=== PATIENT | male | born 1960 | race Two or more races ===

== ENCOUNTER 2024-08-18 21:19 | Inpatient (IN) | payer OTHER, MEDICAID ==
[~2024-08-18] VITALS: Ht 175.3 cm; Wt 82.5 kg
--- NOTE | 2024-08-18 21:57 | ED.PDOC ---
History of Present Illness HPI Comments 63 year old male was BIBA for the c/c of a [facility] Transfer for a Levo Drip. Per EMS pt was at [facility] for N/V and generalized weakness. Pt was later Dx with Sepsis for infected kidney stones and was given 3L NS and 2L NR per [facility] Sepsis protocol. Pt is now her at [facility] for a Urology&Nephrology consult. Pt is noted to be A&Ox4 at this time. No other associated symptoms, modifiers, recent injuries or sick contacts present at this time. Chief Complaint: General Weakness Time Seen by MD: 21:54 Reviewed Notes: Nurses Notes, Measurement Specialist Notes, Medications, Allergies Allergies: Coded Allergies: NO KNOWN ALLERGIES (Unverified , 08/18/24) Information Source: Patient, Emergency Med Personnel Mode of Arrival: EMS Severity: Moderate Timing: Hours Duration: Since onset, Hours Prehospital treatment: Other (3L NS and 2L NR) Vital Signs Vital Signs Date Time Temp Pulse Resp B/P (MAP) Pulse Ox O2 Delivery O2 Flow Rate FiO2 08/19/24 02:00 78 17 104/57 (73) 99 08/18/24 22:38 Room Air* 0 21 08/18/24 21:50 98.0 98.0 Physical Exam General: Awake, alert and oriented. No acute distress. Skin: Skin in warm, dry and intact without rashes or lesions. HEENT: The head is normocephalic and atraumatic. Conjunctivae are clear without exudates or hemorrhage. Sclera is non-icteric. Neck: Normal range of motion. No JVD. Cardiac: Regular rate Respiratory: No signs of respiratory distress. No Stridor. Extremities: Upper and lower extremities are atraumatic in appearance without deformity. Neurological: The patient is awake, alert and oriented to person, place, and time with normal speech. Speech is clear. There is no facial asymmetry. Psychiatric: Appropriate mood and affect. Good judgement and insight. Review of Systems: REVIEW OF SYSTEMS: No fever, no chills, or fatigue HEENT: No sore throat, no earache, no congestion, no neck pain. Cardiac: No chest pain. No palpitations. Lungs: No shortness of breath, no cough. GI: + nausea, + vomiting, no diarrhea, no constipation, no abdominal pain : No dysuria, frequency, or urgency. No hematuria. Musculoskeletal: No joint pain , no joint swelling, no extremity edema. Skin: No rash, no itching. Neuro: No headache, no dizziness, + weakness Past Medical History PAST MEDICAL HISTORY: Denies Surgical History: Denies all surgeries Family History Family History: Reviewed,noncontributory to illness, No family hx of Cancer, No family hx of DM, No family hx of Heart chaka, No family hx of HTN, No family hx ofKidney chaka, No family hx of Liver chaka, No family hx of Lung chaka, No family hx of Stroke Social History Smoker: Non-Smoker Alcohol: Denies ETOH Use Drugs: Denies Drug Use Lives In: Home Was a procedure done? Was a procedure done?: No Differential Dx Considerations may include: Sepsis, UTI, other X-Ray, Labs, Meds, VS Vital Signs Date Time Temp Pulse Resp B/P (MAP) Pulse Ox O2 Delivery O2 Flow Rate FiO2 08/19/24 02:00 78 17 104/57 (73) 99 08/19/24 01:00 81 18 114/59 (77) 95 08/19/24 00:00 87 08/19/24 00:00 87 19 113/65 (81) 97 08/18/24 23:00 88 19 104/56 (72) 96 08/18/24 22:38 108 14 94 Room Air* 0 21 08/18/24 22:35 96 19 102/58 (73) 98 08/18/24 21:50 98.0 108 14 101/56 (71) 94 98.0 08/18/24 21:34 97.5 95 20 112/71 (85) 96 97.5 Lab Test 08/18/24 22:06 Range/Units White Blood Count 20.4 H 4.4-10.8 10^3/uL Red Blood Count 4.69 4.5-5.90 10^6/uL Hemoglobin 12.6 L 13.5-17.5 g/dL Hematocrit 38.4 L 41.0-53.0 % Mean Corpuscular Volume 81.9 80.0-100.0 fL Mean Corpuscular Hemoglobin 26.9 L 28.0-32.0 pg Mean Corpuscular Hemoglobin Concent 32.9 32.0-36.0 g/dL Red Cell Distribution Width 16.1 H 11.8-14.3 % Platelet Count 425 140-450 10^3/uL Mean Platelet Volume 6.7 L 6.9-10.8 fL Neutrophils (%) (Auto) 88.1 H 37.0-80.0 % Lymphocytes (%) (Auto) 7.6 L 10.0-50.0 % Monocytes (%) (Auto) 4.1 0.0-12.0 % Eosinophils (%) (Auto) 0.0 0.0-7.0 % Basophils (%) (Auto) 0.2 0.0-2.0 % Neutrophils # (Auto) 17.9 H 1.6-8.6 10 ^3/uL Lymphocytes # (Auto) 1.6 0.4-5.4 10 ^3/uL Monocytes # (Auto) 0.8 0-1.3 10 ^3/uL Eosinophils # (Auto) 0 0-0.8 10 ^3/uL Basophils # (Auto) 0 0-0.2 10 ^3/uL Nucleated Red Blood Cells 0.1 % Sodium Level 133 L 136-145 mmol/L Potassium Level 4.5 3.5-5.1 mmol/L Chloride Level 102 98-107 mmol/L Carbon Dioxide Level 13 L 20-31 mmol/L Anion Gap 18 H 5-15 Blood Urea Nitrogen 91 *H 9-23 mg/dL Creatinine 7.37 H 0.700-1.30 mg/dL Glomerular Filtration Rate Calc 8 >90 mL/min BUN/Creatinine Ratio 12.3 10.0-20.0 Serum Glucose 156 H 74-106 mg/dL Calcium Level 11.0 H 8.7-10.4 mg/dL Current Medications Medications (Trade) Dose Ordered Sig/Etienne Route Start Time Stop Time Status Last Admin Sodium Chloride 1,000 ml @ 130 mls/hr [id number] ONCE IV 08/18/24 22:00 08/19/24 05:41 08/18/24 22:12 Time of 1ST Reevaluation: 22:26 Reevaluation 1ST: Unchanged Patient Education/Counseling: Need For Follow Up Family Education/Counseling: No Family Present Departure 1 Departure Time of Disposition: 04:13 Impression: Primary Impression: Sepsis Additional Impression: Nephrolithiasis Disposition: ADMITTED INPATIENT Condition: Stable Comments 63-year-old male transfer from [facility] for sepsis secondary to obstructing nephrolithiasis. Zosyn and vancomycin, proximally 3 L normal saline and lactated Ringer's administered prior to arrival. Patient admitted to hospitalist service for further treatment, evaluation and monitoring. Critical Care Note Critical Care Time?: No Stability Stability form required: No Heart Score Heart Score: Heart Score Response (Comments) Value History N/A 0 EKG N/A 0 Age N/A 0 Risk Factors N/A 0 Troponin N/A 0 Total 0 I personally scribed for RITCHIE HENSON MD ([email or web address]) on 08/18/24 at 21:57. Electronically submitted by Andrew Peres ([email or web address]). RITCHIE HENSON MD Aug 18, 2024 21:57
[2024-08-18] MEDS: SODIUM CHLORIDE 0.9% 1,000 ML IV ONE (22:12)
[2024-08-18 22:27] LABS: Basophils # (auto) 0 10 ^3/uL (0-0.2); Basophils % (auto) 0.2 % (0.0-2.0); Eosinophils # (auto) 0 10 ^3/uL (0-0.8); Hematocrit 38.4 % (41.0-53.0); Hemoglobin 12.6 g/dL (13.5-17.5); Lymphocytes # (auto) 1.6 10 ^3/uL (0.4-5.4); Lymphocytes % (auto) 7.6 % (10.0-50.0); Mean Corpuscular Hemoglobin 26.9 pg (28.0-32.0); Mean Corpuscular Hgb Conc. 32.9 g/dL (32.0-36.0); Mean Corpuscular Volume 81.9 fL (80.0-100.0); Monocytes # (auto) 0.8 10 ^3/uL (0-1.3); Monocytes % (auto) 4.1 % (0.0-12.0); Neutrophils # (auto) 17.9 10 ^3/uL (1.6-8.6); Neutrophils % (auto) 88.1 % (37.0-80.0); Nucleated Red Blood Cells % 0.1 %; Platelet Count (auto) 425 10^3/uL (140-450); Red Blood Cells 4.69 10^6/uL (4.5-5.90); Red Cell Distribution Width 16.1 % (11.8-14.3); White Blood Cell 20.4 10^3/uL (4.4-10.8)
[2024-08-18 22:33] LABS: Chloride 102 mmol/L (98-107); Potassium 4.5 mmol/L (3.5-5.1)
[2024-08-18 22:34] LABS: Anion Gap 18 (5-15)
[2024-08-18 22:38] VITALS: PULSE 108; RESP 14; O2SAT 94
[2024-08-18 22:39] LABS: BUN/Creatinine Ratio 12.3 (10.0-20.0)
[2024-08-18 22:41] LABS: Carbon Dioxide 13 mmol/L (20-31); Glucose 156 mg/dL (74-106); Sodium 133 mmol/L (136-145)
[2024-08-18 22:42] LABS: Blood Urea Nitrogen 91 mg/dL (9-23)
[2024-08-19] VITALS (8 sets, daily range): BP systolic 86–99; BP diastolic 52–58; PULSE 82–92; RESP 16–17; TEMP 97.3–97.5; O2SAT 96–99
--- NOTE | 2024-08-19 03:15 | DVHHPRES ---
History of Present Illness Resident Creating Document: DIMAS CHAUHAN RESIDENT History of Present Illness This is a 63-year-old male with past medical history of CVA, CKD, BPH, DVT, diabetes mellitus, who presented to the ED of [facility] due to generalized weakness associated with nausea and persistent vomiting. Patient states that symptoms started three days before coming to the ED consistent with persistent vomiting not being able to tolerate any food both solids and liquids associated with generalized malaise. The patient was transferred from [facility] to our facility for higher level of care and neurology evaluation due to large staghorn calculi in the left kidney with moderate to severe right hydronephrosis. The patient at that time was requiring vasopressors and was transfered to our facility. After checking [place] documentation, they performed a CT scan of the abdomen and pelvis with contrast which showed large s taghorn calculus of the left kidney with moderate to severe right hydronephrosis and bilateral hydroureter, possible bladder outlet obstruction. They also performed a CT angio of the chest which showed no pulmonary embolism. Upon admission, patient is alert and oriented, not requiring vasopressors at this time. Cannon catheter was placed with good urine output so far. Patient states that he is DNR/DNI status (chemical code). We will admit the patient for further assessment and management. Past medical history: CVA, CKD, BPH, DVT, DM Home medications: Eliquis 5 mg b.i.d., Lantus 20 units at bedtime, Mounjaro 2.5 mg weekly Surgical history: Cholecystectomy, amputation of the right 3rd and 5th toe and distal half of the 5th metatarsal. There is also amputation of the 1st metatarsal toe of the left foot. Social history: Denies smoking, alcohol or drugs Renal/: Chronic renal insuff Endocrine: Diabetes Past Surgical History: Cholecystectomy, Other (Cholecystectomy, amputation of the 3rd and 5th toe of the right foot and 1st toe of the left foot) Family History: None Smoke: No ALCOHOL: none Drugs: None Lives: with Family Domestic Violence: Neg Review of Systems Constitutional: Yes: Weakness, Malaise; No: Fever, Chills, Sweats, Other Eyes: No: Pain, Vision change, Conjunctivae inflammation, Eyelid inflammation, Other, Redness ENT: No: Ear pain, Ear discharge, Nose pain, Nose discharge, Nose congestion, Mouth pain, Mouth swelling, Throat pain, Throat swelling, Other Respiratory: No: Cough, Dry, Shortness of breath, SOB with excertion, Wheezing, Hemoptysis, Pleuritic Pain, Sputum, Wheezing, Other Cardiovascular: No: Chest Pain, Palpitations, Orthopnea, Paroxysmal Noc. Dyspnea, Edema, Lt Headedness, Other Gastrointestinal: Nausea, Vomiting; No: Abdominal Pain, Diarrhea, Constipation, Melena, Hematochezia, Other Genitourinary: No Dysuria, No Frequency, No Incontinence, No Hematuria, No Retention, No Other Musculoskeletal: No: other, neck pain, shoulder pain, arm pain, back pain, hand pain, leg pain, foot pain Skin: No: Rash, Lesions, Jaundice, Bruising, Other Neurological: Weakness; No: Numbness, Incoordination, Change in speech, Confusion, Seizures, Other Allergies: Coded Allergies: NO KNOWN ALLERGIES (Unverified , 08/18/24) Medications Current Medications Medications Dose Ordered Sig/Etienne Route Start Time Stop Time Status Last Admin Dose Admin Acetaminophen 650 mg Q6HP PRN PO 08/19/24 02:45 Meropenem 50 ml @ 17 mls/hr DAILY IV 08/19/24 02:45 UNV Exam Vital Signs Vital Signs Date Time Temp Pulse Resp B/P (MAP) Pulse Ox O2 Delivery O2 Flow Rate FiO2 08/18/24 22:38 108 14 94 Room Air* 0 21 08/18/24 22:35 102/58 (73) 08/18/24 21:50 98.0 98.0 General Appearance: Alert, Oriented X3, Cooperative, mild distress, moderate distress HEENT: Atraumatic, PERRLA, EOMI, Mucous membr. moist/pink Respiratory: Clear to auscultation, Normal air movement Cardiovascular: Regular rate, Normal S1, Normal S2, No murmurs Abdominal: Normal bowel sounds, Soft, No tenderness, No hepatospenomegaly, No masses Extremities: No clubbing, No cyanosis, No edema, Normal pulses, No tenderness/swelling, Other (There is amputation of the 3rd and 5th toe of the right foot and 1st toe of the left foot) Skin: No rashes, No breakdown, No significant lesion Neuro: Normal speech, Strength at 5/5 X4 ext, Normal tone, Sensation intact, C ranial nerves 3-12 NL, Reflexes 2+ Psych/Mental Status: Mental status NL, Mood NL Labs/Xrays Labs Test 08/18/24 22:06 Range/Units White Blood Count 20.4 H 4.4-10.8 10^3/uL Red Blood Count 4.69 4.5-5.90 10^6/uL Hemoglobin 12.6 L 13.5-17.5 g/dL Hematocrit 38.4 L 41.0-53.0 % Mean Corpuscular Volume 81.9 80.0-100.0 fL Mean Corpuscular Hemoglobin 26.9 L 28.0-32.0 pg Mean Corpuscular Hemoglobin Concent 32.9 32.0-36.0 g/dL Red Cell Distribution Width 16.1 H 11.8-14.3 % Platelet Count 425 140-450 10^3/uL Mean Platelet Volume 6.7 L 6.9-10.8 fL Neutrophils (%) (Auto) 88.1 H 37.0-80.0 % Lymphocytes (%) (Auto) 7.6 L 10.0-50.0 % Monocytes (%) (Auto) 4.1 0.0-12.0 % Eosinophils (%) (Auto) 0.0 0.0-7.0 % Basophils (%) (Auto) 0.2 0.0-2.0 % Neutrophils # (Auto) 17.9 H 1.6-8.6 10 ^3/uL Lymphocytes # (Auto) 1.6 0.4-5.4 10 ^3/uL Monocytes # (Auto) 0.8 0-1.3 10 ^3/uL Eosinophils # (Auto) 0 0-0.8 10 ^3/uL Basophils # (Auto) 0 0-0.2 10 ^3/uL Nucleated Red Blood Cells 0.1 % Sodium Level 133 L 136-145 mmol/L Potassium Level 4.5 3.5-5.1 mmol/L Chloride Level 102 98-107 mmol/L Carbon Dioxide Level 13 L 20-31 mmol/L Anion Gap 18 H 5-15 Blood Urea Nitrogen 91 *H 9-23 mg/dL Creatinine 7.37 H 0.700-1.30 mg/dL Glomerular Filtration Rate Calc 8 >90 mL/min BUN/Creatinine Ratio 12.3 10.0-20.0 Serum Glucose 156 H 74-106 mg/dL Calcium Level 11.0 H 8.7-10.4 mg/dL Assessment/Plan Assessment/Plan Assessment/plan Sepsis likely due to acute pyelonephritis Bilateral hydronephrosis with left staghorn calculi Possible bladder outlet obstruction OLGA on CKD (not on hemodialysis) Type 2 diabetes mellitus Benign prostatic hyperplasia History of DVT History of CVA Plan -Start Levophed if needed (Not requiring pressors at this time) -Ordered U/A, Urine NA, Cr, Prot/Cr ratio, Lactic acid -Continue IV fluids NS 0.9% 130cc/hr -Place Folley catheter -Strict Ins and Outs -Start IV meropenem renal dose -Start tamsulosin 0.4mg daily -Resume eliquis 5mg BID -Ordered CT abdomen w/o contrast -Ordered kidney ultrasound -Consulted both Urology and Nephrology Plan discussed with: Patient My Orders Orders - DIMAS CHAUHAN Procedure Category Date Status Time Admit ADMIT 08/19/24 Transmitted 02:33 Code Status CODE 08/19/24 Transmitted 02:33 Vital Signs CARLOS A 08/19/24 In Process 02:33 Review Orders With CARLOS A 08/19/24 In Process Adm. 02:33 Encourage Activity As CARLOS A 08/19/24 In Process Tolerate 02:33 Consistent DIET 08/19/24 Transmitted Carb(Ccho)Diabetes Breakfast Acetaminophen Tablet PHA 08/19/24 In Process (Tylenol Tablet) 02:45 Notify Of Changes CARLOS A 08/19/24 In Process From Base 02:33 Advance Directive CARLOS A 08/19/24 In Process 02:33 Urinalysis LAB 08/19/24 Logged 02:33 Complete Blood Count LAB 08/19/24 Logged 04:00 Lipid Panel LAB 08/19/24 Logged 02:33 Blood Culture SHAWNA 08/19/24 Logged 02:33 Urine Bacterial SHAWNA 08/19/24 Logged Culture 02:33 Patient Condition ORDERS 08/19/24 Transmitted 02:33 Allergies CARLOS A 08/19/24 In Process 02:33 Drug Screen LAB 08/19/24 Logged 02:33 Hemoglobin A1c LAB 08/19/24 Logged 02:33 Lactic Acid W/ Reflex LAB 08/19/24 Logged Order 02:40 Urine Sodium LAB 08/19/24 Logged 02:40 Urine Creatinine LAB 08/19/24 Logged 02:40 Urine LAB 08/19/24 Logged Protein/Creatinine Kidney US 08/19/24 Logged 02:[address] 08/19/24 Logged Contrast 02:40 Comprehensive LAB 08/19/24 Logged Metabolic Panel 04:00 Meropenem 500mg Ivpb PHA 08/19/24 Logged (Merrem 500mg/Ns) 02:45 Lipase LAB 08/19/24 Transmitted 02:46 Date of Service: Aug 19, 2024 Billing Provider: MAN CARLSON MD Common Visit Codes: 70039-[id number] INP/OBS CARE (HIGH) Secondary Visit Codes: 87359-[id number] CARE PLAN 30 MINUTES DIMAS CHAUHAN RESIDENT Aug 19, 2024 03:15
[2024-08-19 03:29] LABS: Eosinophils # (auto) 0 10 ^3/uL (0-0.8); Hemoglobin 11.3 g/dL (13.5-17.5); Neutrophils # (auto) 13.9 10 ^3/uL (1.6-8.6); Red Blood Cells 4.28 10^6/uL (4.5-5.90); Red Cell Distribution Width 16.2 % (11.8-14.3); White Blood Cell 16.6 10^3/uL (4.4-10.8)
[2024-08-19 03:30] LABS: Basophils # (auto) 0 10 ^3/uL (0-0.2); Basophils % (auto) 0.2 % (0.0-2.0); Eosinophils % (auto) 0.1 % (0.0-7.0); Hematocrit 34.3 % (41.0-53.0); Lymphocytes # (auto) 1.8 10 ^3/uL (0.4-5.4); Lymphocytes % (auto) 10.6 % (10.0-50.0); Mean Corpuscular Hemoglobin 26.4 pg (28.0-32.0); Mean Corpuscular Hgb Conc. 32.9 g/dL (32.0-36.0); Mean Corpuscular Volume 80.1 fL (80.0-100.0); Monocytes # (auto) 0.9 10 ^3/uL (0-1.3); Monocytes % (auto) 5.4 % (0.0-12.0); Neutrophils % (auto) 83.7 % (37.0-80.0); Platelet Count (auto) 405 10^3/uL (140-450)
[2024-08-19] MEDS: MEROPENEM 500MG IVPB 50 ML IV SCH (03:30)
--- NOTE | 2024-08-19 03:42 | DVH ---
Exam: CT CT AB PEL WO CON-NO ORAL OR IV History: R/O PYELONEPHRITIS AND KIDNEY STONES Comparison Study: None Technique: Multidetector spiral CT of the abdomen was performed from lung bases to pubic symphysis. I maging was performed without IV contrast. Axial, coronal and sagittal multiplanar reformats were obta ined from the axial data set by the technologist. Radiation Dose : 1. Abdomen/Pelvis: CTDIvol 19.66 mGy, DLP 1082.69 mGy*cm. Findings: Evaluation of solid organs is limited due to lack of intravenous contrast use. Lung Bases: No acute or significant lung base finding. Normal heart size. No pleural or pericardial effusion. Liver: The liver is normal in size. No focal lesions. Gallbladder and Biliary Tree: Status post cholecystectomy. Spleen: Unremarkable Pancreas: The pancreas is grossly normal in appearance. Adrenal Glands: Unremarkable Kidneys: Moderate right renal atrophy and [id number] right hydronephrosis and ureteral dilatati on without identifiable obstructive etiology. Staghorn calculus within the left renal pelvis measures 4.6 x 4.4 cm and there is moderate left hydronephrosis and ureteral dilatation without distal obstru ctive etiology identified. Bladder: Grossly unremarkable for degree of distention. Cannon catheter. Bowel: The stomach is grossly normal in appearance. Retained rectal stool. Small bowel and colon are otherwise normal in caliber and distribution. The appendix is normal. Ascites: Absent Lymphadenopathy: No mesenteric, retroperitoneal or periportal lymphadenopathy. Abdominal Wall and Mesentery: Unremarkable. Vasculature: The visualized abdominal aorta is normal in size and caliber. Atherosclerotic vascular c alcifications. Evaluation of abdominal and pelvic vessels is limited due to lack of intravenous contr ast. Pelvic Organs: Unremarkable Musculoskeletal: No aggressive focal bony lesions, acute fractures or dislocation. IMPRESSION: 1. Bilateral hydroureteronephrosis without identifiable distal obstructive etiology. Large staghorn calculus noted within the left renal pelvis. 2. Rectal fecal retention. Radiation optimization: All CT scans at this facility use at least one of these dose optimization viki hniques: automated exposure control mA and/or kV adjustment per patient size (includes targeted exam s where dose is matched to clinical indication) or iterative reconstruction.
[2024-08-19 03:59] LABS: Alanine Aminotransferase 12 U/L (7-40); Albumin 3.3 g/dL (3.2-4.8); Alkaline Phosphatase 74 U/L (46-116); Anion Gap 13 (5-15); BUN/Creatinine Ratio 14.3 (10.0-20.0); Chloride 105 mmol/L (98-107); Cholesterol 110 mg/dL (< 200); LDL Cholesterol 50 mg/dL (< 100); Potassium 4.2 mmol/L (3.5-5.1); Sodium 137 mmol/L (136-145); Total Protein 6.8 g/dL (5.7-8.2); Triglycerides 93 mg/dL (< 150)
[2024-08-19 04:00] LABS: Aspartate Aminotransferase 10 U/L (13-40); Bilirubin, Total 0.2 mg/dL (0.2-1.0); Calcium 10.4 mg/dL (8.7-10.4); Carbon Dioxide 19 mmol/L (20-31); Glucose 126 mg/dL (74-106); HDL Cholesterol 28 mg/dL (40-59)
[2024-08-19 04:02] LABS: Blood Urea Nitrogen 103 mg/dL (9-23)
[2024-08-19 04:20] LABS: Lipase 54 U/L (12-53)
[2024-08-19 06:23] LABS: Urine Bacteria None Seen /hpf (None Seen)
[2024-08-19 06:30] LABS: Urine Blood 3+ /uL (Negative); Urine Clarity Ex.Turbid (Clear); Urine Color Colorless (Yellow); Urine Mucus FEW (None Seen); Urine Protein, UAD 1+ (Negative); Urine Specific Gravity 1.011 (1.001-1.035); Urine Squamous Epithelial Cell None Seen /hpf (<5); Urine Urobilinogen Normal (Negative); Urine WBC 2479 /HPF (0-3); Urine WBC Clumps PRESENT /hpf (None Seen)
[2024-08-19 06:37] LABS: Protein, Urine 123.2 mg/dL (1-14)
[2024-08-19 06:40] LABS: Creatinine, Urine 24.66 mg/dL (30.0-125.0)
[2024-08-19 06:41] LABS: Amphetamine Screen, Urine Neg (NEGATIVE); Barbiturate Scree,Urine Neg (NEGATIVE); Benzodiazephine Screen, Urine Neg (NEGATIVE); Cannabinoid Screen, Urine Pos (NEGATIVE); Cocaine Screen, Urine Neg (NEGATIVE); Opiate Scree,Urine Neg (NEGATIVE); Phencyclidine Screen, Urine Neg (NEGATIVE)
--- NOTE | 2024-08-19 07:12 | DVH ---
INDICATION: POSS. BILAT HYDRONEPHROSIS TECHNIQUE: Multiple real-time sonographic images of the kidneys and bladder were obtained. COMPARISON: CT scan of the abdomen pelvis performed earlier same date. FINDINGS: The right kidney measures 9.1 cm in length, which is normal in size. There is normal echoge nicity of the right kidney. Moderate hydronephrosis. The left kidney measures 12.2 cm in length, which is normal in size. There is normal echogenicity of the left kidney. Nonobstructive calculus measuring 1.8 cm. No hydronephrosis. No large intraluminal masses are seen in the bladder. Prior to voiding the bladder volume measures vo lume 428 cc. IMPRESSION: 1. Moderate right hydronephrosis. No right intrarenal calculi. Left intrarenal calculus measuring 1 .8 cm. 2. Distended urinary bladder despite the presence of a Cannon catheter.
[2024-08-19] MEDS: TAMSULOSIN HYDROCHLORIDE 0.4 MG CAP PO SCH (09:55)
[2024-08-19] MEDS: FLEET ENEMA(ADULT) 135 ML PR ONE (09:55)
[2024-08-19] MEDS: LACTULOSE 20Gm/30ML SOLN PO SCH (09:55)
[2024-08-19] MEDS: SODIUM CHLORIDE 0.9% 1,000 ML IV SCH ×2 (09:55→21:00)
[2024-08-19] MEDS ORDERED: APIXABAN 5 MG TAB PO SCH (10:00)
[2024-08-19] MEDS: HEPARIN SODIUM (PORCINE) 5000 UNITS/ML 1ML VIAL SC SCH (10:07)
[2024-08-19] MEDS: LIDOCAINE 2% TOPICAL JELLY 5 ML URJT TOP ONE (10:56)
[2024-08-19] MEDS ORDERED: DOXYCYCLINE 100MG/100ML 100 ML IV SCH (14:15)
[2024-08-19] MEDS ORDERED: DOXYCYCLINE 100MG/100ML 100 ML IV ONE (14:15)
[2024-08-19] MEDS ORDERED: ATORVASTATIN 20 MG TAB PO ONE (14:45)
[2024-08-19 15:40] LABS: INR 1.18 (0.9-1.15); Partial Thromboplastin Time 30.8 SEC (24.5-34.5); Prothrombin Time 12.3 sec (9.3-11.8)
--- NOTE | 2024-08-19 16:05 | DVH ---
Bilateral Lower Extremity Arterial Duplex Clinical History: PAD Comparison: None Technique: Duplex Doppler evaluation including color Doppler and spectral/pulsed waveform analysis of the lower extremity arteries was performed. Findings: RIGHT: Peak systolic velocities are as follows: [employer] FI[employer] AD[employer]ER 110 cm/s Deep femoral 93 cm/s SFA proximal 156 cm/s SFA mid-portion 73 cm/s SFA distal 47 cm/s Popliteal 33 cm/s Posterior tibial 12 cm/s Anterior tibial 15 cm/s Peroneal not visualized cm/s Dorsalis pedis 44 cm/s The waveforms are monophasic with diastolic flow. 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 IMPRESSION: 20-49% stenosis of bilateral proximal superficial femoral artery based on peak systolic velocity woodrow garcía. Nonvisualization of flow in the left posterior tibial artery and left dorsalis pedis. Monophasic arterial waveforms and Bilateral lower extremity suggestive of underlying peripheral arter ial disease. <150 cm/s - <20 % stenosis 150-200 cm/s - 20-49% stenosis 200-300 cm/s - 50-75% stenosis >300 cm/s -> 75% stenosis REFERENCE VALUES, [facility] ([facility]) vascular Imaging Lab Criteria: Peak systolic velocity rang es (in cm/sec) are as follows:
--- NOTE | 2024-08-19 16:58 | DVH ---
EXAM: MRI MRI L FOOT WO CONTRAST INDICATION: diabetic foot TECHNIQUE: Multiplanar and multisequence MR imaging of the left foot was performed in the absence of gadolinium contrast. COMPARISON: None FINDINGS: There is a metatarsus varus deformity of the midfoot. There is no evidence of fracture or destructive lesion of bone. There is soft tissue swelling in the flexor tendons along the plantar aspect of the midfoot. No foca l abscess is seen. IMPRESSION: 1. Soft tissue swelling in the plantar surfaces of the midfoot without identifiable abscess or signs of osteomyelitis.
--- NOTE | 2024-08-19 18:21 | DVHPNRES ---
Progress Note Date Seen: Aug 19, 2024 Resident Creating Document: NANCY OLIVA THANG Has the PT tested + for MRSA If YES, has PT been informed?: No Medical Necessity Reason Pt with a Central, PICC or Fol: No Subjective Review of Systems This is a 63-year-old male with past medical history of CVA, CKD, BPH, DVT, diabetes mellitus, who presented to the ED of [facility] due to generalized weakness associated with nausea and persistent vomiting. Patient states that symptoms started three days before coming to the ED consistent with persistent vomiting not being able to tolerate any food both solids and liquids associated with generalized malaise. The patient was transferred from [facility] to our facility for higher level of care and neurology evaluation due to large staghorn calculi in the left kidney with moderate to severe right hydronephrosis. The patient at that time was requiring vasopressors and was transfered to our facility. After checking [place] documentation, they performed a CT scan of the abdomen and pelvis with contrast which showed large staghorn calculus of the left kidney with moderate to severe right hydronephrosis and bilateral hydroureter, possible bladder outlet obstruction. They also performed a CT angio of the chest which showed no pulmonary embolism. Upon admission, patient is alert and oriented, not requiring vasopressors at this time. Cannon catheter was placed with good urine output so far. Patient states that he is DNR/DNI status (chemical code). We will admit the patient for further assessment and management. Past medical history: CVA, CKD, BPH, DVT, DM Home medications: Eliquis 5 mg b.i.d., Lantus 20 units at bedtime, Mounjaro 2.5 mg weekly Surgical history: Cholecystectomy, amputation of the right 3rd and 5th toe and distal half of the 5th metatarsal. There is also amputation of the 1st metatarsal toe of the left foot. Social history: Denies smoking, alcohol or drugs Patient seen and examined at the bedside. Patient is confused and can not provide proper history. Patient reports he has has history of diabetes, and kidney. But could not provide which medicine he is taking at home. Per patient is living with a friend/caregiver, does not remind phone number. Patient reports: No new complaints Changes from previous H/P or p: No Changes Objective vital signs Vital Sign Date Time Temp Pulse Resp B/P (MAP) Pulse Ox O2 Delivery O2 Flow Rate FiO2 08/19/24 17:00 97.5 84 17 86/53 (64) 97 97.5 08/19/24 08:00 Room Air* 0 21 Total Intake and Output 08/18/24 08/18/24 08/19/24 15:00 23:00 07:00 Intake Total 977 ml Balance 977 ml medications Current Medications Medications Dose Ordered Sig/Etienne Route Start Time Stop Time Status Last Admin Dose Admin Acetaminophen 650 mg Q6HP PRN PO 08/19/24 02:45 Meropenem 50 ml @ 17 mls/hr DAILY IV 08/19/24 02:45 08/19/24 10:56 17 MLS/HR Tamsulosin HCl 0.4 mg DAILY PO 08/19/24 10:00 08/19/24 09:55 0.4 MG Lactulose 30 ml DAILY PO 08/19/24 06:15 08/19/24 09:55 30 ML Heparin Sodium (Porcine) 5,000 units Q12HR SC 08/19/24 10:00 08/19/24 10:07 5,000 UNITS Sodium Chloride 1,000 ml @ 125 mls/hr Q8H IV 08/19/24 07:45 08/19/24 17:43 125 MLS/HR Linezolid 300 ml @ 150 mls/hr Q12HR IV 08/19/24 22:00 Atorvastatin Calcium 40 mg HS PO 08/19/24 22:00 Examination General Appearance: Alert, Oriented to person, but disoriented to time and place HEENT: Atraumatic, PERRLA, EOMI, Mucous membrane moist/pink Respiratory: Clear to auscultation, Normal air movement Cardiovascular: Regular rate, Normal S1, Normal S2, No murmurs, no chest wall tenderness Abdominal: Normal bowel sounds, Soft, No tenderness, No hepatospenomegaly, No masses Extremities: Bilateral multiple to his amputated, left big to a has black scar added. Skin: No rashes, No breakdown, No significant lesion Neuro: Normal gait, Normal speech, Strength at 5/5 X4 ext, Normal tone, Sensation intact, Cranial nerves 3-12 NL, Reflexes 2+ Psych/Mental Status: Mental status NL, Mood NL laboratory and microbiology Laboratory Tests 08/19/24 03:14 Test 08/19/24 03:14 Range/Units Serum Glucose 126 H 74-106 mg/dL Labs and/or images reviewed: Labs reviewed by me, Image(s) reviewed by me Problem List/Assessment/Plan Problem List/Assessment/Plan Acute metabolic encephalopathy, likely due to sepsis Sepsis, likely due to UTI/cellulitis Obstructive nephropathy right-sided moderate hydronephrosis Complicated UTI /pyelonephritis Left lower limb cellulitis Diabetes type 2 Possible OLGA on CKD, likely VMN History of BPH History of DVT History of CVA * Abdominal CT scan shows bilateral hydro ureteronephrosis identified intestinal obstructive etiology, large staghorn calculus noted within the left renal pelvis ultrasound shows, * Ultrasound shows, Moderate right hydronephrosis. No right intrarenal calculi. Left intrarenal calculus measuring 1.8 cm * Doppler ultrasound of lower limb shows bilateral 20-49% stenosis of proximal lower limb arteries * Foot MRI shows, Soft tissue swelling in the plantar surfaces of the midfoot without identifiable abscess or signs of osteomyelitis Plan/recommendation * Empiric antibiotic meropenem and doxycycline * Blood culture and urine culture * IV fluid * Consulted nephrology * Consulted Urology * Consulted Podiatry DIET: Diabetic diet DVT PROPHYLAXIS: Dose of heparin GI PROPHYLAXIS:: Protonix DISPOSITION: Telemetry Patient's status and plan discussed with the patient. Due to and few status of patient, patient could not provide phone number of family/caregiver. Case discussed with Dr. Pierce. Plan discussed with: Patient, Other (RN) My Orders My Orders Orders - NANCY OLIVA RESDICARL Procedure Category Date Status Time Heparin Sodium PHA 08/19/24 In Process (Porcine) 10:00 Bilat Low Ext Art US 08/19/24 Resulted Duplex 14:28 Magnesium LAB 08/19/24 Logged 14:28 Blood Alcohol LAB 08/19/24 Logged 14:28 Linezolid 600mg/300ml PHA 08/19/24 In Process (Zyvox) 22:00 Atorvastatin (Lipitor) PHA 08/19/24 In Process 22:00 Mri L Foot Wo Contrast MRI 08/19/24 Resulted 14:34 Complete Blood Count LAB 08/20/24 Verified 04:00 Basic Metabolic Panel LAB 08/20/24 Verified 04:00 Date of Service: Aug 19, 2024 Billing Provider: SIS PIERCE MD Common Visit Codes: [id number] INP/OBS CARE(HIGH) NANCY OLIVA Aug 19, 2024 18:21 SIS PIERCE MD Aug 20, 2024 12:01
[2024-08-19] MEDS: SODIUM CHLORIDE 0.9% 1,000 ML IV ONE (18:30)
[2024-08-19 18:42] LABS: Sodium 141 mmol/L (136-145)
[2024-08-19 18:43] LABS: Anion Gap 14 (5-15)
[2024-08-19 18:48] LABS: BUN/Creatinine Ratio 13.9 (10.0-20.0); Glucose 81 mg/dL (74-106)
[2024-08-19 18:49] LABS: Calcium 10.5 mg/dL (8.7-10.4); Carbon Dioxide 18 mmol/L (20-31); Chloride 109 mmol/L (98-107)
[2024-08-19 18:51] LABS: Blood Urea Nitrogen 98 mg/dL (9-23)
[2024-08-19 19:27] LABS: Blood Alcohol < 3.0 mg/dL (<10); Magnesium 2.9 mg/dL (1.6-2.6)
[2024-08-19] MEDS: SODIUM CHLORIDE 0.9% 500 ML IV ONE (20:39)
[2024-08-19] MEDS: FUROSEMIDE 100 MG/10ML VIAL IV ONE (21:00)
[2024-08-19] MEDS: LINEZOLID 600MG/300ML 300 ML IV SCH (23:08)
[2024-08-19] MEDS: ATORVASTATIN 20 MG TAB PO SCH (23:09)
[2024-08-20] VITALS (13 sets, daily range): BP systolic 78–106; BP diastolic 43–66; PULSE 63–94; RESP 14–22; TEMP 97.1–98.1; O2SAT 95–99
[2024-08-20] MEDS: LIDOCAINE 2% TOPICAL JELLY 5 ML URJT TOP ONE (07:15)
--- NOTE | 2024-08-20 09:35 | DVHINCON2 ---
Date of service: Aug 20, 2024 Referring Physician Hospitalist Reason for Consultation Acute kidney injury History of Present Illness Patient is a poor historian information obtained from medical records. 63-year-old male with past medical history of chronic kidney disease stage IV and bladder mass [place] [facility] [place] [facility] due to bilateral hydronephrosis. Patient admitted to the hospital CT scan shows bilateral hydronephrosis with left-sided staghorn calculus. Patient noted to have a creatinine greater than six. Nephrology consulted for acute kidney injury. Patient had Cannon catheter placed with minimal urinary output. Patient is now status post right nephrostomy tube Past Medical History Diabetes, hypertension, hyperlipidemia, stroke in 2020, peripheral vascular disease, chronic kidney disease stage IIIb/IV in 2021, and obstructive uropathy evaluated for bladder mass in 2021 status post cystoscopy and bladder evacuation complicated by bladder rupture 2021 Allergies: Coded Allergies: NO KNOWN ALLERGIES (Unverified , 08/18/24) Home Meds Unable to Obtain Active Prescriptions or Reported Meds Current Medications Current Medications Medications (Trade) Dose Ordered Sig/Etienne Route PRN Reason Start Time Stop Time Status Last Admin Linezolid 300 ml @ 150 mls/hr Q12HR IV 08/19/24 22:00 08/20/24 09:47 Atorvastatin Calcium (Lipitor) 40 mg HS PO 08/19/24 22:00 08/19/24 23:09 Sodium Chloride 1,000 ml @ 75 mls/hr [id number] IV 08/19/24 21:00 08/19/24 21:00 Family History: Angina G8 FATHER Diabetes mellitus G8 MOTHER H&P Exam Vital Signs/I&O Vital Sign Date Time Temp Pulse Resp B/P (MAP) Pulse Ox O2 Delivery O2 Flow Rate FiO2 08/20/24 09:00 97.4 79 16 106/59 (75) 97 97.4 08/19/24 20:00 Room Air* 0 21 Intake and Output 08/19/24 08/20/24 18:59 06:59 Intake Total 350 ml 3100 ml Output Total 475 ml 550 ml Balance -125 ml 2550 ml Intake Oral 300 ml 600 ml IV Total 50 ml 2500 ml Output Urine Total 475 ml 550 ml Physical Exam Ill-appearing malnourished male Not in overt distress Abdomen is soft Appears malnourished No pitting edema Has toe amputations on the right foot Labs/Diagnostic Data Labs/Diagnostic Data Laboratory Tests Test 08/20/24 13:35 08/20/24 10:06 08/19/24 18:15 08/19/24 15:10 Range/Units White Blood Count 11.3 #H 4.4-10.8 10^3/uL Red Blood Count 4.36 L 4.5-5.90 10^6/uL Hemoglobin 11.6 L 13.5-17.5 g/dL Hematocrit 35.5 L 41.0-53.0 % Mean Corpuscular Volume 81.4 80.0-100.0 fL Mean Corpuscular Hemoglobin 26.7 L 28.0-32.0 pg Mean Corpuscular Hemoglobin Concent 32.8 32.0-36.0 g/dL Red Cell Distribution Width 16.4 H 11.8-14.3 % Platelet Count 349 140-450 10^3/uL Mean Platelet Volume 6.1 L 6.9-10.8 fL Neutrophils (%) (Auto) 76.3 37.0-80.0 % Lymphocytes (%) (Auto) 15.7 10.0-50.0 % Monocytes (%) (Auto) 7.2 0.0-12.0 % Eosinophils (%) (Auto) 0.4 0.0-7.0 % Basophils (%) (Auto) 0.4 0.0-2.0 % Neutrophils # (Auto) 8.6 1.6-8.6 10 ^3/uL Lymphocytes # (Auto) 1.8 0.4-5.4 10 ^3/uL Monocytes # (Auto) 0.8 0-1.3 10 ^3/uL Eosinophils # (Auto) 0 0-0.8 10 ^3/uL Basophils # (Auto) 0 0-0.2 10 ^3/uL Nucleated Red Blood Cells 0.0 % Sodium Level 141 141 136-145 mmol/L Potassium Level 3.5 4.0 3.5-5.1 mmol/L Chloride Level 111 H 109 H 98-107 mmol/L Carbon Dioxide Level 17 L 18 L 20-31 mmol/L Anion Gap 13 14 5-15 Blood Urea Nitrogen 79 H 98 *H 9-23 mg/dL Creatinine 6.54 H 7.05 H 0.700-1.30 mg/dL Glomerular Filtration Rate Calc 9 8 >90 mL/min BUN/Creatinine Ratio 12.1 13.9 10.0-20.0 Serum Glucose 89 81 74-106 mg/dL Calcium Level 9.3 10.5 H 8.7-10.4 mg/dL Magnesium Level 2.9 H 1.6-2.6 mg/dL Plasma/Serum Blood Alcohol < 3.0 <10 mg/dL Prothrombin Time 12.3 H 9.3-11.8 sec Prothrombin Time INR 1.18 H 0.9-1.15 Activated Partial Thromboplast Time 30.8 24.5-34.5 SEC Test 08/19/24 06:10 08/19/24 03:14 08/18/24 22:06 Range/Units Urine Color Colorless Yellow Urine Clarity Ex.turbid Clear Urine pH 8.0 5.0-9.0 Urine Specific [place] 1.011 1.001-1.035 Urine Protein 1+ H Negative Urine Ketones Trace Negative Urine Blood 3+ H Negative /uL Urine Nitrite Negative Negative Urine Bilirubin Negative Negative Urine Urobilinogen Normal Negative mg/dL Urine Leukocyte Esterase 3+ Negative /uL Urine RBC 463 0 - 3 /hpf Urine WBC Clumps Present None Seen /hpf Urine Microscopic WBC 2479 H 0-3 /HPF Urine Squamous Epithelial Cells None seen <5 /hpf Urine Bacteria None seen None Seen /hpf Urine Mucus Few None Seen Urine Creatinine 24.66 L 30.0-125.0 mg/dL Urine Protein/Creatinine Ratio 5.00 Urine Sodium 70 40-220 mmol/L Urine Glucose Normal Normal mg/dL Urine Total Protein 123.2 H 1-14 mg/dL Urine Opiates Screen Neg NEGATIVE Urine Fentanyl Screen Neg NEGATIVE Urine Barbiturates Screen Neg NEGATIVE Urine Phencyclidine Screen Neg NEGATIVE Urine Amphetamines Screen Neg NEGATIVE Urine Benzodiazepines Screen Neg NEGATIVE Urine Cocaine Screen Neg NEGATIVE Urine Cannabinoids Screen Pos NEGATIVE White Blood Count 16.6 H 20.4 H 4.4-10.8 10^3/uL Red Blood Count 4.28 L 4.69 4.5-5.90 10^6/uL Hemoglobin 11.3 L 12.6 L 13.5-17.5 g/dL Hematocrit 34.3 #L 38.4 L 41.0-53.0 % Mean Corpuscular Volume 80.1 81.9 80.0-100.0 fL Mean Corpuscular Hemoglobin 26.4 L 26.9 L 28.0-32.0 pg Mean Corpuscular Hemoglobin Concent 32.9 32.9 32.0-36.0 g/dL Red Cell Distribution Width 16.2 H 16.1 H 11.8-14.3 % Platelet Count 405 425 140-450 10^3/uL Mean Platelet Volume 6.2 L 6.7 L 6.9-10.8 fL Neutrophils (%) (Auto) 83.7 H 88.1 H 37.0-80.0 % Lymphocytes (%) (Auto) 10.6 7.6 L 10.0-50.0 % Monocytes (%) (Auto) 5.4 4.1 0.0-12.0 % Eosinophils (%) (Auto) 0.1 0.0 0.0-7.0 % Basophils (%) (Auto) 0.2 0.2 0.0-2.0 % Neutrophils # (Auto) 13.9 H 17.9 H 1.6-8.6 10 ^3/uL Lymphocytes # (Auto) 1.8 1.6 0.4-5.4 10 ^3/uL Monocytes # (Auto) 0.9 0.8 0-1.3 10 ^3/uL Eosinophils # (Auto) 0 0 0-0.8 10 ^3/uL Basophils # (Auto) 0 0 0-0.2 10 ^3/uL Nucleated Red Blood Cells 0.0 0.1 % Sodium Level 137 133 L 136-145 mmol/L Potassium Level 4.2 4.5 3.5-5.1 mmol/L Chloride Level 105 102 98-107 mmol/L Carbon Dioxide Level 19 L 13 L 20-31 mmol/L Anion Gap 13 18 H 5-15 Blood Urea Nitrogen 103 #*H 91 *H 9-23 mg/dL Creatinine 7.21 H 7.37 H 0.700-1.30 mg/dL Glomerular Filtration Rate Calc 8 8 >90 mL/min BUN/Creatinine Ratio 14.3 12.3 10.0-20.0 Serum Glucose 126 H 156 H 74-106 mg/dL Hemoglobin A1c 5.8 H <5.7 % A1C Lactic Acid Level 1.0 0.4-2.0 mmol/L Calcium Level 10.4 11.0 H 8.7-10.4 mg/dL Total Bilirubin 0.2 0.2-1.0 mg/dL Aspartate Amino Transferase (AST) 10 L 13-40 U/L Alanine Aminotransferase (ALT) 12 7-40 U/L Alkaline Phosphatase 74 46-116 U/L Troponin I High Sensitivity 16 </=54 ng/L B-Type Natriuretic Peptide 121.26 0-100 pg/mL Total Protein 6.8 5.7-8.2 g/dL Albumin 3.3 3.2-4.8 g/dL Triglycerides Level 93 < 150 mg/dL Cholesterol Level 110 < 200 mg/dL LDL Cholesterol 50 < 100 mg/dL HDL Cholesterol 28 L 40-59 mg/dL Lipase 54 H 12-53 U/L Assessment 63-year-old male poor historian if previous history of urinary retention and bladder dysfunction presents to the hospital with a weakness in the setting of sepsis was found to have urinary obstruction bilateral hydronephrosis and left- sided kidney stone Acute kidney injury on chronic kidney disease stage 4 multifactorial in the setting of obstruction and volume depletion Pyelonephritis Hyperkalemia Metabolic acidosis Bilateral hydronephrosis Staghorn calculus IV fluid Diuretic challenge IV antibiotics, blood culture urine culture sent Status post percutaneous nephrostomy tube Monitoring urinary output from Cannon and nephrostomy tube. Urology consultation No emergent indication for hemodialysis at this time however if patient does not show improvement with medical therapy patient may require in the near future Plan discussed with: Patient RADHA NOEL MD Aug 20, 2024 09:35
[2024-08-20 10:54] LABS: Basophils # (auto) 0 10 ^3/uL (0-0.2); Basophils % (auto) 0.4 % (0.0-2.0); Eosinophils # (auto) 0 10 ^3/uL (0-0.8); Eosinophils % (auto) 0.4 % (0.0-7.0); Lymphocytes # (auto) 1.8 10 ^3/uL (0.4-5.4); Neutrophils # (auto) 8.6 10 ^3/uL (1.6-8.6); Red Cell Distribution Width 16.4 % (11.8-14.3)
[2024-08-20 10:55] LABS: Hematocrit 35.5 % (41.0-53.0); Hemoglobin 11.6 g/dL (13.5-17.5); Lymphocytes % (auto) 15.7 % (10.0-50.0); Mean Corpuscular Hemoglobin 26.7 pg (28.0-32.0); Mean Corpuscular Hgb Conc. 32.8 g/dL (32.0-36.0); Mean Corpuscular Volume 81.4 fL (80.0-100.0); Monocytes # (auto) 0.8 10 ^3/uL (0-1.3); Monocytes % (auto) 7.2 % (0.0-12.0); Neutrophils % (auto) 76.3 % (37.0-80.0); Platelet Count (auto) 349 10^3/uL (140-450); Red Blood Cells 4.36 10^6/uL (4.5-5.90); White Blood Cell 11.3 10^3/uL (4.4-10.8)
[2024-08-20 11:01] LABS: Anion Gap 13 (5-15); Potassium 3.5 mmol/L (3.5-5.1); Sodium 141 mmol/L (136-145)
[2024-08-20 11:02] LABS: Calcium 9.3 mg/dL (8.7-10.4)
[2024-08-20 11:07] LABS: BUN/Creatinine Ratio 12.1 (10.0-20.0); Blood Urea Nitrogen 79 mg/dL (9-23); Carbon Dioxide 17 mmol/L (20-31); Chloride 111 mmol/L (98-107); Glucose 89 mg/dL (74-106)
[2024-08-20] MEDS: IODIXANOL 320MG/ML 100ML BTL IV ONE (12:18)
[2024-08-20] MEDS: MIDAZOLAM HCL 2MG/2ML 2ml VIAL (1mg/ml) ONE (12:51)
[2024-08-20] MEDS: fentaNYL CITRATE 100 MCG/2 ML VL ONE (12:51)
--- NOTE | 2024-08-20 14:11 | DVH ---
PROCEDURE: Genitourinary catheter placement Procedural Personnel Attending physician(s): Johann Hobbs Fellow physician(s): None Resident physician(s): None Advanced practice provider(s): None Pre-procedure diagnosis: Right hydroureteronephrosis Post-procedure diagnosis: Same Indication: Urinary obstruction No Additional clinical history: None Complications: No immediate complications. IMPRESSION: Right nephrostomy tube placement. Plan: Flush with 10 mL normal saline once daily to maintain patency. Routine exchange of catheter in 2-3 mo nths if urinary diversion still necessary. PROCEDURE SUMMARY - Target organ: Unilateral kaw kidney - Image-guided placement of genitourinary catheter(s) - Additional procedure(s): None PROCEDURE DETAILS: Pre-procedure Consent: Informed consent for the procedure including risks, benefits and alternatives was obtained a nd time-out was performed prior to the procedure. Preparation: The site was prepared and draped using maximal sterile barrier technique including cutan eous antisepsis. Anesthesia/sedation Level of anesthesia/sedation: Moderate sedation (conscious sedation) Anesthesia/sedation administered by: Independent trained observer under attending supervision with co ntinuous monitoring of the patient s level of consciousness and physiologic status Total intra-service sedation time (minutes): 45 Genitourinary catheter placement Side:Right kaw Local anesthesia was administered. A needle was advanced into a lower pole calyx under ultrasound and fluoroscopy guidance. A wire was advanced, the tract was serially dilated and a nephrostomy tube was placed . Contrast injection was performed. Genitourinary catheter placed: 8.5 israeli multipurpose drain Findings: Retention loop within the renal pelvis, mild hydronephrosis External catheter securement: Non-absorbable suture Additional genitourinary system intervention Side: NA Genitourinary intervention: None Location of intervention: Not applicable Device used: Not applicable Description of intervention: Not applicable Post-intervention findings: Not applicable Contrast Contrast agent: Omnipaque 350 Contrast volume (mL): 15 Radiation Dose Fluoroscopy time (minutes): 3.2 Reference air kerma (mGy): 11 Kerma area product (Not provided by imaging equipment) Additional Details Additional description of procedure: None Registry event: V/3/f Device used: Not applicable Equipment details: None Specimens removed: 20 cc of purulent fluid. A sample was sent for analysis. Estimated blood loss (mL): Less than 10 Standardized report: [email or web address] Attestation Signer name: Johann Hobbs I attest that I was present for the entire procedure. I reviewed the stored images and agree with the report as written.
--- NOTE | 2024-08-20 14:11 | DVH ---
PROCEDURE: Genitourinary catheter placement Procedural Personnel Attending physician(s): Johann Hobbs Fellow physician(s): None Resident physician(s): None Advanced practice provider(s): None Pre-procedure diagnosis: Right hydroureteronephrosis Post-procedure diagnosis: Same Indication: Urinary obstruction No Additional clinical history: None Complications: No immediate complications. IMPRESSION: Right nephrostomy tube placement. Plan: Flush with 10 mL normal saline once daily to maintain patency. Routine exchange of catheter in 2-3 mo nths if urinary diversion still necessary. PROCEDURE SUMMARY - Target organ: Unilateral [place] kidney - Image-guided placement of genitourinary catheter(s) - Additional procedure(s): None PROCEDURE DETAILS: Pre-procedure Consent: Informed consent for the procedure including risks, benefits and alternatives was obtained a nd time-out was performed prior to the procedure. Preparation: The site was prepared and draped using maximal sterile barrier technique including cutan eous antisepsis. Anesthesia/sedation Level of anesthesia/sedation: Moderate sedation (conscious sedation) Anesthesia/sedation administered by: Independent trained observer under attending supervision with co ntinuous monitoring of the patient s level of consciousness and physiologic status Total intra-service sedation time (minutes): 45 Genitourinary catheter placement Side:Right [place] Local anesthesia was administered. A needle was advanced into a lower pole calyx under ultrasound and fluoroscopy guidance. A wire was advanced, the tract was serially dilated and a nephrostomy tube was placed . Contrast injection was performed. Genitourinary catheter placed: 8.5 colombian multipurpose drain Findings: Retention loop within the renal pelvis, mild hydronephrosis External catheter securement: Non-absorbable suture Additional genitourinary system intervention Side: NA Genitourinary intervention: None Location of intervention: Not applicable Device used: Not applicable Description of intervention: Not applicable Post-intervention findings: Not applicable Contrast Contrast agent: Omnipaque 350 Contrast volume (mL): 15 Radiation Dose Fluoroscopy time (minutes): 3.2 Reference air kerma (mGy): 11 Kerma area product (Not provided by imaging equipment) Additional Details Additional description of procedure: None Registry event: V/3/f Device used: Not applicable Equipment details: None Specimens removed: 20 cc of purulent fluid. A sample was sent for analysis. Estimated blood loss (mL): Less than 10 Standardized report: [email or web address] Attestation Signer name: Johann Hobbs I attest that I was present for the entire procedure. I reviewed the stored images and agree with the report as written.
[2024-08-20] MEDS ORDERED: FUROSEMIDE 100 MG/10ML VIAL IV ONE (16:30)
--- NOTE | 2024-08-20 16:44 | DVHINCON2 ---
Date of service: Aug 20, 2024 Referring Physician Hospitalist History of Present Illness HPI 63 year ol male here for left staghorn and right hydronephrosis. Patient is off unit at this time having right PCN placed. Urology consulted for evaluation and management of hydronephrosis and renal staghorn calculus. Home Meds Unable to Obtain Active Prescriptions or Reported Meds Past Medical History Patient Family History: Angina G8 FATHER Diabetes mellitus G8 MOTHER H&P Exam Vital Signs Vital Signs Date Time Temp Pulse Resp B/P (MAP) Pulse Ox O2 Delivery O2 Flow Rate FiO2 08/20/24 15:52 70 22 102/59 (73) 98 08/20/24 09:00 97.4 97.4 08/19/24 20:00 Room Air* 0 21 Labs/Xrays [place] [address] Ph: [phone] DIAGNOSTIC IMAGING Diagnostic Imaging Report : [id number] Signed PATIENT: MIRIAM ALLEN ACCT: [id number] UNIT: [id number] : 1960 LOC: TELE-CENTR ROOM / BED: [facility] / A AGE / SEX: 63 / M ADM STATUS: ADM IN SERVICE 0240 ORDERING PHYSICIAN: DIMAS CHAUHAN RESIDENT PROCEDURE(s): KIDUS - KIDNEY REASON: POSS. BILAT HYDRONEPHROSIS ORDER NUMBER(s): [id number], ACCESSION NUMBER(s): [id number] INDICATION: POSS. BILAT HYDRONEPHROSIS TECHNIQUE: Multiple real-time sonographic images of the kidneys and bladder were obtained. COMPARISON: CT scan of the abdomen pelvis performed earlier same date. FINDINGS: The right kidney measures 9.1 cm in length, which is normal in size. There is normal echogenicity of the right kidney. Moderate hydronephrosis. The left kidney measures 12.2 cm in length, which is normal in size. There is normal echogenicity of the left kidney. Nonobstructive calculus measuring 1.8 cm. No hydronephrosis. No large intraluminal masses are seen in the bladder. Prior to voiding the bladder volume measures volume 428 cc. IMPRESSION: 1. Moderate right hydronephrosis. No right intrarenal calculi. Left intrarenal calculus measuring 1.8 cm. 2. Distended urinary bladder despite the presence of a Renner catheter. ATED BY: JARET YAÑEZ MD DICTATED DATE/TIME: 08/19/24708 SIGNED BY: JARET YAÑEZ MD SIGNED DATE/TIME: 08/19/24708 CC: [place] [address] Ph: [phone] DIAGNOSTIC IMAGING Diagnostic Imaging Report : [id number] Signed with Addenda PATIENT: MIRIAM ALLEN ACCT: [id number] UNIT: [id number] : 1960 LOC: TELE-[facility] ROOM / BED: [facility] / A AGE / SEX: 63 / M ADM STATUS: ADM IN SERVICE 9 ORDERING PHYSICIAN: DIMAS CHAUHAN PROCEDURE(s): ABPL - CT AB PEL WO CON-NO ORAL OR IV REASON: R/O PYELONEPHRITIS AND KIDNEY STONES ORDER NUMBER(s): [id number], ACCESSION NUMBER(s): [id number] ADDENDUM ADDENDUM # 1 Review of the images reveals an irregular near water attenuation collection within the asymmetrically enlarged right psoas muscle measuring 4.8 x 2.4 cm transverse by 7.7 cm craniocaudal. No evidence of gas within this collection and there is no evidence of infiltration of adjacent fat planes. Considerations include intramuscular hematoma versus abscess. ORIGINAL REPORT Exam: CT CT AB PEL WO CON-NO ORAL OR IV History: R/O PYELONEPHRITIS AND KIDNEY STONES Comparison Study: None Technique: Multidetector spiral CT of the abdomen was performed from lung bases to pubic symphysis. Imaging was performed without IV contrast. Axial, coronal and sagittal multiplanar reformats were obtained from the axial data set by the technologist. Radiation Dose : 1. Abdomen/Pelvis: CTDIvol 19.66 mGy, DLP 1082.69 mGy*cm. Findings: Evaluation of solid organs is limited due to lack of intravenous contrast use. Lung Bases: No acute or significant lung base finding. Normal heart size. No pleural or pericardial effusion. Liver: The liver is normal in size. No focal lesions. Gallbladder and Biliary Tree: Status post cholecystectomy. Spleen: Unremarkable Pancreas: The pancreas is grossly normal in appearance. Adrenal Glands: Unremarkable Kidneys: Moderate right renal atrophy and onyj-by-vcoeniwb right hydronephrosis and ureteral dilatation without identifiable obstructive etiology. Staghorn calculus within the left renal pelvis measures 4.6 x 4.4 cm and there is moderate left hydronephrosis and ureteral dilatation without distal obstructive etiology identified. Bladder: Grossly unremarkable for degree of distention. Renner catheter. Bowel: The stomach is grossly normal in appearance. Retained rectal stool. Small bowel and colon are otherwise normal in caliber and distribution. The appendix is normal. Ascites: Absent Lymphadenopathy: No mesenteric, retroperitoneal or periportal lymphadenopathy. Abdominal Wall and Mesentery: Unremarkable. Vasculature: The visualized abdominal aorta is normal in size and caliber. Atherosclerotic vascular calcifications. Evaluation of abdominal and pelvic vessels is limited due to lack of intravenous contrast. Pelvic Organs: Unremarkable Musculoskeletal: No aggressive focal bony lesions, acute fractures or dislocation. IMPRESSION: 1. Bilateral hydroureteronephrosis without identifiable distal obstructive etiology. Large staghorn calculus noted within the left renal pelvis. 2. Rectal fecal retention. Radiation optimization: All CT scans at this facility use at least one of these dose optimization techniques: automated exposure control mA and/or kV adjustment per patient size (includes targeted exams where dose is matched to clinical indication) or iterative reconstruction. ATED BY: SILVANO BRAGG MD DICTATED DATE/TIME: 08/19/242244 SIGNED BY: SILVANO BRAGG MD SIGNED DATE/TIME: 08/19/242244 CC: Exam: CT CT AB PEL WO CON-NO ORAL OR IV History: R/O PYELONEPHRITIS AND KIDNEY STONES Comparison Study: None Technique: Multidetector spiral CT of the abdomen was performed from lung bases to pubic symphysis. Imaging was performed without IV contrast. Axial, coronal and sagittal multiplanar reformats were obtained from the axial data set by the technologist. Radiation Dose : 1. Abdomen/Pelvis: CTDIvol 19.66 mGy, DLP 1082.69 mGy*cm. Findings: Evaluation of solid organs is limited due to lack of intravenous contrast use. Lung Bases: No acute or significant lung base finding. Normal heart size. No pleural or pericardial effusion. Liver: The liver is normal in size. No focal lesions. Gallbladder and Biliary Tree: Status post cholecystectomy. Spleen: Unremarkable Pancreas: The pancreas is grossly normal in appearance. Adrenal Glands: Unremarkable Kidneys: Moderate right renal atrophy and ojly-gu-wpbvyufz right hydronephrosis and ureteral dilatation without identifiable obstructive etiology. Staghorn calculus within the left renal pelvis measures 4.6 x 4.4 cm and there is moderate left hydronephrosis and ureteral dilatation without distal obstructive etiology identified. Bladder: Grossly unremarkable for degree of distention. Renner catheter. Bowel: The stomach is grossly normal in appearance. Retained rectal stool. Small bowel and colon are otherwise normal in caliber and distribution. The appendix is normal. Ascites: Absent Lymphadenopathy: No mesenteric, retroperitoneal or periportal lymphadenopathy. Abdominal Wall and Mesentery: Unremarkable. Vasculature: The visualized abdominal aorta is normal in size and caliber. Atherosclerotic vascular calcifications. Evaluation of abdominal and pelvic vessels is limited due to lack of intravenous contrast. Pelvic Organs: Unremarkable Musculoskeletal: No aggressive focal bony lesions, acute fractures or dislocation. IMPRESSION: 1. Bilateral hydroureteronephrosis without identifiable distal obstructive etiology. Large staghorn calculus noted within the left renal pelvis. 2. Rectal fecal retention. Radiation optimization: All CT scans at this facility use at least one of these dose optimization techniques: automated exposure control mA and/or kV adjustment per patient size (includes targeted exams where dose is matched to clinical indication) or iterative reconstruction. ATED BY: SILVANO BRAGG MD DICTATED DATE/TIME: 08/19/24338 SIGNED BY: SILVANO BRAGG MD SIGNED DATE/TIME: 08/19/24338 CC: [place] [address] Ph: [phone] DIAGNOSTIC IMAGING Diagnostic Imaging Report : [id number] Signed PATIENT: MIRIAM ALLEN ACCT: [id number] UNIT: [id number] : 1960 LOC: TELE-[facility] ROOM / [facility] / A AGE / SEX: 63 / M ADM STATUS: ADM IN SERVICE 1214 ORDERING PHYSICIAN: MIESHA CHANDRA MD PROCEDURE(s): PERNEPH - PERCUTANEOUS NEPHROSTOMY REASON: NEPHRO TUBE ORDER NUMBER(s): [id number], ACCESSION NUMBER(s): [id number] PROCEDURE: Genitourinary catheter placement Procedural Personnel Attending physician(s): Miesha Chandra Fellow physician(s): None Resident physician(s): None Advanced practice provider(s): None Pre-procedure diagnosis: Right hydroureteronephrosis Post-procedure diagnosis: Same Indication: Urinary obstruction No Additional clinical history: None Complications: No immediate complications. IMPRESSION: Right nephrostomy tube placement. Plan: Flush with 10 mL normal saline once daily to maintain patency. Routine exchange of catheter in 2-3 months if urinary diversion still necessary. PROCEDURE SUMMARY - Target organ: Unilateral diomede kidney - Image-guided placement of genitourinary catheter(s) - Additional procedure(s): None PROCEDURE DETAILS: Pre-procedure Consent: Informed consent for the procedure including risks, benefits and alternatives was obtained and time-out was performed prior to the procedure. Preparation: The site was prepared and draped using maximal sterile barrier technique including cutaneous antisepsis. Anesthesia/sedation Level of anesthesia/sedation: Moderate sedation (conscious sedation) Anesthesia/sedation administered by: Independent trained observer under attending supervision with continuous monitoring of the patient s level of consciousness and physiologic status Total intra-service sedation time (minutes): 45 Genitourinary catheter placement Side:Right diomede Local anesthesia was administered. A needle was advanced into a lower pole calyx under ultrasound and fluoroscopy guidance. A wire was advanced, the tract was serially dilated and a nephrostomy tube was placed . Contrast injection was performed. Genitourinary catheter placed: 8.5 mauritanian multipurpose drain Findings: Retention loop within the renal pelvis, mild hydronephrosis External catheter securement: Non-absorbable suture Additional genitourinary system intervention Side: NA Genitourinary intervention: None Location of intervention: Not applicable Device used: Not applicable Description of intervention: Not applicable Post-intervention findings: Not applicable Contrast Contrast agent: Omnipaque 350 Contrast volume (mL): 15 Radiation Dose Fluoroscopy time (minutes): 3.2 Reference air kerma (mGy): 11 Kerma area product (Not provided by imaging equipment) Additional Details Additional description of procedure: None Registry event: V/3/f Device used: Not applicable Equipment details: None Specimens removed: 20 cc of purulent fluid. A sample was sent for analysis. Estimated blood loss (mL): Less than 10 Standardized report: [email or web address] Attestation Signer name: Miesha Chandra I attest that I was present for the entire procedure. I reviewed the stored images and agree with the report as written. ATED BY: MIESHA CHANDRA MD DICTATED DATE/TIME: 08/20/24 1409 SIGNED BY: MIESHA CHANDRA MD SIGNED DATE/TIME: 08/20/24 1409 CC: Labs Test 08/20/24 13:35 08/20/24 10:06 08/19/24 18:15 08/19/24 15:10 Range/Units White Blood Count 11.3 #H 4.4-10.8 10^3/uL Red Blood Count 4.36 L 4.5-5.90 10^6/uL Hemoglobin 11.6 L 13.5-17.5 g/dL Hematocrit 35.5 L 41.0-53.0 % Mean Corpuscular Volume 81.4 80.0-100.0 fL Mean Corpuscular Hemoglobin 26.7 L 28.0-32.0 pg Mean Corpuscular Hemoglobin Concent 32.8 32.0-36.0 g/dL Red Cell Distribution Width 16.4 H 11.8-14.3 % Platelet Count 349 140-450 10^3/uL Mean Platelet Volume 6.1 L 6.9-10.8 fL Neutrophils (%) (Auto) 76.3 37.0-80.0 % Lymphocytes (%) (Auto) 15.7 10.0-50.0 % Monocytes (%) (Auto) 7.2 0.0-12.0 % Eosinophils (%) (Auto) 0.4 0.0-7.0 % Basophils (%) (Auto) 0.4 0.0-2.0 % Neutrophils # (Auto) 8.6 1.6-8.6 10 ^3/uL Lymphocytes # (Auto) 1.8 0.4-5.4 10 ^3/uL Monocytes # (Auto) 0.8 0-1.3 10 ^3/uL Eosinophils # (Auto) 0 0-0.8 10 ^3/uL Basophils # (Auto) 0 0-0.2 10 ^3/uL Nucleated Red Blood Cells 0.0 % Sodium Level 141 136-145 mmol/L Potassium Level 3.5 3.5-5.1 mmol/L Chloride Level 111 H 98-107 mmol/L Carbon Dioxide Level 17 L 20-31 mmol/L Anion Gap 13 5-15 Blood Urea Nitrogen 79 H 9-23 mg/dL Creatinine 6.54 H 0.700-1.30 mg/dL Glomerular Filtration Rate Calc 9 >90 mL/min BUN/Creatinine Ratio 12.1 10.0-20.0 Serum Glucose 89 74-106 mg/dL Calcium Level 9.3 8.7-10.4 mg/dL Magnesium Level 2.9 H 1.6-2.6 mg/dL Plasma/Serum Blood Alcohol < 3.0 <10 mg/dL Prothrombin Time 12.3 H 9.3-11.8 sec Prothrombin Time INR 1.18 H 0.9-1.15 Activated Partial Thromboplast Time 30.8 24.5-34.5 SEC Test 08/19/24 06:10 08/19/24 03:14 Range/Units Urine WBC Clumps Present None Seen /hpf Urine Mucus Few None Seen Urine Creatinine 24.66 L 30.0-125.0 mg/dL Urine Protein/Creatinine Ratio 5.00 Urine Sodium 70 40-220 mmol/L Urine Total Protein 123.2 H 1-14 mg/dL Urine Opiates Screen Neg NEGATIVE Urine Fentanyl Screen Neg NEGATIVE Urine Barbiturates Screen Neg NEGATIVE Urine Phencyclidine Screen Neg NEGATIVE Urine Amphetamines Screen Neg NEGATIVE Urine Benzodiazepines Screen Neg NEGATIVE Urine Cocaine Screen Neg NEGATIVE Urine Cannabinoids Screen Pos NEGATIVE Hemoglobin A1c 5.8 H <5.7 % A1C Lactic Acid Level 1.0 0.4-2.0 mmol/L Total Bilirubin 0.2 0.2-1.0 mg/dL Aspartate Amino Transferase (AST) 10 L 13-40 U/L Alanine Aminotransferase (ALT) 12 7-40 U/L Alkaline Phosphatase 74 46-116 U/L Troponin I High Sensitivity 16 </=54 ng/L B-Type Natriuretic Peptide 121.26 0-100 pg/mL Total Protein 6.8 5.7-8.2 g/dL Albumin 3.3 3.2-4.8 g/dL Triglycerides Level 93 < 150 mg/dL Cholesterol Level 110 < 200 mg/dL LDL Cholesterol 50 < 100 mg/dL HDL Cholesterol 28 L 40-59 mg/dL Lipase 54 H 12-53 U/L Microbiology Date/Time Source Procedure Growth Status 08/19/24 06:10 Voided Urine Urine Culture - Preliminary Resulted 08/19/24 03:14 Blood Blood Culture - Preliminary Resulted Assessment/Plan Problem List: (1) Calculus of kidney (2) Unspecified hydronephrosis (3) OLGA (acute kidney injury) (4) Nephrolithiasis (5) Sepsis Plan Outpt left PCNL to be arranged. Outpt cysto with right RPG possible stent. Treat UTI Keep renner to gravity until Creat is at baseline Plan discussed with: ANTWON Gates NP Aug 20, 2024 16:44
[2024-08-20 17:25] LABS: Urine Blood 3+ /uL (Negative); Urine Clarity Ex.Turbid (Clear); Urine Color Brown (Yellow); Urine Protein, UAD 2+ (Negative); Urine Specific Gravity 1.021 (1.001-1.035); Urine Squamous Epithelial Cell None Seen /hpf (<5); Urine Urobilinogen Normal (Negative); Urine WBC 384 /HPF (0-3); Urine WBC Clumps PRESENT /hpf (None Seen)
--- NOTE | 2024-08-20 20:47 | DVHPNRES ---
Progress Note Date Seen: Aug 20, 2024 Resident Creating Document: NANCY OLIVA RESDIENT Has the PT tested + for MRSA If YES, has PT been informed?: No Medical Necessity Reason Pt with a Central, PICC or Fol: No Subjective Review of Systems Patient seen and examined at the bedside. Patient is feeling better since admission. But still can not provide proper history. Patient reports: No new complaints, Feels better Changes from previous H/P or p: Changes Objective vital signs Vital Sign Date Time Temp Pulse Resp B/P (MAP) Pulse Ox O2 Delivery O2 Flow Rate FiO2 08/20/24 15:52 70 22 102/59 (73) 98 08/20/24 09:00 97.4 97.4 08/20/24 08:00 Room Air* 0 21 Total Intake and Output 08/19/24 08/19/24 08/20/24 15:00 23:00 07:00 Intake Total 2250 ml 1200 ml Output Total 475 ml 550 ml Balance 1775 ml 650 ml medications Current Medications Medications Dose Ordered Sig/Etienne Route Start Time Stop Time Status Last Admin Dose Admin Acetaminophen 650 mg Q6HP PRN PO 08/19/24 02:45 Meropenem 50 ml @ 17 mls/hr DAILY IV 08/19/24 02:45 08/19/24 10:56 17 MLS/HR Tamsulosin HCl 0.4 mg DAILY PO 08/19/24 10:00 08/20/24 09:47 0.4 MG Lactulose 30 ml DAILY PO 08/19/24 06:15 08/19/24 09:55 30 ML Heparin Sodium (Porcine) 5,000 units Q12HR SC 08/19/24 10:00 08/19/24 23:13 5,000 UNITS Linezolid 300 ml @ 150 mls/hr Q12HR IV 08/19/24 22:00 08/20/24 09:47 150 MLS/HR Atorvastatin Calcium 40 mg HS PO 08/19/24 22:00 08/19/24 23:09 40 MG Sodium Chloride 1,000 ml @ 75 mls/hr [id number] IV 08/19/24 21:00 08/19/24 21:00 75 MLS/HR Examination General Appearance: Alert, Oriented to person, but disoriented to time and place HEENT: Atraumatic, PERRLA, EOMI, Mucous membrane moist/pink Respiratory: Clear to auscultation, Normal air movement Cardiovascular: Regular rate, Normal S1, Normal S2, No murmurs, no chest wall tenderness Abdominal: Normal bowel sounds, Soft, No tenderness, No hepatospenomegaly, No masses Extremities: Bilateral multiple to his amputated, left big to a has black scar added. Skin: No rashes, No breakdown, No significant lesion Neuro: Normal gait, Normal speech, Strength at 5/5 X4 ext, Normal tone, Sensation intact, Cranial nerves 3-12 NL, Reflexes 2+ Psych/Mental Status: Mental status NL, Mood NL laboratory and microbiology Laboratory Tests 08/20/24 10:06 Test 08/20/24 10:06 Range/Units Serum Glucose 89 74-106 mg/dL Microbiology Date/Time Source Procedure Growth Status 08/19/24 06:10 Voided Urine Urine Culture - Preliminary Resulted 08/19/24 03:14 Blood Blood Culture - Preliminary Resulted Labs and/or images reviewed: Labs reviewed by me, Image(s) reviewed by me Problem List/Assessment/Plan Problem List/Assessment/Plan Acute metabolic encephalopathy, likely due to sepsis Sepsis, likely due to UTI/cellulitis Obstructive nephropathy right-sided moderate hydronephrosis Complicated UTI /pyelonephritis Left lower limb cellulitis Diabetes type 2 Possible OLGA on CKD, likely VMN History of BPH History of DVT History of CVA * Abdominal CT scan shows bilateral hydro ureteronephrosis identified intestinal obstructive etiology, large staghorn calculus noted within the left renal pelvis ultrasound shows, * Ultrasound shows, Moderate right hydronephrosis. No right intrarenal calculi. Left intrarenal calculus measuring 1.8 cm * Doppler ultrasound of lower limb shows bilateral 20-49% stenosis of proximal lower limb arteries * Foot MRI shows, Soft tissue swelling in the plantar surfaces of the midfoot without identifiable abscess or signs of osteomyelitis Plan/recommendation * Empiric antibiotic meropenem and doxycycline * Radiology consulted, placed nephrostomy on the right side * Nephrology consulted, recommended conservative management at the moment * Urology consulted, recommended outpatient follow up for lithotripsy, cystoscopy and was grade urogram. * Blood culture and urine culture * IV fluid DIET: Diabetic diet DVT PROPHYLAXIS: Therapeutic Dose of heparin GI PROPHYLAXIS:: Protonix DISPOSITION: Telemetry Patient's status and plan discussed with the patient. Due to and few status of patient, patient could not provide phone number of family/caregiver. Case discussed with Dr. Pierce. Plan discussed with: Patient, Other (RN) My Orders My Orders Orders - NANCY OLIVA RESDICARL Procedure Category Date Status Time Lidocaine 2% (Local PHA 08/20/24 In Process Anesth.) (Xylocaine) 12:51 Dietary Evaluation Review Comments: 1. Renal Specific 50G, CCHO-60g diet 2. Advance to Renal Standard CCHO-60 diet if Pt is on Dialysis. Expected Outcomes/Goals: avoid uremic syndrome,controlled DM, healed wounds, maintain BW. Date of Service: Aug 20, 2024 Billing Provider: SIS PIERCE MD Common Visit Codes: 51364-[id number] INP/OBS CARE(HIGH) NANCY OLIVA RESDIENT Aug 20, 2024 20:47 SIS PIERCE MD Aug 25, 2024 20:44
[2024-08-21] VITALS (8 sets, daily range): BP systolic 89–113; BP diastolic 53–68; PULSE 81–94; RESP 17–18; TEMP 96.5–98.2; O2SAT 95–98
[2024-08-21 05:09] LABS: Basophils # (auto) 0 10 ^3/uL (0-0.2); Basophils % (auto) 0.3 % (0.0-2.0); Eosinophils # (auto) 0 10 ^3/uL (0-0.8); Eosinophils % (auto) 0.5 % (0.0-7.0); Hematocrit 36.9 % (41.0-53.0); Lymphocytes # (auto) 1.4 10 ^3/uL (0.4-5.4); Lymphocytes % (auto) 13.5 % (10.0-50.0); Mean Corpuscular Hemoglobin 26.5 pg (28.0-32.0); Mean Corpuscular Hgb Conc. 32.7 g/dL (32.0-36.0); Mean Corpuscular Volume 81.1 fL (80.0-100.0); Monocytes # (auto) 0.7 10 ^3/uL (0-1.3); Monocytes % (auto) 6.7 % (0.0-12.0); Neutrophils # (auto) 8.3 10 ^3/uL (1.6-8.6); Nucleated Red Blood Cells % 0.1 %; Platelet Count (auto) 315 10^3/uL (140-450); Red Blood Cells 4.54 10^6/uL (4.5-5.90); Red Cell Distribution Width 16.6 % (11.8-14.3); White Blood Cell 10.5 10^3/uL (4.4-10.8)
[2024-08-21 05:30] LABS: Alanine Aminotransferase 10 U/L (7-40); Albumin 3.1 g/dL (3.2-4.8); Alkaline Phosphatase 68 U/L (46-116); Anion Gap 12 (5-15); Aspartate Aminotransferase 14 U/L (0-34); Blood Urea Nitrogen 75 mg/dL (9-23); Calcium 8.8 mg/dL (8.7-10.4); Carbon Dioxide 18 mmol/L (20-31); Chloride 110 mmol/L (98-107); Glucose 126 mg/dL (74-106); Potassium 3.5 mmol/L (3.5-5.1); Sodium 140 mmol/L (136-145); Total Protein 6.4 g/dL (5.7-8.2)
[2024-08-21 05:32] LABS: Bilirubin, Total < 0.2 mg/dL (0.2-1.0)
--- NOTE | 2024-08-21 09:26 | DVHPN2 ---
Progress Note Date Seen: Aug 21, 2024 Has the PT tested + for MRSA If YES, has PT been informed?: No Medical Necessity Reason Pt with a Central, PICC or Fol: Yes The following are medically ne: Renner Catheter Reason for renner catheter: Bladder Retention/Obstruc Subjective Patient reports: Feels better Objective vital signs Vital Sign Date Time Temp Pulse Resp B/P (MAP) Pulse Ox O2 Delivery O2 Flow Rate FiO2 08/21/24 08:30 98.2 94 18 109/66 (80) 98 98.2 08/20/24 20:00 Room Air* 0 21 Total Intake and Output 08/20/24 08/20/24 08/21/24 15:00 23:00 07:00 Intake Total 900 ml 1625 ml Output Total 1000 ml 1100 ml Balance 900 ml -1000 ml 525 ml medications Current Medications Medications Dose Ordered Sig/Etienne Route Start Time Stop Time Status Last Admin Dose Admin Acetaminophen 650 mg Q6HP PRN PO 08/19/24 02:45 Meropenem 50 ml @ 17 mls/hr DAILY IV 08/19/24 02:45 08/19/24 10:56 17 MLS/HR Tamsulosin HCl 0.4 mg DAILY PO 08/19/24 10:00 08/21/24 08:51 0.4 MG Lactulose 30 ml DAILY PO 08/19/24 06:15 08/21/24 08:51 30 ML Heparin Sodium (Porcine) 5,000 units Q12HR SC 08/19/24 10:00 08/21/24 08:52 5,000 UNITS Linezolid 300 ml @ 150 mls/hr Q12HR IV 08/19/24 22:00 08/21/24 08:52 150 MLS/HR Sodium Chloride 1,000 ml @ 75 mls/hr [id number] IV 08/19/24 21:00 08/20/24 21:40 75 MLS/HR Examination: GENERAL:Abnormal, CVS:Normal, ABDOMEN:Normal, SKIN:Abnormal, :Abnormal laboratory and microbiology Laboratory Tests 08/21/24 04:20 Test 08/21/24 04:20 Range/Units Serum Glucose 126 H 74-106 mg/dL Microbiology Date/Time Source Procedure Growth Status 08/19/24 06:10 Voided Urine Urine Culture - Preliminary Resulted 08/19/24 03:14 Blood Blood Culture - Preliminary Resulted Problem List/Assessment/Plan Problem List/Assessment/Plan 63-year-old male poor historian if previous history of urinary retention and bladder dysfunction presents to the hospital with a weakness in the setting of sepsis was found to have urinary obstruction bilateral hydronephrosis and left- sided kidney stone Acute kidney injury on chronic kidney disease stage 4 multifactorial in the setting of obstruction and volume depletion Pyelonephritis Hyperkalemia Metabolic acidosis Bilateral hydronephrosis s/p Right PCNT Staghorn calculus left IV fluid Diuretic challenge IV antibiotics, blood culture urine culture sent Monitoring urinary output from Renner and nephrostomy tube. Urology No emergent indication for hemodialysis at this time however if patient does not show improvement with medical therapy patient may require in the near future Plan discussed with: Patient Dietary Evaluation Review Comments: 1. Renal Specific 50G, CCHO-60g diet 2. Advance to Renal Standard CCHO-60 diet if Pt is on Dialysis. Expected Outcomes/Goals: avoid uremic syndrome,controlled DM, healed wounds, maintain BW. RADHA NOEL MD Aug 21, 2024 09:26
--- NOTE | 2024-08-21 12:55 | DVHINCON2 ---
Date Seen: Aug 21, 2024 Reason for Consultation The left 2nd toe wound History of Present Illness This is a 63-year-old male with past medical history of CVA, CKD, BPH, DVT, diabetes mellitus, who presented to the ED of [facility] due to generalized weakness associated with nausea and persistent vomiting. Patient states that symptoms started three days before coming to the ED consistent with persistent vomiting not being able to tolerate any food both solids and liquids associated with generalized malaise. The patient was transferred from [facility] to our facility for higher level of care and neurology evaluation due to large staghorn calculi in the left kidney with moderate to severe right hydronephrosis. The patient at that time was requiring vasopressors and was transfered to our facility. After checking [place] documentation, they performed a CT scan of the abdomen and pelvis with contrast which showed large staghorn calculus of the left kidney with moderate to severe right hydronephrosis and bilateral hydroureter, possible bladder outlet obstruction. They also performed a CT angio of the chest which showed no pulmonary embolism. Upon admission, patient is alert and oriented, not requiring vasopressors at this time. Cannon catheter was placed with good urine output so far. Patient states that he is DNR/DNI status (chemical code). We will admit the patient for further assessment and management. Past Medical History See H&P Past Surgical History See H&P Family History: Angina G8 FATHER Diabetes mellitus G8 MOTHER Allergies: Coded Allergies: NO KNOWN ALLERGIES (Unverified , 08/18/24) Home Meds Unable to Obtain Active Prescriptions or Reported Meds Vital Signs Vital Signs Date Time Temp Pulse Resp B/P (MAP) Pulse Ox O2 Delivery O2 Flow Rate FiO2 08/21/24 12:45 96.5 81 18 112/65 (81) 97 96.5 08/20/24 20:00 Room Air* 0 21 Physical Exam Dermatological: Skin is dry with mild erythema and some maceration around the wound site No gross deformities noted Mild non-pitting edema present bilaterally Left 2nd toe eschar Vascular: Dorsalis pedis and posterior tibial pulses are 1+ bilaterally Capillary refill is under 2 seconds Skin temperature is warm bilaterally Neurologic: Protective sensation is absent on the plantar forefoot bilaterally Monofilament testing reveals decreased sensation in multiple plantar sites Musculoskeletal: Range of motion at the ankle and MTP joints is within normal limits. Strength is 5/5 in all tested muscle groups. Gait is antalgic due to offloading of the affected limb. Labs/Diagnostic Data Labs Test 08/21/24 04:20 08/20/24 16:42 08/19/24 18:15 08/19/24 15:10 Range/Units White Blood Count 10.5 4.4-10.8 10^3/uL Red Blood Count 4.54 4.5-5.90 10^6/uL Hemoglobin 12.0 L 13.5-17.5 g/dL Hematocrit 36.9 L 41.0-53.0 % Mean Corpuscular Volume 81.1 80.0-100.0 fL Mean Corpuscular Hemoglobin 26.5 L 28.0-32.0 pg Mean Corpuscular Hemoglobin Concent 32.7 32.0-36.0 g/dL Red Cell Distribution Width 16.6 H 11.8-14.3 % Platelet Count 315 140-450 10^3/uL Mean Platelet Volume 6.2 L 6.9-10.8 fL Neutrophils (%) (Auto) 79.0 37.0-80.0 % Lymphocytes (%) (Auto) 13.5 10.0-50.0 % Monocytes (%) (Auto) 6.7 0.0-12.0 % Eosinophils (%) (Auto) 0.5 0.0-7.0 % Basophils (%) (Auto) 0.3 0.0-2.0 % Neutrophils # (Auto) 8.3 1.6-8.6 10 ^3/uL Lymphocytes # (Auto) 1.4 0.4-5.4 10 ^3/uL Monocytes # (Auto) 0.7 0-1.3 10 ^3/uL Eosinophils # (Auto) 0 0-0.8 10 ^3/uL Basophils # (Auto) 0 0-0.2 10 ^3/uL Nucleated Red Blood Cells 0.1 % Sodium Level 140 136-145 mmol/L Potassium Level 3.5 3.5-5.1 mmol/L Chloride Level 110 H 98-107 mmol/L Carbon Dioxide Level 18 L 20-31 mmol/L Anion Gap 12 5-15 Blood Urea Nitrogen 75 H 9-23 mg/dL Creatinine 6.24 H 0.700-1.30 mg/dL Glomerular Filtration Rate Calc 9 >90 mL/min BUN/Creatinine Ratio 12.0 10.0-20.0 Serum Glucose 126 H 74-106 mg/dL Calcium Level 8.8 8.7-10.4 mg/dL Total Bilirubin < 0.2 L 0.2-1.0 mg/dL Aspartate Amino Transferase (AST) 14 0-34 U/L Alanine Aminotransferase (ALT) 10 7-40 U/L Alkaline Phosphatase 68 46-116 U/L Total Protein 6.4 5.7-8.2 g/dL Albumin 3.1 L 3.2-4.8 g/dL Urine Color Brown H Yellow Urine Clarity Ex.turbid Clear Urine pH 7.0 5.0-9.0 Urine Specific [place] 1.021 1.001-1.035 Urine Protein 2+ H Negative Urine Ketones Negative Negative Urine Blood 3+ H Negative /uL Urine Nitrite 1+ H Negative Urine Bilirubin Negative Negative Urine Urobilinogen Normal Negative mg/dL Urine Leukocyte Esterase 3+ Negative /uL Urine RBC 1720 0 - 3 /hpf Urine WBC Clumps Present None Seen /hpf Urine Microscopic WBC 384 H 0-3 /HPF Urine Squamous Epithelial Cells None seen <5 /hpf Urine Bacteria None Seen /hpf Urine Glucose Normal Normal mg/dL Magnesium Level 2.9 H 1.6-2.6 mg/dL Plasma/Serum Blood Alcohol < 3.0 <10 mg/dL Prothrombin Time 12.3 H 9.3-11.8 sec Prothrombin Time INR 1.18 H 0.9-1.15 Activated Partial Thromboplast Time 30.8 24.5-34.5 SEC Test 08/19/24 06:10 08/19/24 03:14 Range/Units Urine Mucus Few None Seen Urine Creatinine 24.66 L 30.0-125.0 mg/dL Urine Protein/Creatinine Ratio 5.00 Urine Sodium 70 40-220 mmol/L Urine Total Protein 123.2 H 1-14 mg/dL Urine Opiates Screen Neg NEGATIVE Urine Fentanyl Screen Neg NEGATIVE Urine Barbiturates Screen Neg NEGATIVE Urine Phencyclidine Screen Neg NEGATIVE Urine Amphetamines Screen Neg NEGATIVE Urine Benzodiazepines Screen Neg NEGATIVE Urine Cocaine Screen Neg NEGATIVE Urine Cannabinoids Screen Pos NEGATIVE Hemoglobin A1c 5.8 H <5.7 % A1C Lactic Acid Level 1.0 0.4-2.0 mmol/L Troponin I High Sensitivity 16 </=54 ng/L B-Type Natriuretic Peptide 121.26 0-100 pg/mL Triglycerides Level 93 < 150 mg/dL Cholesterol Level 110 < 200 mg/dL LDL Cholesterol 50 < 100 mg/dL HDL Cholesterol 28 L 40-59 mg/dL Lipase 54 H 12-53 U/L Microbiology Date/Time Source Procedure Growth Status 08/19/24 06:10 Voided Urine Urine Culture - Preliminary Resulted 08/19/24 03:14 Blood Blood Culture - Preliminary Resulted Problems(with codes): (1) Nephrolithiasis (2) Sepsis (3) Calculus of kidney (4) OLGA (acute kidney injury) (5) Unspecified hydronephrosis Plan/Recommendation ASSESSMENT: Patient is a 63 year old seen on the floor for a worsening ulcer PLAN: - The patients chart was reviewed, clinical findings were discussed with the patient, the etiologies of the conditions were discussed in detail, and a treatment plan was agreed to at this time, with both oral and written instructions provided. - reviewed advanced imaging - does not appear to be any bone infection or abscess of the 2nd toe - recommend vascular studies to see if patient would heal from an amputation - keep dry with Betadine - would consider amputation if optimized but can be performed as an outpatient All questions were answered and concerns addressed to the patient's satisfa ction. The patient was given the phone number to the clinic and was told how to make contact with the clinic should any concerns or questions arise. Patient understands that if any questions or concerns arise prior to the next appointment, we should be contacted immediately. FOLLOW-UP: Continue to follow while inpatient Plan discussed with: Patient Date of Service: Aug 21, 2024 Billing Provider: STIVEN CHURCH DPM Common Visit Codes: CONSULT ONLY Consultation Codes: [id number] CONSULT <80MIN STIVEN CHURCH DPM Aug 21, 2024 12:54
[2024-08-21] MEDS: FUROSEMIDE 100 MG/10ML VIAL IV ONE (13:45)
[2024-08-21] MEDS: LIDOCAINE 2%HCL (LOCAL ANESTH.) INJ 20ML MDV ONE (18:29)
--- NOTE | 2024-08-21 21:43 | DVHPNRES ---
Progress Note Date Seen: Aug 21, 2024 Resident Creating Document: NANCY OLIVA RESDIENT Has the PT tested + for MRSA If YES, has PT been informed?: No Medical Necessity Reason Pt with a Central, PICC or Fol: Yes The following are medically ne: Renner Catheter Reason for renner catheter: Bladder Retention/Obstruc Subjective Review of Systems Patient seen and examined at the bedside. Patient is feeling better since admission. Objective vital signs Vital Sign Date Time Temp Pulse Resp B/P (MAP) Pulse Ox O2 Delivery O2 Flow Rate FiO2 08/21/24 21:00 98.2 89 18 113/67 (82) 98 98.2 08/21/24 08:00 Room Air* 0 21 Total Intake and Output 08/20/24 08/20/24 08/21/24 15:00 23:00 07:00 Intake Total 900 ml 1625 ml Output Total 1000 ml 1100 ml Balance 900 ml -1000 ml 525 ml medications Current Medications Medications Dose Ordered Sig/Etienne Route Start Time Stop Time Status Last Admin Dose Admin Acetaminophen 650 mg Q6HP PRN PO 08/19/24 02:45 Meropenem 50 ml @ 17 mls/hr DAILY IV 08/19/24 02:45 08/21/24 11:42 17 MLS/HR Tamsulosin HCl 0.4 mg DAILY PO 08/19/24 10:00 08/21/24 08:51 0.4 MG Lactulose 30 ml DAILY PO 08/19/24 06:15 08/21/24 08:51 30 ML Heparin Sodium (Porcine) 5,000 units Q12HR SC 08/19/24 10:00 08/21/24 21:31 5,000 UNITS Linezolid 300 ml @ 150 mls/hr Q12HR IV 08/19/24 22:00 08/21/24 21:25 150 MLS/HR Sodium Chloride 1,000 ml @ 75 mls/hr [id number] IV 08/19/24 21:00 08/21/24 21:25 75 MLS/HR Examination General Appearance: Alert, Oriented to person, but disoriented to time and place HEENT: Atraumatic, PERRLA, EOMI, Mucous membrane moist/pink Respiratory: Clear to auscultation, Normal air movement Cardiovascular: Regular rate, Normal S1, Normal S2, No murmurs, no chest wall tenderness Abdominal: Normal bowel sounds, Soft, No tenderness, No hepatospenomegaly, No masses Extremities: Bilateral multiple to his amputated, left big to a has black scar added. Skin: No rashes, No breakdown, No significant lesion Neuro: Normal gait, Normal speech, Strength at 5/5 X4 ext, Normal tone, Sensation intact, Cranial nerves 3-12 NL, Reflexes 2+ Psych/Mental Status: Mental status NL, Mood NL laboratory and microbiology Laboratory Tests 08/21/24 04:20 Test 08/21/24 04:20 Range/Units Serum Glucose 126 H 74-106 mg/dL Microbiology Date/Time Source Procedure Growth Status 08/19/24 06:10 Voided Urine Urine Culture - Preliminary Resulted 08/19/24 03:14 Blood Blood Culture - Preliminary Resulted Labs and/or images reviewed: Labs reviewed by me, Image(s) reviewed by me Problem List/Assessment/Plan Problem List/Assessment/Plan Acute metabolic encephalopathy, likely due to sepsis/uremic Sepsis, likely due to UTI/cellulitis Obstructive nephropathy right-sided moderate hydronephrosis Complicated UTI /pyelonephritis Left lower limb cellulitis Diabetes type 2 Possible OLGA on CKD, likely VMN History of BPH History of DVT History of CVA * Abdominal CT scan shows bilateral hydro ureteronephrosis identified intestinal obstructive etiology, large staghorn calculus noted within the left renal pelvis ultrasound shows, * Ultrasound shows, Moderate right hydronephrosis. No right intrarenal calculi. Left intrarenal calculus measuring 1.8 cm * Doppler ultrasound of lower limb shows bilateral 20-49% stenosis of proximal lower limb arteries * Foot MRI shows, Soft tissue swelling in the plantar surfaces of the midfoot without identifiable abscess or signs of osteomyelitis * Serum creatinine is raised, downtrending Plan/recommendation * Empiric antibiotic meropenem and doxycycline * Radiology consulted, placed nephrostomy on the right side * Nephrology consulted, recommended conservative management at the moment * Urology consulted, recommended outpatient follow up for lithotripsy, cystoscopy and was grade urogram. * Blood culture and urine culture * IV fluid DIET: Diabetic diet DVT PROPHYLAXIS: Therapeutic Dose of heparin GI PROPHYLAXIS:: Protonix DISPOSITION: Telemetry Patient's status and plan discussed with the patient. Due to and few status of patient, patient could not provide phone number of family/caregiver. Case discussed with Dr. Awan. Plan discussed with: Patient, Other My Orders My Orders Orders - NANCY OLIVA RESDICARL Procedure Category Date Status Time Pt Request For Service PT 08/21/24 Logged 08:38 DNR CARLOS A 08/21/24 In Process 08:38 Modified Resuscitive CODE 08/21/24 Transmitted Measures Dietary Evaluation Review Comments: 1. Renal Specific 50G, CCHO-60g diet 2. Advance to Renal Standard CCHO-60 diet if Pt is on Dialysis. Expected Outcomes/Goals: avoid uremic syndrome,controlled DM, healed wounds, maintain BW. Date of Service: Aug 21, 2024 Billing Provider: SIS AWAN MD Common Visit Codes: [id number] INP/OBS CARE(HIGH) NANCY OLIVA RESDIENT Aug 21, 2024 21:43 SIS AWAN MD Aug 25, 2024 20:59
[2024-08-22] VITALS (8 sets, daily range): BP systolic 93–124; BP diastolic 53–74; PULSE 85–102; RESP 16–19; TEMP 95.8–97.4; O2SAT 98–99
[2024-08-22 05:50] LABS: Basophils # (auto) 0 10 ^3/uL (0-0.2); Basophils % (auto) 0.3 % (0.0-2.0); Eosinophils # (auto) 0.1 10 ^3/uL (0-0.8); Eosinophils % (auto) 0.5 % (0.0-7.0); Hemoglobin 11.7 g/dL (13.5-17.5); Lymphocytes % (auto) 19.2 % (10.0-50.0); Mean Corpuscular Hemoglobin 26.8 pg (28.0-32.0); Mean Corpuscular Hgb Conc. 33.3 g/dL (32.0-36.0); Mean Corpuscular Volume 80.4 fL (80.0-100.0); Monocytes # (auto) 0.8 10 ^3/uL (0-1.3); Monocytes % (auto) 7.2 % (0.0-12.0); Neutrophils # (auto) 7.7 10 ^3/uL (1.6-8.6); Neutrophils % (auto) 72.8 % (37.0-80.0); Nucleated Red Blood Cells % 0.1 %; Platelet Count (auto) 317 10^3/uL (140-450); Red Blood Cells 4.36 10^6/uL (4.5-5.90); Red Cell Distribution Width 16.5 % (11.8-14.3); White Blood Cell 10.6 10^3/uL (4.4-10.8)
[2024-08-22 05:57] LABS: Sodium 140 mmol/L (136-145)
[2024-08-22 05:58] LABS: Anion Gap 12 (5-15); Calcium 9.2 mg/dL (8.7-10.4); Carbon Dioxide 19 mmol/L (20-31); Chloride 109 mmol/L (98-107); Potassium 3.4 mmol/L (3.5-5.1)
[2024-08-22 06:03] LABS: BUN/Creatinine Ratio 10.6 (10.0-20.0)
[2024-08-22 06:04] LABS: Blood Urea Nitrogen 61 mg/dL (9-23); Glucose 116 mg/dL (74-106)
--- NOTE | 2024-08-22 14:02 | DVHPN2 ---
Assessment/Plan Assessment/Plan progress note seen today during rounds, improving. s/p nephrostomy Physical exam aox2 PERRLA MMM s1 s2 rrr CTAB no le edema, soft tissue inf, black eschar in toe Labs ekg imaging reviewed Assessment and plan Acute metabolic encephalopathy, likely due to sepsis/uremic Sepsis, likely due to UTI/cellulitis Obstructive nephropathy right-sided moderate hydronephrosis Complicated UTI /pyelonephritis Left lower limb cellulitis Diabetes type 2 Possible OLGA on CKD, likely VMN History of BPH History of DVT History of CVA c/w abx outpatient uro f/u diet renal dvt ppx heparin Plan discussed with: Patient My Orders Orders - SIS PIERCE MD Procedure Category Date Status Time Basic Metabolic Panel LAB 08/23/24 Verified 04:00 Complete Blood Count LAB 08/23/24 Verified 04:00 Magnesium LAB 08/23/24 Verified 04:00 Phosphorus LAB 08/23/24 Verified 04:00 Date of Service: Aug 22, 2024 Billing Provider: SIS PIERCE MD Common Visit Codes: [id number] INP/OBS CARE(HIGH) SIS PIERCE MD Aug 22, 2024 14:02
--- NOTE | 2024-08-22 14:37 | DVHPN2 ---
Progress Note Date Seen: Aug 22, 2024 Has the PT tested + for MRSA If YES, has PT been informed?: No Medical Necessity Reason Pt with a Central, PICC or Fol: Yes The following are medically ne: Renner Catheter Reason for renner catheter: Bladder Retention/Obstruc Objective vital signs Vital Sign Date Time Temp Pulse Resp B/P (MAP) Pulse Ox O2 Delivery O2 Flow Rate FiO2 08/22/24 13:00 96.5 88 16 115/70 (85) 99 96.5 08/22/24 08:00 Room Air* 0 21 Total Intake and Output 08/21/24 08/21/24 08/22/24 15:00 23:00 07:00 Intake Total 350 ml 800 ml 800 ml Output Total 1950 ml 1650 ml Balance 350 ml -1150 ml -850 ml medications Current Medications Medications Dose Ordered Sig/Etienne Route Start Time Stop Time Status Last Admin Dose Admin Acetaminophen 650 mg Q6HP PRN PO 08/19/24 02:45 Meropenem 50 ml @ 17 mls/hr DAILY IV 08/19/24 02:45 08/22/24 11:46 17 MLS/HR Tamsulosin HCl 0.4 mg DAILY PO 08/19/24 10:00 08/22/24 09:07 0.4 MG Lactulose 30 ml DAILY PO 08/19/24 06:15 08/21/24 08:51 30 ML Heparin Sodium (Porcine) 5,000 units Q12HR SC 08/19/24 10:00 08/22/24 09:14 5,000 UNITS Linezolid 300 ml @ 150 mls/hr Q12HR IV 08/19/24 22:00 08/22/24 09:07 150 MLS/HR Sodium Chloride 1,000 ml @ 75 mls/hr [id number] IV 08/19/24 21:00 08/21/24 21:25 75 MLS/HR Examination: GENERAL:Abnormal, CVS:Normal, ABDOMEN:Abnormal, SKIN:Abnormal laboratory and microbiology Laboratory Tests 08/22/24 04:38 Test 08/22/24 04:38 Range/Units Serum Glucose 116 H 74-106 mg/dL Microbiology Date/Time Source Procedure Growth Status 08/19/24 06:10 Voided Urine Urine Culture - Final Proteus mirabilis Complete 08/19/24 03:14 Blood Blood Culture - Preliminary Resulted Problem List/Assessment/Plan Problem List/Assessment/Plan 63-year-old male poor historian if previous history of urinary retention and bladder dysfunction presents to the hospital with a weakness in the setting of sepsis was found to have urinary obstruction bilateral hydronephrosis and left- sided kidney stone Acute kidney injury on chronic kidney disease stage 4 multifactorial in the setting of obstruction and volume depletion Pyelonephritis Hyperkalemia Metabolic acidosis Bilateral hydronephrosis s/p Right PCNT Staghorn calculus left IV fluid IV antibiotics, blood culture urine culture sent Monitoring urinary output from Renner and nephrostomy tube. Urology No emergent indication for hemodialysis at this time however if patient does not show improvement with medical therapy patient may require in the near future Plan discussed with: Patient Dietary Evaluation Review Comments: 1. Renal Specific 50G, CCHO-60g diet 2. Advance to Renal Standard CCHO-60 diet if Pt is on Dialysis. Expected Outcomes/Goals: avoid uremic syndrome,controlled DM, healed wounds, maintain BW. RADHA NOEL MD Aug 22, 2024 14:37
[2024-08-23] VITALS (8 sets, daily range): BP systolic 94–134; BP diastolic 64–81; PULSE 85–100; RESP 16–18; TEMP 96.6–97.9; O2SAT 97–100
[2024-08-23] MEDS: ACETAMINOPHEN 325 MG TAB PO PRN (04:20)
[2024-08-23 07:37] LABS: Basophils # (auto) 0.1 10 ^3/uL (0-0.2); Basophils % (auto) 0.7 % (0.0-2.0); Eosinophils # (auto) 0.1 10 ^3/uL (0-0.8); Eosinophils % (auto) 0.8 % (0.0-7.0); Hematocrit 33.7 % (41.0-53.0); Hemoglobin 11.2 g/dL (13.5-17.5); Lymphocytes # (auto) 2.2 10 ^3/uL (0.4-5.4); Lymphocytes % (auto) 20.9 % (10.0-50.0); Mean Corpuscular Hemoglobin 26.5 pg (28.0-32.0); Mean Corpuscular Hgb Conc. 33.1 g/dL (32.0-36.0); Monocytes # (auto) 0.7 10 ^3/uL (0-1.3); Monocytes % (auto) 6.8 % (0.0-12.0); Neutrophils # (auto) 7.5 10 ^3/uL (1.6-8.6); Neutrophils % (auto) 70.8 % (37.0-80.0); Platelet Count (auto) 310 10^3/uL (140-450); Red Blood Cells 4.21 10^6/uL (4.5-5.90); Red Cell Distribution Width 16.6 % (11.8-14.3); White Blood Cell 10.6 10^3/uL (4.4-10.8)
[2024-08-23 08:03] LABS: Potassium 3.5 mmol/L (3.5-5.1); Sodium 142 mmol/L (136-145)
[2024-08-23 08:04] LABS: Anion Gap 12 (5-15); Calcium 8.7 mg/dL (8.7-10.4); Carbon Dioxide 20 mmol/L (20-31)
[2024-08-23 08:08] LABS: Chloride 110 mmol/L (98-107)
[2024-08-23 08:09] LABS: Glucose 92 mg/dL (74-106)
[2024-08-23 08:10] LABS: BUN/Creatinine Ratio 11.2 (10.0-20.0); Magnesium 2.4 mg/dL (1.6-2.6)
[2024-08-23 08:11] LABS: Phosphorus 2.9 mg/dL (2.4-5.1)
[2024-08-23 08:14] LABS: Blood Urea Nitrogen 56 mg/dL (9-23)
[2024-08-23] MEDS: POTASSIUM EFFERVESENT TAB 25 MEQ PO ONE (09:19)
--- NOTE | 2024-08-23 10:33 | DVHPNRES ---
Progress Note Date Seen: Aug 23, 2024 Resident Creating Document: NANCY OLIVA THANG Has the PT tested + for MRSA If YES, has PT been informed?: No Medical Necessity Reason Pt with a Central, PICC or Fol: Yes The following are medically ne: Renner Catheter Reason for renner catheter: Bladder Retention/Obstruc Subjective Review of Systems Patient seen and examined at bedside. Patient is feeling better since admission but still complained of abdominal pain and generalized weakness. Patient reports: No new complaints, Feels better Changes from previous H/P or p: Changes Objective vital signs Vital Sign Date Time Temp Pulse Resp B/P (MAP) Pulse Ox O2 Delivery O2 Flow Rate FiO2 08/23/24 09:00 97.9 87 17 134/81 (98) 100 97.9 08/22/24 20:00 Room Air* 0 21 Total Intake and Output 08/22/24 08/22/24 08/23/24 15:00 23:00 07:00 Intake Total 350 ml 1630 ml 1120 ml Output Total 1550 ml 1300 ml Balance 350 ml 80 ml -180 ml medications Current Medications Medications Dose Ordered Sig/Etienne Route Start Time Stop Time Status Last Admin Dose Admin Acetaminophen 650 mg Q6HP PRN PO 08/19/24 02:45 08/23/24 04:20 650 MG Meropenem 50 ml @ 17 mls/hr DAILY IV 08/19/24 02:45 08/22/24 11:46 17 MLS/HR Tamsulosin HCl 0.4 mg DAILY PO 08/19/24 10:00 08/23/24 09:21 0.4 MG Lactulose 30 ml DAILY PO 08/19/24 06:15 08/23/24 09:21 30 ML Heparin Sodium (Porcine) 5,000 units Q12HR SC 08/19/24 10:00 08/23/24 09:35 5,000 UNITS Linezolid 300 ml @ 150 mls/hr Q12HR IV 08/19/24 22:00 08/23/24 09:24 150 MLS/HR Sodium Chloride 1,000 ml @ 75 mls/hr [id number] IV 08/19/24 21:00 08/22/24 16:39 75 MLS/HR Examination General Appearance: Alert, Oriented to person, but disoriented to time and place HEENT: Atraumatic, PERRLA, EOMI, Mucous membrane moist/pink Respiratory: Clear to auscultation, Normal air movement Cardiovascular: Regular rate, Normal S1, Normal S2, No murmurs, no chest wall tenderness Abdominal: Normal bowel sounds, Soft, No tenderness, No hepatospenomegaly, No masses Extremities: Bilateral multiple to his amputated, left big to a has black scar added. Skin: No rashes, No breakdown, No significant lesion Neuro: Normal gait, Normal speech, Strength at 5/5 X4 ext, Normal tone, Sensation intact, Cranial nerves 3-12 NL, Reflexes 2+ Psych/Mental Status: Mental status NL, Mood NL laboratory and microbiology Laboratory Tests 08/23/24 05:43 Test 08/23/24 05:43 Range/Units Serum Glucose 92 74-106 mg/dL Microbiology Date/Time Source Procedure Growth Status 08/19/24 06:10 Voided Urine Urine Culture - Final Proteus mirabilis Complete 08/19/24 03:14 Blood Blood Culture - Final Staph hominis subsp homins Complete Labs and/or images reviewed: Labs reviewed by me, Image(s) reviewed by me Problem List/Assessment/Plan Problem List/Assessment/Plan Acute metabolic encephalopathy, likely due to sepsis/uremic Sepsis, likely due to UTI/cellulitis Obstructive nephropathy right-sided moderate hydronephrosis Complicated UTI /pyelonephritis Left lower limb cellulitis Diabetes type 2 Possible OLGA on CKD, likely VMN History of BPH History of DVT History of CVA * Abdominal CT scan shows bilateral hydro ureteronephrosis identified intestinal obstructive etiology, large staghorn calculus noted within the left renal pelvis ultrasound shows, * Ultrasound shows, Moderate right hydronephrosis. No right intrarenal calculi. Left intrarenal calculus measuring 1.8 cm * Doppler ultrasound of lower limb shows bilateral 20-49% stenosis of proximal lower limb arteries * Foot MRI shows, Soft tissue swelling in the plantar surfaces of the midfoot without identifiable abscess or signs of osteomyelitis * Serum creatinine is raised, downtrending Plan/recommendation * Empiric antibiotic meropenem and doxycycline * Radiology consulted, placed nephrostomy on the right side * Nephrology consulted, recommended conservative management at the moment * Urology consulted, recommended outpatient follow up for lithotripsy, cystoscopy and retrograde urogram. * Blood culture and urine culture * IV fluid DIET: Diabetic diet DVT PROPHYLAXIS: Therapeutic Dose of heparin GI PROPHYLAXIS:: Protonix DISPOSITION: Telemetry Patient's status and plan discussed with the patient. Due to and few status of patient, patient could not provide phone number of family/caregiver. Case discussed with Dr. Awan. Plan discussed with: Patient, Other (RN) Dietary Evaluation Review Comments: 1. Renal Specific 50G, CCHO-60g diet 2. Advance to Renal Standard CCHO-60 diet if Pt is on Dialysis. Expected Outcomes/Goals: avoid uremic syndrome,controlled DM, healed wounds, maintain BW. Date of Service: Aug 23, 2024 Billing Provider: SIS AWAN MD Common Visit Codes: [id number] INP/OBS CARE(HIGH) NANCY OLIVA RESDIENT Aug 23, 2024 10:33 SIS AWAN MD Aug 25, 2024 21:11
--- NOTE | 2024-08-23 11:36 | DVHDSRES ---
Discharge Summary Date of Admission Resident Creating Document: NANCY OLIVA RESDIENT Aug 19, 2024 at 02:33 Date of Discharge: Aug 23, 2024 Admitting Diagnosis Metabolic encephalopathy Labs/Diagnostic Data: Laboratory Results Test 08/23/24 05:43 08/21/24 04:20 08/20/24 16:42 08/19/24 18:15 White Blood Count 10.6 10^3/uL (4.4-10.8) Red Blood Count 4.21 10^6/uL (4.5-5.90) Hemoglobin 11.2 g/dL (13.5-17.5) Hematocrit 33.7 % (41.0-53.0) Mean Corpuscular Volume 80.0 fL (80.0-100.0) Mean Corpuscular Hemoglobin 26.5 pg (28.0-32.0) Mean Corpuscular Hemoglobin Concent 33.1 g/dL (32.0-36.0) Red Cell Distribution Width 16.6 % (11.8-14.3) Platelet Count 310 10^3/uL (140-450) Mean Platelet Volume 6.6 fL (6.9-10.8) Neutrophils (%) (Auto) 70.8 % (37.0-80.0) Lymphocytes (%) (Auto) 20.9 % (10.0-50.0) Monocytes (%) (Auto) 6.8 % (0.0-12.0) Eosinophils (%) (Auto) 0.8 % (0.0-7.0) Basophils (%) (Auto) 0.7 % (0.0-2.0) Neutrophils # (Auto) 7.5 10 ^3/uL (1.6-8.6) Lymphocytes # (Auto) 2.2 10 ^3/uL (0.4-5.4) Monocytes # (Auto) 0.7 10 ^3/uL (0-1.3) Eosinophils # (Auto) 0.1 10 ^3/uL (0-0.8) Basophils # (Auto) 0.1 10 ^3/uL (0-0.2) Nucleated Red Blood Cells 0.0 % Sodium Level 142 mmol/L (136-145) Potassium Level 3.5 mmol/L (3.5-5.1) Chloride Level 110 mmol/L (98-107) Carbon Dioxide Level 20 mmol/L (20-31) Anion Gap 12 (5-15) Blood Urea Nitrogen 56 mg/dL (9-23) Creatinine 5.01 mg/dL (0.700-1.30) Glomerular Filtration Rate Calc 12 mL/min (>90) BUN/Creatinine Ratio 11.2 (10.0-20.0) Serum Glucose 92 mg/dL (74-106) Calcium Level 8.7 mg/dL (8.7-10.4) Phosphorus Level 2.9 mg/dL (2.4-5.1) Magnesium Level 2.4 mg/dL (1.6-2.6) Total Bilirubin < 0.2 mg/dL (0.2-1.0) Aspartate Amino Transferase (AST) 14 U/L (0-34) Alanine Aminotransferase (ALT) 10 U/L (7-40) Alkaline Phosphatase 68 U/L (46-116) Total Protein 6.4 g/dL (5.7-8.2) Albumin 3.1 g/dL (3.2-4.8) Urine Color Brown (Yellow) Urine Clarity Ex.turbid (Clear) Urine pH 7.0 (5.0-9.0) Urine Specific [place] 1.021 (1.001-1.035) Urine Protein 2+ (Negative) Urine Ketones Negative (Negative) Urine Blood 3+ /uL (Negative) Urine Nitrite 1+ (Negative) Urine Bilirubin Negative (Negative) Urine Urobilinogen Normal mg/dL (Negative) Urine Leukocyte Esterase 3+ /uL (Negative) Urine RBC 1720 /hpf (0 - 3) Urine WBC Clumps Present /hpf (None Seen) Urine Microscopic WBC 384 /HPF (0-3) Urine Squamous Epithelial Cells None seen /hpf (<5) Urine Bacteria /hpf (None Seen) Urine Glucose Normal mg/dL (Normal) Plasma/Serum Blood Alcohol < 3.0 mg/dL (<10) Test 08/19/24 15:10 08/19/24 06:10 08/19/24 03:14 Prothrombin Time 12.3 sec (9.3-11.8) Prothrombin Time INR 1.18 (0.9-1.15) Activated Partial Thromboplast Time 30.8 SEC (24.5-34.5) Urine Mucus Few (None Seen) Urine Creatinine 24.66 mg/dL (30.0-125.0) Urine Protein/Creatinine Ratio 5.00 Urine Sodium 70 mmol/L (40-220) Urine Total Protein 123.2 mg/dL (1-14) Urine Opiates Screen Neg (NEGATIVE) Urine Fentanyl Screen Neg (NEGATIVE) Urine Barbiturates Screen Neg (NEGATIVE) Urine Phencyclidine Screen Neg (NEGATIVE) Urine Amphetamines Screen Neg (NEGATIVE) Urine Benzodiazepines Screen Neg (NEGATIVE) Urine Cocaine Screen Neg (NEGATIVE) Urine Cannabinoids Screen Pos (NEGATIVE) Hemoglobin A1c 5.8 % A1C (<5.7) Lactic Acid Level 1.0 mmol/L (0.4-2.0) Troponin I High Sensitivity 16 ng/L (</=54) B-Type Natriuretic Peptide 121.26 pg/mL (0-100) Triglycerides Level 93 mg/dL (< 150) Cholesterol Level 110 mg/dL (< 200) LDL Cholesterol 50 mg/dL (< 100) HDL Cholesterol 28 mg/dL (40-59) Lipase 54 U/L (12-53) Other Laboratory Tests 08/23/24 05:43 Brief Hx & Hospital Course: This is a 63-year-old male with past medical history of CVA, CKD, BPH, DVT, diabetes mellitus, who presented to the ED of [facility] due to generalized weakness associated with nausea and persistent vomiting. Patient states that symptoms started three days before coming to the ED consistent with persistent vomiting not being able to tolerate any food both solids and liquids associated with generalized malaise. The patient was transferred from [facility] to our facility for higher level of care and neurology evaluation due to large staghorn calculi in the left kidney with moderate to severe right hydronephrosis. The patient at that time was requiring vasopressors and was transfered to our facility. After checking [place] documentation, they performed a CT scan of the abdomen and pelvis with contrast which showed large staghorn calculus of the left kidney with moderate to severe right hydronephrosis and bilateral hydroureter, possible bladder outlet obstruction. They also performed a CT angio of the chest which showed no pulmonary embolism. Upon admission, patient is alert and oriented, not requiring vasopressors at this time. Cannon catheter was placed with good urine output so far. Patient states that he is DNR/DNI status (chemical code). We will admit the patient for further assessment and management. Past medical history: CVA, CKD, BPH, DVT, DM Home medications: Eliquis 5 mg b.i.d., Lantus 20 units at bedtime, Mounjaro 2.5 mg weekly Surgical history: Cholecystectomy, amputation of the right 3rd and 5th toe and distal half of the 5th metatarsal. There is also amputation of the 1st metatarsal toe of the left foot. Social history: Denies smoking, alcohol or drugs Hospital course: The patient was admitted at the line of acute metabolic encephalopathy, likely due to sepsis/uremia. Patient was started on empiric antibiotic of cefepime and linezolid Discharge Statement: "Patient was advised to return to the ER or call 911 if any headaches, dizziness, shortness of breath, chest pain, abdominal pain, bleeding, fevers, or worsening of medical condition. Patient was counseled about treatment plan, medications, possible side effects, patientverbalized understanding. All questions were answered to the best of my ability. This discharge took greater then 30 minutes in planning, reviewing documentation, counseling the patient, and discussing with other team members." ASSESSMENT ASSESSMENT Assessment [facility] Aug 23, 2024 11:36
--- NOTE | 2024-08-23 12:07 | DVHPN2 ---
Progress Note Date Seen: Aug 23, 2024 Has the PT tested + for MRSA If YES, has PT been informed?: No Medical Necessity Reason Pt with a Central, PICC or Fol: Yes The following are medically ne: Renner Catheter Reason for renner catheter: Bladder Retention/Obstruc Subjective Review of Systems: Deferred Objective vital signs Vital Sign Date Time Temp Pulse Resp B/P (MAP) Pulse Ox O2 Delivery O2 Flow Rate FiO2 08/23/24 09:00 97.9 87 17 134/81 (98) 100 97.9 08/23/24 08:00 Room Air* 0 21 Total Intake and Output 08/22/24 08/22/24 08/23/24 15:00 23:00 07:00 Intake Total 350 ml 1630 ml 1120 ml Output Total 1550 ml 1300 ml Balance 350 ml 80 ml -180 ml medications Current Medications Medications Dose Ordered Sig/Etienne Route Start Time Stop Time Status Last Admin Dose Admin Acetaminophen 650 mg Q6HP PRN PO 08/19/24 02:45 08/23/24 04:20 650 MG Meropenem 50 ml @ 17 mls/hr DAILY IV 08/19/24 02:45 08/23/24 11:50 17 MLS/HR Tamsulosin HCl 0.4 mg DAILY PO 08/19/24 10:00 08/23/24 09:21 0.4 MG Lactulose 30 ml DAILY PO 08/19/24 06:15 08/23/24 09:21 30 ML Heparin Sodium (Porcine) 5,000 units Q12HR SC 08/19/24 10:00 08/23/24 09:35 5,000 UNITS Linezolid 300 ml @ 150 mls/hr Q12HR IV 08/19/24 22:00 08/23/24 09:24 150 MLS/HR Sodium Chloride 1,000 ml @ 75 mls/hr [id number] IV 08/19/24 21:00 08/22/24 16:39 75 MLS/HR Examination: GENERAL:Abnormal, CVS:Normal, SKIN:Abnormal, :Abnormal laboratory and microbiology Laboratory Tests 08/23/24 05:43 Test 08/23/24 05:43 Range/Units Serum Glucose 92 74-106 mg/dL Microbiology Date/Time Source Procedure Growth Status 08/19/24 06:10 Voided Urine Urine Culture - Final Proteus mirabilis Complete 08/19/24 03:14 Blood Blood Culture - Final Staph hominis subsp homins Complete Problem List/Assessment/Plan Problem List/Assessment/Plan 63-year-old male poor historian if previous history of urinary retention and bladder dysfunction presents to the hospital with a weakness in the setting of sepsis was found to have urinary obstruction bilateral hydronephrosis and left- sided kidney stone Acute kidney injury on chronic kidney disease stage 4 multifactorial in the setting of obstruction and volume depletion Pyelonephritis Hyperkalemia Metabolic acidosis Bilateral hydronephrosis s/p Right PCNT Staghorn calculus left IV fluid IV antibiotics, blood culture urine culture sent Monitoring urinary output from Renner and nephrostomy tube. Urology plans for procedures in future No emergent indication for hemodialysis at this time however if patient does not show improvement with medical therapy patient may require in the near future Plan discussed with: Patient Dietary Evaluation Review Comments: 1. Renal Specific 50G, CCHO-60g diet 2. Advance to Renal Standard CCHO-60 diet if Pt is on Dialysis. Expected Outcomes/Goals: avoid uremic syndrome,controlled DM, healed wounds, maintain BW. RADHA NOEL MD Aug 23, 2024 12:07
[2024-08-23] MEDS: ERTAPENEM SOD INJ 0.5 GM in SODIUM CHL 0.9% 50 ML IV ONE (16:54)
[2024-08-24] VITALS (8 sets, daily range): BP systolic 95–138; BP diastolic 65–84; PULSE 79–98; RESP 16–18; TEMP 97.6–98.2; O2SAT 98–100
[2024-08-24 06:06] LABS: Basophils # (auto) 0.1 10 ^3/uL (0-0.2); Basophils % (auto) 0.4 % (0.0-2.0); Eosinophils # (auto) 0.1 10 ^3/uL (0-0.8); Eosinophils % (auto) 0.7 % (0.0-7.0); Hematocrit 37.1 % (41.0-53.0); Hemoglobin 12.1 g/dL (13.5-17.5); Lymphocytes # (auto) 2.2 10 ^3/uL (0.4-5.4); Lymphocytes % (auto) 16.5 % (10.0-50.0); Mean Corpuscular Hemoglobin 26.4 pg (28.0-32.0); Mean Corpuscular Hgb Conc. 32.6 g/dL (32.0-36.0); Mean Corpuscular Volume 81.1 fL (80.0-100.0); Monocytes # (auto) 0.8 10 ^3/uL (0-1.3); Monocytes % (auto) 5.7 % (0.0-12.0); Neutrophils # (auto) 10.2 10 ^3/uL (1.6-8.6); Neutrophils % (auto) 76.7 % (37.0-80.0); Platelet Count (auto) 267 10^3/uL (140-450); Red Blood Cells 4.58 10^6/uL (4.5-5.90); Red Cell Distribution Width 16.8 % (11.8-14.3); White Blood Cell 13.3 10^3/uL (4.4-10.8)
[2024-08-24 06:15] LABS: Anion Gap 10 (5-15); Carbon Dioxide 23 mmol/L (20-31); Sodium 141 mmol/L (136-145)
[2024-08-24 06:16] LABS: Calcium 9.1 mg/dL (8.7-10.4)
[2024-08-24 06:21] LABS: BUN/Creatinine Ratio 10.4 (10.0-20.0); Glucose 103 mg/dL (74-106)
[2024-08-24 06:30] LABS: Blood Urea Nitrogen 45 mg/dL (9-23); Chloride 108 mmol/L (98-107)
--- NOTE | 2024-08-24 07:14 | DVHDSRES ---
Discharge Summary Date of Admission Resident Creating Document: NANCY OLIVA RESDIENT Aug 19, 2024 at 02:33 Date of Discharge: Aug 23, 2024 Admitting Diagnosis Encephalopathy Labs/Diagnostic Data: Laboratory Results Test 08/24/24 05:26 08/23/24 05:43 08/21/24 04:20 08/20/24 16:42 White Blood Count 13.3 10^3/uL (4.4-10.8) Red Blood Count 4.58 10^6/uL (4.5-5.90) Hemoglobin 12.1 g/dL (13.5-17.5) Hematocrit 37.1 % (41.0-53.0) Mean Corpuscular Volume 81.1 fL (80.0-100.0) Mean Corpuscular Hemoglobin 26.4 pg (28.0-32.0) Mean Corpuscular Hemoglobin Concent 32.6 g/dL (32.0-36.0) Red Cell Distribution Width 16.8 % (11.8-14.3) Platelet Count 267 10^3/uL (140-450) Mean Platelet Volume 6.3 fL (6.9-10.8) Neutrophils (%) (Auto) 76.7 % (37.0-80.0) Lymphocytes (%) (Auto) 16.5 % (10.0-50.0) Monocytes (%) (Auto) 5.7 % (0.0-12.0) Eosinophils (%) (Auto) 0.7 % (0.0-7.0) Basophils (%) (Auto) 0.4 % (0.0-2.0) Neutrophils # (Auto) 10.2 10 ^3/uL (1.6-8.6) Lymphocytes # (Auto) 2.2 10 ^3/uL (0.4-5.4) Monocytes # (Auto) 0.8 10 ^3/uL (0-1.3) Eosinophils # (Auto) 0.1 10 ^3/uL (0-0.8) Basophils # (Auto) 0.1 10 ^3/uL (0-0.2) Nucleated Red Blood Cells 0.0 % Sodium Level 141 mmol/L (136-145) Potassium Level 4.0 mmol/L (3.5-5.1) Chloride Level 108 mmol/L (98-107) Carbon Dioxide Level 23 mmol/L (20-31) Anion Gap 10 (5-15) Blood Urea Nitrogen 45 mg/dL (9-23) Creatinine 4.31 mg/dL (0.700-1.30) Glomerular Filtration Rate Calc 15 mL/min (>90) BUN/Creatinine Ratio 10.4 (10.0-20.0) Serum Glucose 103 mg/dL (74-106) Calcium Level 9.1 mg/dL (8.7-10.4) Phosphorus Level 2.9 mg/dL (2.4-5.1) Magnesium Level 2.4 mg/dL (1.6-2.6) Total Bilirubin < 0.2 mg/dL (0.2-1.0) Aspartate Amino Transferase (AST) 14 U/L (0-34) Alanine Aminotransferase (ALT) 10 U/L (7-40) Alkaline Phosphatase 68 U/L (46-116) Total Protein 6.4 g/dL (5.7-8.2) Albumin 3.1 g/dL (3.2-4.8) Urine Color Brown (Yellow) Urine Clarity Ex.turbid (Clear) Urine pH 7.0 (5.0-9.0) Urine Specific [place] 1.021 (1.001-1.035) Urine Protein 2+ (Negative) Urine Ketones Negative (Negative) Urine Blood 3+ /uL (Negative) Urine Nitrite 1+ (Negative) Urine Bilirubin Negative (Negative) Urine Urobilinogen Normal mg/dL (Negative) Urine Leukocyte Esterase 3+ /uL (Negative) Urine RBC 1720 /hpf (0 - 3) Urine WBC Clumps Present /hpf (None Seen) Urine Microscopic WBC 384 /HPF (0-3) Urine Squamous Epithelial Cells None seen /hpf (<5) Urine Bacteria /hpf (None Seen) Urine Glucose Normal mg/dL (Normal) Test 08/19/24 18:15 08/19/24 15:10 08/19/24 06:10 08/19/24 03:14 Plasma/Serum Blood Alcohol < 3.0 mg/dL (<10) Prothrombin Time 12.3 sec (9.3-11.8) Prothrombin Time INR 1.18 (0.9-1.15) Activated Partial Thromboplast Time 30.8 SEC (24.5-34.5) Urine Mucus Few (None Seen) Urine Creatinine 24.66 mg/dL (30.0-125.0) Urine Protein/Creatinine Ratio 5.00 Urine Sodium 70 mmol/L (40-220) Urine Total Protein 123.2 mg/dL (1-14) Urine Opiates Screen Neg (NEGATIVE) Urine Fentanyl Screen Neg (NEGATIVE) Urine Barbiturates Screen Neg (NEGATIVE) Urine Phencyclidine Screen Neg (NEGATIVE) Urine Amphetamines Screen Neg (NEGATIVE) Urine Benzodiazepines Screen Neg (NEGATIVE) Urine Cocaine Screen Neg (NEGATIVE) Urine Cannabinoids Screen Pos (NEGATIVE) Hemoglobin A1c 5.8 % A1C (<5.7) Lactic Acid Level 1.0 mmol/L (0.4-2.0) Troponin I High Sensitivity 16 ng/L (</=54) B-Type Natriuretic Peptide 121.26 pg/mL (0-100) Triglycerides Level 93 mg/dL (< 150) Cholesterol Level 110 mg/dL (< 200) LDL Cholesterol 50 mg/dL (< 100) HDL Cholesterol 28 mg/dL (40-59) Lipase 54 U/L (12-53) Other Laboratory Tests 08/24/24 05:26 Brief Hx & Hospital Course: This is a 63-year-old male with past medical history of CVA, CKD, BPH, DVT, diabetes mellitus, who presented to the ED of [facility] due to generalized weakness associated with nausea and persistent vomiting. Patient states that symptoms started three days before coming to the ED consistent with persistent vomiting not being able to tolerate any food both solids and liquids associated with generalized malaise. The patient was transferred from [facility] to our facility for higher level of care and neurology evaluation due to large staghorn calculi in the left kidney with moderate to severe right hydronephrosis. The patient at that time was requiring vasopressors and was transfered to our facility. After checking [place] documentation, they performed a CT scan of the abdomen and pelvis with contrast which showed large staghorn calculus of the left kidney with moderate to severe right hydronephrosis and bilateral hydroureter, possible bladder outlet obstruction. They also performed a CT angio of the chest which showed no pulmonary embolism. Upon admission, patient is alert and oriented, not requiring vasopressors at this time. Cannon catheter was placed with good urine output so far. Patient states that he is DNR/DNI status (chemical code). We will admit the patient for further assessment and management. Past medical history: CVA, CKD, BPH, DVT, DM Home medications: Eliquis 5 mg b.i.d., Lantus 20 units at bedtime, Mounjaro 2.5 mg weekly Surgical history: Cholecystectomy, amputation of the right 3rd and 5th toe and distal half of the 5th metatarsal. There is also amputation of the 1st metatarsal toe of the left foot. Social history: Denies smoking, alcohol or drugs Hospital course: Patient was admitted at the line of acute metabolic encephalopathy likely due to sepsis/uremia. Patient started on empiric antibiotic of meropenem, linezolid and IV fluid. Abdominal CT scan shows bilateral hydro ureteronephrosis identified intestinal obstructive etiology, large staghorn calculus noted within the left renal pelvis. Ultrasound showed, Moderate right hydronephrosis. No right intrarenal calculi. Left intrarenal calculus measuring 1.8 cm. Urology consulted recommended nephrostomy an outpatient follow up for lithotripsy, cystoscopy and retrograde urogram. Radiology consulted and put nephrostomy on the right side. Due to raised creatinine, Nephrology consulted recommended medical management. Urine culture showed Proteus mirabilis sensitive to meropenem and blood culture showed Staphylococcus hominis sensitive to linezolid. Home medicine including Discharge Statement: "Patient was advised to return to the ER or call 911 if any headaches, dizziness, shortness of breath, chest pain, abdominal pain, bleeding, fevers, or worsening of medical condition. Patient was counseled about treatment plan, medications, possible side effects, patientverbalized understanding. All questions were answered to the best of my ability. This discharge took greater then 30 minutes in planning, reviewing documentation, counseling the patient, and discussing with other team members." ASSESSMENT ASSESSMENT Assessment NANCY OLIVA [facility] Aug 24, 2024 07:14
[2024-08-24] MEDS: ERTAPENEM SOD INJ 0.5 GM in SODIUM CHL 0.9% 50 ML IV SCH (08:55)
--- NOTE | 2024-08-24 15:30 | DVHPNRES ---
Progress Note Date Seen: Aug 24, 2024 Resident Creating Document: NANCY OLIVA THANG Has the PT tested + for MRSA If YES, has PT been informed?: No Medical Necessity Reason Pt with a Central, PICC or Fol: Yes The following are medically ne: Renner Catheter Reason for renner catheter: Bladder Retention/Obstruc Subjective Review of Systems Patient seen and examined at bedside. Patient is feeling better since admission. Due to blood culture positive/bacteremia, we are repeating blood culture today. Patient reports: No new complaints, Feels better Changes from previous H/P or p: Changes Objective vital signs Vital Sign Date Time Temp Pulse Resp B/P (MAP) Pulse Ox O2 Delivery O2 Flow Rate FiO2 08/24/24 13:00 97.6 98 18 95/65 (75) 98 97.6 08/24/24 08:05 Room Air* 0 21 Total Intake and Output 08/23/24 08/23/24 08/24/24 15:00 23:00 07:00 Intake Total 1280 ml 725 ml 1000 ml Output Total 1250 ml 1175 ml Balance 1280 ml -525 ml -175 ml medications Current Medications Medications Dose Ordered Sig/Etienne Route Start Time Stop Time Status Last Admin Dose Admin Acetaminophen 650 mg Q6HP PRN PO 08/19/24 02:45 08/23/24 16:54 650 MG Tamsulosin HCl 0.4 mg DAILY PO 08/19/24 10:00 08/24/24 09:55 0.4 MG Lactulose 30 ml DAILY PO 08/19/24 06:15 08/23/24 09:21 30 ML Heparin Sodium (Porcine) 5,000 units Q12HR SC 08/19/24 10:00 08/24/24 10:05 5,000 UNITS Linezolid 300 ml @ 150 mls/hr Q12HR IV 08/19/24 22:00 08/24/24 09:55 150 MLS/HR Sodium Chloride 1,000 ml @ 75 mls/hr [id number] IV 08/19/24 21:00 08/24/24 08:56 75 MLS/HR Ertapenem 0.5 gm/ Sodium Chloride 50 ml @ 100 mls/hr DAILY IV 08/24/24 10:00 08/24/24 08:55 100 MLS/HR Examination General Appearance: Alert, Oriented to person, but disoriented to time and place HEENT: Atraumatic, PERRLA, EOMI, Mucous membrane moist/pink Respiratory: Clear to auscultation, Normal air movement Cardiovascular: Regular rate, Normal S1, Normal S2, No murmurs, no chest wall tenderness Abdominal: Normal bowel sounds, Soft, No tenderness, No hepatospenomegaly, No masses Extremities: Bilateral multiple to his amputated, left big to a has black scar added. Skin: No rashes, No breakdown, No significant lesion Neuro: Normal gait, Normal speech, Strength at 5/5 X4 ext, Normal tone, Sensation intact, Cranial nerves 3-12 NL, Reflexes 2+ Psych/Mental Status: Mental status NL, Mood NL laboratory and microbiology Laboratory Tests 08/24/24 05:26 Test 08/24/24 05:26 Range/Units Serum Glucose 103 74-106 mg/dL Microbiology Date/Time Source Procedure Growth Status 08/19/24 06:10 Voided Urine Urine Culture - Final Proteus mirabilis Complete 08/19/24 03:14 Blood Blood Culture - Final Staph hominis subsp homins Complete Labs and/or images reviewed: Labs reviewed by me, Image(s) reviewed by me Problem List/Assessment/Plan Problem List/Assessment/Plan Acute metabolic encephalopathy, likely due to sepsis/uremic Sepsis, likely due to UTI/cellulitis Obstructive nephropathy right-sided moderate hydronephrosis Complicated UTI /pyelonephritis Left lower limb cellulitis Diabetes type 2 Possible OLGA on CKD, likely VMN History of BPH History of DVT History of CVA * Abdominal CT scan shows bilateral hydro ureteronephrosis identified intestinal obstructive etiology, large staghorn calculus noted within the left renal pelvis ultrasound shows, * Ultrasound shows, Moderate right hydronephrosis. No right intrarenal calculi. Left intrarenal calculus measuring 1.8 cm * Doppler ultrasound of lower limb shows bilateral 20-49% stenosis of proximal lower limb arteries * Foot MRI shows, Soft tissue swelling in the plantar surfaces of the midfoot without identifiable abscess or signs of osteomyelitis * Serum creatinine is raised, downtrending Plan/recommendation * Empiric antibiotic meropenem and doxycycline * Radiology consulted, placed nephrostomy on the right side * Nephrology consulted, recommended conservative management at the moment * Urology consulted, recommended outpatient follow up for lithotripsy, cystoscopy and retrograde urogram. * Blood culture and urine culture * IV fluid DIET: Diabetic diet DVT PROPHYLAXIS: Therapeutic Dose of heparin GI PROPHYLAXIS:: Protonix DISPOSITION: Telemetry Due to positive urine culture/blood culture, the patient needs IV antibiotic for 10 days, director of social media marketing is on the board providing home health care. Due to positive blood culture/bacteremia, today we are repeating blood culture. Patient's status and plan discussed with the patient. Due to and few status of patient, patient could not provide phone number of family/caregiver. Case discussed with Dr. Awan. Plan discussed with: Patient, Other (RN) My Orders My Orders Orders - NANCY OLIVA RESDIENT Procedure Category Date Status Time Blood Culture SHAWNA 08/24/24 In Process 10:59 * Object Oriented Developer CONS 08/24/24 Transmitted Consult 12:16 Dietary Evaluation Review Comments: 1. Renal Specific 50G, CCHO-60g diet 2. Advance to Renal Standard CCHO-60 diet if Pt is on Dialysis. Expected Outcomes/Goals: avoid uremic syndrome,controlled DM, healed wounds, maintain BW. Date of Service: Aug 24, 2024 Billing Provider: SIS AWAN MD Common Visit Codes: [id number] INP/OBS CARE(HIGH) NANCY OLIVA RES[facility]ENT Aug 24, 2024 15:30 SIS AWAN MD Aug 25, 2024 21:25
--- NOTE | 2024-08-24 15:46 | DVHPN2 ---
Progress Note Date Seen: Aug 24, 2024 Has the PT tested + for MRSA If YES, has PT been informed?: No Medical Necessity Reason Pt with a Central, PICC or Fol: Yes The following are medically ne: Renner Catheter Reason for renner catheter: Bladder Retention/Obstruc Subjective Patient reports: Other Objective vital signs Vital Sign Date Time Temp Pulse Resp B/P (MAP) Pulse Ox O2 Delivery O2 Flow Rate FiO2 08/24/24 13:00 97.6 98 18 95/65 (75) 98 97.6 08/24/24 08:05 Room Air* 0 21 Total Intake and Output 08/23/24 08/23/24 08/24/24 15:00 23:00 07:00 Intake Total 1280 ml 725 ml 1000 ml Output Total 1250 ml 1175 ml Balance 1280 ml -525 ml -175 ml medications Current Medications Medications Dose Ordered Sig/Etienne Route Start Time Stop Time Status Last Admin Dose Admin Acetaminophen 650 mg Q6HP PRN PO 08/19/24 02:45 08/23/24 16:54 650 MG Tamsulosin HCl 0.4 mg DAILY PO 08/19/24 10:00 08/24/24 09:55 0.4 MG Lactulose 30 ml DAILY PO 08/19/24 06:15 08/23/24 09:21 30 ML Heparin Sodium (Porcine) 5,000 units Q12HR SC 08/19/24 10:00 08/24/24 10:05 5,000 UNITS Linezolid 300 ml @ 150 mls/hr Q12HR IV 08/19/24 22:00 08/24/24 09:55 150 MLS/HR Sodium Chloride 1,000 ml @ 75 mls/hr [id number] IV 08/19/24 21:00 08/24/24 08:56 75 MLS/HR Ertapenem 0.5 gm/ Sodium Chloride 50 ml @ 100 mls/hr DAILY IV 08/24/24 10:00 08/24/24 08:55 100 MLS/HR Examination: GENERAL:Normal, LUNGS:Normal, CVS:Normal, MSK:Abnormal (foot in bandage ), SKIN:Normal laboratory and microbiology Laboratory Tests 08/24/24 05:26 Test 08/24/24 05:26 Range/Units Serum Glucose 103 74-106 mg/dL Microbiology Date/Time Source Procedure Growth Status 08/19/24 06:10 Voided Urine Urine Culture - Final Proteus mirabilis Complete 08/19/24 03:14 Blood Blood Culture - Final Staph hominis subsp homins Complete Problem List/Assessment/Plan Problem List/Assessment/Plan Acute kidney injury on chronic kidney disease stage 4 multifactorial in the setting of obstruction and volume depletion Pyelonephritis Hyperkalemia Metabolic acidosis Bilateral hydronephrosis s/p Right PCNT Staghorn calculus left recs IV fluid IV antibiotics, blood culture urine culture sent Monitoring urinary output from Renner and nephrostomy tube. Urology plans for procedures in future No emergent indication for hemodialysis at this time Plan discussed with: Patient Dietary Evaluation Review Comments: 1. Renal Specific 50G, CCHO-60g diet 2. Advance to Renal Standard CCHO-60 diet if Pt is on Dialysis. Expected Outcomes/Goals: avoid uremic syndrome,controlled DM, healed wounds, maintain BW. OLGA HUA MD Aug 24, 2024 15:46
[2024-08-25] VITALS (8 sets, daily range): BP systolic 96–131; BP diastolic 63–87; PULSE 91–100; RESP 16–20; TEMP 97–98.3; O2SAT 98–100
[2024-08-25 07:28] LABS: Basophils # (auto) 0.1 10 ^3/uL (0-0.2); Basophils % (auto) 0.5 % (0.0-2.0); Eosinophils # (auto) 0.1 10 ^3/uL (0-0.8); Eosinophils % (auto) 0.8 % (0.0-7.0); Hematocrit 33.5 % (41.0-53.0); Hemoglobin 11.1 g/dL (13.5-17.5); Lymphocytes # (auto) 2.2 10 ^3/uL (0.4-5.4); Lymphocytes % (auto) 18.3 % (10.0-50.0); Mean Corpuscular Hemoglobin 26.9 pg (28.0-32.0); Mean Corpuscular Hgb Conc. 33.2 g/dL (32.0-36.0); Monocytes # (auto) 0.7 10 ^3/uL (0-1.3); Monocytes % (auto) 5.5 % (0.0-12.0); Neutrophils # (auto) 9.1 10 ^3/uL (1.6-8.6); Neutrophils % (auto) 74.9 % (37.0-80.0); Nucleated Red Blood Cells % 0.1 %; Platelet Count (auto) 250 10^3/uL (140-450); Red Blood Cells 4.14 10^6/uL (4.5-5.90); Red Cell Distribution Width 16.7 % (11.8-14.3); White Blood Cell 12.2 10^3/uL (4.4-10.8)
[2024-08-25 07:37] LABS: Anion Gap 10 (5-15); Carbon Dioxide 24 mmol/L (20-31); Potassium 4.1 mmol/L (3.5-5.1); Sodium 143 mmol/L (136-145)
[2024-08-25 07:38] LABS: Calcium 8.8 mg/dL (8.7-10.4); Chloride 109 mmol/L (98-107)
[2024-08-25 07:43] LABS: BUN/Creatinine Ratio 10.7 (10.0-20.0); Glucose 85 mg/dL (74-106)
[2024-08-25 07:44] LABS: Blood Urea Nitrogen 40 mg/dL (9-23)
--- NOTE | 2024-08-25 14:30 | DVHPNRES ---
Progress Note Date Seen: Aug 25, 2024 Resident Creating Document: NANCY OLIVA THANG Has the PT tested + for MRSA If YES, has PT been informed?: No Medical Necessity Reason Pt with a Central, PICC or Fol: Yes The following are medically ne: Renner Catheter Reason for renner catheter: Bladder Retention/Obstruc Subjective Review of Systems Patient is seen and examined at the bedside. Patient is feeling better since admission. Blood culture results still pending Patient reports: No new complaints, Feels better Changes from previous H/P or p: Changes Objective vital signs Vital Sign Date Time Temp Pulse Resp B/P (MAP) Pulse Ox O2 Delivery O2 Flow Rate FiO2 08/25/24 09:00 97.8 97 19 131/75 (93) 99 97.8 08/25/24 08:00 Room Air* 0 21 Total Intake and Output 08/24/24 08/24/24 08/25/24 15:00 23:00 07:00 Intake Total 800 ml 600 ml Output Total 1050 ml 1450 ml Balance -250 ml -850 ml medications Current Medications Medications Dose Ordered Sig/Etienne Route Start Time Stop Time Status Last Admin Dose Admin Acetaminophen 650 mg Q6HP PRN PO 08/19/24 02:45 08/23/24 16:54 650 MG Tamsulosin HCl 0.4 mg DAILY PO 08/19/24 10:00 08/25/24 09:42 0.4 MG Lactulose 30 ml DAILY PO 08/19/24 06:15 08/23/24 09:21 30 ML Heparin Sodium (Porcine) 5,000 units Q12HR SC 08/19/24 10:00 08/25/24 09:49 5,000 UNITS Linezolid 300 ml @ 150 mls/hr Q12HR IV 08/19/24 22:00 08/25/24 09:43 150 MLS/HR Sodium Chloride 1,000 ml @ 75 mls/hr [id number] IV 08/19/24 21:00 08/25/24 10:33 75 MLS/HR Ertapenem 0.5 gm/ Sodium Chloride 50 ml @ 100 mls/hr DAILY IV 08/24/24 10:00 08/25/24 09:43 100 MLS/HR Examination General Appearance: Alert, Oriented to person, but disoriented to time and place HEENT: Atraumatic, PERRLA, EOMI, Mucous membrane moist/pink Respiratory: Clear to auscultation, Normal air movement Cardiovascular: Regular rate, Normal S1, Normal S2, No murmurs, no chest wall tenderness Abdominal: Normal bowel sounds, Soft, No tenderness, No hepatospenomegaly, No masses Extremities: Bilateral multiple to his amputated, left big to a has black scar added. Skin: No rashes, No breakdown, No significant lesion Neuro: Normal gait, Normal speech, Strength at 5/5 X4 ext, Normal tone, Sensation intact, Cranial nerves 3-12 NL, Reflexes 2+ Psych/Mental Status: Mental status NL, Mood NL laboratory and microbiology Laboratory Tests 08/25/24 05:49 Test 08/25/24 05:49 Range/Units Serum Glucose 85 74-106 mg/dL Microbiology Date/Time Source Procedure Growth Status 08/24/24 13:27 Blood Blood Culture - Preliminary NO GROWTH AFTER 24 HOURS OF INCUBATION. Resulted 08/19/24 06:10 Voided Urine Urine Culture - Final Proteus mirabilis Complete Labs and/or images reviewed: Labs reviewed by me, Image(s) reviewed by me Problem List/Assessment/Plan Problem List/Assessment/Plan Acute metabolic encephalopathy, likely due to sepsis/uremic Sepsis, likely due to UTI/cellulitis Obstructive nephropathy right-sided moderate hydronephrosis Complicated UTI /pyelonephritis Left lower limb cellulitis Diabetes type 2 Possible OLGA on CKD, likely VMN History of BPH History of DVT History of CVA * Abdominal CT scan shows bilateral hydro ureteronephrosis identified intestinal obstructive etiology, large staghorn calculus noted within the left renal pelvis ultrasound shows, * Ultrasound shows, Moderate right hydronephrosis. No right intrarenal calculi. Left intrarenal calculus measuring 1.8 cm * Doppler ultrasound of lower limb shows bilateral 20-49% stenosis of proximal lower limb arteries * Foot MRI shows, Soft tissue swelling in the plantar surfaces of the midfoot without identifiable abscess or signs of osteomyelitis * Serum creatinine is raised, downtrending Plan/recommendation * Empiric antibiotic meropenem and doxycycline * Radiology consulted, placed nephrostomy on the right side * Nephrology consulted, recommended conservative management at the moment * Urology consulted, recommended outpatient follow up for lithotripsy, cystoscopy and retrograde urogram. * Blood culture and urine culture * IV fluid DIET: Diabetic diet DVT PROPHYLAXIS: Therapeutic Dose of heparin GI PROPHYLAXIS:: Protonix DISPOSITION: Telemetry Due to positive urine culture/blood culture, the patient needs IV antibiotic for 10 days, forensic social worker is on the board providing home health care. Due to positive blood culture/bacteremia, we are repeating blood culture, results pending Patient's status and plan discussed with the patient. Due to and few status of patient, patient could not provide phone number of family/caregiver. Case discussed with Dr. Awan. Plan discussed with: Patient, Other (RN) Dietary Evaluation Review Comments: 1. Renal Specific 50G, CCHO-60g diet 2. Advance to Renal Standard CCHO-60 diet if Pt is on Dialysis. Expected Outcomes/Goals: avoid uremic syndrome,controlled DM, healed wounds, maintain BW. Date of Service: Aug 25, 2024 Billing Provider: SIS AWAN MD Common Visit Codes: [id number] INP/OBS CARE(HIGH) NANCY OLIVA RESDIENT Aug 25, 2024 14:30 SIS AWAN MD Aug 28, 2024 15:06
--- NOTE | 2024-08-25 18:35 | DVHPN2 ---
Progress Note Date Seen: Aug 25, 2024 Has the PT tested + for MRSA If YES, has PT been informed?: No Medical Necessity Reason Pt with a Central, PICC or Fol: Yes The following are medically ne: Renner Catheter Reason for renner catheter: Bladder Retention/Obstruc Subjective Patient reports: No new complaints Review of Systems: Deferred Objective vital signs Vital Sign Date Time Temp Pulse Resp B/P (MAP) Pulse Ox O2 Delivery O2 Flow Rate FiO2 08/25/24 17:00 97.8 94 17 124/68 (86) 98 97.8 08/25/24 08:00 Room Air* 0 21 Total Intake and Output 08/24/24 08/24/24 08/25/24 14:59 22:59 06:59 Intake Total 800 ml 600 ml Output Total 1050 ml 1450 ml Balance -250 ml -850 ml medications Current Medications Medications Dose Ordered Sig/Etienne Route Start Time Stop Time Status Last Admin Dose Admin Acetaminophen 650 mg Q6HP PRN PO 08/19/24 02:45 08/23/24 16:54 650 MG Tamsulosin HCl 0.4 mg DAILY PO 08/19/24 10:00 08/25/24 09:42 0.4 MG Lactulose 30 ml DAILY PO 08/19/24 06:15 08/23/24 09:21 30 ML Heparin Sodium (Porcine) 5,000 units Q12HR SC 08/19/24 10:00 08/25/24 09:49 5,000 UNITS Linezolid 300 ml @ 150 mls/hr Q12HR IV 08/19/24 22:00 08/25/24 09:43 150 MLS/HR Sodium Chloride 1,000 ml @ 75 mls/hr [id number] IV 08/19/24 21:00 08/25/24 10:33 75 MLS/HR Ertapenem 0.5 gm/ Sodium Chloride 50 ml @ 100 mls/hr DAILY IV 08/24/24 10:00 08/25/24 09:43 100 MLS/HR laboratory and microbiology Laboratory Tests 08/25/24 05:49 Test 08/25/24 05:49 Range/Units Serum Glucose 85 74-106 mg/dL Microbiology Date/Time Source Procedure Growth Status 08/24/24 13:27 Blood Blood Culture - Preliminary NO GROWTH AFTER 24 HOURS OF INCUBATION. Resulted 08/19/24 06:10 Voided Urine Urine Culture - Final Proteus mirabilis Complete Problem List/Assessment/Plan Problem List/Assessment/Plan Acute kidney injury on chronic kidney disease stage 4 multifactorial in the setting of obstruction and volume depletion Pyelonephritis Hyperkalemia Metabolic acidosis Bilateral hydronephrosis s/p Right PCNT Staghorn calculus left recs improving renal parameters Monitoring urinary output from Renner and nephrostomy tube. Urology plans for procedures in future No emergent indication for hemodialysis at this time Plan discussed with: Patient Dietary Evaluation Review Comments: 1. Renal Specific 50G, CCHO-60g diet 2. Advance to Renal Standard CCHO-60 diet if Pt is on Dialysis. Expected Outcomes/Goals: avoid uremic syndrome,controlled DM, healed wounds, maintain BW. OLGA HUA MD Aug 25, 2024 18:35
[2024-08-26 01:00] VITALS: BP 134/74; PULSE 96; RESP 20; TEMP 98; O2SAT 98
[2024-08-26 05:00] VITALS: BP 107/65; PULSE 94; RESP 17; TEMP 97.6; O2SAT 98
[2024-08-26 07:15] LABS: Basophils # (auto) 0.1 10 ^3/uL (0-0.2); Basophils % (auto) 0.5 % (0.0-2.0); Eosinophils # (auto) 0.1 10 ^3/uL (0-0.8); Eosinophils % (auto) 1.3 % (0.0-7.0); Hematocrit 33.3 % (41.0-53.0); Hemoglobin 11.1 g/dL (13.5-17.5); Lymphocytes # (auto) 2.4 10 ^3/uL (0.4-5.4); Lymphocytes % (auto) 20.9 % (10.0-50.0); Mean Corpuscular Hgb Conc. 33.3 g/dL (32.0-36.0); Mean Corpuscular Volume 81.2 fL (80.0-100.0); Monocytes # (auto) 0.7 10 ^3/uL (0-1.3); Monocytes % (auto) 6.3 % (0.0-12.0); Neutrophils # (auto) 8.1 10 ^3/uL (1.6-8.6); Platelet Count (auto) 214 10^3/uL (140-450); Red Cell Distribution Width 16.8 % (11.8-14.3); White Blood Cell 11.5 10^3/uL (4.4-10.8)
[2024-08-26 07:27] LABS: Potassium 4.4 mmol/L (3.5-5.1); Sodium 140 mmol/L (136-145)
[2024-08-26 07:28] LABS: Anion Gap 9 (5-15); Calcium 8.9 mg/dL (8.7-10.4); Carbon Dioxide 23 mmol/L (20-31)
[2024-08-26 07:29] LABS: Chloride 108 mmol/L (98-107)
[2024-08-26 07:33] LABS: BUN/Creatinine Ratio 9.2 (10.0-20.0); Glucose 84 mg/dL (74-106)
[2024-08-26 07:34] LABS: Blood Urea Nitrogen 33 mg/dL (9-23)
[2024-08-26 09:00] VITALS: BP 118/70; PULSE 98; RESP 17; TEMP 98.3; O2SAT 99
[2024-08-26 13:00] VITALS: BP 144/73; PULSE 100; RESP 17; TEMP 98.7; O2SAT 98
--- NOTE | 2024-08-26 16:30 | DVHPN2 ---
Progress Note Date Seen: Aug 26, 2024 Has the PT tested + for MRSA If YES, has PT been informed?: No Medical Necessity Reason Pt with a Central, PICC or Fol: Yes The following are medically ne: Renner Catheter Reason for renner catheter: Bladder Retention/Obstruc Subjective Patient reports: No new complaints Review of Systems: Deferred Objective vital signs Vital Sign Date Time Temp Pulse Resp B/P (MAP) Pulse Ox O2 Delivery O2 Flow Rate FiO2 08/26/24 13:00 98.7 100 17 144/73 (96) 98 98.7 08/26/24 08:05 Room Air* 0 21 Total Intake and Output 08/25/24 08/25/24 08/26/24 15:00 23:00 07:00 Intake Total 1100 ml 950 ml Output Total 950 ml 1000 ml Balance 150 ml -50 ml medications Current Medications Medications Dose Ordered Sig/Etienne Route Start Time Stop Time Status Last Admin Dose Admin Acetaminophen 650 mg Q6HP PRN PO 08/19/24 02:45 08/25/24 22:26 650 MG Tamsulosin HCl 0.4 mg DAILY PO 08/19/24 10:00 08/26/24 10:05 0.4 MG Lactulose 30 ml DAILY PO 08/19/24 06:15 08/26/24 10:05 30 ML Heparin Sodium (Porcine) 5,000 units Q12HR SC 08/19/24 10:00 08/26/24 10:19 5,000 UNITS Linezolid 300 ml @ 150 mls/hr Q12HR IV 08/19/24 22:00 08/26/24 11:54 150 MLS/HR Ertapenem 0.5 gm/ Sodium Chloride 50 ml @ 100 mls/hr DAILY IV 08/24/24 10:00 08/26/24 10:06 100 MLS/HR laboratory and microbiology Laboratory Tests 08/26/24 06:28 Test 08/26/24 06:28 Range/Units Serum Glucose 84 74-106 mg/dL Microbiology Date/Time Source Procedure Growth Status 08/24/24 13:27 Blood Blood Culture - Preliminary NO GROWTH AFTER 48 HOURS OF INCUBATION. Resulted 08/19/24 06:10 Voided Urine Urine Culture - Final Proteus mirabilis Complete Problem List/Assessment/Plan Problem List/Assessment/Plan Acute kidney injury on chronic kidney disease stage 4 multifactorial in the setting of obstruction and volume depletion Pyelonephritis Hyperkalemia Metabolic acidosis Bilateral hydronephrosis s/p Right PCNT Staghorn calculus left recs improving renal parameters Monitoring urinary output from Renner and nephrostomy tube. Urology plans for procedures in future No emergent indication for hemodialysis at this time Plan discussed with: Other Dietary Evaluation Review Comments: 1. Renal Specific 50G, CCHO-60g diet 2. Advance to Renal Standard CCHO-60 diet if Pt is on Dialysis. Expected Outcomes/Goals: avoid uremic syndrome,controlled DM, healed wounds, maintain BW. OLGA HUA MD Aug 26, 2024 16:30
--- NOTE | 2024-08-26 16:50 | DVHDSRES ---
Discharge Summary Date of Admission Resident Creating Document: NANCY OLIVA RESDIENT Aug 19, 2024 at 02:33 Date of Discharge: Aug 23, 2024 Admitting Diagnosis Altered mental status Wounds: Labs/Diagnostic Data: Laboratory Results Test 08/26/24 06:28 08/23/24 05:43 08/21/24 04:20 08/20/24 16:42 White Blood Count 11.5 10^3/uL (4.4-10.8) Red Blood Count 4.10 10^6/uL (4.5-5.90) Hemoglobin 11.1 g/dL (13.5-17.5) Hematocrit 33.3 % (41.0-53.0) Mean Corpuscular Volume 81.2 fL (80.0-100.0) Mean Corpuscular Hemoglobin 27.0 pg (28.0-32.0) Mean Corpuscular Hemoglobin Concent 33.3 g/dL (32.0-36.0) Red Cell Distribution Width 16.8 % (11.8-14.3) Platelet Count 214 10^3/uL (140-450) Mean Platelet Volume 6.0 fL (6.9-10.8) Neutrophils (%) (Auto) 71.0 % (37.0-80.0) Lymphocytes (%) (Auto) 20.9 % (10.0-50.0) Monocytes (%) (Auto) 6.3 % (0.0-12.0) Eosinophils (%) (Auto) 1.3 % (0.0-7.0) Basophils (%) (Auto) 0.5 % (0.0-2.0) Neutrophils # (Auto) 8.1 10 ^3/uL (1.6-8.6) Lymphocytes # (Auto) 2.4 10 ^3/uL (0.4-5.4) Monocytes # (Auto) 0.7 10 ^3/uL (0-1.3) Eosinophils # (Auto) 0.1 10 ^3/uL (0-0.8) Basophils # (Auto) 0.1 10 ^3/uL (0-0.2) Nucleated Red Blood Cells 0.0 % Sodium Level 140 mmol/L (136-145) Potassium Level 4.4 mmol/L (3.5-5.1) Chloride Level 108 mmol/L (98-107) Carbon Dioxide Level 23 mmol/L (20-31) Anion Gap 9 (5-15) Blood Urea Nitrogen 33 mg/dL (9-23) Creatinine 3.59 mg/dL (0.700-1.30) Glomerular Filtration Rate Calc 18 mL/min (>90) BUN/Creatinine Ratio 9.2 (10.0-20.0) Serum Glucose 84 mg/dL (74-106) Calcium Level 8.9 mg/dL (8.7-10.4) Phosphorus Level 2.9 mg/dL (2.4-5.1) Magnesium Level 2.4 mg/dL (1.6-2.6) Total Bilirubin < 0.2 mg/dL (0.2-1.0) Aspartate Amino Transferase (AST) 14 U/L (0-34) Alanine Aminotransferase (ALT) 10 U/L (7-40) Alkaline Phosphatase 68 U/L (46-116) Total Protein 6.4 g/dL (5.7-8.2) Albumin 3.1 g/dL (3.2-4.8) Urine Color Brown (Yellow) Urine Clarity Ex.turbid (Clear) Urine pH 7.0 (5.0-9.0) Urine Specific [place] 1.021 (1.001-1.035) Urine Protein 2+ (Negative) Urine Ketones Negative (Negative) Urine Blood 3+ /uL (Negative) Urine Nitrite 1+ (Negative) Urine Bilirubin Negative (Negative) Urine Urobilinogen Normal mg/dL (Negative) Urine Leukocyte Esterase 3+ /uL (Negative) Urine RBC 1720 /hpf (0 - 3) Urine WBC Clumps Present /hpf (None Seen) Urine Microscopic WBC 384 /HPF (0-3) Urine Squamous Epithelial Cells None seen /hpf (<5) Urine Bacteria /hpf (None Seen) Urine Glucose Normal mg/dL (Normal) Test 08/19/24 18:15 08/19/24 15:10 08/19/24 06:10 08/19/24 03:14 Plasma/Serum Blood Alcohol < 3.0 mg/dL (<10) Prothrombin Time 12.3 sec (9.3-11.8) Prothrombin Time INR 1.18 (0.9-1.15) Activated Partial Thromboplast Time 30.8 SEC (24.5-34.5) Urine Mucus Few (None Seen) Urine Creatinine 24.66 mg/dL (30.0-125.0) Urine Protein/Creatinine Ratio 5.00 Urine Sodium 70 mmol/L (40-220) Urine Total Protein 123.2 mg/dL (1-14) Urine Opiates Screen Neg (NEGATIVE) Urine Fentanyl Screen Neg (NEGATIVE) Urine Barbiturates Screen Neg (NEGATIVE) Urine Phencyclidine Screen Neg (NEGATIVE) Urine Amphetamines Screen Neg (NEGATIVE) Urine Benzodiazepines Screen Neg (NEGATIVE) Urine Cocaine Screen Neg (NEGATIVE) Urine Cannabinoids Screen Pos (NEGATIVE) Hemoglobin A1c 5.8 % A1C (<5.7) Lactic Acid Level 1.0 mmol/L (0.4-2.0) Troponin I High Sensitivity 16 ng/L (</=54) B-Type Natriuretic Peptide 121.26 pg/mL (0-100) Triglycerides Level 93 mg/dL (< 150) Cholesterol Level 110 mg/dL (< 200) LDL Cholesterol 50 mg/dL (< 100) HDL Cholesterol 28 mg/dL (40-59) Lipase 54 U/L (12-53) Other Laboratory Tests 08/26/24 06:28 Brief Hx & Hospital Course: This is a 63-year-old male with past medical history of CVA, CKD, BPH, DVT, diabetes mellitus, who presented to the ED of [facility] due to generalized weakness associated with nausea and persistent vomiting. Patient states that symptoms started three days before coming to the ED consistent with persistent vomiting not being able to tolerate any food both solids and liquids associated with generalized malaise. The patient was transferred from [facility] to our facility for higher level of care and neurology evaluation due to large staghorn calculi in the left kidney with moderate to severe right hydronephrosis. The patient at that time was requiring vasopressors and was transfered to our facility. After checking Meherrin documentation, they performed a CT scan of the abdomen and pelvis with contrast which showed large staghorn calculus of the left kidney with moderate to severe right hydronephrosis and bilateral hydroureter, possible bladder outlet obstruction. They also performed a CT angio of the chest which showed no pulmonary embolism. Upon admission, patient is alert and oriented, not requiring vasopressors at this time. Cannon catheter was placed with good urine output so far. Patient states that he is DNR/DNI status (chemical code). We will admit the patient for further assessment and management. Past medical history: CVA, CKD, BPH, DVT, DM Home medications: Eliquis 5 mg b.i.d., Lantus 20 units at bedtime, Mounjaro 2.5 mg weekly Surgical history: Cholecystectomy, amputation of the right 3rd and 5th toe and distal half of the 5th metatarsal. There is also amputation of the 1st metatarsal toe of the left foot. Social history: Denies smoking, alcohol or drugs Hospital course: Patient was admitted at the line of acute metabolic encephalopathy likely due to sepsis/uremia. Patient started on empiric antibiotic of meropenem, linezolid and IV fluid. Abdominal CT scan shows bilateral hydro ureteronephrosis identified intestinal obstructive etiology, large staghorn calculus noted within the left renal pelvis. Ultrasound showed, Moderate right hydronephrosis. No right intrarenal calculi. Left intrarenal calculus measuring 1.8 cm. Urology consulted recommended nephrostomy placement and outpatient follow up for lithotripsy, cystoscopy and retrograde urogram. Radiology consulted and put nephrostomy on the right side. Due to raised creatinine, Nephrology consulted, recommended medical management. Urine culture showed Proteus mirabilis sensitive to meropenem and blood culture showed Staphylococcus hominis sensitive to linezolid. Due to positive blood culture, the patient was kept in hospital until blood culture became negative. On 08/26/2024, the patient was feeling better since admission. Patient was alert, oriented and discharge plan discussed with the patient the patient discharged home. Discharge plan: Linezolid 600 mg b.i.d. for 10 days Ertapenem 0.5 g daily for 7 days Follow up with the PCP within 1 week of the discharge. Follow up with the Urology on outpatient basis for the possible procedure for kidney stone Continue [facility] Home health care has been arranged for giving the medicine at home. Condition at Discharge: Good Final Diagnosis/Problems List Acute metabolic encephalopathy, likely due to sepsis/uremic Sepsis, likely due to UTI/cellulitis Complicated UTI/pyelonephritis, due to Proteus mirabilis Bacteremia, due to Staphylococcus aureus Obstructive nephropathy right-sided moderate hydronephrosis Complicated UTI /pyelonephritis Left lower limb cellulitis Diabetes type 2 Possible OLGA on CKD, likely VMN History of BPH History of DVT History of CVA Mild anemia, likely due to CKD Cannabinoids use disorder Staghorn calculi of right kidney Metabolic acidosis Discharge Disposition: Home with Health Services Discharge Instruct/Medications Diet: Renal Activity: No Restrictions, As Tolerated Follow Up/Referral: Follow up with the PCP within 1 week of the discharge. Follow up with the Urology for renal stone. Medications: Ertapenem 0.5 g daily for 7 days Linezolid 600 mg twice daily for 10 days Continue home med Discharge Statement: "Patient was advised to return to the ER or call 911 if any headaches, dizziness, shortness of breath, chest pain, abdominal pain, bleeding, fevers, or worsening of medical condition. Patient was counseled about treatment plan, medications, possible side effects, patientverbalized understanding. All questions were answered to the best of my ability. This discharge took greater then 30 minutes in planning, reviewing documentation, counseling the patient, and discussing with other team members." ASSESSMENT ASSESSMENT Assessment Date of Service: Aug 23, 2024 Billing Provider: SIS PIERCE MD Common Visit Codes: [id number]-[id number] DISCH DAY >30min NANCY OLIVA RESDIENT Aug 26, 2024 16:50 SIS PIERCE MD Aug 28, 2024 15:16
[2024-08-26 17:00] VITALS: BP 115/67; PULSE 112; RESP 16; TEMP 98.2; O2SAT 96
== END 2024-08-26 19:51 | disposition home health service (06) | DRG 871 ==
LOC: EDBD 21:19 → ER 21:19 → OVERFLOW 08-19 02:33 → TELE-CENTR 08-19 02:39 → CENTRAL 08-26 06:48
PROVIDERS: ADMIT Student in an Organized Health Care Education/Training Program; ATTEND Emergency Medicine
PROC: 0T9030Z Drainage of Right Kidney with Drainage Device, Percutaneous Approach (ICD-10-PCS; 2024-08-20)
PROC: 05H933Z Insertion of Infusion Device into Right Brachial Vein, Percutaneous Approach (ICD-10-PCS; principal; 2024-08-24)
PROC: B54MZZA Ultrasonography of Right Upper Extremity Veins, Guidance (ICD-10-PCS; 2024-08-24)
DX: A41.01 Sepsis due to Methicillin susceptible Staphylococcus aureus (principal); G93.41 Metabolic encephalopathy; N17.0 Acute kidney failure with tubular necrosis; L03.116 Cellulitis of left lower limb; E87.20 Acidosis, unspecified; N18.4 Chronic kidney disease, stage 4 (severe); N13.8 Other obstructive and reflux uropathy; N13.6 Pyonephrosis; E87.5 Hyperkalemia; Z66 Do not resuscitate; E11.22 Type 2 diabetes mellitus with diabetic chronic kidney disease; E11.8 Type 2 diabetes mellitus with unspecified complications; E11.51 Type 2 diabetes mellitus with diabetic peripheral angiopathy without gangrene; I12.9 Hypertensive chronic kidney disease with stage 1 through stage 4 chronic kidney disease, or unspecified chronic kidney disease; R65.20 Severe sepsis without septic shock; N32.0 Bladder-neck obstruction; N40.1 Benign prostatic hyperplasia with lower urinary tract symptoms; N20.0 Calculus of kidney; E86.9 Volume depletion, unspecified; B96.4 Proteus (mirabilis) (morganii) as the cause of diseases classified elsewhere; E78.5 Hyperlipidemia, unspecified; Z93.6 Other artificial openings of urinary tract status; Z86.73 Personal history of transient ischemic attack (TIA), and cerebral infarction without residual deficits; Z86.718 Personal history of other venous thrombosis and embolism; Z83.3 Family history of diabetes mellitus; Z90.49 Acquired absence of other specified parts of digestive tract; Z89.432 Acquired absence of left foot; Z89.431 Acquired absence of right foot
CPT/HCPCS: 36415; 73718; 74176; 74425; 76775; 76942; 80048; 80053; 80061; 80307; 80320; 81001; 82570; 83036; 83605; 83690; 83735; 83880; 84100; 84156; 84300; 84484; 85025; 85610; 85730; 87040; 87077; 87086; 87088; 87186; 93925; 96360; 97110; 97163; 99152; G0378; J1335; J2185; J2250; Q9967

== ENCOUNTER 2024-09-07 23:58 | Inpatient (IN) | payer OTHER, MEDICAID ==
[~2024-09-07] VITALS: Ht 175.3 cm; Wt 67.9 kg
--- NOTE | 2024-09-08 00:22 | ED.PDOC ---
History of Present Illness HPI Comments 64 y/o M is BIBA from [facility] ([facility]) for nephrostomy tube complication. Per EMS report, patient was seen at [facility] for initial c/c blood in his nephrostomy tube s/p placement 3x days ago at [facility] and transferred for lvanva-weqdc-[id number]-care after being found with more clots and fluids than anticip ed. Patient denies any further urinary symptoms, weakness, lightheadedness, or further associated symptoms. Chief Complaint: Tube Replacement Time Seen by MD: 00:10 Reviewed Notes: Nurses Notes, Medications, Allergies Allergies: Coded Allergies: NO KNOWN ALLERGIES (Unverified , 08/18/24) Home Meds Unable to Obtain Active Prescriptions or Reported Meds Information Source: Patient, Emergency Med Personnel Mode of Arrival: EMS Severity: Moderate Timing: Hours Duration: Since onset Prehospital treatment: 12 Lead EKG, [place] Clerk Past Medical History PAST MEDICAL HISTORY: Anemia, CKF, CVA, DM (type II ), UTI'S Past Medical History (Other): OLGA bacteremia BPH DVT sepsis obstructive nephropathy right-sided moderate hydronephrosis staghorn calculi of right kidney metabolic acidosis Surgical History: Denies all surgeries Surgical History (Other): nephrostomy tube Family History Family History: Reviewed,noncontributory to illness, No family hx of Cancer, No family hx of DM, No family hx of Heart chaka, No family hx of HTN, No family hx ofKidney chaka, No family hx of Liver chaka, No family hx of Lung chaka, No family hx of Stroke Social History Smoker: Non-Smoker Alcohol: Denies ETOH Use Drugs: Marijuana Lives In: Home All Other Systems: Reviewed and Negative (Comprehensive review of systems are negative unless stated in HPI) Physical Exam General Appearance: No Apparent Distress, Normal HEENT: Normal ENT Inspection, Pharynx Normal, TMs Normal Neck: Full Range of Motion, Non-Tender, Normal, Normal Inspection Respiratory: Chest Non-Tender, Lungs Clear, No Accessory Muscle Use, No Respiratory Distress, Normal Breath Sounds Cardiovascular: No Edema, No JVD, No Murmur, No Gallop, Normal Peripheral Pulses, Regular Rate/Rhythm Breast Exam: Deferred Gastrointestinal: No Organomegaly, Non Tender, No Pulsatile Mass, Normal Bowel Sounds, Soft Genitalia: Other (nephrostomy tube in place ) Pelvic: Deferred Rectal: Deferred Extremities: No calf tenderness, Normal capillary refill, Normal inspection, Normal range of motion, Non-tender, No pedal edema Musculoskeletal : Apperance: Normal Neurologic: Alert, instructional support technician II-XII nml as Tested, No Motor Deficits, Normal Affect, Normal Mood, No Sensory Deficits Cerebellar Function: Normal Reflexes: Normal Skin: Dry, Normal Color, Warm Lymphatic: No Adenopathy Was a procedure done? Was a procedure done?: No Differential Dx Considerations may include: post-op complication, anemia, among others X-Ray, Labs, Meds, VS Vital Signs Date Time Temp Pulse Resp B/P (MAP) Pulse Ox O2 Delivery O2 Flow Rate FiO2 09/08/24 00:10 98.6 92 16 122/76 (91) 98 98.6 Lab Test 09/08/24 00:37 09/08/24 00:29 Range/Units POC Glucose 96 70-106 mg/dl White Blood Count 9.9 4.4-10.8 10^3/uL Red Blood Count 3.73 L 4.5-5.90 10^6/uL Hemoglobin 10.0 L 13.5-17.5 g/dL Hematocrit 30.3 L 41.0-53.0 % Mean Corpuscular Volume 81.1 80.0-100.0 fL Mean Corpuscular Hemoglobin 26.9 L 28.0-32.0 pg Mean Corpuscular Hemoglobin Concent 33.1 32.0-36.0 g/dL Red Cell Distribution Width 16.0 H 11.8-14.3 % Platelet Count 157 140-450 10^3/uL Mean Platelet Volume 6.5 L 6.9-10.8 fL Neutrophils (%) (Auto) 66.9 37.0-80.0 % Lymphocytes (%) (Auto) 24.5 10.0-50.0 % Monocytes (%) (Auto) 6.9 0.0-12.0 % Eosinophils (%) (Auto) 1.2 0.0-7.0 % Basophils (%) (Auto) 0.5 0.0-2.0 % Neutrophils # (Auto) 6.6 1.6-8.6 10 ^3/uL Lymphocytes # (Auto) 2.4 0.4-5.4 10 ^3/uL Monocytes # (Auto) 0.7 0-1.3 10 ^3/uL Eosinophils # (Auto) 0.1 0-0.8 10 ^3/uL Basophils # (Auto) 0.1 0-0.2 10 ^3/uL Nucleated Red Blood Cells 0.1 % Sodium Level 142 136-145 mmol/L Potassium Level 3.9 3.5-5.1 mmol/L Chloride Level 109 H 98-107 mmol/L Carbon Dioxide Level 22 20-31 mmol/L Anion Gap 11 5-15 Blood Urea Nitrogen 51 H 9-23 mg/dL Creatinine 2.66 H 0.700-1.30 mg/dL Glomerular Filtration Rate Calc 26 >90 mL/min BUN/Creatinine Ratio 19.2 10.0-20.0 Serum Glucose 106 74-106 mg/dL Calcium Level 9.2 8.7-10.4 mg/dL Time of 1ST Reevaluation: 00:40 Reevaluation 1ST: Unchanged Patient Education/Counseling: Treatment, Other (need for admission ) Family Education/Counseling: No Family Present Additional Information Reviewed patient's previous visit(s): August 19, 2024 encounter for sepsis The following tests were ordered, and results were reviewed by me: CBC, BMP Additional information was gathered from interviewing the following independent historian: EMS I reviewed and agreed with the following test results read by other provider: n/a I discussed treatments and results with medical personnel and: Patient SEPSIS Sepsis Screen Vital Signs Date Time Temp Pulse Resp B/P (MAP) Pulse Ox O2 Delivery O2 Flow Rate FiO2 09/08/24 00:10 98.6 92 16 122/76 (91) 98 98.6 Laboratory Tests Test 09/08/24 00:29 White Blood Count 9.9 10^3/uL (4.4-10.8) Departure 1 Departure Time of Disposition: 01:31 (Patient was transferred here for concern of nephrostomy tube complication with worsening fluid around the kidney. Will admit for expert consultation and further work up. ) Impression: Primary Impression: Nephrostomy present Additional Impression: Acute right flank pain Disposition: 09 ADMITTED INPATIENT Admit to: Med Surg Condition: Serious e-Prescriptions Unable to Obtain Active Prescriptions or Reported Meds Critical Care Note Critical Care Time?: No Stability Stability form required: No Heart Score Heart Score: Heart Score Response (Comments) Value History N/A 0 EKG N/A 0 Age N/A 0 Risk Factors N/A 0 Troponin N/A 0 Total 0 I personally scribed for TIFFANI SHEA MD ([email or web address]) on 09/08/24 at 00:21. Electronically submitted by Toro Xiao [email or web address]). TIFFANI SHEA MD Sep 08, 2024 00:21
[2024-09-08 00:58] LABS: Hemoglobin 10.0 g/dL (13.5-17.5)
[2024-09-08 01:00] LABS: Hematocrit 30.3 % (41.0-53.0); Mean Corpuscular Hemoglobin 26.9 pg (28.0-32.0); Mean Corpuscular Volume 81.1 fL (80.0-100.0); Nucleated Red Blood Cells % 0.1 %
[2024-09-08 01:08] LABS: Potassium 3.9 mmol/L (3.5-5.1); Sodium 142 mmol/L (136-145)
[2024-09-08 01:09] LABS: Anion Gap 11 (5-15); Calcium 9.2 mg/dL (8.7-10.4); Carbon Dioxide 22 mmol/L (20-31)
[2024-09-08 01:12] LABS: Chloride 109 mmol/L (98-107)
[2024-09-08 01:14] LABS: BUN/Creatinine Ratio 19.2 (10.0-20.0)
[2024-09-08 01:16] LABS: Blood Urea Nitrogen 51 mg/dL (9-23); Glucose 106 mg/dL (74-106)
[2024-09-08] MEDS ORDERED: NITROGLYCERIN 0.4 MG SL TAB SL PRN (03:15)
[2024-09-08] MEDS ORDERED: MORPHINE SULFATE INJ 2 MG/ml SYRG IV PRN (03:15)
--- NOTE | 2024-09-08 03:55 | DVH ---
CHEST RADIOGRAPH Indication: ON NC Technique: Single frontal view of the chest was obtained COMPARISON: None FINDINGS: Lines and Tubes: None Lungs: Clear Pleura: No effusion. No pneumothorax. Cardiomediastinal contours: Unremarkable Bones: Unremarkable IMPRESSION: 1. No acute disease.
[2024-09-08 03:57] LABS: INR 1.13 (0.9-1.15); Prothrombin Time 11.8 sec (9.3-11.8)
[2024-09-08 04:35] LABS: Iron 92.0 ug/dL (65-175)
[2024-09-08 04:46] LABS: Total Iron Binding Capacity 210.0 ug/dL (250-425)
--- NOTE | 2024-09-08 04:50 | DVH ---
CLINICAL INDICATION: CELLULITIS TECHNIQUE: Noncontrast CT of the left foot was performed. Sagittal and coronal reformatted images are provided. COMPARISON: MRI MRI L FOOT WO CONTRAST on DOS: 08/19/24 CT Dose: CTDI volume is 24.91 mGy. Dose-length product is 748.59 mGy*cm FINDINGS: Status post amputation of the 1st proximal and distal phalanx. There is cortical destruction in the 2nd middle and distal phalanx in the distal aspect of the 2nd proximal phalanx consistent with osteom yelitis. Soft tissue gas is noted adjacent to the 2nd toe compatible with infection. There is soft t issue edema of the dorsal forefoot which may reflect cellulitis. Heterogeneous bone mineralization which may be related to disuse. No acute fracture or dislocation. Ossification of the plantar fascia. IMPRESSION: 1. Osteomyelitis in the 2nd middle and distal phalanx and to a lesser extent the 2nd proximal phalanx . Soft tissue gas and swelling overlying the 2nd toe compatible with infection. 2. Dorsal subcutaneous edema, nonspecific but may reflect cellulitis. All CT scans at this medical facility are performed using dose modulation techniques as appropriate t o a performed exam including the following: Automated exposure control was utilized; adjustment of th e MA and/or KV according to patient size; and use of iterative reconstruction technique.
--- NOTE | 2024-09-08 04:55 | DVHHP2 ---
History of Present Illness History of Present Illness HPI: Vicente Valencia is a 64 year old male with PMHx of BPH, cerebrovascular accident, chronic kidney disease stage 3, DVT, DM2 with peripheral neuropathy, HTN, HLD, hydronephrosis, peripheral vascular disease, recurrent urinary tract infection, right carotid artery occlusion, chronic indwelling Caicedo catheter, left renal calculi. H/o rt sided nephrostomy tube placed on 08/20/2024 in [facility]. Patient BIBEMS to [facility] ER due to blood in right nephrostomy tube. Three weeks ago patient on hospitalized at [facility], was diagnosed with right-sided hydronephrosis and left-sided renal staghorn calculi and bacteremia, was sent home with IV antibiotics Ertapenam and Linezolid due to Urine culture showed Proteus mirabilis sensitive to meropenem and blood culture showed Staphylococcus hominis sensitive to linezolidare. Over the past 4-5 days, patient felt generalized weak actually showed with nausea and vomiting and loss of appetite that prompted visit to [facility] the being further evaluation advised hospital found to have nephrostomy tube complication with blood clots coming out from right nephrostomy tube, therefore patient transfers from [facility] to [facility]. Patient was given IV fluid and 1 dose of IV ceftriaxone, patient's symptoms significantly improved including appetite, however continuing to have bleeding from nephrostomy tube. For further evaluation patient will be admitted to the hospital. PMHX:BPH, CVA, CKD stage 3, DVT, DM2 with peripheral neuropathy, HTN, hydronephrosis, PVD, recurrent UTI, right carotid artery occlusion, chronic indwelling Caicedo catheter, left renal calculi. PSHx: cholecystectomy, rt 4th/5th fingers and left great toe amputation. Personal history: Used to marijuana daily. Social Hx: Pt lives with roommate. Family history: nothing contributory Allergy: No known allergy Medications: Insulin Glargine 20 unit subcutaneously bedtime, Munjaro 2.5 mg/0.5 mL weekly, Eliquis 5 mg b.i.d.. Review of Systems Genitourinary: Other (CAICEDO CATHETER IN PLACE. RIGHT SIDED NEPHROSTOMY TUBE.) Musculoskeletal: other Allergies: Coded Allergies: NO KNOWN ALLERGIES (Unverified , 08/18/24) Medications Current Medications Medications Dose Ordered Sig/Etienne Route Start Time Stop Time Status Last Admin Dose Admin Nitroglycerin 0.4 mg Q5MINP PRN SL 09/08/24 03:15 Morphine Sulfate 2 mg Q30M PRN IV 09/08/24 03:15 Piperacillin Sod/ Tazobactam Sod 100 ml @ 25 mls/hr Q12HR IV 09/08/24 22:00 Pantoprazole Sodium 40 mg DAILY@0600 PO 09/08/24 06:00 Exam Vital Signs Vital Signs Date Time Temp Pulse Resp B/P (MAP) Pulse Ox O2 Delivery O2 Flow Rate FiO2 09/08/24 02:00 98 16 128/73 (91) 99 09/08/24 00:10 98.6 98.6 General Appearance: Alert, Oriented X3, Cooperative HEENT: Atraumatic, EOMI Respiratory: Clear to auscultation Cardiovascular: Normal S1, Normal S2 Abdominal: Normal bowel sounds, No hepatospenomegaly, No masses, Other (RT NEPHROSTOMY TUBE present) Extremities: Other ( right 4th, 5th toes and left great toe amputation. Midline present on the right arm.) Labs/Xrays Labs Test 09/08/24 03:30 09/08/24 00:37 09/08/24 00:29 Range/Units POC Glucose 96 70-106 mg/dl White Blood Count 9.9 4.4-10.8 10^3/uL Red Blood Count 3.73 L 4.5-5.90 10^6/uL Hemoglobin 10.0 L 13.5-17.5 g/dL Hematocrit 30.3 L 41.0-53.0 % Mean Corpuscular Volume 81.1 80.0-100.0 fL Mean Corpuscular Hemoglobin 26.9 L 28.0-32.0 pg Mean Corpuscular Hemoglobin Concent 33.1 32.0-36.0 g/dL Red Cell Distribution Width 16.0 H 11.8-14.3 % Platelet Count 157 140-450 10^3/uL Mean Platelet Volume 6.5 L 6.9-10.8 fL Neutrophils (%) (Auto) 66.9 37.0-80.0 % Lymphocytes (%) (Auto) 24.5 10.0-50.0 % Monocytes (%) (Auto) 6.9 0.0-12.0 % Eosinophils (%) (Auto) 1.2 0.0-7.0 % Basophils (%) (Auto) 0.5 0.0-2.0 % Neutrophils # (Auto) 6.6 1.6-8.6 10 ^3/uL Lymphocytes # (Auto) 2.4 0.4-5.4 10 ^3/uL Monocytes # (Auto) 0.7 0-1.3 10 ^3/uL Eosinophils # (Auto) 0.1 0-0.8 10 ^3/uL Basophils # (Auto) 0.1 0-0.2 10 ^3/uL Nucleated Red Blood Cells 0.1 % Sodium Level 142 136-145 mmol/L Potassium Level 3.9 3.5-5.1 mmol/L Chloride Level 109 H 98-107 mmol/L Carbon Dioxide Level 22 20-31 mmol/L Anion Gap 11 5-15 Blood Urea Nitrogen 51 H 9-23 mg/dL Creatinine 2.66 H 0.700-1.30 mg/dL Glomerular Filtration Rate Calc 26 >90 mL/min BUN/Creatinine Ratio 19.2 10.0-20.0 Serum Glucose 106 74-106 mg/dL Calcium Level 9.2 8.7-10.4 mg/dL Assessment/Plan Assessment/Plan # OLGA on VMN with underlying CKD stage 3 Creatinine 3.0>2.66 Continue IV fluid NSS 75 CC/HR Monitor kidney function and urine electrolyte. Avoid nephrotoxic drugs. # Bleeding complication of rt nephrostomy tube History of right cited nephrostomy tube placed on 08/20/2024 in [facility] due to rt hydronephrosis. S/P IV antibiotic entacapone and linezolid via midline. CT abdomen and pelvis without contrast shows interval placement of right nephrostomy tube and improved hydronephrosis (done on 09/07/2024 at [facility]). Patient transferred from another facility for further management. Start Cefepime 2 gm daily Hold Eliquis due to bleeding nephrostomy tube. Urology consult placed. PT with INR orders. Follow-up UA, Ucx, blood cultures Monitor for any further bleeding. # DM2 with peripheral neuropathy Patient blood glucose 96 Ordered HBA1c Hold home meds.(Insulin Glargine and Munjaro) Will resume insulin with monitoring blood sugars. # Left 2nd toe cellulitis/gangrene due to DM2 neuropathy or PAD Black skin discoloration noted tip of left 2nd toe Start Cefepime [address] left foot w/o contrast will follow We follow Podiatry consult # H/O cerebrovascular accident Hold Eliquis for now ECHO ordered TSH, BNP level will follow. # BPH with outflow obstruction Indwelling Caicedo catheter # peripheral arterial disease(PAD) H/O amputation right 4th/5th and left great toe. Atorvastatin 40 mg po daily # Anemia due to chronic disease Hemoglobin 10.0, HCT 30.3. Iron profile, Ferritin ordered follow the stool for occult blood test. Monitor for any signs symptoms of bleeding. # Diet: Diabetic diet # DVT PPX: SEQUENTIAL COMPRESSION # GI prophylaxis: Pantoprazole 20 mg twice daily. #Pt ambulate with walker. Goals of care discussion, greater than 29 minutes. DNR/DNI status. Plan discussed with Dr. Nelson Plan discussed with: Patient My Orders Orders - MAYURI ROMAN RESIDENT Procedure Category Date Status Time Admit ADMIT 09/08/24 Transmitted 03:13 Nitroglycerin PHA 09/08/24 In Process Sublingual (Ntrostat 03:15 Morphine Sulfate PHA 09/08/24 In Process Injection 03:15 Oxygen By Nasal RT 09/08/24 Transmitted Cannula 03:13 Electrocardigram EKG 09/08/24 Logged 03:17 Iron Panel LAB 09/08/24 Logged 03:17 Ferritin LAB 09/08/24 Logged 03:17 Stool Occult Blood LAB 09/08/24 Logged 03:17 Prothrombin Time W/ LAB 09/08/24 In Process INR 03:17 Urinalysis LAB 09/08/24 Logged 03:17 Urine Creatinine LAB 09/08/24 Logged 03:17 Urine Sodium LAB 09/08/24 Logged 03:17 Urine LAB 09/08/24 Logged Protein/Creatinine Urine Bacterial SHAWNA 09/08/24 Logged Culture 03:17 Blood Culture SHAWNA 09/08/24 Logged 03:17 Chest Xray 1 View XY 09/08/24 Resulted 03:17 Piperacillin-Tazob PHA 09/08/24 In Process 3.375gm (Zosyn 3.375g 22:00 Piperacillin-Tazob PHA 09/08/24 In Process 3.375gm (Zosyn 3.375g 03:30 * Urology Consult CONS 09/08/24 Transmitted 03:30 Ct L Foot Wo Contrast CT 09/08/24 Taken 03:31 *Podiatry Consult CONS 09/08/24 Transmitted Musson(Dvmg) 03:31 B-Type Natriuretic LAB 09/08/24 In Process Peptide 03:34 Sodium Chloride 0.9% PHA 09/08/24 In Process 03:45 Thyroid Stimulating LAB 09/08/24 In Process Hormone 03:42 Pantoprazole Tablet PHA 09/08/24 In Process (Protonix Tablet) 06:00 Sequential CARLOS A 09/08/24 In Process Compression Device 03:42 Code Status CODE 09/08/24 Transmitted 03:42 Consistent DIET 09/08/24 Transmitted Carb(Ccho)Diabetes Breakfast Date of Service: Sep 08, 2024 Billing Provider: MAN NELSON MD Common Visit Codes: [id number] INP/OBS CARE (HIGH) MAYURI ROMAN RESIDENT Sep 08, 2024 04:55
[2024-09-08] MEDS: PIPERACILLIN-TAZOB 3.375GM 100 ML IV ONE (05:30)
[2024-09-08] MEDS: SODIUM CHLORIDE 0.9% 1,000 ML IV ONE (05:30)
[2024-09-08] MEDS: PANTOPRAZOLE 40 MG TAB PO SCH (06:00)
[2024-09-08 06:38] LABS: Urine Protein, UAD 1+ (Negative); Urine Protein, UAD 2+ (Negative); Urine WBC Clumps PRESENT /hpf (None Seen)
[2024-09-08 06:40] LABS: Protein, Urine 70.7 mg/dL (1-14)
[2024-09-08 07:02] LABS: Protein, Urine 407.9 mg/dL (1-14)
[2024-09-08 09:34] VITALS: PULSE 88; RESP 16; O2SAT 100
--- NOTE | 2024-09-08 09:45 | DVHINCON2 ---
Date of service: Sep 08, 2024 Referring Physician hospitalist Reason for Consultation nephrostomy complication History of Present Illness History Source: Patient, RN Notes, MD Notes, Old Records Exam Limitations: Other (poor historian) HPI 64 year old male with PMHx of BPH, cerebrovascular accident, chronic kidney disease stage 3, DVT, DM2 with peripheral neuropathy, HTN, HLD, hydronephrosis, peripheral vascular disease, recurrent urinary tract infection, right carotid artery occlusion, chronic indwelling Renner catheter, left renal calculi. H/o rt sided nephrostomy tube placed on 08/20/2024 in [facility]. Patient BIB EMS to [facility] ER due to blood in right nephrostomy tube. Three weeks ago patient on hospitalized at [facility], was diagnosed with right- sided hydronephrosis and left-sided renal staghorn calculi and bacteremia, was sent home with IV antibiotics are WNL for 7 days. S/p IV antibiotic Ertapenam and Linezolid. Over the past 4-5 days, patient felt generalized weak actually showed with nausea and vomiting and loss of appetite that prompted visit to [facility] the being further evaluation advised hospital found to have nephrostomy tube complication with blood clots coming out from right nephrostomy tube, therefore patient transfers from [facility] to [facility]. pt was seen in ER 12 and PCN is draining pink tinged urine. Renner catheter is clear. Home Meds Unable to Obtain Active Prescriptions or Reported Meds Past Medical History Patient Family History: Angina G8 FATHER Diabetes mellitus G8 MOTHER Review of Systems Genitourinary: Hematuria H&P Exam Vital Signs Vital Signs Date Time Temp Pulse Resp B/P (MAP) Pulse Ox O2 Delivery O2 Flow Rate FiO2 09/08/24 06:55 92 16 120/70 (87) 100 09/08/24 04:55 98.9 98.9 General Appeara: Well developed, Well nourished, Normal Appearance Neuro/Mental St: Alert, Oriented Skin Exam: Normal inspection, Normal color, Warm/dry Labs/Xrays [facility] [id number] [place] [id number] Ph: [phone] DIAGNOSTIC IMAGING Diagnostic Imaging Report : [id number] Signed PATIENT: MIRIAM ALLEN ACCT: [id number] UNIT: [id number] : 1960 LOC: TELE-[facility] ROOM / BED: [facility] / A AGE / SEX: 63 / M ADM STATUS: ADM IN SERVICE 1214 ORDERING PHYSICIAN: MIESHA CHANDRA MD PROCEDURE(s): PERNEPH - PERCUTANEOUS NEPHROSTOMY REASON: NEPHRO TUBE ORDER NUMBER(s): [id number], ACCESSION NUMBER(s): [id number] PROCEDURE: Genitourinary catheter placement Procedural Personnel Attending physician(s): Miesha Chandra Fellow physician(s): None Resident physician(s): None Advanced practice provider(s): None Pre-procedure diagnosis: Right hydroureteronephrosis Post-procedure diagnosis: Same Indication: Urinary obstruction No Additional clinical history: None Complications: No immediate complications. IMPRESSION: Right nephrostomy tube placement. Plan: Flush with 10 mL normal saline once daily to maintain patency. Routine exchange of catheter in 2-3 months if urinary diversion still necessary. PROCEDURE SUMMARY - Target organ: Unilateral ho-chunk kidney - Image-guided placement of genitourinary catheter(s) - Additional procedure(s): None PROCEDURE DETAILS: Pre-procedure Consent: Informed consent for the procedure including risks, benefits and alternatives was obtained and time-out was performed prior to the procedure. Preparation: The site was prepared and draped using maximal sterile barrier technique including cutaneous antisepsis. Anesthesia/sedation Level of anesthesia/sedation: Moderate sedation (conscious sedation) Anesthesia/sedation administered by: Independent trained observer under attending supervision with continuous monitoring of the patient s level of consciousness and physiologic status Total intra-service sedation time (minutes): 45 Genitourinary catheter placement Side:Right ho-chunk Local anesthesia was administered. A needle was advanced into a lower pole calyx under ultrasound and fluoroscopy guidance. A wire was advanced, the tract was serially dilated and a nephrostomy tube was placed . Contrast injection was performed. Genitourinary catheter placed: 8.5 burmese multipurpose drain Findings: Retention loop within the renal pelvis, mild hydronephrosis External catheter securement: Non-absorbable suture Additional genitourinary system intervention Side: NA Genitourinary intervention: None Location of intervention: Not applicable Device used: Not applicable Description of intervention: Not applicable Post-intervention findings: Not applicable Contrast Contrast agent: Omnipaque 350 Contrast volume (mL): 15 Radiation Dose Fluoroscopy time (minutes): 3.2 Reference air kerma (mGy): 11 Kerma area product (Not provided by imaging equipment) Additional Details Additional description of procedure: None Registry event: V/3/f Device used: Not applicable Equipment details: None Specimens removed: 20 cc of purulent fluid. A sample was sent for analysis. Estimated blood loss (mL): Less than 10 Standardized report: [email or web address] Attestation Signer name: Miesha Chandra I attest that I was present for the entire procedure. I reviewed the stored images and agree with the report as written. ATED BY: MIESHA CHANDRA MD DICTATED DATE/TIME: 08/20/24 1409 SIGNED BY: MIESHA CHANDRA MD SIGNED DATE/TIME: 08/20/24 1409 CC: Labs Test 09/08/24 05:00 09/08/24 04:00 09/08/24 00:37 09/08/24 00:29 Range/Units Urine Color Red H Yellow Urine Clarity Ex.turbid Clear Urine pH 7.0 5.0-9.0 Urine Specific [place] 1.006 1.001-1.035 Urine Protein 2+ H Negative Urine Ketones Negative Negative Urine Blood 3+ H Negative /uL Urine Nitrite Negative Negative Urine Bilirubin Negative Negative Urine Urobilinogen Normal Negative mg/dL Urine Leukocyte Esterase 3+ Negative /uL Urine RBC 3054 0 - 3 /hpf Urine WBC Clumps Present None Seen /hpf Urine Microscopic WBC 986 H 0-3 /HPF Urine Squamous Epithelial Cells None seen <5 /hpf Urine Bacteria None seen None Seen /hpf Urine Hyaline Casts Few 0 - 2 /lpf Urine Mucus Few None Seen Urine Creatinine 16.32 L 30.0-125.0 mg/dL Urine Protein/Creatinine Ratio 24.99 Urine Sodium 95 40-220 mmol/L Urine Glucose Normal Normal mg/dL Urine Total Protein 407.9 H 1-14 mg/dL Iron Level 92 65-175 ug/dL Total Iron Binding Capacity 210 L 250-425 ug/dL Percent Iron Saturation 43.8 20-55 % Ferritin 189.8 22-322 ng/mL POC Glucose 96 70-106 mg/dl White Blood Count 9.9 4.4-10.8 10^3/uL Red Blood Count 3.73 L 4.5-5.90 10^6/uL Hemoglobin 10.0 L 13.5-17.5 g/dL Hematocrit 30.3 L 41.0-53.0 % Mean Corpuscular Volume 81.1 80.0-100.0 fL Mean Corpuscular Hemoglobin 26.9 L 28.0-32.0 pg Mean Corpuscular Hemoglobin Concent 33.1 32.0-36.0 g/dL Red Cell Distribution Width 16.0 H 11.8-14.3 % Platelet Count 157 140-450 10^3/uL Mean Platelet Volume 6.5 L 6.9-10.8 fL Neutrophils (%) (Auto) 66.9 37.0-80.0 % Lymphocytes (%) (Auto) 24.5 10.0-50.0 % Monocytes (%) (Auto) 6.9 0.0-12.0 % Eosinophils (%) (Auto) 1.2 0.0-7.0 % Basophils (%) (Auto) 0.5 0.0-2.0 % Neutrophils # (Auto) 6.6 1.6-8.6 10 ^3/uL Lymphocytes # (Auto) 2.4 0.4-5.4 10 ^3/uL Monocytes # (Auto) 0.7 0-1.3 10 ^3/uL Eosinophils # (Auto) 0.1 0-0.8 10 ^3/uL Basophils # (Auto) 0.1 0-0.2 10 ^3/uL Nucleated Red Blood Cells 0.1 % Prothrombin Time 11.8 9.3-11.8 sec Prothrombin Time INR 1.13 0.9-1.15 Sodium Level 142 136-145 mmol/L Potassium Level 3.9 3.5-5.1 mmol/L Chloride Level 109 H 98-107 mmol/L Carbon Dioxide Level 22 20-31 mmol/L Anion Gap 11 5-15 Blood Urea Nitrogen 51 H 9-23 mg/dL Creatinine 2.66 H 0.700-1.30 mg/dL Glomerular Filtration Rate Calc 26 >90 mL/min BUN/Creatinine Ratio 19.2 10.0-20.0 Serum Glucose 106 74-106 mg/dL Calcium Level 9.2 8.7-10.4 mg/dL B-Type Natriuretic Peptide 19.26 0-100 pg/mL Thyroid Stimulating Hormone (TSH) 3.79 0.55-4.78 uIU/mL Assessment/Plan Problem List: (1) Nephrolithiasis (2) Sepsis (3) Calculus of kidney (4) OLGA (acute kidney injury) (5) Unspecified hydronephrosis (6) Acute right flank pain (7) Nephrostomy present Plan Outpt left PCNL to be arranged. Outpt cysto with right RPG possible stent. Treat UTI Keep renner to gravity until Creat is at baseline Plan discussed with: Patient, Other ANTWON BERRY NP Sep 08, 2024 09:45
[2024-09-08] MEDS ORDERED: LINEZOLID 600MG/300ML 300 ML IV SCH (10:00)
[2024-09-08 10:39] LABS: Alanine Aminotransferase 22 U/L (7-40); Albumin 3.5 g/dL (3.2-4.8); Alkaline Phosphatase 91 U/L (46-116); Total Protein 6.4 g/dL (5.7-8.2)
[2024-09-08 10:41] LABS: Bilirubin, Direct < 0.1 mg/dL (<0.3); Bilirubin, Total 0.2 mg/dL (0.2-1.0)
[2024-09-08] MEDS: SODIUM CHLORIDE 0.9% 500 ML IV ONE (10:48)
[2024-09-08] MEDS: CEFEPIME 2GM/50ML NS 50 ML IV SCH (10:48)
[2024-09-08 11:07] LABS: Cannabinoid Screen, Urine Pos (NEGATIVE)
[2024-09-08 11:09] LABS: Amphetamine Screen, Urine Neg (NEGATIVE); Barbiturate Scree,Urine Neg (NEGATIVE); Benzodiazephine Screen, Urine Neg (NEGATIVE); Cocaine Screen, Urine Neg (NEGATIVE); Opiate Scree,Urine Neg (NEGATIVE); Phencyclidine Screen, Urine Neg (NEGATIVE)
--- NOTE | 2024-09-08 12:57 | DVHINCON2 ---
Date Seen: Sep 08, 2024 Reason for Consultation Left foot wound History of Present Illness Vicente Valencia is a 64 year old male with PMHx of BPH, cerebrovascular accident, chronic kidney disease stage 3, DVT, DM2 with peripheral neuropathy, HTN, HLD, hydronephrosis, peripheral vascular disease, recurrent urinary tract infection, right carotid artery occlusion, chronic indwelling Cannon catheter, left renal calculi. H/o rt sided nephrostomy tube placed on 08/20/2024 in [facility]. Patient BIBEMS to [facility] ER due to blood in right nephrostomy tube. Three weeks ago patient on hospitalized at [facility], was diagnosed with right-sided hydronephrosis and left-sided renal staghorn calculi and bacteremia, was sent home with IV antibiotics Ertapenam and Linezolid due to Urine culture showed Proteus mirabilis sensitive to meropenem and blood culture showed Staphylococcus hominis sensitive to linezolidare. Over the past 4-5 days, patient felt generalized weak actually showed with nausea and vomiting and loss of appetite that prompted visit to [facility] the being further evaluation advised hospital found to have nephrostomy tube complication with blood clots coming out from right nephrostomy tube, therefore patient transfers from [facility] to [facility]. Patient was given IV fluid and 1 dose of IV ceftriaxone, patient's symptoms significantly improved including appetite, however continuing to have bleeding from nephrostomy tube. For further evaluation patient will be admitted to the hospital. Past Medical History See H&P Past Surgical History See H&P Family History: Angina G8 FATHER Diabetes mellitus G8 MOTHER Allergies: Coded Allergies: NO KNOWN ALLERGIES (Unverified , 08/18/24) Home Meds Unable to Obtain Active Prescriptions or Reported Meds Current Medications Current Medications Medications (Trade) Dose Ordered Sig/Etienne Route PRN Reason Start Time Stop Time Status Last Admin Nitroglycerin (Ntrostat Sublingual) 0.4 mg Q5MINP PRN SL FOR CHEST PAIN 09/08/24 03:15 Morphine Sulfate 2 mg Q30M PRN IV FOR CHEST PAIN 09/08/24 03:15 Piperacillin Sod/ Tazobactam Sod 100 ml @ 25 mls/hr Q12HR IV 09/08/24 22:00 09/08/24 05:48 DC Pantoprazole Sodium (Protonix Tablet) 40 mg DAILY@0600 PO 09/08/24 06:00 09/08/24 06:00 Cefepime HCl 50 ml @ 12.5 mls/hr Q12HR IV 09/08/24 10:00 09/08/24 10:48 Atorvastatin Calcium (Lipitor) 40 mg HS PO 09/08/24 22:00 Linezolid 300 ml @ 150 mls/hr Q12HR IV 09/08/24 10:00 09/08/24 10:22 DC Linezolid 300 ml @ 150 mls/hr Q12H IV 09/08/24 15:00 Vital Signs Vital Signs Date Time Temp Pulse Resp B/P (MAP) Pulse Ox O2 Delivery O2 Flow Rate FiO2 09/08/24 12:00 81 09/08/24 12:00 16 132/63 (86) 100 09/08/24 09:34 Nasal Cannula* 2 28 09/08/24 09:34 97.9 97.9 Physical Exam Dermatological: Skin is dry with mild erythema and some maceration around the wound site No gross deformities noted Mild non-pitting edema present bilaterally Left 2nd toe gangrene Vascular: Dorsalis pedis and posterior tibial pulses are 1+ bilaterally Capillary refill is under 2 seconds Skin temperature is warm bilaterally Neurologic: Protective sensation is absent on the plantar forefoot bilaterally Monofilament testing reveals decreased sensation in multiple plantar sites Musculoskeletal: Range of motion at the ankle and MTP joints is within normal limits. Strength is 5/5 in all tested muscle groups. Gait is antalgic due to offloading of the affected limb. Labs/Diagnostic Data Labs Test 09/08/24 05:00 09/08/24 04:00 09/08/24 00:37 09/08/24 00:29 Range/Units Urine Color Red H Yellow Urine Clarity Ex.turbid Clear Urine pH 7.0 5.0-9.0 Urine Specific [place] 1.006 1.001-1.035 Urine Protein 2+ H Negative Urine Ketones Negative Negative Urine Blood 3+ H Negative /uL Urine Nitrite Negative Negative Urine Bilirubin Negative Negative Urine Urobilinogen Normal Negative mg/dL Urine Leukocyte Esterase 3+ Negative /uL Urine RBC 3054 0 - 3 /hpf Urine WBC Clumps Present None Seen /hpf Urine Microscopic WBC 986 H 0-3 /HPF Urine Squamous Epithelial Cells None seen <5 /hpf Urine Bacteria None seen None Seen /hpf Urine Hyaline Casts Few 0 - 2 /lpf Urine Mucus Few None Seen Urine Creatinine 16.32 L 30.0-125.0 mg/dL Urine Protein/Creatinine Ratio 24.99 Urine Sodium 95 40-220 mmol/L Urine Glucose Normal Normal mg/dL Urine Total Protein 407.9 H 1-14 mg/dL Urine Opiates Screen Neg NEGATIVE Urine Fentanyl Screen Neg NEGATIVE Urine Barbiturates Screen Neg NEGATIVE Urine Phencyclidine Screen Neg NEGATIVE Urine Amphetamines Screen Neg NEGATIVE Urine Benzodiazepines Screen Neg NEGATIVE Urine Cocaine Screen Neg NEGATIVE Urine Cannabinoids Screen Pos NEGATIVE Iron Level 92 65-175 ug/dL Total Iron Binding Capacity 210 L 250-425 ug/dL Percent Iron Saturation 43.8 20-55 % Ferritin 189.8 22-322 ng/mL Total Bilirubin 0.2 0.2-1.0 mg/dL Direct Bilirubin < 0.1 <0.3 mg/dL Aspartate Amino Transferase (AST) 21 13-40 U/L Alanine Aminotransferase (ALT) 22 7-40 U/L Alkaline Phosphatase 91 46-116 U/L Total Protein 6.4 5.7-8.2 g/dL Albumin 3.5 3.2-4.8 g/dL POC Glucose 96 70-106 mg/dl White Blood Count 9.9 4.4-10.8 10^3/uL Red Blood Count 3.73 L 4.5-5.90 10^6/uL Hemoglobin 10.0 L 13.5-17.5 g/dL Hematocrit 30.3 L 41.0-53.0 % Mean Corpuscular Volume 81.1 80.0-100.0 fL Mean Corpuscular Hemoglobin 26.9 L 28.0-32.0 pg Mean Corpuscular Hemoglobin Concent 33.1 32.0-36.0 g/dL Red Cell Distribution Width 16.0 H 11.8-14.3 % Platelet Count 157 140-450 10^3/uL Mean Platelet Volume 6.5 L 6.9-10.8 fL Neutrophils (%) (Auto) 66.9 37.0-80.0 % Lymphocytes (%) (Auto) 24.5 10.0-50.0 % Monocytes (%) (Auto) 6.9 0.0-12.0 % Eosinophils (%) (Auto) 1.2 0.0-7.0 % Basophils (%) (Auto) 0.5 0.0-2.0 % Neutrophils # (Auto) 6.6 1.6-8.6 10 ^3/uL Lymphocytes # (Auto) 2.4 0.4-5.4 10 ^3/uL Monocytes # (Auto) 0.7 0-1.3 10 ^3/uL Eosinophils # (Auto) 0.1 0-0.8 10 ^3/uL Basophils # (Auto) 0.1 0-0.2 10 ^3/uL Nucleated Red Blood Cells 0.1 % Prothrombin Time 11.8 9.3-11.8 sec Prothrombin Time INR 1.13 0.9-1.15 Sodium Level 142 136-145 mmol/L Potassium Level 3.9 3.5-5.1 mmol/L Chloride Level 109 H 98-107 mmol/L Carbon Dioxide Level 22 20-31 mmol/L Anion Gap 11 5-15 Blood Urea Nitrogen 51 H 9-23 mg/dL Creatinine 2.66 H 0.700-1.30 mg/dL Glomerular Filtration Rate Calc 26 >90 mL/min BUN/Creatinine Ratio 19.2 10.0-20.0 Serum Glucose 106 74-106 mg/dL Calcium Level 9.2 8.7-10.4 mg/dL B-Type Natriuretic Peptide 19.26 0-100 pg/mL Thyroid Stimulating Hormone (TSH) 3.79 0.55-4.78 uIU/mL Problems(with codes): (1) Acute right flank pain (2) Nephrostomy present (3) Calculus of kidney (4) Nephrolithiasis (5) Sepsis (6) OLGA (acute kidney injury) (7) Unspecified hydronephrosis Plan/Recommendation ASSESSMENT: Patient is a 64 year old seen on the floor for a worsening ulcer PLAN: - The patients chart was reviewed, clinical findings were discussed with the patient, the etiologies of the conditions were discussed in detail, and a treatment plan was agreed to at this time, with both oral and written instructions provided. - reviewed advanced imaging - discussed plan is to perform an left 2nd toe amputation - patient will be NPO at midnight - take him to the OR tomorrow - we will get cultures in the OR - can weightbear as tolerated in postoperative shoe All questions were answered and concerns addressed to the patient's satisfaction. The patient was given the phone number to the clinic and was told how to make contact with the clinic should any concerns or questions arise. Patient understands that if any questions or concerns arise prior to the next appointment, we should be contacted immediately. FOLLOW-UP: Continue to follow while inpatient Plan discussed with: Patient Date of Service: Sep 08, 2024 Billing Provider: STIVEN CHURCH DPM Common Visit Codes: CONSULT ONLY Consultation Codes: [id number] CONSULT <80MIN STIVEN CHURCH DPM Sep 08, 2024 12:57
[2024-09-08] MEDS: LINEZOLID 600MG/300ML 300 ML IV SCH (15:15)
--- NOTE | 2024-09-08 15:28 | DVHPNRES ---
Progress Note Date Seen: Sep 08, 2024 Resident Creating Document: ELLIE BURR RESIDENT Medical Necessity Reason Pt with a Central, PICC or Fol: Yes The following are medically ne: Renner Catheter Subjective Review of Systems Vicente Valencia is a 64 year old male with PMHx of BPH, cerebrovascular accident, chronic kidney disease stage 3, DVT, DM2 with peripheral neuropathy, HTN, HLD, hydronephrosis, peripheral vascular disease, recurrent urinary tract infection, right carotid artery occlusion, chronic indwelling Renner catheter, left renal calculi. H/o rt sided nephrostomy tube placed on 08/20/2024 in [facility]. Patient BIBEMS to [facility] ER due to blood in right nephrostomy tube. Three weeks ago patient on hospitalized at [facility], was diagnosed with right-sided hydronephrosis and left-sided renal staghorn calculi and bacteremia, was sent home with IV antibiotics Ertapenem and Linezolid due to Urine culture showed Proteus mirabilis sensitive to meropenem and blood culture showed Staphylococcus hominis sensitive to linezolid. Over the past 4-5 days, patient felt generalized weak actually showed with nausea and vomiting and loss of appetite that prompted visit to [facility] the being further evaluation advised hospital found to have nephrostomy tube complication with blood clots coming out from right nephrostomy tube, therefore patient transfers from [facility] to [facility]. Patient was given IV fluid and 1 dose of IV ceftriaxone, patient's symptoms significantly improved including appetite, however continuing to have bleeding from nephrostomy tube. The patient denies any shortness of breath, chest pain, fever or any other complaints. PMHX:BPH, CVA, CKD stage 3, DVT, DM2 with peripheral neuropathy, HTN, hydronephrosis, PVD, recurrent UTI, right carotid artery occlusion, chronic indwelling Renner catheter, left renal calculi. PSHx: cholecystectomy, rt 4th/5th fingers and left great toe amputation. Personal history: Used to marijuana daily. Social Hx: Pt lives with roommate. Family history: nothing contributory Allergy: No known allergy Medications: Insulin Glargine 20 unit subcutaneously bedtime, Munjaro 2.5 mg/0.5 mL weekly, Eliquis 5 mg b.i.d.. Review of Systems The patient was seen and examined at bedside. patient reports pain improved at the nephrostomy site. No new complaints reported. Rest of the ROS is negative. Patient reports: Feels better Objective vital signs Vital Sign Date Time Temp Pulse Resp B/P (MAP) Pulse Ox O2 Delivery O2 Flow Rate FiO2 09/08/24 14:04 81 16 119/63 (81) 100 09/08/24 09:34 Nasal Cannula* 2 28 09/08/24 09:34 97.9 97.9 medications Current Medications Medications Dose Ordered Sig/Etienne Route Start Time Stop Time Status Last Admin Dose Admin Nitroglycerin 0.4 mg Q5MINP PRN SL 09/08/24 03:15 Morphine Sulfate 2 mg Q30M PRN IV 09/08/24 03:15 Pantoprazole Sodium 40 mg DAILY@0600 PO 09/08/24 06:00 09/08/24 06:00 40 MG Cefepime HCl 50 ml @ 12.5 mls/hr Q12HR IV 09/08/24 10:00 09/08/24 10:48 12.5 MLS/HR Atorvastatin Calcium 40 mg HS PO 09/08/24 22:00 Linezolid 300 ml @ 150 mls/hr Q12H IV 09/08/24 15:00 Examination Pt is lying on bed General Appearance: Alert, Oriented X3, Cooperative, Mild distress HEENT: Atraumatic, Mucous membranes moist/pink Respiratory: Clear to auscultation, Normal air movement, No added sounds Cardiovascular: Regular rate, Normal S1, Normal S2, No murmurs Abdominal/ : Active bowel sounds, Soft, no distention, no tenderness Extremities: Other ( right 4th, 5th toes and left great toe amputation. Midline present on the right arm.Black skin discoloration noted tip of left 2nd toe) No edema, Normal pulses, Skin: No Significant rash, except past surgical scars Neuro: Normal speech, sensorimotor deficits none Psych/Mental Status: Mental status NL, Mood NL Nurse was there as property consultant during examination laboratory and microbiology Laboratory Tests 09/08/24 00:29 Test 09/08/24 00:29 Range/Units Serum Glucose 106 74-106 mg/dL Labs and/or images reviewed: Labs reviewed by me, Image(s) reviewed by me Problem List/Assessment/Plan Problem List/Assessment/Plan # Bleeding complication of rt nephrostomy tube History of right nephrostomy tube placed on 08/20/2024 in [facility] due to rt hydronephrosis. S/P IV antibiotic ertapenem and linezolid via midline. CT abdomen and pelvis without contrast shows interval placement of right nephrostomy tube and improved hydronephrosis (done on 09/07/2024 at [facility]). Continue Cefepime 2 gm daily Hold Eliquis due to bleeding nephrostomy tube. Urology consult done: Outpt left PCNL & cysto with right RPG possible stent. Keep renner to gravity until Creat is at baseline. Follow-up UA, Ucx, blood cultures Monitor for any further bleeding. # Left 2nd toe cellulitis/ Osteomyelitis/ gangrene due to DM2 neuropathy or PAD Wound cultures sent Started Cefepime 2 gm daily and linezolid. CT left foot showed Osteomyelitis in the 2nd middle and distal phalanx and to a lesser extent the 2nd proximal phalanx. Soft tissue gas and swelling overlying the 2nd toe compatible with infection. Podiatry consulted, advised left 2nd toe amputation likely tomorrow. NPO after midnight # Acute complicated UTI -Started Cefepime 2 gm daily - ordered urine culture # OLGA on VMN with underlying CKD stage 3 Creatinine 3.0>2.66 Continue IV fluid NSS 75 CC/HR Monitor kidney function and urine electrolyte. Avoid nephrotoxic drugs. # DM2 with peripheral neuropathy HBA1c 5.8 Hold home meds.(Insulin Glargine and Munjaro) Will resume insulin with monitoring blood sugars. # H/O cerebrovascular accident continue statin # BPH with outflow obstruction Indwelling Renner catheter # peripheral arterial disease(PAD) H/O amputation right 4th/5th and left great toe. Atorvastatin 40 mg po daily Vascular surgeon consult # Anemia due to chronic disease Hemoglobin 10.0, HCT 30.3. Iron profile, Ferritin ordered follow the stool for occult blood test. Monitor for any signs symptoms of bleeding. Diet: Diabetic diet DVT PPX: SCDs GI prophylaxis: Pantoprazole 20 mg twice daily. Goals of care discussed with the patient for more than 27 minutes: Full code status Case discussed with Dr. Rodriguez , patient and RN Plan discussed with: Patient, Other (RN) My Orders My Orders Orders - ELLIE BURR Procedure Category Date Status Time Wound Culture W/ Gs SHAWNA 09/08/24 Logged 09:57 Pt Request For Service PT 09/08/24 Logged 09:57 Linezolid 600mg/300ml PHA 09/08/24 In Process ([facility]) 15:00 Date of Service: Sep 08, 2024 Billing Provider: SHA RODRIGUEZ MD Common Visit Codes: [id number] INP/OBS CARE(HIGH) ELLIE BURR RESIDENT Sep 08, 2024 15:28 SHA RODRIGUEZ MD Sep 08, 2024 17:46
[2024-09-08 16:38] VITALS: BP 119/63; PULSE 81; RESP 16; TEMP 98.4; O2SAT 100
[2024-09-08 20:00] VITALS: PULSE 91; RESP 17; O2SAT 100
[2024-09-08 21:00] VITALS: BP 134/78; PULSE 91; RESP 17; TEMP 97.8; O2SAT 100
[2024-09-08] MEDS: ATORVASTATIN 20 MG TAB PO SCH (21:24)
[2024-09-08] MEDS ORDERED: PIPERACILLIN-TAZOB 3.375GM 100 ML IV SCH (22:00)
[2024-09-09] VITALS (11 sets, daily range): BP systolic 101–147; BP diastolic 61–85; PULSE 89–109; RESP 15–53; TEMP 97.5–98; O2SAT 97–100
[2024-09-09 08:05] LABS: Hematocrit 32.8 % (41.0-53.0); Hemoglobin 10.0 g/dL (13.5-17.5); Mean Corpuscular Hemoglobin 26.4 pg (28.0-32.0); Mean Corpuscular Volume 86.9 fL (80.0-100.0); Nucleated Red Blood Cells % 0.2 %
[2024-09-09 08:10] LABS: Alanine Aminotransferase 19 U/L (7-40); Albumin 3.5 g/dL (3.2-4.8); Alkaline Phosphatase 80 U/L (46-116); Anion Gap 10 (5-15); BUN/Creatinine Ratio 11.8 (10.0-20.0); Calcium 9.3 mg/dL (8.7-10.4); Glucose 100 mg/dL (74-106); Potassium 4.1 mmol/L (3.5-5.1); Sodium 141 mmol/L (136-145); Total Protein 6.9 g/dL (5.7-8.2)
[2024-09-09 08:15] LABS: Bilirubin, Total 0.2 mg/dL (0.2-1.0); Blood Urea Nitrogen 30 mg/dL (9-23); Carbon Dioxide 20 mmol/L (20-31); Chloride 111 mmol/L (98-107)
[2024-09-09] MEDS ORDERED: fentaNYL CITRATE 100 MCG/2 ML VL ONE (14:02)
[2024-09-09] MEDS ORDERED: MIDAZOLAM HCL 2MG/2ML 2ml VIAL (1mg/ml) ONE (14:02)
[2024-09-09] MEDS ORDERED: LIDOCAINE 1% INJ PF 5ML AMP ONE (14:03)
[2024-09-09] MEDS ORDERED: ONDANSETRON HCL 4 MG/2 ML VIAL ONE (14:03)
[2024-09-09] MEDS ORDERED: PROPOFOL 10 MG/ML 20 ML IV ONE (14:03)
[2024-09-09] MEDS ORDERED: METOCLOPRAMIDE HCL 5MG/ml INJ 2ml VIAL ONE (14:03)
[2024-09-09] MEDS: BUPIVACAINE 0.5% MPF INJ 30ML SDV IJ ONE (14:13)
[2024-09-09] MEDS ORDERED: HYDROmorphone HCL 2 MG/ML VL/or syr IV PRN (14:30)
[2024-09-09] MEDS: KETOROLAC TROMETH 30 MG/ML 1ML VIAL IV ONE (14:30)
[2024-09-09] MEDS: ONDANSETRON HCL 4 MG/2 ML VIAL IV ONE (14:30)
--- NOTE | 2024-09-09 14:59 | DVHOP2 ---
Operative Report - 2 Report Details Date: 09/09/24 Preop Diagnosis: 1. Left 2nd toe osteomyelitis 2. Left 2nd toe abscess 3. Left 2nd toe cellulitis 4. Left 2nd toe gangrene Postop Diagnosis: Same as preop Surgeon: Stiven Church MD Anesthesiologist: See anesthesia Anesthesia: Mac Consent: The patient was informed of the risks and benefits of the procedure. These include but are not limited to complications of anesthesia, postoperative infection, incomplete relief of symptoms, recurrence of symptoms, damage to blood vessels, nerves and tendons, deep venous thrombosis, pulmonary embolism and possible need for repeat surgery in the future. Complications: None Estimated Blood Loss: Minimal Fluids: See anesthesia Findings: Consistent with the diagnosis Indications for Surgery: Worsening left foot wound Name of Procedure Performed 1. Left foot I&D to bone (66041) 2. Left foot second toe amputation (86563) 3. Left foot rotational flap (20303) 4. Left foot delayed closure (17105) Procedure Details Procedure Details: PRE-PROCEDURE INFORMATION: In the pre-op holding area, the extremity to be operated on was clearly marked and the patient verified correct laterality of the marking. The patient was transferred to the OR table and placed in a supine position. A timeout was performed in which identification of the correct patient, procedure, location, and materials was done. The left foot and leg were prepped and draped in normal sterile fashion. DESCRIPTION OF PROCEDURE: Attention was directed to the left where area of fluctuance was noted. An incision was made over this area and was deepened through blunt dissection. The incision was deepened to the level of abscess and bone. Care was taken to the dissection to avoid any neurovascular and tendinous structures. The incision was deepened to the bone, and the abscess appeared to be purulent fluid consistent with pus. The cortices of the bone was then removed with rongeur an all necrotic tissue. After the abscess was drained, the area was irrigated with 3 L normal saline using cysto tubing. Deep cultures were then obtained from the wound. The area was then inspected and any areas of tracking, especially along the tendons were also drained. Attention was directed to the left 2nd toe where was determined that the bone was too infected and amputation was need performed. Using a 15. Blade the toe was disarticulated at the MPJ. Due to the soft tissue deficit, rotational advancement flap was designed medially to laterally and elevated preserving vascularity. A delayed closure was then performed using 2-0 nylon after was deemed appropriate with no longer concern for infection. POSTOPERATIVE INFORMATION: The patient tolerated the above noted procedure and anesthesia well and was transferred to the PACU with vital signs stable, and vascular status intact with capillary refill intact to all digits. Patient will return to the floor and continue antibiotics. Deep cultures were taken. Patient can be discharged home on p.o. antibiotics. Patient can weightbear as tolerated with a postoperative shoe. Condition Good Disposition Still a Patient STIVEN CHURCH DPM Sep 09, 2024 14:59
[2024-09-09] MEDS: METOCLOPRAMIDE HCL 5MG/ml INJ 2ml VIAL IV ONE (16:37)
--- NOTE | 2024-09-09 18:07 | DVHPNRES ---
Progress Note Date Seen: Sep 09, 2024 Resident Creating Document: ELLIE BURR RESIDENT Medical Necessity Reason Pt with a Central, PICC or Fol: Yes The following are medically ne: Renner Catheter Subjective Review of Systems Vicente Luther is a 64 year old male with PMHx of BPH, cerebrovascular accident, chronic kidney disease stage 3, DVT, DM2 with peripheral neuropathy, HTN, HLD, hydronephrosis, peripheral vascular disease, recurrent urinary tract infection, right carotid artery occlusion, chronic indwelling Renner catheter, left renal calculi. H/o rt sided nephrostomy tube placed on 08/20/2024 in [facility]. Patient BIBEMS to [facility] ER due to blood in right nephrostomy tube. Three weeks ago patient on hospitalized at [facility], was diagnosed with right-sided hydronephrosis and left-sided renal staghorn calculi and bacteremia, was sent home with IV antibiotics Ertapenem and Linezolid due to Urine culture showed Proteus mirabilis sensitive to meropenem and blood culture showed Staphylococcus hominis sensitive to linezolid. Over the past 4-5 days, patient felt generalized weak actually showed with nausea and vomiting and loss of appetite that prompted visit to [facility] the being further evaluation advised hospital found to have nephrostomy tube complication with blood clots coming out from right nephrostomy tube, therefore patient transfers from [facility] to [facility]. Patient was given IV fluid and 1 dose of IV ceftriaxone, patient's symptoms significantly improved including appetite, however continuing to have bleeding from nephrostomy tube. The patient denies any shortness of breath, chest pain, fever or any other complaints. PMHX:BPH, CVA, CKD stage 3, DVT, DM2 with peripheral neuropathy, HTN, hydronephrosis, PVD, recurrent UTI, right carotid artery occlusion, chronic indwelling Renner catheter, left renal calculi. PSHx: cholecystectomy, rt 4th/5th fingers and left great toe amputation. Personal history: Used to marijuana daily. Social Hx: Pt lives with roommate. Family history: nothing contributory Allergy: No known allergy Medications: Insulin Glargine 20 unit subcutaneously bedtime, Munjaro 2.5 mg/0.5 mL weekly, Eliquis 5 mg b.i.d.. Review of Systems The patient was seen and examined at bedside. Postoperative day 0 status post Left foot I&D to bone & second toe amputation. Post operative vital signs are stable. No new complaints reported. Rest of the ROS is negative. Started diet. Objective vital signs Vital Sign Date Time Temp Pulse Resp B/P (MAP) Pulse Ox O2 Delivery O2 Flow Rate FiO2 09/09/24 16:45 97.5 109 16 103/67 (79) 97 97.5 09/09/24 14:33 Room Air 0 09/09/24 14:33 100 Total Intake and Output 09/08/24 09/08/24 09/09/24 15:00 23:00 07:00 Intake Total 1150.0 ml 100 ml 450 ml Output Total 1350 ml 200 ml 1600 ml Balance -200.0 ml -100 ml -1150 ml medications Current Medications Medications Dose Ordered Sig/Etienne Route Start Time Stop Time Status Last Admin Dose Admin Nitroglycerin 0.4 mg Q5MINP PRN SL 09/08/24 03:15 Morphine Sulfate 2 mg Q30M PRN IV 09/08/24 03:15 Pantoprazole Sodium 40 mg DAILY@0600 PO 09/08/24 06:00 09/08/24 06:00 40 MG Cefepime HCl 50 ml @ 12.5 mls/hr Q12HR IV 09/08/24 10:00 09/09/24 10:40 12.5 MLS/HR Atorvastatin Calcium 40 mg HS PO 09/08/24 22:00 09/08/24 21:24 40 MG Linezolid 300 ml @ 150 mls/hr Q12H IV 09/08/24 15:00 09/09/24 16:01 150 MLS/HR Examination Examination Pt is lying on bed General Appearance: Alert, Oriented X3, Cooperative, Mild distress HEENT: Atraumatic, Mucous membranes moist/pink Respiratory: Clear to auscultation, Normal air movement, No added sounds Cardiovascular: Regular rate, Normal S1, Normal S2, No murmurs Abdominal/ : Active bowel sounds, Soft, no distention, no tenderness Extremities: Other ( right 4th, 5th toes and left great toe amputation. Midline present on the right arm. Status post I&D and left 2nd toe amputation, no signs of infection/inflammation) No edema, Normal pulses, Skin: No Significant rash, except past surgical scars Neuro: Normal speech, sensorimotor deficits none Psych/Mental Status: Mental status NL, Mood NL laboratory and microbiology Laboratory Tests 09/09/24 07:07 Test 09/09/24 07:07 Range/Units Serum Glucose 100 74-106 mg/dL Microbiology Date/Time Source Procedure Growth Status 09/08/24 23:00 Nose MRSA Screen - Final Complete 09/08/24 05:00 Voided Urine Urine Culture - Preliminary Resulted 09/08/24 04:00 Blood Blood Culture - Preliminary NO GROWTH AFTER 24 HOURS OF INCUBATION. Resulted Labs and/or images reviewed: Labs reviewed by me, Image(s) reviewed by me Problem List/Assessment/Plan Problem List/Assessment/Plan # Bleeding complication of rt nephrostomy tube History of right nephrostomy tube placed on 08/20/2024 in [facility] due to rt hydronephrosis. S/P IV antibiotic ertapenem and linezolid via midline. CT abdomen and pelvis without contrast shows interval placement of right nephrostomy tube and improved hydronephrosis (done on 09/07/2024 at [facility]). Continue Cefepime 2 gm daily Hold Eliquis due to bleeding nephrostomy tube. Urology consult done: Outpt left PCNL & cysto with right RPG possible stent. Keep renner to gravity until Creat is at baseline. Follow-up UA, Ucx, blood cultures Monitor for any further bleeding. # Left 2nd toe cellulitis/ Osteomyelitis/ gangrene due to DM2 neuropathy or PAD Wound cultures sent Started Cefepime 2 gm daily and linezolid. CT left foot showed Osteomyelitis in the 2nd middle and distal phalanx and to a lesser extent the 2nd proximal phalanx. Soft tissue gas and swelling overlying the 2nd toe compatible with infection. Extremity operation was performed today Left foot I&D to bone Left foot second toe amputation Left foot rotational flap Left foot delayed closure Postoperative note: Vital signs stable, and vascular status intact with capillary refill intact to all digits. Patient will return to the floor and continue antibiotics. Deep cultures were taken. Patient can be discharged home on p.o. antibiotics. Patient can weightbear as tolerated with a postoperative shoe. # Acute complicated UTI -Started Cefepime 2 gm daily - ordered urine culture # OLGA on VMN with underlying CKD stage 3 Continue IV fluid NSS 75 CC/HR Monitor kidney function and urine electrolyte. Avoid nephrotoxic drugs. # DM2 with peripheral neuropathy HBA1c 5.8 Hold home meds.(Insulin Glargine and Munjaro) Will resume insulin with monitoring blood sugars. # H/O cerebrovascular accident continue statin # BPH with outflow obstruction Indwelling Renner catheter # peripheral arterial disease(PAD) H/O amputation right 4th/5th and left great toe. Atorvastatin 40 mg po daily Vascular surgeon consulted # Anemia due to chronic disease Hemoglobin 10.0, HCT 30.3. Iron profile, Ferritin ordered follow the stool for occult blood test. Monitor for any signs symptoms of bleeding. Diet: Diabetic diet DVT PPX: SCDs GI prophylaxis: Pantoprazole 20 mg twice daily. Goals of care discussed with the patient for more than 27 minutes: Full code status Case discussed with Dr. Rodriguez , patient and RN Plan discussed with: Patient, Other (RN) My Orders My Orders Orders - ELLIE BURR RESIDENT Procedure Category Date Status Time * Bookseamer Blindstitch CONS 09/08/24 Transmitted Consult Date of Service: Sep 09, 2024 Billing Provider: SHA RODRIGUEZ MD Common Visit Codes: [id number] INP/OBS CARE(HIGH) ELLIE BURR RESIDENT Sep 09, 2024 18:07 SHA RODRIGUEZ MD Sep 09, 2024 21:38
[2024-09-10] VITALS (8 sets, daily range): BP systolic 93–117; BP diastolic 61–75; PULSE 95–102; RESP 16–18; TEMP 97.6–97.9; O2SAT 98–100
[2024-09-10 06:49] LABS: Hematocrit 26.8 % (41.0-53.0); Hemoglobin 8.7 g/dL (13.5-17.5); Mean Corpuscular Hemoglobin 26.3 pg (28.0-32.0); Mean Corpuscular Volume 80.9 fL (80.0-100.0); Nucleated Red Blood Cells % 0.0 %
[2024-09-10 07:05] LABS: Anion Gap 9 (5-15); Carbon Dioxide 24 mmol/L (20-31); Potassium 4.0 mmol/L (3.5-5.1); Sodium 143 mmol/L (136-145)
[2024-09-10 07:06] LABS: Calcium 9.4 mg/dL (8.7-10.4)
[2024-09-10 07:11] LABS: BUN/Creatinine Ratio 13.8 (10.0-20.0); Glucose 96 mg/dL (74-106)
[2024-09-10 07:18] LABS: Blood Urea Nitrogen 34 mg/dL (9-23); Chloride 110 mmol/L (98-107)
--- NOTE | 2024-09-10 07:58 | ECG ---
[facility] Test Date: 2024-09-09 Test Time: 03:17:34 Pat Name: MIRIAM ALLEN Department: Room: 0218 A Gender: M [employer] Specialist: GP : 1960 Requested By: ELLIE BURR Order Number: [id number] Reading MD: Abiel Edwards Measurements Intervals [place] Rate: 97 P: 115 SC: 146 QRS: 208 QRSD: 82 T: 125 QT: 363 QTc: 461 Interpretive Statements Right and left arm electrode reversal, interpretation assumes no reversal Sinus rhythm Probable lateral infarct, age indeterminate Electronically Signed On 09-11-2024 9:34:05 PDT by Abiel Edwards Please click the below link to view image of tracing.
--- NOTE | 2024-09-10 17:29 | DVHPNRES ---
Progress Note Date Seen: Sep 10, 2024 Resident Creating Document: ELLIE BURR RESIDENT Medical Necessity Reason Pt with a Central, PICC or Fol: Yes The following are medically ne: Renner Catheter Subjective Review of Systems Review of Systems Vicente Luther is a 64 year old male with PMHx of BPH, cerebrovascular accident, chronic kidney disease stage 3, DVT, DM2 with peripheral neuropathy, HTN, HLD, hydronephrosis, peripheral vascular disease, recurrent urinary tract infection, right carotid artery occlusion, chronic indwelling Renner catheter, left renal calculi. H/o rt sided nephrostomy tube placed on 08/20/2024 in [facility]. Patient BIBEMS to [facility] ER due to blood in right nephrostomy tube. Three weeks ago patient on hospitalized at [facility], was diagnosed with right-sided hydronephrosis and left-sided renal staghorn calculi and bacteremia, was sent home with IV antibiotics Ertapenem and Linezolid due to Urine culture showed Proteus mirabilis sensitive to meropenem and blood culture showed Staphylococcus hominis sensitive to linezolid. Over the past 4-5 days, patient felt generalized weak actually showed with nausea and vomiting and loss of appetite that prompted visit to [facility] the being further evaluation advised hospital found to have nephrostomy tube complication with blood clots coming out from right nephrostomy tube, therefore patient transfers from [facility] to [facility]. Patient was given IV fluid and 1 dose of IV ceftriaxone, patient's symptoms significantly improved including appetite, however continuing to have bleeding from nephrostomy tube. 09/10 interval events Postoperative day 1, status post left 2nd toe amputation. The patient reports no pain at the surgical site. The patient denies any shortness of breath, chest pain, fever, chills or any other complaints. PMHX:BPH, CVA, CKD stage 3, DVT, DM2 with peripheral neuropathy, HTN, hydronephrosis, PVD, recurrent UTI, right carotid artery occlusion, chronic indwelling Renner catheter, left renal calculi. PSHx: cholecystectomy, rt 4th/5th fingers and left great toe amputation. Personal history: Used to marijuana daily. Social Hx: Pt lives with roommate. Family history: nothing contributory Allergy: No known allergy Medications: Insulin Glargine 20 unit subcutaneously bedtime, Munjaro 2.5 mg/0.5 mL weekly, Eliquis 5 mg b.i.d.. Review of Systems The patient was seen and examined at bedside. Overnight events were reviewed. No no new complaints reported. Objective vital signs Vital Sign Date Time Temp Pulse Resp B/P (MAP) Pulse Ox O2 Delivery O2 Flow Rate FiO2 09/10/24 16:54 97.6 102 18 112/70 (84) 99 97.6 09/10/24 08:00 Nasal Cannula* 2 28 Total Intake and Output 09/09/24 09/09/24 09/10/24 15:00 23:00 07:00 Intake Total 0 ml 0 ml 200 ml Output Total 1000 ml 1000 ml Balance 0 ml -1000 ml -800 ml medications Current Medications Medications Dose Ordered Sig/Etienne Route Start Time Stop Time Status Last Admin Dose Admin Nitroglycerin 0.4 mg Q5MINP PRN SL 09/08/24 03:15 Morphine Sulfate 2 mg Q30M PRN IV 09/08/24 03:15 Pantoprazole Sodium 40 mg DAILY@0600 PO 09/08/24 06:00 09/10/24 06:03 40 MG Cefepime HCl 50 ml @ 12.5 mls/hr Q12HR IV 09/08/24 10:00 09/10/24 10:36 12.5 MLS/HR Atorvastatin Calcium 40 mg HS PO 09/08/24 22:00 09/09/24 20:59 40 MG Linezolid 300 ml @ 150 mls/hr Q12H IV 09/08/24 15:00 09/10/24 15:22 150 MLS/HR Examination Pt is lying on bed General Appearance: Alert, Oriented X3, Cooperative, Mild distress HEENT: Atraumatic, Mucous membranes moist/pink Respiratory: Clear to auscultation, Normal air movement, No added sounds Cardiovascular: Regular rate, Normal S1, Normal S2, No murmurs Abdominal/ : Active bowel sounds, Soft, no distention, no tenderness Extremities: There was a bandage at the left foot, dry, no bleediing or oozing of fluid or pus, no signs of infection surrounding the area. Right-sided grade 2 and 3rd and 4th toe amputated. Normal pulses, Skin: No Significant rash, except past surgical scars Neuro: Normal speech, sensorimotor deficits none Psych/Mental Status: Mental status NL, Mood NL Nurse was there as radio communications mechanician during examination laboratory and microbiology Laboratory Tests 09/10/24 06:10 Test 09/10/24 06:10 Range/Units Serum Glucose 96 74-106 mg/dL Microbiology Date/Time Source Procedure Growth Status 09/08/24 23:00 Nose MRSA Screen - Final Complete 09/08/24 05:00 Voided Urine Urine Culture - Final Complete 09/08/24 04:00 Blood Blood Culture - Preliminary NO GROWTH AFTER 48 HOURS OF INCUBATION. Resulted Labs and/or images reviewed: Labs reviewed by me, Image(s) reviewed by me Problem List/Assessment/Plan Problem List/Assessment/Plan # Bleeding complication of rt nephrostomy tube History of right nephrostomy tube placed on 08/20/2024 in [facility] due to rt hydronephrosis. S/P IV antibiotic ertapenem and linezolid via midline. CT abdomen and pelvis without contrast shows interval placement of right nephrostomy tube and improved hydronephrosis (done on 09/07/2024 at [facility]). Continue Cefepime 2 gm daily Hold Eliquis due to bleeding nephrostomy tube. Urology consult done: Outpt left PCNL & cysto with right RPG possible stent. Keep renner to gravity until Creat is at baseline. Follow-up UA, Ucx, blood cultures Monitor for any further bleeding. # Left 2nd toe cellulitis/ Osteomyelitis/ gangrene due to DM2 neuropathy or PAD Wound cultures sent Started Cefepime 2 gm daily and linezolid. CT left foot showed Osteomyelitis in the 2nd middle and distal phalanx and to a lesser extent the 2nd proximal phalanx. Soft tissue gas and swelling overlying the 2nd toe compatible with infection. Extremity operation was performed today Left foot I&D to bone Left foot second toe amputation Left foot rotational flap Left foot delayed closure Day 1 s/p left 2nd toe amputation and I and D: Vital signs stable, and vascular status intact with capillary refill intact to all digits. Patient will return to the floor and continue antibiotics. Deep cultures pending, Patient can be discharged home on p.o. antibiotics. Patient can weightbear as tolerated with a postoperative shoe. # Acute complicated UTI -Started Cefepime 2 gm daily - ordered urine culture # OLGA on VMN with underlying CKD stage 3 Continue IV fluid NSS 75 CC/HR Monitor kidney function and urine electrolyte. Avoid nephrotoxic drugs. # DM2 with peripheral neuropathy HBA1c 5.8 Hold home meds.(Insulin Glargine and Munjaro) Will resume insulin with monitoring blood sugars. # H/O cerebrovascular accident continue statin # BPH with outflow obstruction Indwelling Renner catheter # peripheral arterial disease(PAD) H/O amputation right 4th/5th and left great toe. Atorvastatin 40 mg po daily Vascular surgeon consulted # Anemia due to chronic disease Hemoglobin 10.0, HCT 30.3. Iron profile, Ferritin ordered follow the stool for occult blood test. Monitor for any signs symptoms of bleeding. Diet: Diabetic diet DVT PPX: SCDs GI prophylaxis: Pantoprazole 20 mg twice daily. Goals of care discussed with the patient for more than 27 minutes: Full code status Case discussed with Dr. Rodriguez , patient and RN Plan discussed with: Patient Date of Service: Sep 10, 2024 Billing Provider: SHA RODRIGUEZ MD Common Visit Codes: [id number] INP/OBS CARE(HIGH) ELLIE BURR RESIDENT Sep 10, 2024 17:29 SHA RODRIGUEZ MD Sep 11, 2024 07:57
[2024-09-11] VITALS (8 sets, daily range): BP systolic 97–117; BP diastolic 65–75; PULSE 108–117; RESP 17–22; TEMP 97.6–98.2; O2SAT 96–100
[2024-09-11 08:41] LABS: Potassium 4.6 mmol/L (3.5-5.1); Sodium 138 mmol/L (136-145)
[2024-09-11 08:42] LABS: Anion Gap 9 (5-15); Calcium 9.5 mg/dL (8.7-10.4)
[2024-09-11 08:47] LABS: BUN/Creatinine Ratio 9.8 (10.0-20.0)
[2024-09-11 09:00] LABS: Blood Urea Nitrogen 24 mg/dL (9-23); Carbon Dioxide 20 mmol/L (20-31); Chloride 109 mmol/L (98-107); Glucose 109 mg/dL (74-106)
[2024-09-11 09:53] LABS: Hemoglobin 9.4 g/dL (13.5-17.5); Nucleated Red Blood Cells % 0.0 %
[2024-09-11 09:55] LABS: Hematocrit 28.6 % (41.0-53.0); Mean Corpuscular Hemoglobin 26.5 pg (28.0-32.0); Mean Corpuscular Volume 80.7 fL (80.0-100.0)
[2024-09-11] MEDS: CALAMINE TOPical LOTION180 ML TOP ONE (10:34)
[2024-09-11] MEDS: SODIUM CHLORIDE 0.9% 250 ML IV ONE (13:15)
--- NOTE | 2024-09-11 15:13 | DVHPNRES ---
Progress Note Date Seen: Sep 11, 2024 Resident Creating Document: ELLIE BURR RESIDENT Medical Necessity Reason Pt with a Central, PICC or Fol: Yes The following are medically ne: Renner Catheter Subjective Review of Systems Vicente Luther is a 64 year old male with PMHx of BPH, cerebrovascular accident, chronic kidney disease stage 3, DVT, DM2 with peripheral neuropathy, HTN, HLD, hydronephrosis, peripheral vascular disease, recurrent urinary tract infection, right carotid artery occlusion, chronic indwelling Renner catheter, left renal calculi. H/o rt sided nephrostomy tube placed on 08/20/2024 in [facility]. Patient BIBEMS to [facility] ER due to blood in right nephrostomy tube. Three weeks ago patient on hospitalized at [facility], was diagnosed with right-sided hydronephrosis and left-sided renal staghorn calculi and bacteremia, was sent home with IV antibiotics Ertapenem and Linezolid due to Urine culture showed Proteus mirabilis sensitive to meropenem and blood culture showed Staphylococcus hominis sensitive to linezolid. Over the past 4-5 days, patient felt generalized weak actually showed with nausea and vomiting and loss of appetite that prompted visit to [facility] the being further evaluation advised hospital found to have nephrostomy tube complication with blood clots coming out from right nephrostomy tube, therefore patient transfers from [facility] to [facility]. Patient was given IV fluid and 1 dose of IV ceftriaxone, patient's symptoms significantly improved including appetite, however continuing to have bleeding from nephrostomy tube. A review of systems: The patient was seen and examined at bedside. Overnight events were reviewed. 09/10 interval events Postoperative day 2, status post left 2nd toe amputation. The patient reports no pain at the surgical site. The patient reports having painful buttock rash. The patient denies any shortness of breath, chest pain, fever, chills or any other complaint. Objective vital signs Vital Sign Date Time Temp Pulse Resp B/P (MAP) Pulse Ox O2 Delivery O2 Flow Rate FiO2 09/11/24 13:00 97.8 113 18 97/73 (81) 99 97.8 09/11/24 08:15 Room Air* 0 21 Total Intake and Output 09/10/24 09/10/24 09/11/24 15:00 23:00 07:00 Intake Total 300 ml 800 ml Output Total 700 ml 1150 ml Balance -400 ml -350 ml medications Current Medications Medications Dose Ordered Sig/Etienne Route Start Time Stop Time Status Last Admin Dose Admin Nitroglycerin 0.4 mg Q5MINP PRN SL 09/08/24 03:15 Morphine Sulfate 2 mg Q30M PRN IV 09/08/24 03:15 Pantoprazole Sodium 40 mg DAILY@0600 PO 09/08/24 06:00 09/11/24 05:44 40 MG Cefepime HCl 50 ml @ 12.5 mls/hr Q12HR IV 09/08/24 10:00 09/11/24 10:34 12.5 MLS/HR Atorvastatin Calcium 40 mg HS PO 09/08/24 22:00 09/10/24 21:49 40 MG Linezolid 300 ml @ 150 mls/hr Q12H IV 09/08/24 15:00 09/11/24 03:55 150 MLS/HR Calamine 1 applic QIDP PRN TOP 09/11/24 09:15 Ondansetron HCl 4 mg Q6HPRN PRN IV 09/11/24 13:30 Examination Pt is lying on bed General Appearance: Alert, Oriented X3, Cooperative, Mild distress HEENT: Atraumatic, Mucous membranes moist/pink Respiratory: Clear to auscultation, Normal air movement, No added sounds Cardiovascular: Regular rate, Normal S1, Normal S2, No murmurs Abdominal/ : Active bowel sounds, Soft, no distention, no tenderness Extremities: Bandage dry the left foot, right great 2nd toe, 3rd,4th toes amputated. No edema, Normal pulses, No tenderness/swelling Skin: Erythematous, scaly, and patchy rash over the left gluteal region extending to the lateral buttock. The area shows excoriation and mild discoloration, with no active bleeding or purulent discharge noted, no vesicles bulla or ulceration observed, appears consistent with irritant contact dermatitis possibly exacerbated by prolonged moisture friction Neuro: Normal speech, sensorimotor deficits none Psych/Mental Status: Mental status NL, Mood NL Nurse was there as electrical engineering teacher during examination laboratory and microbiology Laboratory Tests 09/11/24 09:30 09/11/24 08:11 Test 09/11/24 08:11 Range/Units Serum Glucose 109 H 74-106 mg/dL Microbiology Date/Time Source Procedure Growth Status 09/08/24 23:00 Nose MRSA Screen - Final Complete 09/08/24 05:00 Voided Urine Urine Culture - Final Complete 09/08/24 04:00 Blood Blood Culture - Preliminary NO GROWTH AFTER 72 HOURS OF INCUBATION. Resulted Labs and/or images reviewed: Labs reviewed by me, Image(s) reviewed by me Problem List/Assessment/Plan Problem List/Assessment/Plan # Bleeding complication of rt nephrostomy tube History of right nephrostomy tube placed on 08/20/2024 in [facility] due to rt hydronephrosis. S/P IV antibiotic ertapenem and linezolid via midline. CT abdomen and pelvis without contrast shows interval placement of right nephrostomy tube and improved hydronephrosis (done on 09/07/2024 at [facility]). Continue Cefepime 2 gm daily Hold Eliquis due to bleeding nephrostomy tube. Urology consult done: Outpt left PCNL & cysto with right RPG possible stent. Keep renner to gravity until Creat is at baseline. Follow-up UA, Ucx, blood cultures Monitor for any further bleeding. # Left 2nd toe cellulitis/ Osteomyelitis/ gangrene due to DM2 neuropathy or PAD Wound cultures sent Started Cefepime 2 gm daily and linezolid. CT left foot showed Osteomyelitis in the 2nd middle and distal phalanx and to a lesser extent the 2nd proximal phalanx. Soft tissue gas and swelling overlying the 2nd toe compatible with infection. Extremity operation was performed today Left foot I&D to bone Left foot second toe amputation Left foot rotational flap Left foot delayed closure Day 2 s/p left 2nd toe amputation and I and D: Vital signs stable, and vascular status intact with capillary refill intact to all digits. Patient will return to the floor and continue antibiotics. Deep cultures pending, Patient can weightbear as tolerated with a postoperative shoe. Repeat urine and blood culture. # Acute complicated UTI -Started Cefepime 2 gm daily - ordered urine culture # OLGA on VMN with underlying CKD stage 3 Continue IV fluid NSS 75 CC/HR Monitor kidney function and urine electrolyte. Avoid nephrotoxic drugs. # DM2 with peripheral neuropathy HBA1c 5.8 Hold home meds.(Insulin Glargine and Munjaro) Will resume insulin with monitoring blood sugars. # H/O cerebrovascular accident continue statin # BPH with outflow obstruction Indwelling Renner catheter # peripheral arterial disease(PAD) H/O amputation right 4th/5th and left great toe. Atorvastatin 40 mg po daily Vascular surgeon consulted # Anemia due to chronic disease Hemoglobin 10.0, HCT 30.3. Iron profile, Ferritin ordered follow the stool for occult blood test. Monitor for any signs symptoms of bleeding. Diet: Diabetic diet DVT PPX: SCDs GI prophylaxis: Pantoprazole 20 mg twice daily. Goals of care discussed with the patient for more than 27 minutes: DNR Case discussed with Dr. Rodriguez , patient and RN. Repeat urine and blood culture. Plan discussed with: Patient, Other (RN) My Orders My Orders Orders - ELLIE BURR RESIDENT Procedure Category Date Status Time Calamine Lotion PHA 09/11/24 In Process 09:15 Dietary Evaluation Review Comments: Encoruage and monitor good PO intake to meet his needs @100% Promote healing through DM management Expected Outcomes/Goals: gradually healed bleeding site. Prevent uremic syndrome Date of Service: Sep 11, 2024 Billing Provider: SHA RODRIGUEZ MD Common Visit Codes: [id number] INP/OBS CARE(HIGH) ELLIE BURR RESIDENT Sep 11, 2024 15:13 SHA RODRIGUEZ MD Sep 13, 2024 12:52
[2024-09-11] MEDS: ACETAMINOPHEN 325 MG TAB PO ONE (17:35)
[2024-09-12 00:46] VITALS: BP 109/75; PULSE 107; RESP 17; TEMP 97.7; O2SAT 98
[2024-09-12 05:00] VITALS: BP 121/75; PULSE 111; RESP 18; TEMP 98.8; O2SAT 97
[2024-09-12 07:36] LABS: Hematocrit 29.8 % (41.0-53.0); Hemoglobin 9.5 g/dL (13.5-17.5); Mean Corpuscular Hemoglobin 26.3 pg (28.0-32.0); Mean Corpuscular Volume 82.1 fL (80.0-100.0); Nucleated Red Blood Cells % 0.0 %
[2024-09-12 07:53] LABS: Alanine Aminotransferase 13 U/L (7-40); Albumin 3.9 g/dL (3.2-4.8); Alkaline Phosphatase 78 U/L (46-116); Anion Gap 11 (5-15); BUN/Creatinine Ratio 11.0 (10.0-20.0); Calcium 9.9 mg/dL (8.7-10.4); Carbon Dioxide 23 mmol/L (20-31); Chloride 106 mmol/L (98-107); Potassium 3.8 mmol/L (3.5-5.1); Sodium 140 mmol/L (136-145); Total Protein 7.3 g/dL (5.7-8.2)
[2024-09-12 07:57] LABS: Blood Urea Nitrogen 29 mg/dL (9-23); Glucose 120 mg/dL (74-106)
[2024-09-12 07:58] LABS: Bilirubin, Total 0.2 mg/dL (0.2-1.0)
--- NOTE | 2024-09-12 09:10 | DVHPNRES ---
Progress Note Date Seen: Sep 12, 2024 Resident Creating Document: ELLIE BURR RESIDENT Medical Necessity Reason Pt with a Central, PICC or Fol: Yes The following are medically ne: Renner Catheter Subjective Review of Systems Vicente Luther is a 64 year old male with PMHx of BPH, cerebrovascular accident, chronic kidney disease stage 3, DVT, DM2 with peripheral neuropathy, HTN, HLD, hydronephrosis, peripheral vascular disease, recurrent urinary tract infection, right carotid artery occlusion, chronic indwelling Renner catheter, left renal calculi. H/o rt sided nephrostomy tube placed on 08/20/2024 in [facility]. Patient BIBEMS to [facility] ER due to blood in right nephrostomy tube. Three weeks ago patient on hospitalized at [facility], was diagnosed with right-sided hydronephrosis and left-sided renal staghorn calculi and bacteremia, was sent home with IV antibiotics Ertapenem and Linezolid due to Urine culture showed Proteus mirabilis sensitive to meropenem and blood culture showed Staphylococcus hominis sensitive to linezolid. Over the past 4-5 days, patient felt generalized weak actually showed with nausea and vomiting and loss of appetite that prompted visit to [facility] the being further evaluation advised hospital found to have nephrostomy tube complication with blood clots coming out from right nephrostomy tube, therefore patient transfers from [facility] to [facility]. Patient was given IV fluid and 1 dose of IV ceftriaxone, patient's symptoms significantly improved including appetite, however continuing to have bleeding from nephrostomy tube. A review of systems: The patient was seen and examined at bedside. Overnight events were reviewed. 09/12 interval events Postoperative day 3, status post left 2nd toe amputation. The patient reports no pain at the surgical site. The patient reports improvement in pain at the site of the buttock rash. The patient reports vomiting 1 time after breakfast, vomiting mixed with greenish fluid. The vomiting was not mixed with blood. The patient denies any shortness of breath, chest pain, fever, chills or any other complaint. Patient reports: Feels better Objective vital signs Vital Sign Date Time Temp Pulse Resp B/P (MAP) Pulse Ox O2 Delivery O2 Flow Rate FiO2 09/12/24 08:15 Room Air* 0 21 09/12/24 05:00 98.8 111 18 121/75 (90) 97 98.8 Total Intake and Output 09/11/24 09/11/24 09/12/24 15:00 23:00 07:00 Intake Total 350 ml 450 ml Output Total 200 ml 900 ml Balance 150 ml -450 ml medications Current Medications Medications Dose Ordered Sig/Etienne Route Start Time Stop Time Status Last Admin Dose Admin Nitroglycerin 0.4 mg Q5MINP PRN SL 09/08/24 03:15 Morphine Sulfate 2 mg Q30M PRN IV 09/08/24 03:15 Pantoprazole Sodium 40 mg DAILY@0600 PO 09/08/24 06:00 09/12/24 06:11 40 MG Cefepime HCl 50 ml @ 12.5 mls/hr Q12HR IV 09/08/24 10:00 09/12/24 08:55 12.5 MLS/HR Atorvastatin Calcium 40 mg HS PO 09/08/24 22:00 09/11/24 22:56 40 MG Linezolid 300 ml @ 150 mls/hr Q12H IV 09/08/24 15:00 09/12/24 03:42 150 MLS/HR Calamine 1 applic QIDP PRN TOP 09/11/24 09:15 Ondansetron HCl 4 mg Q6HPRN PRN IV 09/11/24 13:30 Acetaminophen 650 mg Q4HP PRN PO 09/11/24 17:00 Examination General Appearance: Alert, Oriented X3, Cooperative, Mild distress HEENT: Atraumatic, Mucous membranes moist/pink Respiratory: Clear to auscultation, Normal air movement, No added sounds Cardiovascular: Regular rate, Normal S1, Normal S2, No murmurs Abdominal/ : Nephrostomy tube in place with 200 mL of red fluid collection. Active bowel sounds, Soft, no distention, no tenderness Extremities: Bandage dry the left foot, right great 2nd toe, 3rd,4th toes amputated. No edema, Normal pulses, No tenderness/swelling Skin: Erythematous, scaly, and patchy rash over the left gluteal region extending to the lateral buttock. The area shows excoriation and mild discoloration, with no active bleeding or purulent discharge noted, no vesicles bulla or ulceration observed, appears consistent with irritant contact dermatitis possibly exacerbated by prolonged moisture friction Neuro: Normal speech, sensorimotor deficits none Psych/Mental Status: Mental status NL, Mood NL laboratory and microbiology Laboratory Tests 09/12/24 07:01 Test 09/12/24 07:01 Range/Units Serum Glucose 120 H 74-106 mg/dL Microbiology Date/Time Source Procedure Growth Status 09/08/24 23:00 Nose MRSA Screen - Final Complete 09/08/24 05:00 Voided Urine Urine Culture - Final Complete 09/08/24 04:00 Blood Blood Culture - Preliminary NO GROWTH AFTER 72 HOURS OF INCUBATION. Resulted Labs and/or images reviewed: Labs reviewed by me, Image(s) reviewed by me Problem List/Assessment/Plan Problem List/Assessment/Plan # Bleeding complication of rt nephrostomy tube History of right nephrostomy tube placed on 08/20/2024 in [facility] due to rt hydronephrosis. S/P IV antibiotic ertapenem and linezolid via midline. CT abdomen and pelvis without contrast shows interval placement of right nephrostomy tube and improved hydronephrosis (done on 09/07/2024 at [facility]). Continue Cefepime 2 gm daily Hold Eliquis due to bleeding nephrostomy tube. Urology consult done: Outpt left PCNL & cysto with right RPG possible stent. Keep renner to gravity until Creat is at baseline. Follow-up UA, Ucx, blood cultures Monitor for any further bleeding. # Left 2nd toe cellulitis/ Osteomyelitis/ gangrene due to DM2 neuropathy or PAD Wound cultures sent Discontinued for oropharynx home health with PT and IV antibiotics Cefepime 2 gm daily and linezolid. Replace cefepime with meropenem CT left foot showed Osteomyelitis in the 2nd middle and distal phalanx and to a lesser extent the 2nd proximal phalanx. Soft tissue gas and swelling overlying the 2nd toe compatible with infection. Extremity operation was performed today Left foot I&D to bone Left foot second toe amputation Left foot rotational flap Left foot delayed closure Day 3 s/p left 2nd toe amputation and I and D: Vital signs stable, and vascular status intact with capillary refill intact to all digits. Deep cultures pending, Patient can weightbear as tolerated with a postoperative shoe. Blood culture repeated, # Dermatitis in gluteal region Betamethasone topical BID # Acute complicated UTI Cefepime was replaced with meropenem. # OLGA on VMN with underlying CKD stage 3 Continue IV fluid NSS 75 CC/HR Monitor kidney function and urine electrolyte. Avoid nephrotoxic drugs. # DM2 with peripheral neuropathy HBA1c 5.8 Hold home meds.(Insulin Glargine and Munjaro) Will resume insulin with monitoring blood sugars. # H/O cerebrovascular accident continue statin # BPH with outflow obstruction Indwelling Renner catheter # peripheral arterial disease(PAD) H/O amputation right 4th/5th and left great toe. Atorvastatin 40 mg po daily Vascular surgeon consulted # Anemia due to chronic disease Hemoglobin 10.0, HCT 30.3. Iron profile, Ferritin ordered follow the stool for occult blood test. Monitor for any signs symptoms of bleeding. Diet: Diabetic diet DVT PPX: SCDs GI prophylaxis: Pantoprazole 20 mg twice daily. Repeat blood and urine cultures Goals of care discussed with the patient for more than 27 minutes: DNR Case discussed with Dr. Rodriguez , patient and RN. Repeat urine and blood culture. Plan discussed with: Patient, Other (RN) My Orders My Orders Orders - ELLIE BURR RESIDENT Procedure Category Date Status Time Calamine Lotion PHA 09/11/24 In Process 09:15 Acetaminophen Tablet PHA 09/11/24 In Process (Tylenol Tablet) 17:00 Dietary Evaluation Review Comments: Encoruage and monitor good PO intake to meet his needs @100% Promote healing through DM management Expected Outcomes/Goals: gradually healed bleeding site. Prevent uremic syndrome Date of Service: Sep 12, 2024 Billing Provider: SHA RODRIGUEZ MD Common Visit Codes: [id number] INP/OBS CARE(HIGH) ELLIE BURR RESIDENT Sep 12, 2024 09:10 SHA RODRIGUEZ MD Sep 13, 2024 12:53
[2024-09-12 09:33] VITALS: BP 118/72; PULSE 110; RESP 16; TEMP 97; O2SAT 97
[2024-09-12 13:23] VITALS: BP 100/77; PULSE 119; RESP 21; TEMP 97.8; O2SAT 99
[2024-09-12 17:14] VITALS: BP 109/70; PULSE 109; RESP 21; TEMP 97.9; O2SAT 92
[2024-09-12 17:33] LABS: Nucleated Red Blood Cells % 0.0 %
[2024-09-12 17:35] LABS: Hematocrit 29.8 % (41.0-53.0); Hemoglobin 9.5 g/dL (13.5-17.5); Mean Corpuscular Hemoglobin 26.3 pg (28.0-32.0); Mean Corpuscular Volume 82.7 fL (80.0-100.0)
[2024-09-12 17:43] LABS: Alanine Aminotransferase 13 U/L (7-40); Albumin 3.7 g/dL (3.2-4.8); Alkaline Phosphatase 76 U/L (46-116); Anion Gap 9 (5-15); BUN/Creatinine Ratio 9.9 (10.0-20.0); Calcium 9.6 mg/dL (8.7-10.4); Carbon Dioxide 23 mmol/L (20-31); Potassium 3.9 mmol/L (3.5-5.1); Sodium 140 mmol/L (136-145); Total Protein 6.9 g/dL (5.7-8.2)
[2024-09-12 17:47] LABS: Bilirubin, Total 0.2 mg/dL (0.2-1.0); Blood Urea Nitrogen 27 mg/dL (9-23); Chloride 108 mmol/L (98-107); Glucose 152 mg/dL (74-106)
[2024-09-12 21:00] VITALS: BP 117/71; PULSE 121; RESP 20; TEMP 98.2; O2SAT 99
[2024-09-12] MEDS: BETAMETHASONE DIPROP0.05% TOPICAL CREAM 15GM TOP SCH (22:00)
[2024-09-12] MEDS: MEROPENEM 500MG IVPB 50 ML IV SCH (22:33)
[2024-09-13] VITALS (8 sets, daily range): BP systolic 113–131; BP diastolic 74–85; PULSE 79–114; RESP 17–20; TEMP 97.5–98.8; O2SAT 96–99
--- NOTE | 2024-09-13 09:19 | DVHPNRES ---
Progress Note Date Seen: Sep 13, 2024 Resident Creating Document: MENDEZ CARDOZA RESIDENT Medical Necessity Reason Pt with a Central, PICC or Fol: Yes The following are medically ne: Renner Catheter Subjective Review of Systems Vicente Valencia is a 64 year old male with PMHx of BPH, cerebrovascular accident, chronic kidney disease stage 3, DVT, DM2 with peripheral neuropathy, HTN, HLD, hydronephrosis, peripheral vascular disease, recurrent urinary tract infection, right carotid artery occlusion, chronic indwelling Renner catheter, left renal calculi. H/o rt sided nephrostomy tube placed on 08/20/2024 in [facility]. Patient BIBEMS to [facility] ER due to blood in right nephrostomy tube. Three weeks ago patient on hospitalized at [facility], was diagnosed with right-sided hydronephrosis and left-sided renal staghorn calculi and bacteremia, was sent home with IV antibiotics Ertapenem and Linezolid due to Urine culture showed Proteus mirabilis sensitive to meropenem and blood culture showed Staphylococcus hominis sensitive to linezolid. Over the past 4-5 days, patient felt generalized weak actually showed with nausea and vomiting and loss of appetite that prompted visit to [facility] the being further evaluation advised hospital found to have nephrostomy tube complication with blood clots coming out from right nephrostomy tube, therefore patient transfers from [facility] to [facility]. Patient was given IV fluid and 1 dose of IV ceftriaxone, patient's symptoms significantly improved including appetite, however continuing to have bleeding from nephrostomy tube. A review of systems: The patient was seen and examined at bedside. Overnight events were reviewed. Postoperative day 4, status post left 2nd toe amputation. Reports no pain at the surgical site. He reports improvement in pain at the site of buttock rash as well. Rest of the ROS is negative. Objective vital signs Vital Sign Date Time Temp Pulse Resp B/P (MAP) Pulse Ox O2 Delivery O2 Flow Rate FiO2 09/13/24 08:47 97.7 79 18 131/85 (100) 96 97.7 09/13/24 08:10 Room Air* 0 21 Total Intake and Output 09/12/24 09/12/24 09/13/24 15:00 23:00 07:00 Intake Total 347 ml 937 ml 300 ml Output Total 600 ml 850 ml Balance 347 ml 337 ml -550 ml medications Current Medications Medications Dose Ordered Sig/Etienne Route Start Time Stop Time Status Last Admin Dose Admin Nitroglycerin 0.4 mg Q5MINP PRN SL 09/08/24 03:15 Morphine Sulfate 2 mg Q30M PRN IV 09/08/24 03:15 Pantoprazole Sodium 40 mg DAILY@0600 PO 09/08/24 06:00 09/13/24 05:41 40 MG Atorvastatin Calcium 40 mg HS PO 09/08/24 22:00 09/12/24 22:32 40 MG Linezolid 300 ml @ 150 mls/hr Q12H IV 09/08/24 15:00 09/13/24 04:08 150 MLS/HR Calamine 1 applic QIDP PRN TOP 09/11/24 09:15 Ondansetron HCl 4 mg Q6HPRN PRN IV 09/11/24 13:30 Acetaminophen 650 mg Q4HP PRN PO 09/11/24 17:00 Betamethasone Dipropion Augmented 1 applic BID TOP 09/12/24 22:00 Meropenem 50 ml @ 17 mls/hr Q12HR IV 09/12/24 22:00 09/12/24 22:33 17 MLS/HR Examination General Appearance: Alert, Oriented X3, Cooperative, Mild distress HEENT: Atraumatic, Mucous membranes moist/pink Respiratory: Clear to auscultation, Normal air movement, No added sounds Cardiovascular: Regular rate, Normal S1, Normal S2, No murmurs Abdominal/ : Nephrostomy tube in place with 200 mL of red fluid collection. Active bowel sounds, Soft, no distention, no tenderness Extremities: Bandage wrapped around the left foot, right great 2nd toe, 3rd, 4th toes amputated. No soakage, No edema, Normal pulses, No tenderness/swelling Skin: Erythematous, scaly, and patchy rash over the left gluteal region extending to the lateral buttock. The area shows excoriation and mild discoloration, with no active bleeding or purulent discharge noted, no vesicles bulla or ulceration observed, appears consistent with irritant contact dermatitis possibly exacerbated by prolonged moisture friction Neuro: Normal speech, sensorimotor deficits none Psych/Mental Status: Mental status NL, Mood NL laboratory and microbiology Laboratory Tests 09/12/24 17:16 Test 09/12/24 17:16 Range/Units Serum Glucose 152 H 74-106 mg/dL Microbiology Date/Time Source Procedure Growth Status 09/11/24 15:56 Blood Blood Culture - Preliminary NO GROWTH AFTER 24 HOURS OF INCUBATION. Resulted 09/11/24 11:42 Voided Urine Urine Culture - Preliminary Resulted 09/08/24 23:00 Nose MRSA Screen - Final Complete Labs and/or images reviewed: Labs reviewed by me, Image(s) reviewed by me Problem List/Assessment/Plan Problem List/Assessment/Plan # Bleeding complication of rt nephrostomy tube History of right nephrostomy tube placed on 08/20/2024 in [facility] due to rt hydronephrosis. S/P IV antibiotic ertapenem and linezolid via midline. -CT abdomen and pelvis without contrast shows interval placement of right nephrostomy tube and improved hydronephrosis (done on 09/07/2024 at [facility]). -Continue Cefepime 2 gm daily -Hold Eliquis due to bleeding nephrostomy tube. -Urology consult done: Outpt left PCNL & cysto with right RPG possible stent. -Keep renner to gravity until Creat is at baseline. Labs pending -Follow-up UA, Ucx, blood cultures, pending -Monitor for any further bleeding. # Left 2nd toe cellulitis/ Osteomyelitis/ gangrene due to DM2 neuropathy or PAD -Wound cultures sent -Started Cefepime 2 gm daily and linezolid -Replace cefepime with meropenem -CT left foot showed Osteomyelitis in the 2nd middle and distal phalanx and to a lesser extent the 2nd proximal phalanx. Soft tissue gas and swelling overlying the 2nd toe compatible with infection. Extremity operation was performed today Left foot I&D to bone Left foot second toe amputation Left foot rotational flap Left foot delayed closure -Day 4 s/p left 2nd toe amputation and I and D: Vital signs stable, and vascular status intact with capillary refill intact to all digits. Deep cultures pending, patient can bear weight as as tolerated with a postoperative shoe -Blood culture repeated # Dermatitis in gluteal region -Betamethasone topical BID # Acute complicated UTI -Started Cefepime 2 gm daily # OLGA due to VMN with underlying CKD stage 3 -Monitor kidney function and urine electrolyte. -Avoid nephrotoxic drugs. # DM2 with peripheral neuropathy (HbA1c 5.8) -Hold home meds(Insulin Glargine and Munjaro) -Will resume insulin with monitoring blood sugars. # H/O cerebrovascular accident -continue statin # BPH with outflow obstruction -Indwelling Renner catheter # Peripheral arterial disease(PAD) -H/O amputation right 4th/5th and left great toe. -Atorvastatin 40 mg po daily -Vascular surgeon consulted # Anemia due to chronic disease -Hemoglobin 10.0, HCT 30.3. -Iron profile, Ferritin ordered -follow the stool for occult blood test. -Monitor for any signs symptoms of bleeding. Diet: Diabetic diet DVT PPX: SCDs GI prophylaxis: Pantoprazole 20 mg twice daily. Repeat blood and urine cultures Goals of care discussed with the patient for more than 27 minutes: DNR Case discussed with Dr. Rodriguez , patient and RN. Plan discussed with: Patient, Other (RN) My Orders My Orders Orders - MENDEZ CARDOZA Procedure Category Date Status Time Basic Metabolic Panel LAB 09/13/24 Logged 09:07 Complete Blood Count LAB 09/13/24 Logged 09:07 Dietary Evaluation Review Comments: Encoruage and monitor good PO intake to meet his needs @100% Promote healing through DM management Expected Outcomes/Goals: gradually healed bleeding site. Prevent uremic syndrome Date of Service: Sep 13, 2024 Billing Provider: SHA RODRIGUEZ MD Common Visit Codes: [id number] INP/OBS CARE(HIGH) MENDEZ CARDOZA RESIDENT Sep 13, 2024 09:19 SHA RODRIGUEZ MD Sep 13, 2024 23:09
[2024-09-13 10:16] LABS: Hematocrit 29.2 % (41.0-53.0); Hemoglobin 9.4 g/dL (13.5-17.5); Mean Corpuscular Hemoglobin 26.2 pg (28.0-32.0); Mean Corpuscular Volume 81.3 fL (80.0-100.0); Nucleated Red Blood Cells % 0.0 %
[2024-09-13 10:24] LABS: Potassium 3.9 mmol/L (3.5-5.1); Sodium 141 mmol/L (136-145)
[2024-09-13 10:25] LABS: Anion Gap 10 (5-15); Carbon Dioxide 23 mmol/L (20-31)
[2024-09-13 10:26] LABS: Calcium 9.7 mg/dL (8.7-10.4)
[2024-09-13 10:30] LABS: BUN/Creatinine Ratio 10.5 (10.0-20.0)
[2024-09-13 10:37] LABS: Blood Urea Nitrogen 29 mg/dL (9-23); Chloride 108 mmol/L (98-107); Glucose 126 mg/dL (74-106)
[2024-09-13] MEDS: ONDANSETRON HCL 4 MG/2 ML VIAL IV PRN (20:33)
[2024-09-14] VITALS (7 sets, daily range): BP systolic 111–131; BP diastolic 48–79; PULSE 104–109; RESP 15–20; TEMP 97.5–98.1; O2SAT 96–99
[2024-09-14] MEDS: ACETAMINOPHEN 325 MG TAB PO PRN (04:54)
--- NOTE | 2024-09-14 07:49 | ECG ---
[facility] Test Date: 2024-09-11 Test Time: 11:59:58 Pat Name: MIRIAM ALLEN Department: Respiratoy Room: 0218 A Gender: M Log Marker: ANA POTTER LVN : 1960 Requested By: KAMRAN SOL Order Number: [id number] Reading MD: Abiel Edwards Measurements Intervals [place] Rate: 113 P: 56 DE: 144 QRS: -24 QRSD: 80 T: 55 QT: 309 QTc: 424 Interpretive Statements Sinus tachycardia Borderline left axis deviation Electronically Signed On 09-17-2024 19:14:56 PDT by Abiel Edwards Please click the below link to view image of tracing.
[2024-09-14 09:31] LABS: Hematocrit 29.6 % (41.0-53.0); Hemoglobin 9.6 g/dL (13.5-17.5); Mean Corpuscular Hemoglobin 26.5 pg (28.0-32.0); Mean Corpuscular Volume 81.9 fL (80.0-100.0); Nucleated Red Blood Cells % 0.1 %
[2024-09-14] MEDS: CALAMINE TOPical LOTION180 ML TOP PRN (09:37)
[2024-09-14 09:41] LABS: Chloride 107 mmol/L (98-107); Potassium 3.8 mmol/L (3.5-5.1); Sodium 140 mmol/L (136-145)
[2024-09-14 09:42] LABS: Anion Gap 8 (5-15); Calcium 10.0 mg/dL (8.7-10.4); Carbon Dioxide 25 mmol/L (20-31)
[2024-09-14 09:47] LABS: BUN/Creatinine Ratio 10.0 (10.0-20.0); Blood Urea Nitrogen 30 mg/dL (9-23); Glucose 115 mg/dL (74-106)
--- NOTE | 2024-09-14 13:04 | DVHCONRES ---
Date Seen: Sep 14, 2024 Resident Creating Document: MADELAINE ASHRAF Jr., MD Referring Physician paz Reason for Consultation pad History of Present Illness 64 year old male with PMHx of BPH, cerebrovascular accident, chronic kidney disease stage 3, DVT, DM2 with peripheral neuropathy, HTN, HLD, hydronephrosis, peripheral vascular disease, recurrent urinary tract infection, right carotid artery occlusion, chronic indwelling Cannon catheter, left renal calculi. H/o rt sided nephrostomy tube placed on 08/20/2024 in [facility]. Patient BIBEMS to [facility] ER due to blood in right nephrostomy tube. Three weeks ago patient on hospitalized at [facility], was diagnosed with right- sided hydronephrosis and left-sided renal staghorn calculi and bacteremia, was sent home with IV antibiotics Ertapenam and Linezolid due to Urine culture showed Proteus mirabilis sensitive to meropenem and blood culture showed Staphylococcus hominis sensitive to linezolidare. Over the past 4-5 days, patient felt generalized weak actually showed with nausea and vomiting and loss of appetite that prompted visit to [facility] the being further evaluation advised hospital found to have nephrostomy tube complication with blood clots coming out from right nephrostomy tube, therefore patient transfers from [facility] to [facility]. Patient was given IV fluid and 1 dose of IV ceftriaxone, patient's symptoms significantly improved including appetite, however continuing to have bleeding from nephrostomy tube. For further evaluation patient will be admitted to the hospital. The patient during this admission has had left 2nd toe amputation. Of note the patient states he recently had an angiogram several weeks ago with [facility]. Past Medical History PMHX:BPH, CVA, CKD stage 3, DVT, DM2 with peripheral neuropathy, HTN, hydronephrosis, PVD, recurrent UTI, right carotid artery occlusion, chronic indwelling Cannon catheter, left renal calculi. Past Surgical History Multiple angiograms of lower extremity Toe amputation Family History: Angina G8 FATHER Diabetes mellitus G8 MOTHER Social History Former smoker Allergies: Coded Allergies: NO KNOWN ALLERGIES (Unverified , 08/18/24) Home Meds Unable to Obtain Active Prescriptions or Reported Meds Review of Systems All systems reviewed otherwise negative other than what is in HPI. Vital Signs Vital Signs Date Time Temp Pulse Resp B/P (MAP) Pulse Ox O2 Delivery O2 Flow Rate FiO2 09/14/24 09:00 97.5 105 15 131/73 (92) 99 97.5 09/14/24 08:00 Room Air* 0 21 Physical Exam Head eyes ears nose and throat exam eyes are nonicteric conjunctiva is pink neck was supple no JVD no lymphadenopathy no carotid bruits lungs are clear to auscultation heart was regular rate and rhythm abdomen is soft nontender with no pulsatile abdominal mass or bruits lower extremities palpable femoral pulses weakly palpable pedal pulses of the left foot has a a surgical bandage on in place. Labs/Diagnostic Data Labs Test 09/14/24 08:44 09/12/24 17:16 09/12/24 07:01 09/08/24 05:00 Range/Units White Blood Count 11.8 H 4.4-10.8 10^3/uL Red Blood Count 3.62 L 4.5-5.90 10^6/uL Hemoglobin 9.6 L 13.5-17.5 g/dL Hematocrit 29.6 L 41.0-53.0 % Mean Corpuscular Volume 81.9 80.0-100.0 fL Mean Corpuscular Hemoglobin 26.5 L 28.0-32.0 pg Mean Corpuscular Hemoglobin Concent 32.4 32.0-36.0 g/dL Red Cell Distribution Width 16.2 H 11.8-14.3 % Platelet Count 331 140-450 10^3/uL Mean Platelet Volume 6.8 L 6.9-10.8 fL Neutrophils (%) (Auto) 69.0 37.0-80.0 % Lymphocytes (%) (Auto) 22.7 10.0-50.0 % Monocytes (%) (Auto) 6.6 0.0-12.0 % Eosinophils (%) (Auto) 1.1 0.0-7.0 % Basophils (%) (Auto) 0.6 0.0-2.0 % Neutrophils # (Auto) 8.2 1.6-8.6 10 ^3/uL Lymphocytes # (Auto) 2.7 0.4-5.4 10 ^3/uL Monocytes # (Auto) 0.8 0-1.3 10 ^3/uL Eosinophils # (Auto) 0.1 0-0.8 10 ^3/uL Basophils # (Auto) 0.1 0-0.2 10 ^3/uL Nucleated Red Blood Cells 0.1 % Sodium Level 140 136-145 mmol/L Potassium Level 3.8 3.5-5.1 mmol/L Chloride Level 107 98-107 mmol/L Carbon Dioxide Level 25 20-31 mmol/L Anion Gap 8 5-15 Blood Urea Nitrogen 30 H 9-23 mg/dL Creatinine 3.00 H 0.700-1.30 mg/dL Glomerular Filtration Rate Calc 22 >90 mL/min BUN/Creatinine Ratio 10.0 10.0-20.0 Serum Glucose 115 H 74-106 mg/dL Calcium Level 10.0 8.7-10.4 mg/dL Total Bilirubin 0.2 0.2-1.0 mg/dL Aspartate Amino Transferase (AST) 20 13-40 U/L Alanine Aminotransferase (ALT) 13 7-40 U/L Alkaline Phosphatase 76 46-116 U/L Total Protein 6.9 5.7-8.2 g/dL Albumin 3.7 3.2-4.8 g/dL Lactic Acid Level 0.9 0.4-2.0 mmol/L Urine Color Red H Yellow Urine Clarity Ex.turbid Clear Urine pH 7.0 5.0-9.0 Urine Specific [place] 1.006 1.001-1.035 Urine Protein 2+ H Negative Urine Ketones Negative Negative Urine Blood 3+ H Negative /uL Urine Nitrite Negative Negative Urine Bilirubin Negative Negative Urine Urobilinogen Normal Negative mg/dL Urine Leukocyte Esterase 3+ Negative /uL Urine RBC 3054 0 - 3 /hpf Urine WBC Clumps Present None Seen /hpf Urine Microscopic WBC 986 H 0-3 /HPF Urine Squamous Epithelial Cells None seen <5 /hpf Urine Bacteria None seen None Seen /hpf Urine Hyaline Casts Few 0 - 2 /lpf Urine Mucus Few None Seen Urine Creatinine 16.32 L 30.0-125.0 mg/dL Urine Protein/Creatinine Ratio 24.99 Urine Sodium 95 40-220 mmol/L Urine Glucose Normal Normal mg/dL Urine Total Protein 407.9 H 1-14 mg/dL Urine Opiates Screen Neg NEGATIVE Urine Fentanyl Screen Neg NEGATIVE Urine Barbiturates Screen Neg NEGATIVE Urine Phencyclidine Screen Neg NEGATIVE Urine Amphetamines Screen Neg NEGATIVE Urine Benzodiazepines Screen Neg NEGATIVE Urine Cocaine Screen Neg NEGATIVE Urine Cannabinoids Screen Pos NEGATIVE Test 09/08/24 04:00 09/08/24 00:37 7/1/25 00:29 Range/Units Iron Level 92 65-175 ug/dL Total Iron Binding Capacity 210 L 250-425 ug/dL Percent Iron Saturation 43.8 20-55 % Ferritin 189.8 22-322 ng/mL Direct Bilirubin < 0.1 <0.3 mg/dL POC Glucose 96 70-106 mg/dl Prothrombin Time 11.8 9.3-11.8 sec Prothrombin Time INR 1.13 0.9-1.15 B-Type Natriuretic Peptide 19.26 0-100 pg/mL Thyroid Stimulating Hormone (TSH) 3.79 0.55-4.78 uIU/mL Microbiology Date/Time Source Procedure Growth Status 09/11/24 15:56 Blood Blood Culture - Preliminary NO GROWTH AFTER 48 HOURS OF INCUBATION. Resulted 09/11/24 11:42 Voided Urine Urine Culture - Final Complete 09/08/24 23:00 Nose MRSA Screen - Final Complete Assessment History of peripheral vascular disease recent toe amputation and recent angiogram. At this point in time no further vascular procedures necessary. Would follow up with primary vascular surgeon. Plan/Recommendation History of peripheral vascular disease recent toe amputation and recent angiogram. At this point in time no further vascular procedures necessary. Would follow up with primary vascular surgeon. Plan discussed with: Patient MADELAINE ASHRAF Jr., MD Sep 14, 2024 13:04
--- NOTE | 2024-09-14 13:28 | DVHPNRES ---
Progress Note Date Seen: Sep 14, 2024 Resident Creating Document: ELLIE BURR RESIDENT Medical Necessity Reason Pt with a Central, PICC or Fol: Yes The following are medically ne: Renner Catheter Subjective Review of Systems Vicente Luther is a 64 year old male with PMHx of BPH, cerebrovascular accident, chronic kidney disease stage 3, DVT, DM2 with peripheral neuropathy, HTN, HLD, hydronephrosis, peripheral vascular disease, recurrent urinary tract infection, right carotid artery occlusion, chronic indwelling Renner catheter, left renal calculi. H/o rt sided nephrostomy tube placed on 08/20/2024 in [facility]. Patient BIBEMS to [facility] ER due to blood in right nephrostomy tube. Three weeks ago patient on hospitalized at [facility], was diagnosed with right-sided hydronephrosis and left-sided renal staghorn calculi and bacteremia, was sent home with IV antibiotics Ertapenem and Linezolid due to Urine culture showed Proteus mirabilis sensitive to meropenem and blood culture showed Staphylococcus hominis sensitive to linezolid. Over the past 4-5 days, patient felt generalized weak actually showed with nausea and vomiting and loss of appetite that prompted visit to [facility] the being further evaluation advised hospital found to have nephrostomy tube complication with blood clots coming out from right nephrostomy tube, therefore patient transfers from [facility] to [facility]. Patient was given IV fluid and 1 dose of IV ceftriaxone, patient's symptoms significantly improved including appetite, however continuing to have bleeding from nephrostomy tube. A review of systems: The patient was seen and examined at bedside. Overnight events were reviewed. 09/14 interval events Postoperative day 5, status post left 2nd toe amputation. The patient reports no pain at the surgical site. The patient reports improvement in pain at the site of the buttock rash. The patient denies any shortness of breath, chest pain, fever, chills or any other complaint. Patient reports: Feels better Objective vital signs Vital Sign Date Time Temp Pulse Resp B/P (MAP) Pulse Ox O2 Delivery O2 Flow Rate FiO2 09/14/24 09:00 97.5 105 15 131/73 (92) 99 97.5 09/14/24 08:00 Room Air* 0 21 Total Intake and Output 09/13/24 09/13/24 09/14/24 15:00 23:00 07:00 Intake Total 50 ml 920 ml 650 ml Output Total 801 ml 451 ml Balance 50 ml 119 ml 199 ml medications Current Medications Medications Dose Ordered Sig/Etienne Route Start Time Stop Time Status Last Admin Dose Admin Nitroglycerin 0.4 mg Q5MINP PRN SL 09/08/24 03:15 Morphine Sulfate 2 mg Q30M PRN IV 09/08/24 03:15 Pantoprazole Sodium 40 mg DAILY@0600 PO 09/08/24 06:00 09/14/24 05:00 40 MG Atorvastatin Calcium 40 mg HS PO 09/08/24 22:00 09/13/24 21:41 40 MG Linezolid 300 ml @ 150 mls/hr Q12H IV 09/08/24 15:00 09/14/24 03:42 150 MLS/HR Calamine 1 applic QIDP PRN TOP 09/11/24 09:15 09/14/24 09:37 1 APPLIC Ondansetron HCl 4 mg Q6HPRN PRN IV 09/11/24 13:30 09/13/24 20:33 4 MG Acetaminophen 650 mg Q4HP PRN PO 09/11/24 17:00 09/14/24 04:54 650 MG Betamethasone Dipropion Augmented 1 applic BID TOP 09/12/24 22:00 09/14/24 09:37 1 APPLIC Meropenem 50 ml @ 17 mls/hr Q12HR IV 09/12/24 22:00 09/14/24 09:37 17 MLS/HR Examination General Appearance: Alert, Oriented X3, Cooperative, Mild distress HEENT: Atraumatic, Mucous membranes moist/pink Respiratory: Clear to auscultation, Normal air movement, No added sounds Cardiovascular: Regular rate, Normal S1, Normal S2, No murmurs Abdominal/ : Nephrostomy tube in place with 200 mL of red fluid collection. Active bowel sounds, Soft, no distention, no tenderness Extremities: Bandage wrapped around the left foot, right great 2nd toe, 3rd, 4th toes amputated. No soakage, No edema, Normal pulses, No tenderness/swelling Skin: Erythematous, scaly, and patchy rash over the left gluteal region extending to the lateral buttock. There is a dressing placed on his sacral area, surrounded by erythematous skin. The area shows excoriation and mild discoloration, with no active bleeding or purulent discharge noted, no vesicles bulla or ulceration observed, appears consistent with irritant contact dermatitis possibly exacerbated by prolonged moisture friction Neuro: Normal speech, sensorimotor deficits none Psych/Mental Status: Mental status NL, Mood NL laboratory and microbiology Laboratory Tests 09/14/24 08:44 Test 09/14/24 08:44 Range/Units Serum Glucose 115 H 74-106 mg/dL Microbiology Date/Time Source Procedure Growth Status 09/11/24 15:56 Blood Blood Culture - Preliminary NO GROWTH AFTER 48 HOURS OF INCUBATION. Resulted 09/11/24 11:42 Voided Urine Urine Culture - Final Complete 09/08/24 23:00 Nose MRSA Screen - Final Complete Labs and/or images reviewed: Labs reviewed by me, Image(s) reviewed by me Problem List/Assessment/Plan Problem List/Assessment/Plan # Bleeding complication of rt nephrostomy tube History of right nephrostomy tube placed on 08/20/2024 in [facility] due to rt hydronephrosis. S/P IV antibiotic ertapenem and linezolid via midline. CT abdomen and pelvis without contrast shows interval placement of right nephrostomy tube and improved hydronephrosis (done on 09/07/2024 at [facility]). Continue Cefepime 2 gm daily Hold Eliquis due to bleeding nephrostomy tube. Urology consult done: Outpt left PCNL & cysto with right RPG possible stent. Keep renner to gravity until Creat is at baseline. Follow-up UA, Ucx, blood cultures Monitor for any further bleeding. # Left 2nd toe cellulitis/ Osteomyelitis/ gangrene due to DM2 neuropathy or PAD Wound cultures sent Discontinued for oropharynx home health with PT and IV antibiotics Cefepime 2 gm daily and linezolid. Replace cefepime with meropenem CT left foot showed Osteomyelitis in the 2nd middle and distal phalanx and to a lesser extent the 2nd proximal phalanx. Soft tissue gas and swelling overlying the 2nd toe compatible with infection. Extremity operation was performed today Left foot I&D to bone Left foot second toe amputation Left foot rotational flap Left foot delayed closure Day 5 s/p left 2nd toe amputation and I and D: Vital signs stable, and vascular status intact with capillary refill intact to all digits. Blood culture repeated, # Dermatitis/ Ulcer in gluteal region Betamethasone topical BID Wound care was consulted and dressing in place # Acute complicated UTI Cefepime was replaced with meropenem. # OLGA on VMN with underlying CKD stage 3 Continue IV fluid NSS 75 CC/HR Monitor kidney function and urine electrolyte. Avoid nephrotoxic drugs. # DM2 with peripheral neuropathy HBA1c 5.8 Hold home meds.(Insulin Glargine and Munjaro) Will resume insulin with monitoring blood sugars. # H/O cerebrovascular accident continue statin # BPH with outflow obstruction Indwelling Renner catheter # peripheral arterial disease(PAD) H/O amputation right 4th/5th and left great toe. Atorvastatin 40 mg po daily Vascular surgeon consulted advised At this point in time no further vascular procedures necessary. Would follow up with primary vascular surgeon. # Anemia due to chronic disease Hemoglobin 10.0, HCT 30.3. Iron profile, Ferritin ordered follow the stool for occult blood test. Monitor for any signs symptoms of bleeding. Diet: Diabetic diet DVT PPX: SCDs GI prophylaxis: Pantoprazole 20 mg twice daily. Repeat blood and urine cultures Goals of care discussed with the patient for more than 27 minutes: DNR Case discussed with Dr. Rodriguez , patient and RN. Repeat urine and blood culture preliminary negative. Possible DC tomorrow. Plan discussed with: Patient, Other (RN) Dietary Evaluation Review Comments: Encoruage and monitor good PO intake to meet his needs @100% Promote healing through DM management Expected Outcomes/Goals: gradually healed bleeding site. Prevent uremic syndrome Date of Service: Sep 14, 2024 Billing Provider: SHA RODRIGUEZ MD Common Visit Codes: [id number] INP/OBS CARE(HIGH) ELLIE BURR RESIDENT Sep 14, 2024 13:28 WAQAS FLORES RESIDENT Sep 14, 2024 16:00 SHA RODRIGUEZ MD Sep 14, 2024 19:32
[2024-09-14] MEDS: DOXYCYCLINE 100MG/100ML 100 ML IV SCH (21:51)
[2024-09-15] VITALS (7 sets, daily range): BP systolic 107–140; BP diastolic 44–83; PULSE 98–109; RESP 16–20; TEMP 97.2–98.4; O2SAT 97–99
[2024-09-15 06:02] LABS: Hematocrit 29.8 % (41.0-53.0); Hemoglobin 9.8 g/dL (13.5-17.5); Mean Corpuscular Hemoglobin 27.3 pg (28.0-32.0); Mean Corpuscular Volume 82.7 fL (80.0-100.0); Nucleated Red Blood Cells % 0.1 %
[2024-09-15 06:57] LABS: Alanine Aminotransferase 13 U/L (7-40); Albumin 3.8 g/dL (3.2-4.8); Alkaline Phosphatase 84 U/L (46-116); Anion Gap 9 (5-15); BUN/Creatinine Ratio 11.0 (10.0-20.0); Calcium 9.1 mg/dL (8.7-10.4); Carbon Dioxide 24 mmol/L (20-31); Chloride 107 mmol/L (98-107); Glucose 89 mg/dL (74-106); Potassium 4.1 mmol/L (3.5-5.1); Sodium 140 mmol/L (136-145); Total Protein 7.2 g/dL (5.7-8.2)
[2024-09-15 06:58] LABS: Bilirubin, Total 0.2 mg/dL (0.2-1.0); Blood Urea Nitrogen 32 mg/dL (9-23)
--- NOTE | 2024-09-15 07:21 | ECG ---
[facility] Test Date: 2024-09-11 Test Time: 11:59:01 Pat Name: MIRIAM ALLEN Department: Respiratoy Room: 0218 A Gender: M Distillation Operator: ANA POTTER LVN : 1960 Requested By: KAMRAN SOL Order Number: [id number] Reading MD: Abiel Edwards Measurements Intervals [place] Rate: 113 P: 59 [place]: 141 QRS: -19 QRSD: 81 T: 60 QT: 335 QTc: 460 Interpretive Statements Sinus tachycardia Borderline left axis deviation Electronically Signed On 09-17-2024 19:14:50 PDT by Abiel Edwards Please click the below link to view image of tracing.
[2024-09-15] MEDS: SODIUM CHLORIDE 0.9% 500 ML IV ONE (12:50)
[2024-09-15] MEDS ORDERED: DOXY1CAP58 PO (14:15)
--- NOTE | 2024-09-15 16:52 | DVHDSRES ---
Discharge Summary Date of Admission Resident Creating Document: ELLIE BURR Sep 08, 2024 at 03:13 Date of Discharge: Sep 15, 2024 Admitting Diagnosis Malfunctioning of nephrostomy tube Labs/Diagnostic Data: Laboratory Results Test 09/15/24 06:29 09/15/24 05:31 09/15/24 01:13 09/12/24 07:01 Sodium Level 140 mmol/L (136-145) Potassium Level 4.1 mmol/L (3.5-5.1) Chloride Level 107 mmol/L (98-107) Carbon Dioxide Level 24 mmol/L (20-31) Anion Gap 9 (5-15) Blood Urea Nitrogen 32 mg/dL (9-23) Creatinine 2.92 mg/dL (0.700-1.30) Glomerular Filtration Rate Calc 23 mL/min (>90) BUN/Creatinine Ratio 11.0 (10.0-20.0) Serum Glucose 89 mg/dL (74-106) Calcium Level 9.1 mg/dL (8.7-10.4) Total Bilirubin 0.2 mg/dL (0.2-1.0) Aspartate Amino Transferase (AST) 17 U/L (13-40) Alanine Aminotransferase (ALT) 13 U/L (7-40) Alkaline Phosphatase 84 U/L (46-116) Total Protein 7.2 g/dL (5.7-8.2) Albumin 3.8 g/dL (3.2-4.8) White Blood Count 10.5 10^3/uL (4.4-10.8) Red Blood Count 3.61 10^6/uL (4.5-5.90) Hemoglobin 9.8 g/dL (13.5-17.5) Hematocrit 29.8 % (41.0-53.0) Mean Corpuscular Volume 82.7 fL (80.0-100.0) Mean Corpuscular Hemoglobin 27.3 pg (28.0-32.0) Mean Corpuscular Hemoglobin Concent 32.9 g/dL (32.0-36.0) Red Cell Distribution Width 16.6 % (11.8-14.3) Platelet Count 281 10^3/uL (140-450) Mean Platelet Volume 6.3 fL (6.9-10.8) Neutrophils (%) (Auto) 68.5 % (37.0-80.0) Lymphocytes (%) (Auto) 23.4 % (10.0-50.0) Monocytes (%) (Auto) 6.2 % (0.0-12.0) Eosinophils (%) (Auto) 1.4 % (0.0-7.0) Basophils (%) (Auto) 0.5 % (0.0-2.0) Neutrophils # (Auto) 7.2 10 ^3/uL (1.6-8.6) Lymphocytes # (Auto) 2.5 10 ^3/uL (0.4-5.4) Monocytes # (Auto) 0.7 10 ^3/uL (0-1.3) Eosinophils # (Auto) 0.1 10 ^3/uL (0-0.8) Basophils # (Auto) 0.1 10 ^3/uL (0-0.2) Nucleated Red Blood Cells 0.1 % Stool Occult Blood Negative (Negative) Stool Occult Blood Sample #3 (Negative) Lactic Acid Level 0.9 mmol/L (0.4-2.0) Test 09/08/24 05:00 09/08/24 04:00 09/08/24 00:37 09/08/24 00:29 Urine Color Red (Yellow) Urine Clarity Ex.turbid (Clear) Urine pH 7.0 (5.0-9.0) Urine Specific [place] 1.006 (1.001-1.035) Urine Protein 2+ (Negative) Urine Ketones Negative (Negative) Urine Blood 3+ /uL (Negative) Urine Nitrite Negative (Negative) Urine Bilirubin Negative (Negative) Urine Urobilinogen Normal mg/dL (Negative) Urine Leukocyte Esterase 3+ /uL (Negative) Urine RBC 3054 /hpf (0 - 3) Urine WBC Clumps Present /hpf (None Seen) Urine Microscopic WBC 986 /HPF (0-3) Urine Squamous Epithelial Cells None seen /hpf (<5) Urine Bacteria None seen /hpf (None Seen) Urine Hyaline Casts Few /lpf (0 - 2) Urine Mucus Few (None Seen) Urine Creatinine 16.32 mg/dL (30.0-125.0) Urine Protein/Creatinine Ratio 24.99 Urine Sodium 95 mmol/L (40-220) Urine Glucose Normal mg/dL (Normal) Urine Total Protein 407.9 mg/dL (1-14) Urine Opiates Screen Neg (NEGATIVE) Urine Fentanyl Screen Neg (NEGATIVE) Urine Barbiturates Screen Neg (NEGATIVE) Urine Phencyclidine Screen Neg (NEGATIVE) Urine Amphetamines Screen Neg (NEGATIVE) Urine Benzodiazepines Screen Neg (NEGATIVE) Urine Cocaine Screen Neg (NEGATIVE) Urine Cannabinoids Screen Pos (NEGATIVE) Iron Level 92 ug/dL (65-175) Total Iron Binding Capacity 210 ug/dL (250-425) Percent Iron Saturation 43.8 % (20-55) Ferritin 189.8 ng/mL (22-322) Direct Bilirubin < 0.1 mg/dL (<0.3) POC Glucose 96 mg/dl (70-106) Prothrombin Time 11.8 sec (9.3-11.8) Prothrombin Time INR 1.13 (0.9-1.15) B-Type Natriuretic Peptide 19.26 pg/mL (0-100) Thyroid Stimulating Hormone (TSH) 3.79 uIU/mL (0.55-4.78) Other Laboratory Tests 09/15/24 06:29 09/15/24 05:31 Brief Hx & Hospital Course: 64-year-old male who came with him past medical history of BPH, cerebrovascular accident, CKD stage 3, DVT, DM 2 with peripheral neuropathy, hypertension, hyperlipidemia hydronephrosis, peripheral vascular disease, recurrent UTI, right carotid artery occlusion, chronic indwelling Cannon catheter left renal calculi came to the hospital due to right nephrostomy tube complication. There was blood in the right nephrostomy tube. Cefepime 2 g IV daily was given. Eliquis was held due to bleeding. Releasing consulted and outpatient left PCNL and cysto with right RPG possible stent was advised. Keep Cannon until creatinine is at baseline. Urine and blood culture showed no growth. The patient was diagnosed with left 2nd toe cellulitis osteomyelitis and gangrene secondary to diabetes mellitus no neuropathy or peripheral artery disease, status post left 2nd toe amputation and I and D culture was sent. antibiotic was changed to meropenem. Then, ertapenem was replaced with doxycycline. Patient could be sent home on doxycycline.. vital signs were stable. Vascular surgery was consulted: There are no vascular procedures indicated at this time. Pressure ulcer in gluteal region was taken care by wound consult. Topical betamethasone was applied.. Patient's condition was improved, hemodynamically stable and in condition to be discharged with the home. The patient agreed with the discharge plan. The patient is afebrile and stable during discharge. We are discharging patient with a doxycycline b.i.d. for 2 weeks and advised to follow up with Podiatry and Urology. General Appearance: Alert, Oriented X3, Cooperative, Mild distress HEENT: Atraumatic, Mucous membranes moist/pink Respiratory: Clear to auscultation, Normal air movement, No added sounds Cardiovascular: Regular rate, Normal S1, Normal S2, No murmurs Abdominal/ : Nephrostomy tube in place with 200 mL of red fluid collection. Active bowel sounds, Soft, no distention, no tenderness Extremities: Bandage wrapped around the left foot, right great 2nd toe, 3rd, 4th toes amputated. No soakage, No edema, Normal pulses, No tenderness/swelling Skin: Erythematous, scaly, and patchy rash over the left gluteal region extending to the lateral buttock. There is a dressing placed on his sacral area, surrounded by erythematous skin. The area shows excoriation and mild discoloration, with no active bleeding or purulent discharge noted, no vesicles bulla or ulceration observed, appears consistent with irritant contact dermatitis possibly exacerbated by prolonged moisture friction Neuro: Normal speech, sensorimotor deficits none Psych/Mental Status: Mental status NL, Mood NL Operations or Procedures CLINICAL INDICATION: CELLULITIS TECHNIQUE: Noncontrast CT of the left foot was performed. Sagittal and coronal reformatted images are provided. IMPRESSION: 1. Osteomyelitis in the 2nd middle and distal phalanx and to a lesser extent the 2nd proximal phalanx. Soft tissue gas and swelling overlying the 2nd toe compatible with infection. 2. Dorsal subcutaneous edema, nonspecific but may reflect cellulitis. All CT scans at this medical facility are performed using dose modulation techniques as appropriate to a performed exam including the following: Automated exposure control was utilized; adjustment of the MA and/or KV according to patient size; and use of iterative reconstruction technique. ---- CHEST RADIOGRAPH IMPRESSION: 1. No acute disease. ----- Operative Report - 2 Report Details Date: 09/09/24 Preop Diagnosis: 1. Left 2nd toe osteomyelitis 2. Left 2nd toe abscess 3. Left 2nd toe cellulitis 4. Left 2nd toe gangrene Postop Diagnosis: Same as preop Surgeon: Doug Anderson MD Anesthesiologist: See anesthesia Anesthesia: Mac Consent: The patient was informed of the risks and benefits of the procedure. These include but are not limited to complications of anesthesia, postoperative infection, incomplete relief of symptoms, recurrence of symptoms, damage to blood vessels, nerves and tendons, deep venous thrombosis, pulmonary embolism and possible need for repeat surgery in the future. Complications: None Estimated Blood Loss: Minimal Fluids: See anesthesia Findings: Consistent with the diagnosis Indications for Surgery: Worsening left foot wound Name of Procedure Performed 1. Left foot I&D to bone (71208) 2. Left foot second toe amputation (43933) 3. Left foot rotational flap (13559) 4. Left foot delayed closure (71890) Procedure Details Procedure Details: PRE-PROCEDURE INFORMATION: In the pre-op holding area, the extremity to be operated on was clearly marked and the patient verified correct laterality of the marking. The patient was transferred to the OR table and placed in a supine position. A timeout was performed in which identification of the correct patient, procedure, location, and materials was done. The left foot and leg were prepped and draped in normal sterile fashion. DESCRIPTION OF PROCEDURE: Attention was directed to the left where area of fluctuance was noted. An incision was made over this area and was deepened through blunt dissection. The incision was deepened to the level of abscess and bone. Care was taken to the dissection to avoid any neurovascular and tendinous structures. The incision was deepened to the bone, and the abscess appeared to be purulent fluid consistent with pus. The cortices of the bone was then removed with rongeur an all necrotic tissue. After the abscess was drained, the area was irrigated with 3 L normal saline using cysto tubing. Deep cultures were then obtained from the wound. The area was then inspected and any areas of tracking, especially along the tendons were also drained. Attention was directed to the left 2nd toe where was determined that the bone was too infected and amputation was need performed. Using a 15. Blade the toe was disarticulated at the MPJ. Due to the soft tissue deficit, rotational advancement flap was designed medially to laterally and elevated preserving vascularity. A delayed closure was then performed using 2-0 nylon after was deemed appropriate with no longer concern for infection. POSTOPERATIVE INFORMATION: The patient tolerated the above noted procedure and anesthesia well and was transferred to the PACU with vital signs stable, and vascular status intact with capillary refill intact to all digits. Patient will return to the floor and continue antibiotics. Deep cultures were taken. Patient can be discharged home on p.o. antibiotics. Patient can weightbear as tolerated with a postoperative shoe. Condition at Discharge: Stable Final Diagnosis/Problems List # Bleeding complication of rt nephrostomy tube # Left 2nd toe cellulitis/ Osteomyelitis/ gangrene due to DM2 neuropathy or PAD # Acute complicated UTI # Dermatitis/ Ulcer in gluteal region # OLGA on VMN with underlying CKD stage 3 # DM2 with peripheral neuropathy # H/O cerebrovascular accident # BPH with outflow obstruction # peripheral arterial disease(PAD) # Anemia due to chronic disease Discharge Disposition: Home Discharge Instruct/Medications Diet: Consistent carbohydrate, Cardiac 2g Na,low cholest Activity: No Restrictions, As Tolerated Follow Up/Referral: Podiatry and urology of the discharge Medications: Doxycycline 2 times daily for 15 days Resume home medications Scheduled Doxycycline (Monohydrate) (Doxycycline), 100 MG PO BID Discharge Statement: "Patient was advised to return to the ER or call 911 if any headaches, dizziness, shortness of breath, chest pain, abdominal pain, bleeding, fevers, or worsening of medical condition. Patient was counseled about treatment plan, medications, possible side effects, patientverbalized understanding. All questions were answered to the best of my ability. This discharge took greater then 30 minutes in planning, reviewing documentation, counseling the patient, and discussing with other team members." ASSESSMENT ASSESSMENT Assessment # Bleeding complication of rt nephrostomy tube # Left 2nd toe cellulitis/ Osteomyelitis/ gangrene due to DM2 neuropathy or PAD # Acute complicated UTI # Dermatitis/ Ulcer in gluteal region # OLGA on VMN with underlying CKD stage 3 # DM2 with peripheral neuropathy # H/O cerebrovascular accident # BPH with outflow obstruction # peripheral arterial disease(PAD) # Anemia due to chronic disease Date of Service: Sep 15, 2024 Billing Provider: SHA RODRIGUEZ MD Common Visit Codes: [id number] INP/OBS CARE(HIGH) ELLIE BURR RESIDENT Sep 15, 2024 16:52 WAQAS FLORES RESIDENT Sep 15, 2024 17:33 SHA RODRIGUEZ MD Sep 15, 2024 23:07
[2024-09-16 01:00] VITALS: BP 149/91; PULSE 107; RESP 18; TEMP 98.2; O2SAT 98
[2024-09-16 05:00] VITALS: BP 130/78; PULSE 104; RESP 18; TEMP 98.4; O2SAT 99
[2024-09-16 08:36] VITALS: BP 142/76; PULSE 111; RESP 18; TEMP 97.6; O2SAT 100
[2024-09-16] MEDS: DOXYCYCLINE 100 MG TAB/CAP PO SCH (11:03)
[2024-09-16 13:00] VITALS: BP_SYST 113; BP_SYST 120; BP_DIAS 77; BP_DIAS 84; PULSE 107; PULSE 96; RESP 18; TEMP 97; TEMP 98; O2SAT 94; O2SAT 99
[2024-09-16 16:30] VITALS: BP 117/75; PULSE 64; RESP 20; TEMP 98.2; O2SAT 94
--- NOTE | 2024-09-16 17:22 | DVHPNRES ---
Progress Note Date Seen: Sep 16, 2024 Resident Creating Document: ELLIE BURR RESIDENT Medical Necessity Reason Pt with a Central, PICC or Fol: Yes The following are medically ne: Renner Catheter Subjective Review of Systems Review of Systems Vicente Luther is a 64 year old male with PMHx of BPH, cerebrovascular accident, chronic kidney disease stage 3, DVT, DM2 with peripheral neuropathy, HTN, HLD, hydronephrosis, peripheral vascular disease, recurrent urinary tract infection, right carotid artery occlusion, chronic indwelling Renner catheter, left renal calculi. H/o rt sided nephrostomy tube placed on 08/20/2024 in [facility]. Patient BIBEMS to [facility] ER due to blood in right nephrostomy tube. Three weeks ago patient on hospitalized at [facility], was diagnosed with right-sided hydronephrosis and left-sided renal staghorn calculi and bacteremia, was sent home with IV antibiotics Ertapenem and Linezolid due to Urine culture showed Proteus mirabilis sensitive to meropenem and blood culture showed Staphylococcus hominis sensitive to linezolid. Over the past 4-5 days, patient felt generalized weak actually showed with nausea and vomiting and loss of appetite that prompted visit to [facility] the being further evaluation advised hospital found to have nephrostomy tube complication with blood clots coming out from right nephrostomy tube, therefore patient transfers from [facility] to [facility]. Patient was given IV fluid and 1 dose of IV ceftriaxone, patient's symptoms significantly improved including appetite, however continuing to have bleeding from nephrostomy tube. A review of systems: The patient was seen and examined at bedside. Overnight events were reviewed. 09/16 interval events Postoperative day 5, status post left 2nd toe amputation. The patient reports no pain at the surgical site. The patient reports improvement in pain at the site of the buttock rash. The patient denies any shortness of breath, chest pain, fever, chills or any other complaint. Patient initially refused to do PT evaluation yesterday. This morning when we had a conversation with the patient, he agreed to do PT evaluation. Most likely discharge within 24 hours. Social Service on board Patient reports: Feels better Patient reports: No new complaints, Feels better Objective vital signs Vital Sign Date Time Temp Pulse Resp B/P (MAP) Pulse Ox O2 Delivery O2 Flow Rate FiO2 09/16/24 13:00 97.0 107 18 120/77 (91) 99 97.0 09/16/24 08:00 Room Air* 0 21 Total Intake and Output 09/15/24 09/15/24 09/16/24 15:00 23:00 07:00 Intake Total 600 ml 600 ml Output Total 970 ml 850 ml Balance -370 ml -250 ml medications Current Medications Medications Dose Ordered Sig/Etienne Route Start Time Stop Time Status Last Admin Dose Admin Nitroglycerin 0.4 mg Q5MINP PRN SL 09/08/24 03:15 Morphine Sulfate 2 mg Q30M PRN IV 09/08/24 03:15 Pantoprazole Sodium 40 mg DAILY@0600 PO 09/08/24 06:00 09/16/24 06:23 40 MG Atorvastatin Calcium 40 mg HS PO 09/08/24 22:00 09/15/24 21:45 40 MG Calamine 1 applic QIDP PRN TOP 09/11/24 09:15 09/14/24 09:37 1 APPLIC Ondansetron HCl 4 mg Q6HPRN PRN IV 09/11/24 13:30 09/13/24 20:33 4 MG Acetaminophen 650 mg Q4HP PRN PO 09/11/24 17:00 09/14/24 20:18 650 MG Betamethasone Dipropion Augmented 1 applic BID TOP 09/12/24 22:00 09/16/24 11:03 1 APPLIC Doxycycline Monohydrate 100 mg Q12HR PO 09/16/24 10:00 09/16/24 11:03 100 MG Examination General Appearance: Alert, Oriented X3, Cooperative, Mild distress HEENT: Atraumatic, Mucous membranes moist/pink Respiratory: Clear to auscultation, Normal air movement, No added sounds Cardiovascular: Regular rate, Normal S1, Normal S2, No murmurs Abdominal/ : Nephrostomy tube in place with 200 mL of red fluid collection. Active bowel sounds, Soft, no distention, no tenderness Extremities: Bandage wrapped around the left foot, right great 2nd toe, 3rd, 4th toes amputated. No soakage, No edema, Normal pulses, No tenderness/swelling Skin: Erythematous, scaly, and patchy rash over the left gluteal region extending to the lateral buttock. There is a dressing placed on his sacral area, surrounded by erythematous skin. The area shows excoriation and mild discoloration, with no active bleeding or purulent discharge noted, no vesicles bulla or ulceration observed, appears consistent with irritant contact dermatitis possibly exacerbated by prolonged moisture friction Neuro: Normal speech, sensorimotor deficits none Psych/Mental Status: Mental status NL, Mood NL laboratory and microbiology Laboratory Tests 09/15/24 06:29 09/15/24 05:31 Test 09/15/24 06:29 Range/Units Serum Glucose 89 74-106 mg/dL Microbiology Date/Time Source Procedure Growth Status 09/11/24 15:56 Blood Blood Culture - Final NO GROWTH AFTER 5 DAYS OF INCUBATION. Complete 09/11/24 11:42 Voided Urine Urine Culture - Final Complete 09/08/24 23:00 Nose MRSA Screen - Final Complete Labs and/or images reviewed: Labs reviewed by me, Image(s) reviewed by me Problem List/Assessment/Plan Problem List/Assessment/Plan # Bleeding complication of rt nephrostomy tube History of right nephrostomy tube placed on 08/20/2024 in [facility] due to rt hydronephrosis. S/P IV antibiotic ertapenem and linezolid via midline. CT abdomen and pelvis without contrast shows interval placement of right nephrostomy tube and improved hydronephrosis (done on 09/07/2024 at [facility]). Continue Cefepime 2 gm daily Hold Eliquis due to bleeding nephrostomy tube. Urology consult done: Outpt left PCNL & cysto with right RPG possible stent. Keep renner to gravity until Creat is at baseline. Follow-up UA, Ucx, blood cultures Monitor for any further bleeding. # Left 2nd toe cellulitis/ Osteomyelitis/ gangrene due to DM2 neuropathy or PAD Wound cultures sent Discontinued for oropharynx home health with PT and IV antibiotics Cefepime 2 gm daily and linezolid. Replace cefepime with meropenem CT left foot showed Osteomyelitis in the 2nd middle and distal phalanx and to a lesser extent the 2nd proximal phalanx. Soft tissue gas and swelling overlying the 2nd toe compatible with infection. Extremity operation was performed today Left foot I&D to bone Left foot second toe amputation Left foot rotational flap Left foot delayed closure s/p left 2nd toe amputation and I and D: Vital signs stable, and vascular status intact with capillary refill intact to all digits. Blood culture repeated, # Dermatitis/ Ulcer in gluteal region Betamethasone topical BID Wound care was consulted and dressing in place # Acute complicated UTI Cefepime was replaced with meropenem. # OLGA on VMN with underlying CKD stage 3 Continue IV fluid NSS 75 CC/HR Monitor kidney function and urine electrolyte. Avoid nephrotoxic drugs. # DM2 with peripheral neuropathy HBA1c 5.8 Hold home meds.(Insulin Glargine and Munjaro) Will resume insulin with monitoring blood sugars. # H/O cerebrovascular accident continue statin # BPH with outflow obstruction Indwelling Renner catheter # peripheral arterial disease(PAD) H/O amputation right 4th/5th and left great toe. Atorvastatin 40 mg po daily Vascular surgeon consulted # Anemia due to chronic disease Hemoglobin 10.0, HCT 30.3. Iron profile, Ferritin ordered follow the stool for occult blood test. Monitor for any signs symptoms of bleeding. Diet: Diabetic diet DVT PPX: SCDs GI prophylaxis: Pantoprazole 20 mg twice daily. Repeat blood and urine cultures My the patient is stable. Most likely discharge within the next 24 hours, discharging home Goals of care discussed with the patient for more than 27 minutes: DNR Case discussed with Dr. Rodriguez , patient and RN. Repeat urine and blood culture. Plan discussed with: Patient Dietary Evaluation Review Comments: Encoruage and monitor good PO intake to meet his needs @100% Promote healing through DM management Expected Outcomes/Goals: gradually healed bleeding site. Prevent uremic syndrome Date of Service: Sep 16, 2024 Billing Provider: SHA RODRIGUEZ MD Common Visit Codes: [id number] INP/OBS CARE(HIGH) ELLIE BURR RESIDENT Sep 16, 2024 17:22 SHA RODRIGUEZ MD Sep 17, 2024 06:11
== END 2024-09-16 20:40 | disposition home or self-care (01) | DRG 255 ==
LOC: EDBD 23:58 → ER 23:58 → OVERFLOW 09-08 03:13 → CENTRAL 09-08 17:16
PROVIDERS: ADMIT Internal Medicine; ATTEND Internal Medicine
PROC: 05HA33Z Insertion of Infusion Device into Left Brachial Vein, Percutaneous Approach (ICD-10-PCS; 2024-09-08)
PROC: B54NZZA Ultrasonography of Left Upper Extremity Veins, Guidance (ICD-10-PCS; 2024-09-08)
PROC: 0Y6S0Z0 Detachment at Left 2nd Toe, Complete, Open Approach (ICD-10-PCS; 2024-09-09)
PROC: 0Y9N0ZZ Drainage of Left Foot, Open Approach (ICD-10-PCS; 2024-09-09)
PROC: 0JXR0ZZ Transfer Left Foot Subcutaneous Tissue and Fascia, Open Approach (ICD-10-PCS; principal; 2024-09-09 14:02)
DX: E11.52 Type 2 diabetes mellitus with diabetic peripheral angiopathy with gangrene (principal); N17.0 Acute kidney failure with tubular necrosis; T83.83XA Hemorrhage due to genitourinary prosthetic devices, implants and grafts, initial encounter; L02.612 Cutaneous abscess of left foot; N39.0 Urinary tract infection, site not specified; N13.8 Other obstructive and reflux uropathy; M86.8X7 Other osteomyelitis, ankle and foot; L03.032 Cellulitis of left toe; Z66 Do not resuscitate; E11.42 Type 2 diabetes mellitus with diabetic polyneuropathy; D63.1 Anemia in chronic kidney disease; N18.30 Chronic kidney disease, stage 3 unspecified; E78.5 Hyperlipidemia, unspecified; L98.419 Non-pressure chronic ulcer of buttock with unspecified severity; N40.1 Benign prostatic hyperplasia with lower urinary tract symptoms; E11.22 Type 2 diabetes mellitus with diabetic chronic kidney disease; I12.9 Hypertensive chronic kidney disease with stage 1 through stage 4 chronic kidney disease, or unspecified chronic kidney disease; Z79.899 Other long term (current) drug therapy; Z86.73 Personal history of transient ischemic attack (TIA), and cerebral infarction without residual deficits; Z83.3 Family history of diabetes mellitus; Z90.49 Acquired absence of other specified parts of digestive tract; Z93.6 Other artificial openings of urinary tract status; Z87.442 Personal history of urinary calculi; Y84.8 Other medical procedures as the cause of abnormal reaction of the patient, or of later complication, without mention of misadventure at the time of the procedure; Y92.89 Other specified places as the place of occurrence of the external cause
CPT/HCPCS: 36415; 71045; 73700; 80048; 80053; 80076; 80307; 81001; 82270; 82570; 82728; 82962; 83540; 83550; 83605; 83880; 84156; 84300; 84443; 85025; 85610; 87040; 87081; 87086; 93005; 96361; 96365; 97163; G0378; J0692; J2185; J2250; J2405; J2543; J2704; J3490

== ENCOUNTER 2025-02-12 11:39 | Inpatient (IN) | payer MEDICARE, MEDICAID ==
[~2025-02-12] VITALS: Ht 172.7 cm; Wt 71.7 kg
[~2025-02-12 11:39] MED LIST: DOXY1CAP58 PO
[2025-02-12 12:00] VITALS: PULSE 90; RESP 12; O2SAT 99
--- NOTE | 2025-02-12 12:33 | ED.PDOC ---
History of Present Illness HPI Comments This is a 64 year old male SHUNA presenting to the ED with chief complaint of tube replacement. Patient reports that his right nephrostomy tube had became accidentally dislodged and removed from him, needing to come in today to have it replaced. Patient denies any dysuria, hematuria, abdominal pain, N/V, or fever. Chief Complaint: Tube Replacement Time Seen by MD: 12:32 Reviewed Notes: Nurses Notes, Caregiver Assisted Living Notes, Medications, Allergies Allergies: Coded Allergies: NO KNOWN ALLERGIES (Unverified , 08/18/24) Home Meds Active Scripts Doxycycline (Monohydrate) (Doxycycline) 100 Mg Cap, 100 MG PO BID for 14 Days, #28 CAP Prov:WAQAS FLORES RESIDENT 09/15/24 Information Source: Patient, Emergency Med Personnel Mode of Arrival: EMS Severity: Moderate Timing: Hours Duration: Since onset Prehospital treatment: None Past Medical History PAST MEDICAL HISTORY: Anemia, CKF, CVA, DM, UTI'S Surgical History (Other): Nephrostomy, Cannon catheter, PEG tube Family History Family History: Reviewed,noncontributory to illness, No family hx of Cancer, No family hx of DM, No family hx of Heart chaka, No family hx of HTN, No family hx ofKidney chaka, No family hx of Liver chaka, No family hx of Lung chaka, No family hx of Stroke Social History Smoker: Non-Smoker Alcohol: Denies ETOH Use Drugs: Marijuana Lives In: Home Constitutional: denies: chills, diaphoresis, fatigue, fever, malaise, sweats, weakness, others EENTM: denies: blurred vision, double vision, ear bleeding, ear discharge, ear drainage, ear pain, ear ringing, eye pain, eye redness, hearing loss, mouth pain, mouth swelling, nasal discharge, nose bleeding, nose congestion, nose pain, photophobia, tearing, throat pain, throat swelling, voice changes, others Respiratory: denies: cough, hemoptysis, orthopnea, SOB at rest, shortness of breath, SOB with excertion, stridor, wheezing, others Cardiovascular: denies: chest pain, dizzy spells, diaphoresis, Dyspnea on exertion, edema, irregular heart beat, left arm pain, lightheadedness, palpitations, PND, syncope, others Gastrointestinal: denies: abdomen distended, abdominal pain, blood streaked bowels, constipated, diarrhea, dysphagia, difficulty swallowing, hematemesis, melena, nausea, poor appetite, poor fluid intake, rectal bleeding, rectal pain, vomiting, others Genitourinary: reports: others (Nephrostomy tube displaced); denies: burning, dysuria, flank pain, frequency, hematuria, incontinence, penile discharge, penile sore, pain, testicle pain, testicle swelling, urgency Neurological: denies: dizziness, fainting, headache, left sided numbness, left sided weakness, numbness, paresthesia, pre-existing deficit, right sided numbness, right sided weakness, seizure, speech problems, tingling, tremors, weakness, others Musculoskeletal: denies: back pain, gout, joint pain, joint swelling, muscle pain, muscle stiffness, neck pain, others Integumetry: denies: bruises, change in color, change in hair/nails, dryness, laceration, lesions, lumps, rash, wounds, others Allergic/Immunocompromised: denies: Difficulty Healing, Frequent Infections, Hives, Itching, others Hematologic/Lymphatic: denies: anemia, blood clots, easy bleeding, easy bruising, swollen glands, others Endocrine: denies: excessive hunger, excessive sweating, excessive thirst, excessive urination, flushing, intolerance to cold, intolerance to heat, unexplained weight gain, unexplained weight loss, others Psychiatric: denies: anxiety, bipolar disorder, depression, hopeless, panic disorder, schizophrenia, sleepless, suicidal, others All Other Systems: Reviewed and Negative Physical Exam General Appearance: No Apparent Distress, Normal HEENT: Normal ENT Inspection, Pharynx Normal, TMs Normal Neck: Full Range of Motion, Non-Tender, Normal, Normal Inspection Respiratory: Chest Non-Tender, Lungs Clear, No Accessory Muscle Use, No Respiratory Distress, Normal Breath Sounds Cardiovascular: No Edema, No JVD, No Murmur, No Gallop, Normal Peripheral Pulses, Regular Rate/Rhythm Breast Exam: Deferred Gastrointestinal: No Organomegaly, Non Tender, No Pulsatile Mass, Normal Bowel Sounds, Soft, Other (PEG tube in place. Nephrostomy tube site hole noted.) Genitalia: Other (Cannon catheter in place.) Pelvic: Deferred Rectal: Deferred Extremities: No calf tenderness, Normal capillary refill, Normal inspection, Normal range of motion, Non-tender, No pedal edema Musculoskeletal : Apperance: Normal Neurologic: Alert, area relief pilot II-XII nml as Tested, No Motor Deficits, Normal Affect, Normal Mood, No Sensory Deficits Cerebellar Function: Normal Reflexes: Normal Skin: Dry, Normal Color, Warm Lymphatic: No Adenopathy Was a procedure done? Was a procedure done?: No Differential Dx Considerations may include: Nephrostomy Tube Dislocation X-Ray, Labs, Meds, VS Vital Signs Date Time Temp Pulse Resp B/P (MAP) Pulse Ox O2 Delivery O2 Flow Rate FiO2 02/12/25 16:00 90 15 141/70 (93) 96 02/12/25 15:00 93 11 117/63 (81) 99 02/12/25 12:10 98.6 87 18 110/88 99 98.6 02/12/25 12:00 90 12 99 Room Air* 0 21 02/12/25 12:00 90 12 112/59 (76) 99 Lab Test 02/12/25 12:44 02/12/25 12:37 Range/Units White Blood Count 17.2 H 4.4-10.8 10^3/uL Red Blood Count 4.27 L 4.5-5.90 10^6/uL Hemoglobin 12.4 L 13.5-17.5 g/dL Hematocrit 40.1 L 41.0-53.0 % Mean Corpuscular Volume 94.0 80.0-100.0 fL Mean Corpuscular Hemoglobin 29.0 28.0-32.0 pg Mean Corpuscular Hemoglobin Concent 30.9 L 32.0-36.0 g/dL Red Cell Distribution Width 13.6 11.8-14.3 % Platelet Count 281 140-450 10^3/uL Mean Platelet Volume 6.4 L 6.9-10.8 fL Neutrophils (%) (Auto) 77.6 37.0-80.0 % Lymphocytes (%) (Auto) 13.1 10.0-50.0 % Monocytes (%) (Auto) 8.0 0.0-12.0 % Eosinophils (%) (Auto) 0.8 0.0-7.0 % Basophils (%) (Auto) 0.5 0.0-2.0 % Neutrophils # (Auto) 13.3 H 1.6-8.6 10 ^3/uL Lymphocytes # (Auto) 2.2 0.4-5.4 10 ^3/uL Monocytes # (Auto) 1.4 H 0-1.3 10 ^3/uL Eosinophils # (Auto) 0.1 0-0.8 10 ^3/uL Basophils # (Auto) 0.1 0-0.2 10 ^3/uL Nucleated Red Blood Cells 0.0 % Prothrombin Time 10.9 9.3-11.8 sec Prothrombin Time INR 1.03 0.9-1.15 Activated Partial Thromboplast Time 25.6 24.5-34.5 SEC Sodium Level 138 136-145 mmol/L Potassium Level 3.4 L 3.5-5.1 mmol/L Chloride Level 110 H 98-107 mmol/L Carbon Dioxide Level 15 L 20-31 mmol/L Anion Gap 13 5-15 Blood Urea Nitrogen 48 H 9-23 mg/dL Creatinine 3.01 H 0.700-1.30 mg/dL Glomerular Filtration Rate Calc 22 >90 mL/min BUN/Creatinine Ratio 15.9 10.0-20.0 Serum Glucose 93 74-106 mg/dL Calcium Level 10.0 8.7-10.4 mg/dL Total Bilirubin 0.2 0.2-1.0 mg/dL Direct Bilirubin < 0.1 <0.3 mg/dL Aspartate Amino Transferase (AST) 17 13-40 U/L Alanine Aminotransferase (ALT) 12 7-40 U/L Alkaline Phosphatase 78 46-116 U/L Total Protein 8.8 H 5.7-8.2 g/dL Albumin 4.0 3.2-4.8 g/dL Current Medications Medications (Trade) Dose Ordered Sig/Etienne Route Start Time Stop Time Status Last Admin Lactated Ringer's 2,100 ml @ 2,100 mls/hr ONCE ONCE IV 02/12/25 15:00 02/12/25 15:59 DC 02/12/25 17:27 Vancomycin HCl 250 ml @ 250 mls/hr ONCE ONCE IV 02/12/25 15:00 02/12/25 15:59 DC 02/12/25 15:00 Time of 1ST Reevaluation: 13:30 Reevaluation 1ST: Unchanged Patient Education/Counseling: Diagnosis, Treatment Family Education/Counseling: No Family Present SEPSIS Sepsis Screen Date sepsis recognized/suspect: Feb 12, 2025 Time Sepsis recognized/suspect: 6 Recent Procedure: No On Antibiotic Therapy: No Respiratory Rate >20: No Heart Rate >90: No Temp<36 C (96.8 F) or >38.3 C: No SBP <90 or MAP <65 mmHG: No New Acute Mental Status Change: No Is the patient on CPAP, BIPAP,: No Physician Orders Chest Portable (02/12/25 12:18) * Urology Consult (02/12/25 12:18) Blood Culture (02/12/25 14:49) Lactic Acid W/ Reflex Order (02/12/25 16:00) Notify Md If Map <65 Or Bp<90 (02/12/25 14:49) If Map<65 Start Vasopressor (02/12/25 14:49) Sepsis Reassesment After Fluid (02/12/25 15:49) Vital Signs Date Time Temp Pulse Resp B/P (MAP) Pulse Ox O2 Delivery O2 Flow Rate FiO2 02/12/25 16:00 90 15 141/70 (93) 96 02/12/25 15:00 93 11 117/63 (81) 99 02/12/25 12:10 98.6 87 18 110/88 99 98.6 02/12/25 12:00 90 12 99 Room Air* 0 21 02/12/25 12:00 90 12 112/59 (76) 99 Laboratory Tests Test 02/12/25 12:44 White Blood Count 17.2 10^3/uL (4.4-10.8) H Medications Medications Dose Ordered Sig/Etienne Route Start Time Stop Time Status Last Admin Dose Admin Lactated Ringer's 2,100 ml @ 2,100 mls/hr ONCE ONCE IV 02/12/25 15:00 02/12/25 15:59 DC 02/12/25 17:27 Vancomycin HCl 250 ml @ 250 mls/hr ONCE ONCE IV 02/12/25 15:00 02/12/25 15:59 DC 02/12/25 15:00 Departure 1 Departure Time of Disposition: 20:44 (A displaced nephrostomy tube and concern for possible developing sepsis. We will admit patient for further workup and expert consultation) Impression: Primary Impression: Suspected sepsis Additional Impression: Nephrostomy tube displaced Disposition: 09 ADMITTED INPATIENT Admit to: Med Surg Condition: Guarded Critical Care Note Critical Care Time?: Yes Critical care comment: Suspected sepsis Authorized and Performed by: Tiffani Shea MD Total critical care time: Approximately 38 minutes Due to a high probability of clinically significant, life threatening deterioration, the patient required my highest level of preparedness to in [facility] emergently and I personally spent this critical care time directly and personally managing the patient. This critical care time included obtaining a history; examining the patient; pulse oximetry; ordering and review of studies; arranging urgent treatment with development of a management plan; evaluation of patient's response to treatment; frequent reassessment; and, discussions with other providers. This critical care time was performed to assess and manage the high probability of imminent, life-threatening deterioration that could result in multi-organ failure. It was exclusive of separately billable procedures and treating other patients and teaching time. Please see my other sections and the rest of the note for further information on patient assessment and treatment. Stability Stability form required: No Heart Score Heart Score: Heart Score Response (Comments) Value History N/A 0 EKG N/A 0 Age N/A 0 Risk Factors N/A 0 Troponin N/A 0 Total 0 I personally scribed for TIFFANI SHEA MD ([email or web address]) on 02/12/25 at 12:33. Electronically submitted by Doug Hubbard ([email or web address]). TIFFANI SHEA MD Feb 12, 2025 12:33
[2025-02-12 12:59] LABS: Hematocrit 40.1 % (41.0-53.0); Hemoglobin 12.4 g/dL (13.5-17.5); Mean Corpuscular Hemoglobin 29.0 pg (28.0-32.0); Mean Corpuscular Volume 94.0 fL (80.0-100.0); Nucleated Red Blood Cells % 0.0 %
[2025-02-12 13:05] LABS: Sodium 138 mmol/L (136-145)
[2025-02-12 13:06] LABS: Anion Gap 13 (5-15); Calcium 10.0 mg/dL (8.7-10.4)
[2025-02-12 13:08] LABS: Potassium 3.4 mmol/L (3.5-5.1)
[2025-02-12 13:09] LABS: Carbon Dioxide 15 mmol/L (20-31); Chloride 110 mmol/L (98-107)
[2025-02-12 13:11] LABS: BUN/Creatinine Ratio 15.9 (10.0-20.0); Glucose 93 mg/dL (74-106)
[2025-02-12 13:12] LABS: Blood Urea Nitrogen 48 mg/dL (9-23)
--- NOTE | 2025-02-12 13:17 | DVH ---
XY CHEST PORTABLE, HISTORY: weakness, displaced nephrostomy tube COMPARISON: XR CHEST 1 VIEW on DOS: 12/19/24, XR CHEST 1 VIEW on DOS: 10/10/24, XY CHEST XRAY 1 VIEW on DOS: 09/08/24 XR CHEST 1 VIEW on DOS: 12/19/24, XR CHEST 1 VIEW on DOS: 10/10/24, XY CHEST XRAY 1 VIEW on DOS: 09/08/24 TECHNICAL DATA: 1 view of the chest was obtained. FINDINGS: Lines and tubes: None Cardiomediastinal silhouette: normal Pulmonary vasculature: normal Lung expansion: normal Lung airspace: normal Lung interstitium: normal Pleura: normal Pneumothorax: no Bones: Unremarkable Other: no IMPRESSION: No acute intrathoracic abnormality.
[2025-02-12 13:20] LABS: INR 1.03 (0.9-1.15); Partial Thromboplastin Time 25.6 SEC (24.5-34.5); Prothrombin Time 10.9 sec (9.3-11.8)
[2025-02-12] MEDS: CEFEPIME 1GM/50ML 50 ML IV ONE (15:00)
[2025-02-12] MEDS: VANCOMYCIN 1GM/250ML KIT 250 ML IV ONE (15:00)
[2025-02-12] MEDS: MEROPENEM 1GM IVPB 50 ML IV ONE (16:30)
[2025-02-12] MEDS: SODIUM CHLORIDE 0.9% 1,000 ML IV SCH (16:30)
[2025-02-12] MEDS ORDERED: HYDROcodone-ACET 5/325MG TAB PO PRN (16:30)
[2025-02-12 17:23] LABS: Alanine Aminotransferase 12 U/L (7-40); Albumin 4.0 g/dL (3.2-4.8); Alkaline Phosphatase 78 U/L (46-116)
[2025-02-12 17:24] LABS: Bilirubin, Direct < 0.1 mg/dL (<0.3); Bilirubin, Total 0.2 mg/dL (0.2-1.0); Total Protein 8.8 g/dL (5.7-8.2)
[2025-02-12] MEDS: LACTATED RINGER'S 2,100 ML IV ONE (17:27)
[2025-02-12] MEDS: LINEZOLID 600MG/300ML 300 ML IV SCH (18:00)
--- NOTE | 2025-02-12 18:33 | DVHHP2 ---
History of Present Illness History of Present Illness 64-year-old male with past medical history of CKD, anemia, CVA, DVT, recurrent UTIs, and chronic nephrostomy tube dependence, presenting after accidental dislodgement of his right nephrostomy tube. He reports that the tube came out today and was unable to be replaced at home. He denies dysuria, hematuria, abdominal pain, nausea, vomiting, fever, chills, or flank pain. No recent antibiotics at home. He has a history of osteomyelitis and multiple toe amputations with chronic foot wounds, currently bandaged, with CT of both feet pending to evaluate for possible recurrence. He has a prior history of MDR urinary infections and recent osteomyelitis requiring IV antibiotics. In the ED, he was started on linezolid and meropenem due to concern for sepsis and past MDR pathogens. Vitals stable, remains afebrile. Ultrasound of the lower extremities was ordered due to prior DVT history, as anticoagulation is being held pending nephrostomy tube replacement. Past Medical History Anemia, CKD, CVA, DVT, recurrent UTIs, PAD Past Surgical History Nephrostomy tube due to renal calculi, Cannon catheter, PEG tube, multiple toe amputations. Social History Non-smoker. Denies alcohol use. Uses marijuana. Lives at home. Review of Systems As per HPI. All other systems reviewed and negative. Review of Systems Allergies: Coded Allergies: NO KNOWN ALLERGIES (Unverified , 08/18/24) Medications Current Medications Medications Dose Ordered Sig/Etienne Route Start Time Stop Time Status Last Admin Dose Admin Sodium Chloride 1,000 ml @ 60 mls/hr [id number] IV 02/12/25 16:30 Acetaminophen 650 mg Q6HP PRN PO 02/12/25 16:30 Acetaminophen/ Hydrocodone Bitart 1 tab Q4HP PRN PO 02/12/25 16:30 Meropenem 50 ml @ 17 mls/hr BID IV 02/13/25 10:00 Linezolid 300 ml @ 150 mls/hr Q12HR@0600,1800 IV 02/12/25 18:00 Exam Vital Signs Vital Signs Date Time Temp Pulse Resp B/P (MAP) Pulse Ox O2 Delivery O2 Flow Rate FiO2 02/12/25 16:00 90 15 141/70 (93) 96 02/12/25 12:10 98.6 98.6 02/12/25 12:00 Room Air* 0 21 Exam General: Alert, oriented, cooperative, no distress. HEENT: Atraumatic, mucous membranes moist and pink. Respiratory: Clear to auscultation, normal effort. Cardiovascular: Regular rate and rhythm, normal pulses. Abdomen: Soft, nondistended, nontender. PEG tube in place. : Right nephrostomy tube absent; site appears clean without active bleeding or purulence. Extremities: Foot wrapped with bandage; amputations noted. No edema. Neuro: Normal speech, no focal deficits. Skin: Warm, dry, no new rashes. Psych: Normal mood and affect. Labs/Xrays Labs Test 02/12/25 12:44 02/12/25 12:37 Range/Units White Blood Count 17.2 H 4.4-10.8 10^3/uL Red Blood Count 4.27 L 4.5-5.90 10^6/uL Hemoglobin 12.4 L 13.5-17.5 g/dL Hematocrit 40.1 L 41.0-53.0 % Mean Corpuscular Volume 94.0 80.0-100.0 fL Mean Corpuscular Hemoglobin 29.0 28.0-32.0 pg Mean Corpuscular Hemoglobin Concent 30.9 L 32.0-36.0 g/dL Red Cell Distribution Width 13.6 11.8-14.3 % Platelet Count 281 140-450 10^3/uL Mean Platelet Volume 6.4 L 6.9-10.8 fL Neutrophils (%) (Auto) 77.6 37.0-80.0 % Lymphocytes (%) (Auto) 13.1 10.0-50.0 % Monocytes (%) (Auto) 8.0 0.0-12.0 % Eosinophils (%) (Auto) 0.8 0.0-7.0 % Basophils (%) (Auto) 0.5 0.0-2.0 % Neutrophils # (Auto) 13.3 H 1.6-8.6 10 ^3/uL Lymphocytes # (Auto) 2.2 0.4-5.4 10 ^3/uL Monocytes # (Auto) 1.4 H 0-1.3 10 ^3/uL Eosinophils # (Auto) 0.1 0-0.8 10 ^3/uL Basophils # (Auto) 0.1 0-0.2 10 ^3/uL Nucleated Red Blood Cells 0.0 % Prothrombin Time 10.9 9.3-11.8 sec Prothrombin Time INR 1.03 0.9-1.15 Activated Partial Thromboplast Time 25.6 24.5-34.5 SEC Sodium Level 138 136-145 mmol/L Potassium Level 3.4 L 3.5-5.1 mmol/L Chloride Level 110 H 98-107 mmol/L Carbon Dioxide Level 15 L 20-31 mmol/L Anion Gap 13 5-15 Blood Urea Nitrogen 48 H 9-23 mg/dL Creatinine 3.01 H 0.700-1.30 mg/dL Glomerular Filtration Rate Calc 22 >90 mL/min BUN/Creatinine Ratio 15.9 10.0-20.0 Serum Glucose 93 74-106 mg/dL Calcium Level 10.0 8.7-10.4 mg/dL Total Bilirubin 0.2 0.2-1.0 mg/dL Direct Bilirubin < 0.1 <0.3 mg/dL Aspartate Amino Transferase (AST) 17 13-40 U/L Alanine Aminotransferase (ALT) 12 7-40 U/L Alkaline Phosphatase 78 46-116 U/L Total Protein 8.8 H 5.7-8.2 g/dL Albumin 4.0 3.2-4.8 g/dL SEPSIS Sepsis Screen Date sepsis recognized/suspect: Feb 12, 2025 Time Sepsis recognized/suspect: 1135 Recent Procedure: No On Antibiotic Therapy: No Respiratory Rate >20: No Heart Rate >90: No Temp<36 C (96.8 F) or >38.3 C: No SBP <90 or MAP <65 mmHG: No New Acute Mental Status Change: No Is the patient on CPAP, BIPAP,: No Physician Orders Chest Portable (02/12/25 12:18) * Urology Consult (02/12/25 12:18) Blood Culture (02/12/25 14:49) Lactic Acid W/ Reflex Order (02/12/25 16:00) Cefepime 1gm/50ml (Maxipime 1gm/50ml) (02/12/25 15:00) Notify Md If Map <65 Or Bp<90 (02/12/25 14:49) If Map<65 Start Vasopressor (02/12/25 14:49) Sepsis Reassesment After Fluid (02/12/25 15:49) Admit (02/12/25 16:23) Code Status (02/12/25 16:23) Vital Signs .PER UNIT PROTOCOL (02/12/25 16:23) Review Orders With Adm.Md (02/12/25 16:23) Consistent Carb(Ccho)Diabetes (02/12/25 Dinner) Sodium Chloride 0.9% (02/12/25 16:30) Acetaminophen Tablet (Tylenol Tablet) (02/12/25 16:30) Notify Md Of Changes From Base (02/12/25 16:23) Advance Directive (02/12/25 16:23) Patient Condition (02/12/25 16:23) Allergies (02/12/25 16:23) Hydrocodone-Acet 5/325mg Tab ([place] 32 (02/12/25 16:30) Oxygen By Nasal Cannula (02/12/25 16:23) Stat Ekg For Chest Pain (02/12/25 16:23) Notify Md Of Changes From Base (02/12/25 16:23) Inspector Floor For 24 Hours (02/12/25 16:23) Emergency Dysrhythmia Protocol (02/12/25 16:23) Rhythm Strips Once Every Shift (02/12/25 16:23) Urinalysis (02/12/25 16:26) Meropenem 500mg Ivpb (Merrem 500mg/50ml (02/13/25 10:00) Linezolid 600mg/300ml (Zyvox) (02/12/25 18:00) Urine Bacterial Culture (02/12/25 16:36) Ct L Foot Wo Contrast (02/12/25 17:00) Ct R Foot Wo Contrast (02/12/25 17:00) Vital Signs Date Time Temp Pulse Resp B/P (MAP) Pulse Ox O2 Delivery O2 Flow Rate FiO2 02/12/25 16:00 90 15 141/70 (93) 96 02/12/25 15:00 93 11 117/63 (81) 99 02/12/25 12:10 98.6 87 18 110/88 99 98.6 02/12/25 12:00 90 12 99 Room Air* 0 21 02/12/25 12:00 90 12 112/59 (76) 99 Laboratory Tests Test 02/12/25 12:44 White Blood Count 17.2 10^3/uL (4.4-10.8) H Medications Medications Dose Ordered Sig/Etienne Route Start Time Stop Time Status Last Admin Dose Admin Lactated Ringer's 2,100 ml @ 2,100 mls/hr ONCE ONCE IV 02/12/25 15:00 02/12/25 15:59 DC 02/12/25 17:27 2,100 MLS/HR Assessment/Plan Assessment/Plan # Sepsis due to possible UTI vs Osteomyelitis Given leukocytosis, OLGA, acidosis, nephrostomy tube dislodgement, and high risk due to MDR history, sepsis remains a concern despite afebrile presentation. Broad coverage with linezolid and meropenem is appropriate; continue IV fluids, follow cultures, monitor hemodynamics. # OLGA on Chronic Kidney Disease He presents with elevated creatinine above baseline, in the setting of infection and possible dehydration. Continue renal-adjusted doses of antibiotics, trend renal function, avoid nephrotoxins, and maintain adequate hydration. # Rule out osteomyelitis #H/o PAD History of osteomyelitis with multiple amputations raises concern for recurrence. CT of both feet is pending; continue broad antibiotics and consult podiatry once imaging results are available. # Dislodged Nephrostomy Tube Needs replacement after urology evaluation. Anticoagulation is held appropriately; maintain sterility of the site and monitor for infection or bleeding. Await procedure scheduling. # History of Deep Vein Thrombosis Anticoagulation withheld due to planned procedure. Duplex ultrasound ordered to determine if clot is present and reassess need for resumption afterward. # Type 2 Diabetes Mellitus Continue glucose monitoring and adjust insulin as needed while inpatient. Maintain consistent carbohydrate diet and avoid hypoglycemia with renal dosing. # Anemia, today admissions normal Stable compared to prior values and likely chronic in the setting of CKD. Monitor CBC; transfusion not indicated at this time. #Ho stroke #PEG tube Tube feedings Case discussed with Dr Dexter Full code Plan discussed with: Patient, Other (rn) My Orders Orders - ELLIE MELVIN RESIDENT Procedure Category Date Status Time Admit ADMIT 02/12/25 Transmitted 16:23 Code Status CODE 02/12/25 Transmitted 16:23 Vital Signs CARLOS A 02/12/25 In Process 16:23 Review Orders With CARLOS A 02/12/25 In Process Adm. 16:23 Consistent DIET 02/12/25 Transmitted Carb(Ccho)Diabetes Dinner Sodium Chloride 0.9% PHA 02/12/25 In Process 16:30 Acetaminophen Tablet PHA 02/12/25 In Process (Tylenol Tablet) 16:30 Notify Md Of Changes [facility] 02/12/25 In Process From Base 16:23 Advance Directive CARLOS A 02/12/25 In Process 16:23 Patient Condition ORDERS 02/12/25 Transmitted 16:23 Allergies CARLOS A 02/12/25 In Process 16:23 Hydrocodone-Acet PHA 02/12/25 In Process 5/325mg Tab ([place] 16:30 Oxygen By Nasal RT 02/12/25 Transmitted Cannula 16:23 Stat Ekg For Chest CARLOS A 02/12/25 In Process Pain 16:23 Notify Md Of Changes [facility] 02/12/25 In Process From Base 16:23 Inspector Floor For [facility] 02/12/25 In Process 24 Hours 16:23 Emergency Dysrhythmia [facility] 02/12/25 In Process Protocol 16:23 Rhythm Strips Once [facility] 02/12/25 In Process Every Shift 16:23 Urinalysis LAB 02/12/25 Logged 16:26 Meropenem 500mg Ivpb PHA 02/13/25 In Process (Merrem 500mg/50ml 10:00 Linezolid 600mg/300ml PHA 02/12/25 In Process (Zyvox) 18:00 Urine Bacterial [place] 02/12/25 Logged Culture 16:36 Ct L Foot Wo Contrast CT 02/12/25 Logged 17:00 Ct R Foot Wo Contrast CT 02/12/25 Logged 17:00 Date of Service: Feb 12, 2025 Billing Provider: ELLIE MELVIN Common Visit Codes: 72097-[id number] INP/OBS CARE (HIGH) Secondary Visit Codes: 53746-[id number] CARE PLAN 30 MINUTES ELLIE MELVIN Feb 12, 2025 18:33
[2025-02-12] MEDS ORDERED: Glucerna 1.2 Cal 1Liter BOTTLE GT SCH (19:00)
[2025-02-12 19:45] VITALS: PULSE 90; RESP 18; O2SAT 97
--- NOTE | 2025-02-12 19:55 | DVH ---
EXAM: CT CT R FOOT WO CONTRAST HISTORY: rule out abcess COMPARISON: CT CT L FOOT WO CONTRAST on DOS: 09/08/24, LEFT XR FOOT 3+ VIEWS on DOS: 08/18/24, RIGHT XR FOOT 3+ VIEWS on DOS: 08/18/24, LEFT XR FOOT 2 VIEWS on DOS: 03/05/23, LEFT XR FOOT 3+ VIEWS on DOS: 12/18/22 TECHNIQUE: Noncontrast axial CT images of the right hip were performed. Sagittal and coronal reformatted images were obtained. This CT exam was performed using one or more of the following dose reduction techniques: Automated exposure control, adjustment of the mA and/or kV according to patient size, or use of iterative reconstruction technique. Radiation Dose Information: CT Dose: CTDI volume is 7.75 mGy. Dose-length product is 205.12 mGy*cm FINDINGS: The bones are severely demineralized and heterogeneous. Status post 4th and 5th digit amputation. Partial amputation of the 3rd digit. There is soft tissue swelling surrounding the 2nd digit without osseous erosion. There is severe atrophy of the intrinsic muscles of the foot. There are moderate subtalar and tibiotalar joint degenerative changes. Moderate degenerative changes within the midfoot. IMPRESSION: Status post 4th, 5th, and partial 3rd digit amputations. Soft tissue swelling of the 2nd digit without CT evidence of osteomyelitis or abscess. MRI is more sensitive. Severely demineralized bone Severe atrophy of the intrinsic muscles of the foot. Moderate hindfoot and midfoot degenerative change
--- NOTE | 2025-02-12 20:13 | DVH ---
EXAM: US BILAT LOWER DVT HISTORY: rule out dvt COMPARISON: LEFT US VENOUS EXTREMITY LOWER LTD on DOS: 12/19/22 TECHNIQUE: Duplex Doppler evaluation of the deep venous systems of both lower extremities from the common femoral veins to the popliteal veins including color Doppler and spectral/pulsed waveform analysis was performed. FINDINGS: RIGHT SIDE: The common femoral vein demonstrates appropriate compressibility and waveform variability. There is compressibility/patency of the great saphenous vein at the proximal thigh. The femoral vein demonstrates appropriate compressibility and waveform variability. The deep femoral vein demonstrates appropriate compressibility and waveform variability. The popliteal vein demonstrates appropriate compressibility and waveform variability. There is normal compressibility at the tibioperoneal trunk. LEFT SIDE: The common femoral vein demonstrates appropriate compressibility and waveform variability. There is compressibility/patency of the great saphenous vein at the proximal thigh. The femoral vein demonstrates appropriate compressibility and waveform variability. The deep femoral vein demonstrates appropriate compressibility and waveform variability. The popliteal vein demonstrates appropriate compressibility and waveform variability. There is normal compressibility at the tibioperoneal trunk. IMPRESSION: 1. No right or left femoropopliteal venous thrombosis. If clinical concern/symptoms persist or worsen, short-interval follow-up study is suggested.
--- NOTE | 2025-02-12 20:16 | DVH ---
EXAM: CT CT L FOOT WO CONTRAST HISTORY: rule out abscess COMPARISON: CT CT R FOOT WO CONTRAST on DOS: 02/12/25, CT CT L FOOT WO CONTRAST on DOS: 09/08/24, MRI MRI L FOOT WO CONTRAST on DOS: 08/19/24, LEFT XR FOOT 3+ VIEWS on DOS: 08/18/24, RIGHT XR FOOT 3+ VIEWS on DOS: 08/18/24 TECHNIQUE: Noncontrast axial CT images of the left foot were performed. Sagittal and coronal reformatted images were obtained. This CT exam was performed using one or more of the following dose reduction techniques: Automated exposure control, adjustment of the mA and/or kv according to patient size, or the use of iterative reconstruction techniques. FINDINGS: There is diffuse demineralization of the bones. There is no fracture or subluxation. Moderate degenerative changes of the subtalar, tibiotalar joint, and midfoot Status post hallux amputation. No osseous erosion at the amputation site. Status post 2nd digit amputation. No significant soft tissue swelling. No large ulceration. No fluid collections. Severe atrophy of the intrinsic muscles of the foot. Atherosclerotic calcification of the posterior tibial artery and plantar arteries. IMPRESSION: S/p hallux and 2nd digit amputation without CT evidence of osteomyelitis. No abscess. MRI is more sensitive for osteomyelitis if clinically suspected. Severe demineralization /disuse osteopenia Severe atrophy of the intrinsic muscles of the foot Moderate-severe hindfoot and midfoot degenerative change
[2025-02-13] VITALS (8 sets, daily range): BP systolic 102–136; BP diastolic 51–78; PULSE 68–105; RESP 18; TEMP 97.7–99.3; O2SAT 97–100
[2025-02-13] MEDS: LINEZOLID 600MG/300ML 300 ML IV SCH (08:17)
[2025-02-13] MEDS: MEROPENEM 500MG IVPB 50 ML IV SCH (10:21)
[2025-02-13 13:40] LABS: Hematocrit 34.4 % (41.0-53.0); Hemoglobin 11.3 g/dL (13.5-17.5); Mean Corpuscular Hemoglobin 28.9 pg (28.0-32.0); Mean Corpuscular Volume 88.6 fL (80.0-100.0); Nucleated Red Blood Cells % 0.0 %
--- NOTE | 2025-02-13 13:45 | DVH ---
CLINICAL HISTORY: HYDRONEPHROSIS/CKD4 TECHNIQUE: Complete ultrasound exam of the kidneys and bladder was performed. COMPARISON: NM KIDNEY W/ FLOW and FUNCT W/ RX on DOS: 01/05/25, US KIDNEY on DOS: 08/19/24, US KIDNEY on DOS: 03/04/23, US KIDNEY on DOS: 08/23/22, US KIDNEY on DOS: 10/30/21 FINDINGS: The right kidney has normal echogenicity and measures 7.8 cm. There is no focal parenchymal abnormality or evidence for stone. There is mild hydronephrosis. The left kidney has normal echogenicity and measures 10.4 cm. There is no focal parenchymal abnormality or evidence for stone. There is no hydronephrosis. The bladder is not well seen, decompressed by Cannon catheter. IMPRESSION: Small right kidney with mild hydronephrosis
[2025-02-13 13:56] LABS: Alanine Aminotransferase 12 U/L (7-40); Albumin 3.7 g/dL (3.2-4.8); Alkaline Phosphatase 78 U/L (46-116); Anion Gap 14 (5-15); BUN/Creatinine Ratio 19.6 (10.0-20.0); Calcium 9.4 mg/dL (8.7-10.4); Potassium 3.9 mmol/L (3.5-5.1); Sodium 140 mmol/L (136-145); Total Protein 7.7 g/dL (5.7-8.2)
[2025-02-13 14:09] LABS: Bilirubin, Total 0.2 mg/dL (0.2-1.0); Blood Urea Nitrogen 60 mg/dL (9-23); Carbon Dioxide 19 mmol/L (20-31); Chloride 107 mmol/L (98-107); Glucose 106 mg/dL (74-106)
[2025-02-13 15:05] LABS: Urine Protein, UAD 1+ (Negative); Urine WBC Clumps PRESENT /hpf (None Seen)
--- NOTE | 2025-02-13 17:36 | DVHPN2 ---
Subjective looks rested/no complaints Changes from previous H/P or p: No Changes Objective Vitals Vital Signs Date Time Temp Pulse Resp B/P (MAP) Pulse Ox O2 Delivery O2 Flow Rate FiO2 02/13/25 09:00 99.0 105 18 136/51 (79) 100 99.0 02/13/25 07:30 Room Air* 0 21 Intake/Output Intake and Output 02/13/25 07:00 Intake Total 300 ml Balance 300 ml Intake Oral 300 ml General Appearance: Alert, Oriented X3, Cooperative, No acute distress Lungs: Clear to auscultation Cardiovascular: Regular rate, Normal S1, Normal S2 Abdomen: Normal bowel sounds, Soft, No tenderness, No hepatospenomegaly, No masses, Other (nephrostomy site clean) Neuro: Normal gait, Normal speech, Strength at 5/5 X4 ext, Sensation intact, C ranial nerves 3-12 NL Lymph: Lymphadenopathy Psych/Mental Status: Mental status NL, Mood NL Medications Current Medications Medications Dose Ordered Sig/Etienne Route Start Time Stop Time Status Last Admin Dose Admin Sodium Chloride 1,000 ml @ 60 mls/hr [id number] IV 02/12/25 16:30 02/12/25 16:30 60 MLS/HR Acetaminophen 650 mg Q6HP PRN PO 02/12/25 16:30 Acetaminophen/ Hydrocodone Bitart 1 tab Q4HP PRN PO 02/12/25 16:30 Meropenem 50 ml @ 17 mls/hr BID IV 02/13/25 10:00 02/13/25 10:21 17 MLS/HR Enteral Nutritional Formula 1,000 ml 30ML/HR GT 02/12/25 19:00 Linezolid 300 ml @ 150 mls/hr Q12H IV 02/13/25 08:00 02/13/25 08:17 150 MLS/HR Laboratory Results Laboratory Tests 02/13/25 13:10 Chemistry Test 02/13/25 13:10 Albumin 3.7 g/dL (3.2-4.8) Calcium Level 9.4 mg/dL (8.7-10.4) Total Protein 7.7 g/dL (5.7-8.2) LFT Test 02/13/25 13:10 Alanine Aminotransferase (ALT) 12 U/L (7-40) Alkaline Phosphatase 78 U/L (46-116) Aspartate Amino Transferase (AST) 18 U/L (13-40) Total Bilirubin 0.2 mg/dL (0.2-1.0) Urinalysis Test 02/13/25 14:09 Urine Color Colorless (Yellow) Urine Clarity Turbid (Clear) H Urine pH 6.5 (5.0-9.0) Urine Specific [place] 1.011 (1.001-1.035) Urine Protein 1+ (Negative) H Urine Ketones Negative (Negative) Urine Blood 2+ /uL (Negative) H Urine Nitrite 2+ (Negative) H Urine Bilirubin Negative (Negative) Urine Urobilinogen Normal mg/dL (Negative) Urine Leukocyte Esterase 3+ /uL (Negative) Urine RBC 27 /hpf (0 - 3) Urine WBC Clumps Present /hpf (None Seen) Urine Microscopic WBC 434 /HPF (0-3) H Urine Squamous Epithelial Cells None seen /hpf (<5) Urine Bacteria None seen /hpf (None Seen) Urine Glucose 3+ mg/dL (Normal) H Assessment/Plan Assessment/Plan nephrostomy dysfn uti/complicated uti healing ulcer left foot- more of dry scab now ckd4 h/o cva with residual weakness peg tube present but not in use for years Plan discussed with: Patient My Orders Orders - REKHA JUARES MD Procedure Category Date Status Time Urine Bacterial SHAWNA 02/13/25 Logged Culture 14:16 Basic Metabolic Panel LAB 02/14/25 Verified 04:00 Complete Blood Count LAB 02/14/25 Verified 04:00 Kidney US 02/13/25 Resulted 12:26 *Dr. Paiz [facility] CONS 02/13/25 Transmitted -[place] 12:27 Date of Service: Feb 13, 2025 Billing Provider: REKHA JUARES MD Common Visit Codes: [id number] INP/OBS CARE(MOD) REKHA JUARES MD Feb 13, 2025 17:36
[2025-02-14] VITALS (7 sets, daily range): BP systolic 103–125; BP diastolic 60–74; PULSE 80–107; RESP 15–19; TEMP 98.2–99.2; O2SAT 97–99
--- NOTE | 2025-02-14 11:42 | DVHINCON2 ---
Date of service: Feb 14, [address] Ronny Paiz Reason for Consultation Acute kidney injury History of Present Illness Patient is a 64-year-old male with past medical history significant for chronic kidney disease stage 4, obstructive uropathy, CVA, DM, and recurrent UTI'S is admitted because of dislodgement of the right nephrostomy tube. On admission patient found to have elevated BUN creatinine nephrology is consulted for acute kidney injury Past Medical History PAST MEDICAL HISTORY: Anemia, CKD stage IV, CVA, DM, UTI'S, obstructive uropathy Past Surgical History Right nephrostomy tube, Cannon catheter, PEG tube Allergies: Coded Allergies: NO KNOWN ALLERGIES (Unverified , 08/18/24) Home Meds Active Scripts Doxycycline (Monohydrate) (Doxycycline) 100 Mg Cap, 100 MG PO BID for 14 Days, #28 CAP Prov:WAQAS FLORES RESIDENT 09/15/24 Family History: Angina G8 FATHER Diabetes mellitus G8 MOTHER H&P Exam Vital Signs/I&O Vital Sign Date Time Temp Pulse Resp B/P (MAP) Pulse Ox O2 Delivery O2 Flow Rate FiO2 02/14/25 09:00 99.1 107 16 103/62 (76) 98 99.1 02/14/25 07:30 Room Air* 0 21 Intake and Output 02/13/25 02/14/25 19:00 07:00 Intake Total 590 ml 750 ml Output Total 875 ml 900 ml Balance -285 ml -150 ml Intake Oral 240 ml 400 ml IV Total 350 ml 350 ml Output Urine Total 875 ml 900 ml Labs/Diagnostic Data Labs/Diagnostic Data Laboratory Tests Test 02/13/25 14:09 02/13/25 13:10 02/12/25 21:05 02/12/25 12:44 Range/Units Urine Color Colorless Yellow Urine Clarity Turbid H Clear Urine pH 6.5 5.0-9.0 Urine Specific [place] 1.011 1.001-1.035 Urine Protein 1+ H Negative Urine Ketones Negative Negative Urine Blood 2+ H Negative /uL Urine Nitrite 2+ H Negative Urine Bilirubin Negative Negative Urine Urobilinogen Normal Negative mg/dL Urine Leukocyte Esterase 3+ Negative /uL Urine RBC 27 0 - 3 /hpf Urine WBC Clumps Present None Seen /hpf Urine Microscopic WBC 434 H 0-3 /HPF Urine Squamous Epithelial Cells None seen <5 /hpf Urine Bacteria None seen None Seen /hpf Urine Glucose 3+ H Normal mg/dL White Blood Count 16.0 H 17.2 H 4.4-10.8 10^3/uL Red Blood Count 3.89 L 4.27 L 4.5-5.90 10^6/uL Hemoglobin 11.3 L 12.4 L 13.5-17.5 g/dL Hematocrit 34.4 #L 40.1 L 41.0-53.0 % Mean Corpuscular Volume 88.6 # 94.0 80.0-100.0 fL Mean Corpuscular Hemoglobin 28.9 29.0 28.0-32.0 pg Mean Corpuscular Hemoglobin Concent 32.7 30.9 L 32.0-36.0 g/dL Red Cell Distribution Width 13.2 13.6 11.8-14.3 % Platelet Count 305 281 140-450 10^3/uL Mean Platelet Volume 6.8 L 6.4 L 6.9-10.8 fL Neutrophils (%) (Auto) 77.3 77.6 37.0-80.0 % Lymphocytes (%) (Auto) 13.4 13.1 10.0-50.0 % Monocytes (%) (Auto) 8.3 8.0 0.0-12.0 % Eosinophils (%) (Auto) 0.5 0.8 0.0-7.0 % Basophils (%) (Auto) 0.5 0.5 0.0-2.0 % Neutrophils # (Auto) 12.4 H 13.3 H 1.6-8.6 10 ^3/uL Lymphocytes # (Auto) 2.1 2.2 0.4-5.4 10 ^3/uL Monocytes # (Auto) 1.3 1.4 H 0-1.3 10 ^3/uL Eosinophils # (Auto) 0.1 0.1 0-0.8 10 ^3/uL Basophils # (Auto) 0.1 0.1 0-0.2 10 ^3/uL Nucleated Red Blood Cells 0.0 0.0 % Sodium Level 140 136-145 mmol/L Potassium Level 3.9 3.5-5.1 mmol/L Chloride Level 107 98-107 mmol/L Carbon Dioxide Level 19 L 20-31 mmol/L Anion Gap 14 5-15 Blood Urea Nitrogen 60 #H 9-23 mg/dL Creatinine 3.06 H 0.700-1.30 mg/dL Glomerular Filtration Rate Calc 22 >90 mL/min BUN/Creatinine Ratio 19.6 10.0-20.0 Serum Glucose 106 74-106 mg/dL Calcium Level 9.4 8.7-10.4 mg/dL Total Bilirubin 0.2 0.2-1.0 mg/dL Aspartate Amino Transferase (AST) 18 13-40 U/L Alanine Aminotransferase (ALT) 12 7-40 U/L Alkaline Phosphatase 78 46-116 U/L Total Protein 7.7 5.7-8.2 g/dL Albumin 3.7 3.2-4.8 g/dL Lactic Acid Level 1.8 0.4-2.0 mmol/L Test 02/12/25 12:37 Range/Units Prothrombin Time 10.9 9.3-11.8 sec Prothrombin Time INR 1.03 0.9-1.15 Activated Partial Thromboplast Time 25.6 24.5-34.5 SEC Sodium Level 138 136-145 mmol/L Potassium Level 3.4 L 3.5-5.1 mmol/L Chloride Level 110 H 98-107 mmol/L Carbon Dioxide Level 15 L 20-31 mmol/L Anion Gap 13 5-15 Blood Urea Nitrogen 48 H 9-23 mg/dL Creatinine 3.01 H 0.700-1.30 mg/dL Glomerular Filtration Rate Calc 22 >90 mL/min BUN/Creatinine Ratio 15.9 10.0-20.0 Serum Glucose 93 74-106 mg/dL Calcium Level 10.0 8.7-10.4 mg/dL Total Bilirubin 0.2 0.2-1.0 mg/dL Direct Bilirubin < 0.1 <0.3 mg/dL Aspartate Amino Transferase (AST) 17 13-40 U/L Alanine Aminotransferase (ALT) 12 7-40 U/L Alkaline Phosphatase 78 46-116 U/L Total Protein 8.8 H 5.7-8.2 g/dL Albumin 4.0 3.2-4.8 g/dL Microbiology Date/Time Source Procedure Growth Status 02/13/25 04:33 Nose MRSA Screen - Final Methicillin Resistant S.aureus Complete Assessment Acute kidney injury superimposed Chronic Kidney Disease secondary to obstructive uropathy Dislodgement of right nephrostomy tube Obstructive uropathy Metabolic acidosis Diabetes mellitus type 2 Anemia of chronic kidney disease CVA with left hemiplegia Urinary tract infection Recommendations Closely monitor fluid and electrolytes Avoid nephrotoxic medications Cannon catheter Strict I&Os I agree with IV fluid hydration IV antibiotics Urology consult Resume home medication Renal diet We will continue to follow Patient seen and examined by myself. I discussed my plan of care with the patient and primary nurse at the bedside I would like to thank Dr. Ronny Paiz for the consult, will follow up Plan discussed with: Patient DILMA YARBROUGH MD Feb 14, 2025 11:42
[2025-02-14 14:02] LABS: Hematocrit 32.4 % (41.0-53.0); Hemoglobin 10.5 g/dL (13.5-17.5); Mean Corpuscular Hemoglobin 29.2 pg (28.0-32.0); Mean Corpuscular Volume 90.6 fL (80.0-100.0); Nucleated Red Blood Cells % 0.0 %
[2025-02-14 14:14] LABS: Anion Gap 8 (5-15); Potassium 3.5 mmol/L (3.5-5.1); Sodium 136 mmol/L (136-145)
[2025-02-14 14:15] LABS: Calcium 9.4 mg/dL (8.7-10.4); Carbon Dioxide 19 mmol/L (20-31); Chloride 109 mmol/L (98-107)
--- NOTE | 2025-02-14 14:17 | DVHPN2 ---
Subjective looks rested/no complaints Changes from previous H/P or p: No Changes Objective Vitals Vital Signs Date Time Temp Pulse Resp B/P (MAP) Pulse Ox O2 Delivery O2 Flow Rate FiO2 02/14/25 09:00 99.1 107 16 103/62 (76) 98 99.1 02/14/25 07:30 Room Air* 0 21 Intake/Output Intake and Output 02/14/25 07:00 Intake Total 1340 ml Output Total 1775 ml Balance -435 ml Intake Oral 640 ml IV Total 700 ml Output Urine Total 1775 ml General Appearance: Alert, Oriented X3, Cooperative, No acute distress Lungs: Clear to auscultation Cardiovascular: Regular rate, Normal S1, Normal S2 Abdomen: Normal bowel sounds, Soft, No tenderness, No hepatospenomegaly, No masses, Other (nephrostomy site clean) Extremities: Other (has dry scam/superficial ulcer on left 3rd toe/s/p previous amputation i and 2nd toe) Neuro: Normal gait, Normal speech, Strength at 5/5 X4 ext, Sensation intact, C ranial nerves 3-12 NL Lymph: Lymphadenopathy Psych/Mental Status: Mental status NL, Mood NL Medications Current Medications Medications Dose Ordered Sig/Etienne Route Start Time Stop Time Status Last Admin Dose Admin Sodium Chloride 1,000 ml @ 60 mls/hr [id number] IV 02/12/25 16:30 02/14/25 01:52 60 MLS/HR Acetaminophen 650 mg Q6HP PRN PO 02/12/25 16:30 Acetaminophen/ Hydrocodone Bitart 1 tab Q4HP PRN PO 02/12/25 16:30 Meropenem 50 ml @ 17 mls/hr BID IV 02/13/25 10:00 02/14/25 11:40 17 MLS/HR Enteral Nutritional Formula 1,000 ml 30ML/HR GT 02/12/25 19:00 Linezolid 300 ml @ 150 mls/hr Q12H IV 02/13/25 08:00 02/14/25 08:33 150 MLS/HR Laboratory Results Laboratory Tests 02/14/25 13:41 Chemistry Test 02/14/25 13:41 Calcium Level Pending Urinalysis Test 02/13/25 14:09 Urine Color Colorless (Yellow) Urine Clarity Turbid (Clear) H Urine pH 6.5 (5.0-9.0) Urine Specific [place] 1.011 (1.001-1.035) Urine Protein 1+ (Negative) H Urine Ketones Negative (Negative) Urine Blood 2+ /uL (Negative) H Urine Nitrite 2+ (Negative) H Urine Bilirubin Negative (Negative) Urine Urobilinogen Normal mg/dL (Negative) Urine Leukocyte Esterase 3+ /uL (Negative) Urine RBC 27 /hpf (0 - 3) Urine WBC Clumps Present /hpf (None Seen) Urine Microscopic WBC 434 /HPF (0-3) H Urine Squamous Epithelial Cells None seen /hpf (<5) Urine Bacteria None seen /hpf (None Seen) Urine Glucose 3+ mg/dL (Normal) H Microbiology Microbiology Date/Time Source Procedure Growth Status 02/13/25 14:09 Voided Urine Urine Culture - Preliminary Resulted 02/13/25 04:33 Nose MRSA Screen - Final Methicillin Resistant S.aureus Complete 02/12/25 21:05 Blood Blood Culture - Preliminary NO GROWTH AFTER 24 HOURS OF INCUBATION. 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
[2025-02-14 14:20] LABS: BUN/Creatinine Ratio 15.4 (10.0-20.0); Blood Urea Nitrogen 44 mg/dL (9-23); Glucose 103 mg/dL (74-106)
--- NOTE | 2025-02-14 15:20 | MEDREC ---
[facility] Intervention Section I [facility] Intervention: Review courses of therapy (MRSA SCREEN POSITIVE CONSIDER ADDING MUPIROCIN 2% OINTMENT 1 APPLICATION IN EACH NOSTRIL BID FOR 5 DAYS ) [facility] PHARMACIST Feb 14, 2025 15:20
[2025-02-15] VITALS (8 sets, daily range): BP systolic 113–147; BP diastolic 71–89; PULSE 91–107; RESP 16–21; TEMP 98–99; O2SAT 97–100
--- NOTE | 2025-02-15 12:53 | DVHINCON2 ---
Date of service: Feb 15, 2025 Referring Physician Hospitalist Reason for Consultation dislodged right nephrostomy left renal stone History of Present Illness History Source: Patient, RN Notes, MD Notes, Old Records Exam Limitations: No limitations HPI 64-year-old male with past medical history of CKD, anemia, CVA, DVT, recurrent UTIs, and chronic nephrostomy tube dependence, presenting after accidental dislodgement of his right nephrostomy tube. He reports that the tube came out today and was unable to be replaced at home. He denies dysuria, hematuria, abdominal pain, nausea, vomiting, fever, chills, or flank pain. No recent antibiotics at home. He has a history of osteomyelitis and multiple toe amputations with chronic foot wounds, currently bandaged, with CT of both feet pending to evaluate for possible recurrence. He has a prior history of MDR urinary infections and recent osteomyelitis requiring IV antibiotics. In the ED, he was started on linezolid and meropenem due to concern for sepsis and past MDR pathogens. Vitals stable, remains afebrile. Ultrasound of the lower extremities was ordered due to prior DVT history, as anticoagulation is being held pending nephrostomy tube replacement. Past Medical History Anemia, CKD, CVA, DVT, recurrent UTIs, PAD Past Surgical History Nephrostomy tube due to renal calculi, Rnener catheter, PEG tube, multiple toe amputations. Social History Non-smoker. Denies alcohol use. Uses marijuana. Lives at home. Review of Systems As per HPI. All other systems reviewed and negative. Home Meds Active Scripts Doxycycline (Monohydrate) (Doxycycline) 100 Mg Cap, 100 MG PO BID for 14 Days, #28 CAP Prov:WAQAS FLORES RESIDENT 09/15/24 Past Medical History Patient Family History: Angina G8 FATHER Diabetes mellitus G8 MOTHER H&P Exam Vital Signs Vital Signs Date Time Temp Pulse Resp B/P (MAP) Pulse Ox O2 Delivery O2 Flow Rate FiO2 02/15/25 09:06 98.1 107 21 141/78 (99) 97 98.1 02/15/25 08:00 Room Air* 0 21 Labs/Xrays [place] [address] Ph: [phone] DIAGNOSTIC IMAGING Diagnostic Imaging Report : [id number] Signed PATIENT: MIRIAM ALLEN ACCT: [id number] UNIT: [id number] : 1960 LOC: [facility] ROOM / BED: 0274 / A AGE / SEX: 64 / M ADM STATUS: ADM IN SERVICE 1226 ORDERING PHYSICIAN: REKHA JUARES MD PROCEDURE(s): KIDUS - KIDNEY REASON: HYDRONEPHROSIS/CKD4 ORDER NUMBER(s): [id number], ACCESSION NUMBER(s): [id number] CLINICAL HISTORY: HYDRONEPHROSIS/CKD4 TECHNIQUE: Complete ultrasound exam of the kidneys and bladder was performed. COMPARISON: NM KIDNEY W/ FLOW and FUNCT W/ RX on DOS: 01/05/25, US KIDNEY on DOS: 08/19/24, US KIDNEY on DOS: 03/04/23, US KIDNEY on DOS: 08/23/22, US KIDNEY on DOS: 10/30/21 FINDINGS: The right kidney has normal echogenicity and measures 7.8 cm. There is no focal parenchymal abnormality or evidence for stone. There is mild hydronephrosis. The left kidney has normal echogenicity and measures 10.4 cm. There is no focal parenchymal abnormality or evidence for stone. There is no hydronephrosis. The bladder is not well seen, decompressed by Renner catheter. IMPRESSION: Small right kidney with mild hydronephrosis ATED BY: IZABELA LOVE MD DICTATED DATE/TIME: 02/13/25 1343 SIGNED BY: IZABELA LOVE MD SIGNED DATE/TIME: 02/13/25 1343 CC: Labs Test 02/14/25 13:41 02/13/25 14:09 02/13/25 13:10 02/12/25 21:05 Range/Units White Blood Count 15.5 H 4.4-10.8 10^3/uL Red Blood Count 3.58 L 4.5-5.90 10^6/uL Hemoglobin 10.5 L 13.5-17.5 g/dL Hematocrit 32.4 L 41.0-53.0 % Mean Corpuscular Volume 90.6 80.0-100.0 fL Mean Corpuscular Hemoglobin 29.2 28.0-32.0 pg Mean Corpuscular Hemoglobin Concent 32.2 32.0-36.0 g/dL Red Cell Distribution Width 13.4 11.8-14.3 % Platelet Count 258 140-450 10^3/uL Mean Platelet Volume 6.8 L 6.9-10.8 fL Neutrophils (%) (Auto) 72.3 37.0-80.0 % Lymphocytes (%) (Auto) 17.0 10.0-50.0 % Monocytes (%) (Auto) 9.6 0.0-12.0 % Eosinophils (%) (Auto) 0.6 0.0-7.0 % Basophils (%) (Auto) 0.5 0.0-2.0 % Neutrophils # (Auto) 11.2 H 1.6-8.6 10 ^3/uL Lymphocytes # (Auto) 2.6 0.4-5.4 10 ^3/uL Monocytes # (Auto) 1.5 H 0-1.3 10 ^3/uL Eosinophils # (Auto) 0.1 0-0.8 10 ^3/uL Basophils # (Auto) 0.1 0-0.2 10 ^3/uL Nucleated Red Blood Cells 0.0 % Sodium Level 136 136-145 mmol/L Potassium Level 3.5 3.5-5.1 mmol/L Chloride Level 109 H 98-107 mmol/L Carbon Dioxide Level 19 L 20-31 mmol/L Anion Gap 8 5-15 Blood Urea Nitrogen 44 #H 9-23 mg/dL Creatinine 2.86 H 0.700-1.30 mg/dL Glomerular Filtration Rate Calc 24 >90 mL/min BUN/Creatinine Ratio 15.4 10.0-20.0 Serum Glucose 103 74-106 mg/dL Calcium Level 9.4 8.7-10.4 mg/dL Urine Color Colorless Yellow Urine Clarity Turbid H Clear Urine pH 6.5 5.0-9.0 Urine Specific [place] 1.011 1.001-1.035 Urine Protein 1+ H Negative Urine Ketones Negative Negative Urine Blood 2+ H Negative /uL Urine Nitrite 2+ H Negative Urine Bilirubin Negative Negative Urine Urobilinogen Normal Negative mg/dL Urine Leukocyte Esterase 3+ Negative /uL Urine RBC 27 0 - 3 /hpf Urine WBC Clumps Present None Seen /hpf Urine Microscopic WBC 434 H 0-3 /HPF Urine Squamous Epithelial Cells None seen <5 /hpf Urine Bacteria None seen None Seen /hpf Urine Glucose 3+ H Normal mg/dL Total Bilirubin 0.2 0.2-1.0 mg/dL Aspartate Amino Transferase (AST) 18 13-40 U/L Alanine Aminotransferase (ALT) 12 7-40 U/L Alkaline Phosphatase 78 46-116 U/L Total Protein 7.7 5.7-8.2 g/dL Albumin 3.7 3.2-4.8 g/dL Lactic Acid Level 1.8 0.4-2.0 mmol/L Test 02/12/25 12:37 Range/Units Prothrombin Time 10.9 9.3-11.8 sec Prothrombin Time INR 1.03 0.9-1.15 Activated Partial Thromboplast Time 25.6 24.5-34.5 SEC Direct Bilirubin < 0.1 <0.3 mg/dL Microbiology Date/Time Source Procedure Growth Status 02/13/25 14:09 Voided Urine Urine Culture - Preliminary Resulted 02/13/25 04:33 Nose MRSA Screen - Final Methicillin Resistant S.aureus Complete 02/12/25 21:05 Blood Blood Culture - Preliminary NO GROWTH AFTER 48 HOURS OF INCUBATION. Resulted Assessment/Plan Problem List: (1) Nephrostomy tube displaced (2) OLGA (acute kidney injury) (3) Calculus of kidney (4) Unspecified hydronephrosis Plan NM renal scan with split function and lasix washout left PCNL on outpt basis left PCN vs stent placement keep renner to gravity drainage daily bmp monitor I&Os Plan discussed with: Patient, Other ANTWON BERRY NP Feb 15, 2025 12:53
--- NOTE | 2025-02-15 15:17 | DVHPN2 ---
Subjective Patient denies any symptoms at this time Reviewed: Care Plan, H&P, Labs, Medications Changes from previous H/P or p: No Changes General: Per HPI Objective Vitals Vital Signs Date Time Temp Pulse Resp B/P (MAP) Pulse Ox O2 Delivery O2 Flow Rate FiO2 02/15/25 13:00 98.2 102 16 132/89 (103) 97 98.2 02/15/25 08:00 Room Air* 0 21 Intake/Output Intake and Output 02/15/25 07:00 Intake Total 2100 ml Output Total 2050 ml Balance 50 ml Intake Oral 900 ml IV Total 700 ml Tube Feeding 500 ml Output Urine Total 2050 ml # Bowel Movements 1 General Appearance: Alert, Oriented X3, Cooperative, No acute distress Lungs: Clear to auscultation Cardiovascular: Regular rate, Normal S1, Normal S2 Abdomen: Normal bowel sounds, Soft, No tenderness, No hepatospenomegaly, No masses, Other (nephrostomy site clean) Extremities: Other (has dry scab/superficial ulcer on left 3rd toe/s/p previous amputation i and 2nd toe) Neuro: Normal gait, Normal speech, Strength at 5/5 X4 ext, Sensation intact, C ranial nerves 3-12 NL Lymph: Lymphadenopathy Psych/Mental Status: Mental status NL, Mood NL Medications Current Medications Medications Dose Ordered Sig/Etienne Route Start Time Stop Time Status Last Admin Dose Admin Sodium Chloride 1,000 ml @ 60 mls/hr [id number] IV 02/12/25 16:30 02/15/25 14:00 60 MLS/HR Acetaminophen 650 mg Q6HP PRN PO 02/12/25 16:30 Acetaminophen/ Hydrocodone Bitart 1 tab Q4HP PRN PO 02/12/25 16:30 Meropenem 50 ml @ 17 mls/hr BID IV 02/13/25 10:00 02/15/25 10:22 17 MLS/HR Linezolid 300 ml @ 150 mls/hr Q12H IV 02/13/25 08:00 02/15/25 08:25 150 MLS/HR Laboratory Results Laboratory Tests 02/14/25 13:41 Urinalysis Test 02/13/25 14:09 Urine Color Colorless (Yellow) Urine Clarity Turbid (Clear) H Urine pH 6.5 (5.0-9.0) Urine Specific [place] 1.011 (1.001-1.035) Urine Protein 1+ (Negative) H Urine Ketones Negative (Negative) Urine Blood 2+ /uL (Negative) H Urine Nitrite 2+ (Negative) H Urine Bilirubin Negative (Negative) Urine Urobilinogen Normal mg/dL (Negative) Urine Leukocyte Esterase 3+ /uL (Negative) Urine RBC 27 /hpf (0 - 3) Urine WBC Clumps Present /hpf (None Seen) Urine Microscopic WBC 434 /HPF (0-3) H Urine Squamous Epithelial Cells None seen /hpf (<5) Urine Bacteria None seen /hpf (None Seen) Urine Glucose 3+ mg/dL (Normal) H Microbiology Microbiology Date/Time Source Procedure Growth Status 02/13/25 14:09 Voided Urine Urine Culture - Final Methicillin Resistant S.aureus Complete 02/13/25 04:33 Nose MRSA Screen - Final Methicillin Resistant S.aureus Complete 02/12/25 21:05 Blood Blood Culture - Preliminary NO GROWTH AFTER 48 HOURS OF INCUBATION. 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 Total time spent with patient discussing and formulating plan of care: 35 minutes. This medical document was created using an electronic medical record system with [employer] computerized dictation system. Although this document has been carefully reviewed, there may still be some phonetic and typographical errors. These areas are purely typographical due to imperfections of the software programs, and do not reflect any compromise in the patient's medical care. Plan discussed with: Patient, Other (RN) My Orders Orders - KEVIN BALLARD NP Procedure Category Date Status Time Apply/Change Dressing CARLOS A 02/15/25 In Process 11:25 Cover Wound With Dry CARLOS A 02/15/25 In Process Dressing 11:25 Ok To Change Cannon ORDERS 02/15/25 Verified 15:10 Lidocaine Hcl (Glydo) PHA 02/15/25 Verified 15:15 Enoxaparin Sodium PHA 02/16/25 Verified (Lovenox) 10:00 Pantoprazole Tablet PHA 02/16/25 Verified (Protonix Tablet) 06:00 Ondansetron Hcl PHA 02/15/25 Verified (Zofran) 15:15 Date of Service: Feb 15, 2025 Billing Provider: KEVIN BALLARD NP Common Visit Codes: [id number] INP/OBS CARE(HIGH) KEVIN BALLARD NP Feb 15, 2025 15:17
[2025-02-15] MEDS: ONDANSETRON HCL 4 MG/2 ML VIAL IV PRN (15:39)
[2025-02-15] MEDS: LIDOCAINE 2% JELLY 11ml (GLYDO) UR ONE (17:01)
[2025-02-16] VITALS (7 sets, daily range): BP systolic 110–139; BP diastolic 67–88; PULSE 88–97; RESP 16–20; TEMP 97.4–98.4; O2SAT 96–100
[2025-02-16] MEDS: PANTOPRAZOLE 40 MG TAB PO SCH (05:54)
[2025-02-16 07:20] LABS: Hematocrit 31.1 % (41.0-53.0); Hemoglobin 9.7 g/dL (13.5-17.5); Mean Corpuscular Hemoglobin 29.7 pg (28.0-32.0); Mean Corpuscular Volume 94.9 fL (80.0-100.0); Nucleated Red Blood Cells % 0.0 %
[2025-02-16 07:31] LABS: Calcium 9.2 mg/dL (8.7-10.4); Chloride 106 mmol/L (98-107); Potassium 3.7 mmol/L (3.5-5.1); Sodium 137 mmol/L (136-145)
[2025-02-16 07:34] LABS: Anion Gap 10 (5-15)
[2025-02-16 07:35] LABS: Carbon Dioxide 21 mmol/L (20-31)
[2025-02-16 07:36] LABS: BUN/Creatinine Ratio 18.5 (10.0-20.0); Blood Urea Nitrogen 46 mg/dL (9-23); Glucose 111 mg/dL (74-106)
--- NOTE | 2025-02-16 09:54 | DVHPN2 ---
Subjective Patient denies any symptoms at this time Reviewed: Care Plan, H&P, Labs, Medications Changes from previous H/P or p: No Changes General: Per HPI Objective Vitals Vital Signs Date Time Temp Pulse Resp B/P (MAP) Pulse Ox O2 Delivery O2 Flow Rate FiO2 02/16/25 05:00 97.9 97 16 115/76 (89) 99 97.9 02/15/25 20:00 Room Air* 0 21 Intake/Output Intake and Output 02/16/25 07:00 Intake Total 2040 ml Output Total 2150 ml Balance -110 ml Intake Oral 1100 ml IV Total 940 ml Output Urine Total 2150 ml General Appearance: Alert, Oriented X3, Cooperative, No acute distress Lungs: Clear to auscultation Cardiovascular: Regular rate, Normal S1, Normal S2 Abdomen: Normal bowel sounds, Soft, No tenderness, No hepatospenomegaly, No masses, Other (nephrostomy site clean) Extremities: Other (has dry scab/superficial ulcer on left 3rd toe/s/p previous amputation i and 2nd toe) Neuro: Normal gait, Normal speech, Strength at 5/5 X4 ext, Sensation intact, C ranial nerves 3-12 NL Lymph: Lymphadenopathy Psych/Mental Status: Mental status NL, Mood NL Medications Current Medications Medications Dose Ordered Sig/Etienne Route Start Time Stop Time Status Last Admin Dose Admin Sodium Chloride 1,000 ml @ 60 mls/hr [id number] IV 02/12/25 16:30 02/15/25 14:00 60 MLS/HR Acetaminophen 650 mg Q6HP PRN PO 02/12/25 16:30 Acetaminophen/ Hydrocodone Bitart 1 tab Q4HP PRN PO 02/12/25 16:30 Meropenem 50 ml @ 17 mls/hr BID IV 02/13/25 10:00 02/15/25 23:21 17 MLS/HR Linezolid 300 ml @ 150 mls/hr Q12H IV 02/13/25 08:00 02/15/25 20:53 150 MLS/HR Enoxaparin Sodium 30 mg DAILY SC 02/16/25 10:00 Pantoprazole Sodium 40 mg DAILY@0600 PO 02/16/25 06:00 02/16/25 05:54 40 MG Ondansetron HCl 4 mg Q6HPRN PRN IV 02/15/25 15:15 02/15/25 15:39 4 MG Laboratory Results Laboratory Tests 02/16/25 05:49 Chemistry Test 02/16/25 05:49 Calcium Level 9.2 mg/dL (8.7-10.4) Urinalysis Test 02/13/25 14:09 Urine Color Colorless (Yellow) Urine Clarity Turbid (Clear) H Urine pH 6.5 (5.0-9.0) Urine Specific [place] 1.011 (1.001-1.035) Urine Protein 1+ (Negative) H Urine Ketones Negative (Negative) Urine Blood 2+ /uL (Negative) H Urine Nitrite 2+ (Negative) H Urine Bilirubin Negative (Negative) Urine Urobilinogen Normal mg/dL (Negative) Urine Leukocyte Esterase 3+ /uL (Negative) Urine RBC 27 /hpf (0 - 3) Urine WBC Clumps Present /hpf (None Seen) Urine Microscopic WBC 434 /HPF (0-3) H Urine Squamous Epithelial Cells None seen /hpf (<5) Urine Bacteria None seen /hpf (None Seen) Urine Glucose 3+ mg/dL (Normal) H Microbiology Microbiology Date/Time Source Procedure Growth Status 02/13/25 14:09 Voided Urine Urine Culture - Final Methicillin Resistant S.aureus Complete 02/13/25 04:33 Nose MRSA Screen - Final Methicillin Resistant S.aureus Complete 02/12/25 21:05 Blood Blood Culture - Preliminary NO GROWTH AFTER 72 HOURS OF INCUBATION. 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 Noted thrombocytopenia. We will continue to monitor given patient is on Zyvox. Cannon catheter exchange. Plans for Mag three renal scan today. Discussed with the patient mobility and use physical therapy. Patient states that he does not want physical therapy and states he has a caregiver at home. -continue Zyvox, Meropenem -hold Eliquis, start Lovenox prophylactic dose -urology consultation -PPI -repeat labs in a.m. Total time spent with patient discussing and formulating plan of care: 35 minutes. This medical document was created using an electronic medical record system with [employer] dictation system. Although this document has been carefully reviewed, there may still be some phonetic and typographical errors. These areas are purely typographical due to imperfections of the software programs, and do not reflect any compromise in the patient's medical care. Plan discussed with: Patient, Other (RN) My Orders Orders - KEVIN BALLARD NP Procedure Category Date Status Time Apply/Change Dressing CARLOS A 02/15/25 In Process 11:25 Cover Wound With Dry CARLOS A 02/15/25 In Process Dressing 11:25 Ok To Change Cannon ORDERS 02/15/25 Transmitted 15:10 Enoxaparin Sodium PHA 02/16/25 In Process (Lovenox) 10:00 Pantoprazole Tablet PHA 02/16/25 In Process (Protonix Tablet) 06:00 Ondansetron Hcl PHA 02/15/25 In Process (Zofran) 15:15 Date of Service: Feb 16, 2025 Billing Provider: KEVIN BALLARD NP Common Visit Codes: [id number] INP/OBS CARE(HIGH) KEVIN BALLARD NP Feb 16, 2025 09:54
[2025-02-16] MEDS: ENOXAPARIN SOD 30 MG/0.3 ML SYRINGE SC SCH (11:31)
--- NOTE | 2025-02-16 11:49 | DVHPN2 ---
Progress Note - Dictate Date Seen: Feb 16, 2025 Medical Necessity Reason Pt with a Central, PICC or Fol: Yes The following are medically ne: Renner Catheter Reason for renner catheter: Bladder Retention/Obstruc Subjective Adequate urine output , cooperative vital signs Vital Sign Date Time Temp Pulse Resp B/P (MAP) Pulse Ox O2 Delivery O2 Flow Rate FiO2 02/16/25 05:00 97.9 97 16 115/76 (89) 99 97.9 02/15/25 20:00 Room Air* 0 21 Total Intake and Output 02/15/25 02/15/25 02/16/25 15:00 23:00 07:00 Intake Total 350 ml 1440 ml 250 ml Output Total 1150 ml 1000 ml Balance 350 ml 290 ml -750 ml medications Current Medications Medications Dose Ordered Sig/Etienne Route Start Time Stop Time Status Last Admin Dose Admin Sodium Chloride 1,000 ml @ 60 mls/hr [id number] IV 02/12/25 16:30 02/15/25 14:00 60 MLS/HR Acetaminophen 650 mg Q6HP PRN PO 02/12/25 16:30 Acetaminophen/ Hydrocodone Bitart 1 tab Q4HP PRN PO 02/12/25 16:30 Meropenem 50 ml @ 17 mls/hr BID IV 02/13/25 10:00 02/15/25 23:21 17 MLS/HR Linezolid 300 ml @ 150 mls/hr Q12H IV 02/13/25 08:00 02/16/25 11:30 150 MLS/HR Enoxaparin Sodium 30 mg DAILY SC 02/16/25 10:00 02/16/25 11:31 30 MG Pantoprazole Sodium 40 mg DAILY@0600 PO 02/16/25 06:00 02/16/25 05:54 40 MG Ondansetron HCl 4 mg Q6HPRN PRN IV 02/15/25 15:15 02/15/25 15:39 4 MG objective Gen: nad, thin heent: nc/at, mmm lungs: cta anteriorly cvs: no rub ext: no edema laboratory and microbiology Laboratory Tests 02/16/25 05:49 Test 02/16/25 05:49 Range/Units Serum Glucose 111 H 74-106 mg/dL Assessment/Plan IMP: Acute kidney injury superimposed Chronic Kidney Disease secondary to obstructive uropathy Dislodgement of right nephrostomy tube Obstructive uropathy Metabolic acidosis Diabetes mellitus type 2 Anemia of chronic kidney disease CVA with left hemiplegia Urinary tract infection Recommendations - GFR improving with conservative means - noted plans for ongoing urologic management - recommendation and continue to target even fluid balance. - metabolic parameters acceptable, we will continue to follow. Plan discussed with: Other MACRINA OBANDO MD Feb 16, 2025 11:49
[2025-02-16] MEDS: ACETAMINOPHEN 325 MG TAB PO PRN (20:05)
[2025-02-16] MEDS ORDERED: MEROPENEM 1GM IVPB 50 ML IV SCH (22:00)
[2025-02-16] MEDS: MEROPENEM 1GM IVPB 50 ML IV SCH (23:09)
[2025-02-17 01:00] VITALS: BP 106/68; PULSE 89; RESP 19; TEMP 98.2; O2SAT 98
[2025-02-17 05:00] VITALS: BP 123/80; PULSE 87; RESP 19; TEMP 98; O2SAT 92
[2025-02-17 07:45] VITALS: RESP 18
[2025-02-17 09:00] VITALS: BP 109/73; PULSE 94; RESP 16; TEMP 98.2; O2SAT 99
[2025-02-17 09:11] LABS: Hematocrit 32.5 % (41.0-53.0); Hemoglobin 10.7 g/dL (13.5-17.5); Mean Corpuscular Hemoglobin 29.5 pg (28.0-32.0); Mean Corpuscular Volume 89.8 fL (80.0-100.0); Nucleated Red Blood Cells % 0.0 %
[2025-02-17 09:15] LABS: Anion Gap 8 (5-15); Carbon Dioxide 22 mmol/L (20-31); Chloride 107 mmol/L (98-107); Potassium 3.7 mmol/L (3.5-5.1); Sodium 137 mmol/L (136-145)
[2025-02-17 09:16] LABS: Calcium 9.4 mg/dL (8.7-10.4)
[2025-02-17 09:19] LABS: BUN/Creatinine Ratio 13.1 (10.0-20.0); Glucose 105 mg/dL (74-106)
[2025-02-17 09:20] LABS: Blood Urea Nitrogen 38 mg/dL (9-23)
[2025-02-17] MEDS ORDERED: SULF400T11 PO (13:05)
--- NOTE | 2025-02-17 13:06 | DVHDS2 ---
Discharge Summary Date of Admission Feb 12, 2025 at 16:23 Labs/Diagnostic Data: Laboratory Results Test 02/17/25 08:21 02/13/25 14:09 02/13/25 13:10 02/12/25 21:05 White Blood Count 9.2 10^3/uL (4.4-10.8) Red Blood Count 3.62 10^6/uL (4.5-5.90) Hemoglobin 10.7 g/dL (13.5-17.5) Hematocrit 32.5 % (41.0-53.0) Mean Corpuscular Volume 89.8 fL (80.0-100.0) Mean Corpuscular Hemoglobin 29.5 pg (28.0-32.0) Mean Corpuscular Hemoglobin Concent 32.8 g/dL (32.0-36.0) Red Cell Distribution Width 13.1 % (11.8-14.3) Platelet Count 264 10^3/uL (140-450) Mean Platelet Volume 6.7 fL (6.9-10.8) Neutrophils (%) (Auto) 74.1 % (37.0-80.0) Lymphocytes (%) (Auto) 16.7 % (10.0-50.0) Monocytes (%) (Auto) 7.3 % (0.0-12.0) Eosinophils (%) (Auto) 1.3 % (0.0-7.0) Basophils (%) (Auto) 0.6 % (0.0-2.0) Neutrophils # (Auto) 6.8 10 ^3/uL (1.6-8.6) Lymphocytes # (Auto) 1.5 10 ^3/uL (0.4-5.4) Monocytes # (Auto) 0.7 10 ^3/uL (0-1.3) Eosinophils # (Auto) 0.1 10 ^3/uL (0-0.8) Basophils # (Auto) 0.1 10 ^3/uL (0-0.2) Nucleated Red Blood Cells 0.0 % Sodium Level 137 mmol/L (136-145) Potassium Level 3.7 mmol/L (3.5-5.1) Chloride Level 107 mmol/L (98-107) Carbon Dioxide Level 22 mmol/L (20-31) Anion Gap 8 (5-15) Blood Urea Nitrogen 38 mg/dL (9-23) Creatinine 2.89 mg/dL (0.700-1.30) Glomerular Filtration Rate Calc 23 mL/min (>90) BUN/Creatinine Ratio 13.1 (10.0-20.0) Serum Glucose 105 mg/dL (74-106) Calcium Level 9.4 mg/dL (8.7-10.4) Urine Color Colorless (Yellow) Urine Clarity Turbid (Clear) Urine pH 6.5 (5.0-9.0) Urine Specific [place] 1.011 (1.001-1.035) Urine Protein 1+ (Negative) Urine Ketones Negative (Negative) Urine Blood 2+ /uL (Negative) Urine Nitrite 2+ (Negative) Urine Bilirubin Negative (Negative) Urine Urobilinogen Normal mg/dL (Negative) Urine Leukocyte Esterase 3+ /uL (Negative) Urine RBC 27 /hpf (0 - 3) Urine WBC Clumps Present /hpf (None Seen) Urine Microscopic WBC 434 /HPF (0-3) Urine Squamous Epithelial Cells None seen /hpf (<5) Urine Bacteria None seen /hpf (None Seen) Urine Glucose 3+ mg/dL (Normal) Total Bilirubin 0.2 mg/dL (0.2-1.0) Aspartate Amino Transferase (AST) 18 U/L (13-40) Alanine Aminotransferase (ALT) 12 U/L (7-40) Alkaline Phosphatase 78 U/L (46-116) Total Protein 7.7 g/dL (5.7-8.2) Albumin 3.7 g/dL (3.2-4.8) Lactic Acid Level 1.8 mmol/L (0.4-2.0) Test 02/12/25 12:37 Prothrombin Time 10.9 sec (9.3-11.8) Prothrombin Time INR 1.03 (0.9-1.15) Activated Partial Thromboplast Time 25.6 SEC (24.5-34.5) Direct Bilirubin < 0.1 mg/dL (<0.3) Other Laboratory Tests 02/17/25 08:21 Discharge Instruct/Medications Scheduled Doxycycline (Monohydrate) (Doxycycline), 100 MG PO BID Sulfamethoxazole-Trimethoprim (Bactrim), 1 TAB PO BID Discharge Statement: "Patient was advised to return to the ER or call 911 if any headaches, dizziness, shortness of breath, chest pain, abdominal pain, bleeding, fevers, or worsening of medical condition. Patient was counseled about treatment plan, medications, possible side effects, patientverbalized understanding. All questions were answered to the best of my ability. This discharge took greater then 30 minutes in planning, reviewing documentation, counseling the patient, and discussing with other team members." ASSESSMENT ASSESSMENT Assessment KEVIN BALLARD NP Feb 17, 2025 13:05
[2025-02-17 14:13] VITALS: BP 98/61; PULSE 99; RESP 16; TEMP 98.4; O2SAT 98
--- NOTE | 2025-02-17 14:42 | DVH ---
CLINICAL HISTORY: reassess hydronephrosis TECHNIQUE: Complete ultrasound exam of the kidneys and bladder was performed. COMPARISON: US KIDNEY on DOS: 02/13/25, US KIDNEY on DOS: 08/19/24, US KIDNEY on DOS: 03/04/23, US KIDNEY on DOS: 08/23/22, US KIDNEY on DOS: 10/30/21 FINDINGS: Evaluation is limited due to suboptimal image quality due to patient body habitus / bowel gas. The poorly seen right kidney has normal echogenicity and measures 8.7 cm. There is no focal parenchymal abnormality or evidence for stone. There is [id number] hydronephrosis. The left kidney has normal echogenicity and measures 10.6 cm. There is no focal parenchymal abnormality or evidence for stone. There is no hydronephrosis. The bladder is decompressed by Cannon catheter. IMPRESSION: [id number] right hydronephrosis
--- NOTE | 2025-02-17 15:22 | DVHDS2 ---
Discharge Summary Date of Admission Feb 12, 2025 at 16:23 Date of Discharge: Feb 17, 2025 Admitting Diagnosis Sepsis secondary to UTI Labs/Diagnostic Data: Laboratory Results Test 02/17/25 08:21 02/13/25 14:09 02/13/25 13:10 02/12/25 21:05 White Blood Count 9.2 10^3/uL (4.4-10.8) Red Blood Count 3.62 10^6/uL (4.5-5.90) Hemoglobin 10.7 g/dL (13.5-17.5) Hematocrit 32.5 % (41.0-53.0) Mean Corpuscular Volume 89.8 fL (80.0-100.0) Mean Corpuscular Hemoglobin 29.5 pg (28.0-32.0) Mean Corpuscular Hemoglobin Concent 32.8 g/dL (32.0-36.0) Red Cell Distribution Width 13.1 % (11.8-14.3) Platelet Count 264 10^3/uL (140-450) Mean Platelet Volume 6.7 fL (6.9-10.8) Neutrophils (%) (Auto) 74.1 % (37.0-80.0) Lymphocytes (%) (Auto) 16.7 % (10.0-50.0) Monocytes (%) (Auto) 7.3 % (0.0-12.0) Eosinophils (%) (Auto) 1.3 % (0.0-7.0) Basophils (%) (Auto) 0.6 % (0.0-2.0) Neutrophils # (Auto) 6.8 10 ^3/uL (1.6-8.6) Lymphocytes # (Auto) 1.5 10 ^3/uL (0.4-5.4) Monocytes # (Auto) 0.7 10 ^3/uL (0-1.3) Eosinophils # (Auto) 0.1 10 ^3/uL (0-0.8) Basophils # (Auto) 0.1 10 ^3/uL (0-0.2) Nucleated Red Blood Cells 0.0 % Sodium Level 137 mmol/L (136-145) Potassium Level 3.7 mmol/L (3.5-5.1) Chloride Level 107 mmol/L (98-107) Carbon Dioxide Level 22 mmol/L (20-31) Anion Gap 8 (5-15) Blood Urea Nitrogen 38 mg/dL (9-23) Creatinine 2.89 mg/dL (0.700-1.30) Glomerular Filtration Rate Calc 23 mL/min (>90) BUN/Creatinine Ratio 13.1 (10.0-20.0) Serum Glucose 105 mg/dL (74-106) Calcium Level 9.4 mg/dL (8.7-10.4) Urine Color Colorless (Yellow) Urine Clarity Turbid (Clear) Urine pH 6.5 (5.0-9.0) Urine Specific [place] 1.011 (1.001-1.035) Urine Protein 1+ (Negative) Urine Ketones Negative (Negative) Urine Blood 2+ /uL (Negative) Urine Nitrite 2+ (Negative) Urine Bilirubin Negative (Negative) Urine Urobilinogen Normal mg/dL (Negative) Urine Leukocyte Esterase 3+ /uL (Negative) Urine RBC 27 /hpf (0 - 3) Urine WBC Clumps Present /hpf (None Seen) Urine Microscopic WBC 434 /HPF (0-3) Urine Squamous Epithelial Cells None seen /hpf (<5) Urine Bacteria None seen /hpf (None Seen) Urine Glucose 3+ mg/dL (Normal) Total Bilirubin 0.2 mg/dL (0.2-1.0) Aspartate Amino Transferase (AST) 18 U/L (13-40) Alanine Aminotransferase (ALT) 12 U/L (7-40) Alkaline Phosphatase 78 U/L (46-116) Total Protein 7.7 g/dL (5.7-8.2) Albumin 3.7 g/dL (3.2-4.8) Lactic Acid Level 1.8 mmol/L (0.4-2.0) Test 02/12/25 12:37 Prothrombin Time 10.9 sec (9.3-11.8) Prothrombin Time INR 1.03 (0.9-1.15) Activated Partial Thromboplast Time 25.6 SEC (24.5-34.5) Direct Bilirubin < 0.1 mg/dL (<0.3) Other Laboratory Tests 02/17/25 08:21 Brief Hx & Hospital Course: History of Present Illness 64-year-old male with past medical history of CKD, anemia, CVA, DVT, recurrent UTIs, and chronic nephrostomy tube dependence, presenting after accidental dislodgement of his right nephrostomy tube. He reports that the tube came out today and was unable to be replaced at home. He denies dysuria, hematuria, abdominal pain, nausea, vomiting, fever, chills, or flank pain. No recent antibiotics at home. He has a history of osteomyelitis and multiple toe amputations with chronic foot wounds, currently bandaged, with CT of both feet pending to evaluate for possible recurrence. He has a prior history of MDR urinary infections and recent osteomyelitis requiring IV antibiotics. In the ED, he was started on linezolid and meropenem due to concern for sepsis and past MDR pathogens. Vitals stable, remains afebrile. Ultrasound of the lower extremities was ordered due to prior DVT history, as anticoagulation is being held pending nephrostomy tube replacement. Course of hospitalization: Patient was found to have MRSA in the urine. Urology consultation was obtained. Patient was continued on Zyvox, with Meropenem being stopped during hospitalization. Patient's white blood cell count normalized. Ultrasound of right kidney at time of admission reveals mild hydronephrosis. Patient has been awaiting for Mag three renal scan for the past three days, which has not been done in this facility. Patient is wishing to be discharged home given his improvement with his infection. He states that he does not want to have home physical therapy. He also reports that he does not want to have a new nephrostomy tube placed. Repeat kidney ultrasound was performed, with imaging showing [id number] hydronephrosis. Patient has been making adequate urine output. BUN and creatinine has been stabilized. Patient has been seen by Nephrology with recommendations reviewed, no recommendations at this time. As requested, patient will be discharged home and is instructed to follow up with his PCP as well as Urology in 2-3 weeks. Transportation will be made available for with the patient, as well as patient having home health services for continuation of wound care to his bilateral lower extremities. Patient was agreeable with discharge plan. All questions answered. Physical examination General: Alert and Oriented x3. No acute distress. Well-nourished. Eyes: EOMI. Anicteric. HENT: Moist mucous membranes. Lungs: Clear to auscultation bilaterally. No accessory muscle use. Cardiovascular: Regular rate and rhythm. No murmur. No JVD. Abdomen: Soft, non-tender and non-distended. No palpable masses. Extremities: No edema. Non-tender. Amputations noted to lower extremity digits Skin: No rashes or lesions. Warm. Neurologic: No focal neurological deficits. CN II-XII grossly intact, but not individually tested. Psychiatric: Cooperative. Appropriate mood and affect. Total time spent with patient discussing and formulating plan of care: 35 minutes. This medical document was created using an electronic medical record system with [employer] dictation system. Although this document has been carefully reviewed, there may still be some phonetic and typographical errors. These areas are purely typographical due to imperfections of the software programs, and do not reflect any compromise in the patient's medical care. Consults/Reason for consult Urology: nephrostomy tube. 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 Patient was counseled about treatment plan, medications, possible side effects, patientverbalized understanding. All questions were answered to the best of my ability. This discharge took greater then 30 minutes in planning, reviewing documentation, counseling the patient, and discussing with other team members." ASSESSMENT ASSESSMENT Assessment Date of Service: Feb 17, 2025 Billing Provider: KEVIN BALLARD NP Common Visit Codes: [id number]/OBS DISCH DAY >30min KEVIN BALLARD NP Feb 17, 2025 15:22
[2025-02-17 17:00] VITALS: BP 131/79; PULSE 102; RESP 16; TEMP 98.3; O2SAT 99
--- NOTE | 2025-02-17 19:36 | DVHPN2 ---
Progress Note - Dictate Date Seen: Feb 17, 2025 Medical Necessity Reason Pt with a Central, PICC or Fol: Yes The following are medically ne: Renner Catheter Reason for renner catheter: Bladder Retention/Obstruc Subjective Patient resting comfortably, earlier this evening vital signs Vital Sign Date Time Temp Pulse Resp B/P (MAP) Pulse Ox O2 Delivery O2 Flow Rate FiO2 02/17/25 17:00 98.3 102 16 131/79 (96) 99 98.3 02/17/25 07:45 Room Air* 0 21 Total Intake and Output 02/16/25 02/16/25 02/17/25 14:59 22:59 06:59 Intake Total 1175 ml 850 ml Output Total 1300 ml 900 ml Balance -125 ml -50 ml medications Current Medications Medications Dose Ordered Sig/Etienne Route Start Time Stop Time Status Last Admin Dose Admin Sodium Chloride 1,000 ml @ 60 mls/hr [id number] IV 02/12/25 16:30 02/15/25 14:00 60 MLS/HR Acetaminophen 650 mg Q6HP PRN PO 02/12/25 16:30 02/16/25 20:05 650 MG Acetaminophen/ Hydrocodone Bitart 1 tab Q4HP PRN PO 02/12/25 16:30 Linezolid 300 ml @ 150 mls/hr Q12H IV 02/13/25 08:00 02/17/25 08:42 150 MLS/HR Enoxaparin Sodium 30 mg DAILY SC 02/16/25 10:00 02/17/25 08:43 30 MG Pantoprazole Sodium 40 mg DAILY@0600 PO 02/16/25 06:00 02/17/25 05:52 40 MG Ondansetron HCl 4 mg Q6HPRN PRN IV 02/15/25 15:15 02/15/25 15:39 4 MG Meropenem 50 ml @ 17 mls/hr Q12HR IV 02/16/25 22:00 02/17/25 08:43 17 MLS/HR objective Gen: nad, thin heent: nc/at, mmm lungs: cta anteriorly cvs: no rub ext: no edema laboratory and microbiology Laboratory Tests 02/17/25 08:21 Test 02/17/25 08:21 Range/Units Serum Glucose 105 74-106 mg/dL Assessment/Plan IMP: Acute kidney injury superimposed Chronic Kidney Disease secondary to obstructive uropathy Dislodgement of right nephrostomy tube Obstructive uropathy Metabolic acidosis Diabetes mellitus type 2 Anemia of chronic kidney disease CVA with left hemiplegia Urinary tract infection Recommendations - noted plans for discharge from the hospital. - we will plan for outpatient follow up in [facility] To follow kidney function. Plan discussed with: Other MACRINA OBANDO MD Feb 17, 2025 19:36
== END 2025-02-17 20:00 | disposition home health service (06) | DRG 698 ==
LOC: ER 11:39 → EDBD 11:39 → OVERFLOW 16:23 → WEST WING 23:44
PROVIDERS: ADMIT Nurse Practitioner Acute Care; ATTEND Nurse Practitioner Acute Care
DX: T83.512A Infection and inflammatory reaction due to nephrostomy catheter, initial encounter (principal); A41.02 Sepsis due to Methicillin resistant Staphylococcus aureus; N17.0 Acute kidney failure with tubular necrosis; E87.20 Acidosis, unspecified; N13.6 Pyonephrosis; N18.4 Chronic kidney disease, stage 4 (severe); D63.1 Anemia in chronic kidney disease; I69.354 Hemiplegia and hemiparesis following cerebral infarction affecting left non-dominant side; E11.22 Type 2 diabetes mellitus with diabetic chronic kidney disease; N13.9 Obstructive and reflux uropathy, unspecified; E11.621 Type 2 diabetes mellitus with foot ulcer; L97.529 Non-pressure chronic ulcer of other part of left foot with unspecified severity; T83.022A Displacement of nephrostomy catheter, initial encounter; E11.51 Type 2 diabetes mellitus with diabetic peripheral angiopathy without gangrene; Z74.01 Bed confinement status; Z86.718 Personal history of other venous thrombosis and embolism; Z87.440 Personal history of urinary (tract) infections; Z87.442 Personal history of urinary calculi; Z83.3 Family history of diabetes mellitus; Z82.49 Family history of ischemic heart disease and other diseases of the circulatory system; Y84.8 Other medical procedures as the cause of abnormal reaction of the patient, or of later complication, without mention of misadventure at the time of the procedure; Y92.89 Other specified places as the place of occurrence of the external cause
CPT/HCPCS: 36415; 71045; 73700; 76775; 80048; 80053; 80076; 81001; 83605; 85025; 85610; 85730; 87040; 87081; 87086; 87088; 87186; 93970; 96365; 99291; G0378; J2185; J2405